=== PATIENT | male | born 1955 | race Caucasian/White ===

== ENCOUNTER 2020-03-28 09:11 | Outpatient (CLI) | payer MEDICAID, SELFPAY ==
--- NOTE | 2020-03-28 09:22 | CT_ITS ---
WS: [id number] CT LUNG CANCER SCREENING DLP: 99.55 mGy.cm DIvol: 2.73 mGy CLINICAL INFORMATION SCREENING VISIT: Baseline COMPARISON: None available. FINDINGS Diagnostic quality: Satisfactory Comments: None. Lung Nodules: 2 mm nodule periphery LEFT upper lobe, image 35 of series 3. Very nonspecific 3 mm nodu le in the LEFT mainstem bronchus. Lungs: Hyperexpansion. Heart: Mild enlargement the heart chambers. Dense calcification along the mitral annular valve plane. Extensive coronary artery calcifications. Other findings: Very mild enlargement of the pulmonary artery measuring 2.9 cm. Mild atherosclerosis aorta. Small mediastinal and hilar lymph nodes. Mild anterior wedging of T11. CT/CT lung screening [id number] IMPRESSION: LUNG-RADS: 2S-Benign Appearance or Behavior with Significant Findings FOLLOW UP: 12 Month: Continue annual screening with LDCT 1. Severe coronary artery calcifications. 2. Mild atherosclerosis aorta.
== END 2020-03-28 09:12 | disposition home or self-care (01) ==
LOC: RAD 09:14
PROVIDERS: PCP Internal Medicine; Visit Provider Internal Medicine
DX: Z12.2 Encounter for screening for malignant neoplasm of respiratory organs (principal); F17.200 Nicotine dependence, unspecified, uncomplicated; I25.10 Atherosclerotic heart disease of native coronary artery without angina pectoris; I70.0 Atherosclerosis of aorta
CPT/HCPCS: G0297

== ENCOUNTER 2020-07-03 11:55 | Emergency (ER) | payer MEDICAID, SELFPAY ==
[2020-07-03 12:01] VITALS: BP 168/103; PULSE 65; RESP 18; TEMP 36.8; O2SAT 99; BMI 25.9
[2020-07-03 12:20] VITALS: BP 168/104; PULSE 66; RESP 17; TEMP 36.7
--- NOTE | 2020-07-03 12:20 | W.ED.DENTAL ---
HPI - Dental/Oral General: Chief complaint: Skin/Abscess/Foreign Body Stated complaint: side of face swollen/tooth Time Seen by Provider: 07/03/20 12:11 History of Present Illness: HPI Narrative: 64-year-old male patient presents to the emergency department with 1 day onset of dental pain. He reports facial tenderness and swelling left upper cheek. Onset at 3 AM this morning. He reports history of poor dentition, difficulty with obtaining dentistry secondary to insurance. He denies difficulty swallowing, drooling or breathing. He is requesting antibiotics. MD Complaint: tooth pain Location: Tooth # Teeth map: 1. Onset (ago): day(s) (1) Duration: constant Severity: moderate Severity scale (1-10): 5 Exacerbating factors: chewing and cold Context: history of dental caries Associated symptoms: Reports no associated symptoms; Denies fever(s) Treatment prior to arrival: none Review of Systems General: Reports: 10 or more systems reviewed and unremarkable except in HPI and below Const: Denies: fever(s), chills or diaphoresis Eyes: Denies: blurry vision or eye redness ENMT: Reports: dental pain; Denies: throat pain, uvular edema, mouth pain, halitosis, disequilibrium, nasal congestion or nasal obstruction Card: Denies: chest pain, palpitations or irregular heart rhythm Resp: Denies: dyspnea, productive cough, non-productive cough or wheezing GI: Denies: abdominal pain, nausea or vomiting : Denies: dysuria Musc: Denies: back pain Skin/Breast: Denies: rash or pruritus Neuro: Denies: headache(s), weakness in extremities or behavioral changes Lc/Lymph: Denies: easy bruising PFSH ED PFSH: Medical History Atrial fibrillation CAD (coronary artery disease) Fatigue EKG from today revealed sinus rhythm with features of LVH. ST-T changes in the high lateral leads. Occasional PVCs. No significant new changes. Hepatitis C HTN (hypertension) Hyperlipidemia IHSS (idiopathic hypertrophic subaortic stenosis) Smoker Surgical History S/P appendectomy S/P coronary artery stent placement Family History Other Hypertension Social History Smoking and tobacco status: current every day smoker Alcohol intake: former Physical Exam Const: COMMON NORMALS: no acute distress, patient oriented x3, healthy appearing and alert GENERAL APPEARANCE: cooperative, comfortable and well hydrated HENMT: COMMON NORMALS: normocephalic, atraumatic, external ears normal, EAC's normal, TM's normal bilaterally, Normal external nose present and moist oral mucous membranes HEAD & SCALP: normocephalic and atraumatic FACE & SINUS: sinus tenderness maxillary (left), edema on the left and Facial tenderness on exam of face and sinuses (left cheek) on the left NOSE: Normal external nose present EXTERNAL EAR: Yes external ears normal EXTERNAL AUDITORY CANAL: EAC's normal TYMPANIC MEMBRANE: TM's normal bilaterally MOUTH: Normal oral and palatal mucosa present, tongue normal and lip abnormal (left upper lip edema present); lip not normal, no drooling, no mouth trauma and no trismus TEETH & GINGIVA: Yes abnormal tooth and associated gingiva, Yes caries and Yes gingiva abnormal TEETH & GINGIVA IMAGES: 1. avulsion with gum edema and erythema/tenderness Negative Elizabeth's angina THROAT: posterior oropharynx normal, tonsils normal and uvula midline; no uvular edema Eye: COMMON NORMALS: Equal, round and reactive pupils present and EOMs intact bilaterally GENERAL EYE: appearance normal, both eyes and all related structures PUPIL: Yes Equal, round and reactive pupils present Neck/C-Spine: COMMON NORMALS: full ROM and no lymphadenopathy GENERAL: Yes normal visual inspection and Yes trachea midline CERVICAL SPINE: Yes cervical ROM normal Lymph: LYMPHATIC: no lymphadenopathy noted Chest: COMMONS NORMALS: normal inspection of the chest Resp: COMMON NORMALS: normal respiratory effort and clear to auscultation bilaterally AUSCULTATION: clear to auscultation bilaterally Cardio: COMMON NORMALS: regular rhythm, S1 normal heart sound present, S2 normal heart sound present and Peripheral pulses 2+ throughout RHYTHM: regular rhythm HEART SOUNDS: S1 normal heart sound present and S2 normal heart sound present PERIPHERAL PULSES: Peripheral pulses 2+ throughout GI: COMMON NORMALS: Soft to palpation and non-tender INSPECTION: Yes normal to inspection PALPATION: Yes Soft to palpation : COMMON NORMALS: Yes no CVA tenderness BLADDER/KIDNEY EXAM: Yes no CVA tenderness Back/Pelvis: COMMON NORMALS: no CVA tenderness and thoracic and lumbar spine normal to inspection Extremity: COMMON NORMALS: normal to inspection and capillary refill normal Neuro: COMMON NORMALS: patient oriented x3 and no focal motor deficits SENSORIUM/ORIENTATION: Yes alert Psych: COMMON NORMALS: mental status grossly normal, Normal thought process present and cooperative ACTIVITY/MOTOR BEHAVIOR: Yes appropriate eye contact THOUGHT PROCESS: Normal thought process present Skin: COMMON NORMALS: no rashes or lesions noted and turgor normal GENERAL SKIN EXAM: no rashes or lesions noted and turgor normal Course ED course: 64-year-old male patient presents to the emergency department with left upper incisor dental abscess. Clindamycin prescribed to the patient. He declined need for oral pain medication. Agrees to follow-up with dentistry but says has been difficult. I advised need to follow-up with dentistry in 10 days. Advised to return to the emergency department if he develops increased facial swelling with tenderness or drooling/difficulty breathing. Verbalized understanding. Advised to take clindamycin until all gone and monitor for diarrhea. Vital Signs: Vital signs: Vital Signs Temperature 97.6 F 07/03/20 12:50 Pulse Rate 63 07/03/20 12:50 Respiratory Rate 18 07/03/20 12:50 Blood Pressure 162/99 07/03/20 12:50 Pulse Oximetry 95 07/03/20 12:50 Discharge Plan Discharge Patient Disposition: Home Clinical Impression: Pain, dental, Abscess, dental Condition: Stable Prescriptions: New clindamycin HCl 300 mg capsule 300 mg PO QID 7 Days Qty: 28 RF: 0 No Action chlorthalidone 25 mg tablet 25 mg PO DAILY 30 Days Qty: 30 RF: 5 potassium chloride 8 mEq capsule, extended release 8 meq PO DAILY 30 Days Qty: 30 RF: 5 Eliquis 5 mg tablet 5 mg PO BID RF: 0 amlodipine 10 mg tablet 10 mg PO DAILY RF: 0 atorvastatin 40 mg tablet 40 mg PO DAILY RF: 0 metoprolol tartrate 50 mg tablet 50 mg PO BID RF: 0 pantoprazole [Protonix] 40 mg tablet,delayed release (DR/EC) 40 mg PO DAILY RF: 0 benazepril 40 mg tablet 40 mg PO DAILY Qty: 30 RF: 11 Discharge Orders: Discharge Order (Routine); Ordered 07/03/20 Ordered By: Maye Ugalde Referrals: Ansley,Ya Mora, MD [Primary Care Provider] - Discharge Diet: GI Soft Discharge Activity: Resume usual activity Patient Instructions: Dental Abscess (ED), Dental Caries (ED), Toothache (ED) Activity Restrictions/Additional Instructions: #1 warm salt water swish and spit several times daily. May alternate with hydrogen peroxide. #2 take antibiotics until all gone #3 make sure to follow up with your dentist within 10 days #4 avoid chewing on the affected side #5 warm compresses to the affected side of the face may help with pain #6 sleeping with the head of the bed elevated may help to decrease facial swelling #7 return to the emergency room immediately if you have any difficulty breathing, swelling of the throat, swelling of the neck or chin, or failure to improve within [] days. #8 avoid hot or cold foods and drinks #9 may use dental wax to wrap around the affected teeth or tooth. This may help with sensitivity. Take Tylenol/ibuprofen to help with pain. Discharge Date/Time: 07/03/20 12:54 Coding Level of Care Code ED Process Lead for Yajaira Fwmegan Exam Comprehensive
[2020-07-03 12:50] VITALS: BP 162/99; PULSE 63; RESP 18; TEMP 36.4; O2SAT 95
== END 2020-07-03 12:54 | disposition home or self-care (01) ==
PROVIDERS: Emergency Provider Nurse Practitioner Family; PCP Internal Medicine
DX: K04.7 Periapical abscess without sinus (principal); Z79.01 Long term (current) use of anticoagulants; I48.91 Unspecified atrial fibrillation; I25.10 Atherosclerotic heart disease of native coronary artery without angina pectoris; Z86.19 Personal history of other infectious and parasitic diseases; I10 Essential (primary) hypertension; E78.5 Hyperlipidemia, unspecified; F17.210 Nicotine dependence, cigarettes, uncomplicated
CPT/HCPCS: 12345; 99283

== ENCOUNTER 2020-08-13 12:18 | Outpatient (CLI) | payer MEDICAID, SELFPAY ==
--- NOTE | 2020-08-13 12:45 | USCV_ITS ---
Pratik Garcia Age: 64 Gender: M : 1955 Exam Date: 08/13/2020 13:02 Ordering Phys: Landy Ivy MD ([email or web address]) Technologist: Maggy Bonilla Exam Location: [facility] – [place] Indication: MURMUR BP: 129 / 72 HR: 61 Rhythm: Sinus Technical Quality: Adequate MEASUREMENTS (Male / Female) Normal Values 2D ECHO LV Diastolic Diameter PLAX 3.3 cm 4.2 - 5.9 / 3.9 - 5.3 cm LV Systolic Diameter PLAX 2.6 cm LV Chamber Size 4.0 cm IVS Diastolic Thickness 1.8 cm 0.6 - 1.0 / 0.6 - 0.9 cm IVS Systolic Thickness 1.7 cm LVPW Diastolic Thickness 1.5 cm 0.6 - 1.0 / 0.6 - 0.9 cm LVPW Systolic Thickness 2.0 cm RV Chamber Size 3.0 cm LVOT Diameter 2.1 cm LV Ejection Fraction 2D Teich 43.1 % LV Ejection Fraction MOD 2C 39.1 % LV Ejection Fraction 2C AL 39.0 % LA Diameter 3.7 cm LA Width 3.0 cm LA Height 4.4 cm RA Width 2.4 cm RA Height 3.6 cm M-MODE LV Diastolic Diameter MM 5.1 cm 4.2 - 5.9 / 3.9 - 5.3 cm LV Systolic Diameter MM 2.2 cm LV Ejection Fraction MM Teich 87.6 % IVS Diastolic Thickness MM 1.0 cm 0.6 - 1.0 / 0.6 - 0.9 cm IVS Systolic Thickness MM 1.7 cm LVPW Diastolic Thickness MM 1.5 cm 0.6 - 1.0 / 0.6 - 0.9 cm LVPW Systolic Thickness MM 1.7 cm Aortic Annulus Diameter 3.0 cm LA Ao Ratio MM 1.4 MV E Point Septal Separation 0.3 cm DOPPLER AV Peak Velocity 229.0 cm/s LVOT Peak Velocity 157.0 cm/s AV Area Cont Eq vti 2.2 cm squared AV Area Cont Eq pk 2.4 cm squared MV Area PHT 3.1 cm squared Mitral E to A Ratio 0.8 MV E' Velocity 45.0 cm/s Mitral E to MV E' Ratio 15.3 Mitral E to LV E' Lateral Ratio 14.5 Mitral E to LV E' Septal Ratio 16.2 TR Peak Velocity 234.8 cm/s TR Peak Gradient 22.0 mmHg TV Peak E Velocity 61.0 cm/s Right Atrial Pressure 3.0 mmHg Pulmonary Artery Systolic Pressu 25.0 mmHg PV Peak Velocity 103.0 cm/s RV Acceleration Time 0.1 s RV Ejection Time 0.3 s RV AcT/ET 0.3 FINDINGS Left Ventricle Severe concentric left renal hypertrophy with an ejection fraction of 88%. There appears to be flow turbulence tubers the LV outflow tract. Outflow gradient was not obtained properly.Grade I/IV diastolic dysfunction (abnormal relaxation filling pattern), normal to mildly elevated filling pressures. Right Ventricle Normal right ventricular size and systolic function. Right Atrium Normal right atrial size. Left Atrium Appears to be mildly dilated. Mitral Valve Heavy posterior mitral annular calcification. Mild to moderate mitral regurgitation. Aortic Valve Some thickening of the aortic valve. Tricuspid Valve No gross abnormalities noted.trace tricuspid valve regurgitation. Pulmonic Valve Pulmonic valve not well visualized. Pericardium No pericardial effusion. Aorta Normal aortic annulus size. CONCLUSIONS 1. Severe concentric left renal hypertrophy with a supranormal ejection fraction of 88%. He has features of hypertrophic obstructive cardiomyopathy. However the gradient across the outflow tract was not obtained properly. The Doppler study of the outflow tract need to be repeated. 2.Type I diastolic dysfunction. 3. Mild left atrial enlargement. 4. Heavy posterior mitral annular calcification. 5. Mild to moderate mitral regurgitation 6. Trace of tricuspid regurgitation 7. Possibly normal pulmonary artery pressure. Because of the poor Doppler signals, PA pressure estimation could be misleading 8. No intracardiac masses or pericardial effusion. Need to repeat the Doppler examination of the LV outflow tract Dr Landy Ivy MD [facility] (Electronically Signed) Final Date: 17 August 2020 19:03 S
== END 2020-08-13 12:19 | disposition home or self-care (01) ==
LOC: US 12:21
PROVIDERS: PCP Internal Medicine; Visit Provider Internal Medicine Cardiovascular Disease
DX: R01.1 Cardiac murmur, unspecified (principal); I08.1 Rheumatic disorders of both mitral and tricuspid valves
CPT/HCPCS: 93306

== ENCOUNTER → 2020-09-24 11:23 | Outpatient (BNVA) | payer MEDICAID, SELFPAY | PROVIDERS: PCP Internal Medicine; Visit Provider Internal Medicine Cardiovascular Disease | DX: R07.9 Chest pain, unspecified (principal); R53.82 Chronic fatigue, unspecified; R07.89 Other chest pain; I42.1 Obstructive hypertrophic cardiomyopathy; I10 Essential (primary) hypertension; R06.02 Shortness of breath; I48.0 Paroxysmal atrial fibrillation; I25.10 Atherosclerotic heart disease of native coronary artery without angina pectoris; F17.200 Nicotine dependence, unspecified, uncomplicated; E78.2 Mixed hyperlipidemia | CPT/HCPCS: 80048 ==

== ENCOUNTER → 2020-10-05 10:49 | Outpatient (BNVA) | payer MEDICAID, SELFPAY | PROVIDERS: PCP Internal Medicine; Visit Provider Emergency Medicine | DX: Z11.59 Encounter for screening for other viral diseases (principal) | CPT/HCPCS: 87635 ==

== ENCOUNTER 2020-10-09 08:58 | Outpatient (CLI) | payer MEDICAID, SELFPAY ==
--- NOTE | 2020-10-09 09:21 | PFTS_ITS ---
Date of Study:10/09/20 Date of Dictation: 10/17/2020 MECHANICS: Forced vital capacity (FVC) is normal. Forced expiratory volume in one second (FEV1) is reduced. 57% FEV1/FVC is reduced. There is significant response to bronchodilators. FLOW VOLUME LOOP: scooping of expiratory limb suggesting airway obstruction. . LUNG VOLUMES: Not measured. DIFFUSING CAPACITY FOR CARBON MONOXIDE: not measured. . INTERPRETATION: The spirometry suggestive of moderate obstructive ventilatory defect. There is significant response to bronchodilators. Please correlate clinically. MTDD
== END 2020-10-09 08:59 | disposition home or self-care (01) ==
LOC: RT 09:03
PROVIDERS: PCP Internal Medicine; Visit Provider Internal Medicine
DX: Z11.59 Encounter for screening for other viral diseases (principal)
CPT/HCPCS: 94060; J7611

== ENCOUNTER 2021-02-11 09:06 | Outpatient (CLI) | payer MEDICAID, SELFPAY ==
--- NOTE | 2021-02-11 09:14 | USCV_ITS ---
Pratik Garcia Age: 65 Gender: M : 1955 Exam Date: 02/11/2021 09:35 Ordering Phys: Ya Panchal MD Technologist: Exam Location: [facility] [place] Indication: PRANAV SUP AO STEN BP: 120 / 80 HR: 61 Rhythm: Sinus Technical Quality: Fair MEASUREMENTS (Male / Female) Normal Values 2D ECHO LV Diastolic Diameter PLAX 3.7 cm 4.2 - 5.9 / 3.9 - 5.3 cm LV Systolic Diameter PLAX 1.6 cm IVS Diastolic Thickness 2.5 cm 0.6 - 1.0 / 0.6 - 0.9 cm IVS Systolic Thickness 2.7 cm LVPW Diastolic Thickness 1.5 cm 0.6 - 1.0 / 0.6 - 0.9 cm LVPW Systolic Thickness 2.0 cm LVOT Diameter 2.0 cm LV Ejection Fraction 2D Teich 86.9 % LA Diameter 4.2 cm LA Width 4.4 cm LA Height 5.4 cm RA Width 3.5 cm RA Height 4.8 cm Aorta at Sinotubular Diameter 2.7 cm DOPPLER LVOT Peak Velocity 684.0 cm/s MV Area PHT 5.0 cm squared Mitral E to A Ratio 0.6 MV E' Velocity 74.0 cm/s Mitral E to LV E' Septal Ratio 14.9 TR Peak Velocity 220.0 cm/s TR Peak Gradient 19.4 mmHg TV Peak E Velocity 111.0 cm/s Right Atrial Pressure 3.0 mmHg Pulmonary Artery Systolic Pressu 22.4 mmHg PV Peak Velocity 76.0 cm/s FINDINGS Left Ventricle Smal left ventricular cavity and hyperdynamic left ventricular systolic function. Severe asymmetric left ventricular hypertrophy ( LVISd=2.2 cm, LVPWd=1.3). Increased turbulence in left ventricular outflow tract. Peak left ventricular outflow tract velocity of 5.7 m/s, peak gradient with valsalva of 130 mm Hg. Left ventricular ejection fraction is estimated at 80 %. No regional wall motion abnormalities. Grade 1 diastolic dysfunction. Right Ventricle Normal right ventricular size and systolic function. Right ventricular systolic pressure 22.4 mmHg. Right Atrium Normal right atrial size. Right atrial pressure estimated at 3 mm Hg. Left Atrium Mildly increased left atrial size. Mitral Valve Severe mitral annular calcification. Thickened mitral valve. Systolic anterior motion of anterior mitral valve leaflet. No mitral valve stenosis. Mild posteriorly directed mitral valve regurgitation. Aortic Valve Thickened trileaflet aortic valve. No aortic valve stenosis. No aortic valve regurgitation. Tricuspid Valve Structurally normal tricuspid valve. No tricuspid valve stenosis. Mild tricuspid valve regurgitation. Pulmonic Valve Structurally normal pulmonic valve. No pulmonary valve stenosis. Trace pulmonary valve regurgitation. Pericardium No pericardial effusion. Aorta Normal size aortic root. Normal sized inferior cass cava with normal respiratory variation. CONCLUSIONS 1. Severe asymmetric left ventricular hypertrophy ( LVISd=2.2 cm, LVPWd=1.3). Peak left ventricular outflow tract velocity of 5.7 m/s, peak gradient with valsalva of 130 mm Hg. Left ventricular ejection fraction is estimated at 80 %. No regional wall motion abnormalities. Grade 1 diastolic dysfunction. 2. Normal right ventricular size and systolic function. 3. Systolic anterior motion of anterior mitral valve leaflet. Mild posteriorly directed mitral valve regurgitation. 4. Mild tricuspid valve regurgitation. 5. These findings suggest hypertrophic obstructive cardiomyopathy with LVOT gradient of 130 mm Hg. Nahomy Barnard MD (Electronically Signed) Final Date: 17 Feb 2021 14:03 S
== END 2021-02-11 09:07 | disposition home or self-care (01) ==
LOC: RAD 09:08
PROVIDERS: PCP Internal Medicine; Visit Provider Internal Medicine
DX: I42.2 Other hypertrophic cardiomyopathy (principal); I08.1 Rheumatic disorders of both mitral and tricuspid valves
CPT/HCPCS: 93306

== ENCOUNTER → 2021-11-26 11:54 | Outpatient (BNVA) | payer MEDICAID, SELFPAY | PROVIDERS: PCP Internal Medicine; Visit Provider Internal Medicine Cardiovascular Disease | DX: I25.10 Atherosclerotic heart disease of native coronary artery without angina pectoris (principal); E78.2 Mixed hyperlipidemia; I48.0 Paroxysmal atrial fibrillation; I42.1 Obstructive hypertrophic cardiomyopathy; I10 Essential (primary) hypertension; F17.200 Nicotine dependence, unspecified, uncomplicated | CPT/HCPCS: 99214 ==

== ENCOUNTER 2022-02-25 13:37 | Outpatient (CLI) | payer MEDICAID, SELFPAY ==
--- NOTE | 2022-02-25 13:53 | CT_ITS ---
WS: [id number] LDCT LUNG CANCER SCREENING HISTORY: NICOTINE Dependence, cigarettes TECHNIQUE: Axial imaging performed from the apices to 1 cm below the costophrenic angles. Coronal and sagittal reformats are submitted with axial MIP series. All CT scans at [facility] use at least one of these dose optimization techniques: automated exposure control; mA and/or kV adjustment per patient size (includes targeted exams where dose is matched to clinical indication); or iterativ e reconstruction. DLP: 81.51 mGy.cm DIvol: Mean CTDIvol: 1.60 (mGy) COMPARISON: 03/28/2020 Diagnostic quality: Satisfactory Lung Nodules: No pulmonary nodules are identified. No mass. Hyperexpansion. There is a very small end obronchial lesion in the proximal RIGHT upper lobe bronchus which in retrospect was probably also pre sent on the prior study therefore likely benign with no change. Heart: Normal size heart. Calcification along the mitral annular valve plane. Other findings: Moderate atherosclerosis in the [place] coronary arteries similar to the prior study. Pulmonary arteries are equal to the aorta. No adenopathy identified. CT/CT lung screening [id number] IMPRESSION: LUNG-RADS: 1-Negative FOLLOW UP: 12 Month: Continue annual screening with LDCT OTHER FINDINGS (S MODIFIER): None.
== END 2022-02-25 13:38 | disposition home or self-care (01) ==
LOC: RAD 13:41
PROVIDERS: PCP Internal Medicine; Visit Provider Internal Medicine
DX: Z12.2 Encounter for screening for malignant neoplasm of respiratory organs (principal); F17.210 Nicotine dependence, cigarettes, uncomplicated
CPT/HCPCS: 71271

== ENCOUNTER 2022-05-08 11:36 | Emergency (ER) | payer MEDICAID, SELFPAY ==
[2022-05-08 11:51] VITALS: BP 132/69; PULSE 67; RESP 18; TEMP 36.6; O2SAT 95; BMI 26.1
[2022-05-08] MEDS: sodium chloride 0.9% 1,000 ML 999 ML IV (12:26)
[2022-05-08 12:39] VITALS: BP 114/71; PULSE 70; RESP 16; O2SAT 94
--- NOTE | 2022-05-08 12:40 | W.ED.ALCOHOL ---
Documented by User: FAINA Boo 05/08/22 17:57 HPI - Alcohol General: Chief Complaint: Alcohol Stated Complaint: drug detox Time Seen by Provider: 05/08/22 12:10 History of Present Illness: Patient is a 66-year-old male comes to the ED wanting detox from drug and alcohol. Patient says he is a daily alcohol drinker and also uses IV meth as well. His last meth use was approximately 8 weeks ago. Patient states he drinks approximately half a pint of liquor daily. Denies any SI. Patient would like to be treated for alcohol and drug detox. Associated symptoms: Deny abdominal pain, nausea, suicidal ideation or vomiting Review of Systems Const: Denies: fever(s), chills or fatigue Eyes: Denies: change in vision or eye discomfort ENMT: Denies: throat pain, odynophagia, nasal discharge or nasal congestion Card: Denies: chest pain, palpitations, edema, swelling of feet/ankles, dyspnea on exertion or orthopnea Resp: Denies: dyspnea, productive cough or non-productive cough GI: Denies: abdominal pain, nausea, vomiting, diarrhea, constipation or hematochezia : Denies: flank pain, difficulty urinating, dysuria or hematuria Musc: Denies: neck pain, back pain or extremity swelling Skin/Breast: Denies: rash or new lesions Neuro: Denies: headache(s), numbness in extremities or weakness in extremities Psych: Denies: suicidal ideation PFSH ED PFSH: Medical History Atherosclerotic heart disease of [place] coronary artery without angina pectoris Atrial fibrillation CAD (coronary artery disease) Fatigue EKG from today revealed sinus rhythm with features of LVH. ST-T changes in the high lateral leads. Occasional PVCs. No significant new changes. Hepatitis C HTN (hypertension) Hyperlipidemia IHSS (idiopathic hypertrophic subaortic stenosis) Smoker Surgical History S/P appendectomy S/P coronary artery stent placement Family History Mother CAD (coronary artery disease) Diabetes Sister Cancer Father Lung disease Other Hypertension Denies family history of Clotting disorder Dementia Chronic kidney disease (CKD) Suicide Anesthesia complication Bleeding disorder Stroke Social History Smoking and tobacco status: current every day smoker Alcohol intake: former Physical Exam Const: COMMON NORMALS: no acute distress, patient oriented x3, healthy appearing and alert GENERAL APPEARANCE: cooperative and comfortable HENMT: COMMON NORMALS: normocephalic HEAD & SCALP: normocephalic MOUTH: Normal oral and palatal mucosa present THROAT: posterior oropharynx normal and uvula midline Neck/C-Spine: COMMON NORMALS: supple GENERAL: Yes normal visual inspection Resp: COMMON NORMALS: normal respiratory effort, No retractions, No use of accessory muscles and clear to auscultation bilaterally AUSCULTATION: clear to auscultation bilaterally Cardio: COMMON NORMALS: regular rate, regular rhythm, S1 normal heart sound present, S2 normal heart sound present, No gallops present (Cardio), No clicks present (Cardio), No murmurs present (Cardio) and Peripheral pulses 2+ throughout RATE: regular rate RHYTHM: regular rhythm HEART SOUNDS: S1 normal heart sound present and S2 normal heart sound present PERIPHERAL PULSES: Peripheral pulses 2+ throughout GI: COMMON NORMALS: Normal to inspection, nondistended, normoactive bowel sounds present, Soft to palpation, non-tender and no masses PALPATION: Yes Soft to palpation : COMMON NORMALS: Yes no CVA tenderness BLADDER/KIDNEY EXAM: Yes no CVA tenderness Back/Pelvis: COMMON NORMALS: no CVA tenderness Extremity: COMMON NORMALS: normal to inspection Neuro: COMMON NORMALS: patient oriented x3 SENSORIUM/ORIENTATION: Yes alert GAIT: Yes Normal gait present Skin: GENERAL SKIN EXAM: dry skin Course Vital Signs: Vital signs: Vital Signs Temperature 97.9 F 05/08/22 11:51 Pulse Rate 70 05/08/22 12:39 Respiratory Rate 16 05/08/22 12:39 Blood Pressure 114/71 05/08/22 12:39 Pulse Oximetry 94 05/08/22 12:39 Oxygen Delivery Me thod 05/08/22 12:39 MDM - Alcohol Medical Decision Making Patient 66-year-old male comes to the ED wanting alcohol and drug detox. Denies any SI. Vitals are stable and patient appears nontoxic in no acute distress or pain. Exam of patient is benign. I talked with Dr. Kennedy about patient case and he agreed to have patient discharged home and he can contact some addiction treatment facilities. I sent him home with some papers on a couple facilities he can contact to help with his alcohol and drug addiction. Patient understood and agreed with plan. Discharge Plan Discharge Patient Disposition: Home Clinical Impression: Desire for detoxification Condition: Stable Prescriptions: No Action amlodipine 10 mg tablet 10 mg PO DAILY atorvastatin 40 mg tablet 40 mg PO DAILY benazepril 40 mg tablet See Rx Instructions .ROUTE .COMPLEX Qty: 90 3RF Dose Instruction: TAKE 1 TABLET BY MOUTH EVERY DAY Rx Instructions: TAKE 1 TABLET BY MOUTH EVERY DAY metoprolol tartrate 50 mg tablet See Rx Instructions .ROUTE .COMPLEX Qty: 180 3RF Dose Instruction: TAKE 1 TABLET BY MOUTH TWO TIMES DAILY Rx Instructions: TAKE 1 TABLET BY MOUTH TWO TIMES DAILY Discharge Orders: Discharge ED (Routine); Ordered 05/08/22 Ordered By: Will Can Referrals: Ya Panchal MD [Primary Care Provider] - Discharge Diet: Regular Discharge Activity: Increase activity as tolerated Patient Instructions: Abuse of Alcohol (ED) Activity Restrictions/Additional Instructions: Follow-up with medical provider as directed in the next 5 to 7 days reevaluation. Contact drug and alcohol addiction center to get help. Return to the ER or your medical provider if condition worsens. Please read and understand discharge instructions. Thank you for choosing [facility] for your healthcare needs today. Please realize this is an emergency room and that we are providing you with a medical screening exam and this may not be complete and all inclusive of all the testing and or work up that you may need to determine your ailment or severity of your illness. It is very important that you follow up as instructed or that you return to the Emergency Department should you have concerns or if your condition changes or worsens in any way. Coding Level of Care Code ED Extension Work Instructor for Chg Fwd Exam Comprehensive Documented by User: Paul Kennedy DO 05/09/22 10:46 HPI - Alcohol General: Chief Complaint: Alcohol Stated Complaint: drug detox Time Seen by Provider: 05/08/22 12:10 PFSH ED PFSH: Medical History Atherosclerotic heart disease of [place] coronary artery without angina pectoris Atrial fibrillation CAD (coronary artery disease) Fatigue EKG from today revealed sinus rhythm with features of LVH. ST-T changes in the high lateral leads. Occasional PVCs. No significant new changes. Hepatitis C HTN (hypertension) Hyperlipidemia IHSS (idiopathic hypertrophic subaortic stenosis) Smoker Surgical History S/P appendectomy S/P coronary artery stent placement Family History Mother CAD (coronary artery disease) Diabetes Sister Cancer Father Lung disease Other Hypertension Denies family history of Clotting disorder Dementia Chronic kidney disease (CKD) Suicide Anesthesia complication Bleeding disorder Stroke Social History Smoking and tobacco status: current every day smoker Alcohol intake: former Course Vital Signs: Vital signs: Vital Signs Temperature 97.9 F 05/08/22 11:51 Pulse Rate 70 05/08/22 12:39 Respiratory Rate 16 05/08/22 12:39 Blood Pressure 114/71 05/08/22 12:39 Pulse Oximetry 94 05/08/22 12:39 Oxygen Delivery Me thod 05/08/22 12:39 MDM - Alcohol Medical Decision Making Patient 66-year-old male comes to the ED wanting alcohol and drug detox. Denies any SI. Vitals are stable and patient appears nontoxic in no acute distress or pain. Exam of patient is benign. I talked with Dr. Kennedy about patient case and he agreed to have patient discharged home and he can contact some addiction treatment facilities. I sent him home with some papers on a couple facilities he can contact to help with his alcohol and drug addiction. Patient understood and agreed with plan. Chart reviewed and patient discussed with midlevel. Agree with assessment and plan. Discharge Plan Discharge Patient Disposition: Home Clinical Impression: Desire for detoxification Condition: Stable Prescriptions: No Action amlodipine 10 mg tablet 10 mg PO DAILY atorvastatin 40 mg tablet 40 mg PO DAILY benazepril 40 mg tablet See Rx Instructions .ROUTE .COMPLEX Qty: 90 3RF Dose Instruction: TAKE 1 TABLET BY MOUTH EVERY DAY Rx Instructions: TAKE 1 TABLET BY MOUTH EVERY DAY metoprolol tartrate 50 mg tablet See Rx Instructions .ROUTE .COMPLEX Qty: 180 3RF Dose Instruction: TAKE 1 TABLET BY MOUTH TWO TIMES DAILY Rx Instructions: TAKE 1 TABLET BY MOUTH TWO TIMES DAILY Discharge Orders: Discharge ED (Routine); Ordered 05/08/22 Ordered By: Will Can Referrals: Ya Panchal MD [Primary Care Provider] - Discharge Diet: Regular Discharge Activity: Increase activity as tolerated Patient Instructions: Abuse of Alcohol (ED) Activity Restrictions/Additional Instructions: Follow-up with medical provider as directed in the next 5 to 7 days reevaluation. Contact drug and alcohol addiction center to get help. Return to the ER or your medical provider if condition worsens. Please read and understand discharge instructions. Thank you for choosing [facility] for your healthcare needs today. Please realize this is an emergency room and that we are providing you with a medical screening exam and this may not be complete and all inclusive of all the testing and or work up that you may need to determine your ailment or severity of your illness. It is very important that you follow up as instructed or that you return to the Emergency Department should you have concerns or if your condition changes or worsens in any way. Coding Level of Care Code ED Extension Work Instructor for Chg Fwd Exam Comprehensive
== END 2022-05-08 12:50 | disposition home or self-care (01) ==
PROVIDERS: Emergency Provider Physician Assistant; PCP Internal Medicine
DX: F10.20 Alcohol dependence, uncomplicated (principal); I25.10 Atherosclerotic heart disease of native coronary artery without angina pectoris; Z86.19 Personal history of other infectious and parasitic diseases; I10 Essential (primary) hypertension; E78.5 Hyperlipidemia, unspecified; F17.210 Nicotine dependence, cigarettes, uncomplicated
CPT/HCPCS: 96361; 96374; 99284; J3411; J7030

== ENCOUNTER → 2022-07-01 11:47 | Outpatient (BNVA) | payer MEDICAID, SELFPAY | PROVIDERS: PCP Internal Medicine; Visit Provider Internal Medicine Cardiovascular Disease | DX: I25.10 Atherosclerotic heart disease of native coronary artery without angina pectoris (principal); F17.200 Nicotine dependence, unspecified, uncomplicated; E78.2 Mixed hyperlipidemia; I48.0 Paroxysmal atrial fibrillation; Z79.01 Long term (current) use of anticoagulants; I10 Essential (primary) hypertension; I42.1 Obstructive hypertrophic cardiomyopathy | CPT/HCPCS: 99214 ==

== ENCOUNTER 2022-07-23 17:17 | Emergency (ER) | payer MEDICAID, SELFPAY ==
[2022-07-23] VITALS (7 sets, daily range): BP systolic 135–160; BP diastolic 71–100; PULSE 66–83; RESP 16–18; TEMP 36.8; O2SAT 93–95; BMI 26.6
--- NOTE | 2022-07-23 17:45 | W.ED.URI ---
HPI - URI/Sore Throat General: Chief Complaint: Upper Respiratory Infection Stated Complaint: SOB Time Seen by Provider: 07/23/22 17:45 History of Present Illness: Patient comes in today for complaints of respiratory illness for about 10 days. Patient appears nontoxic. Patient reports persistent cough and mild shortness of breath. Patient does have a history of a stent placement, coronary artery disease, smoker, hyperlipidemia, atrial fibrillation, and hypertension. Associated symptoms: Deny chest pain, fever(s), nausea or vomiting Review of Systems Const: Denies: fever(s) Card: Denies: chest pain Resp: Reports: non-productive cough GI: Denies: nausea or vomiting Musc: Denies: neck pain Skin/Breast: Denies: rash PFSH ED PFSH: Medical History Atherosclerotic heart disease of [place] coronary artery without angina pectoris Atrial fibrillation CAD (coronary artery disease) Fatigue EKG from today revealed sinus rhythm with features of LVH. ST-T changes in the high lateral leads. Occasional PVCs. No significant new changes. Hepatitis C HTN (hypertension) Hyperlipidemia IHSS (idiopathic hypertrophic subaortic stenosis) Smoker Surgical History S/P appendectomy S/P coronary artery stent placement Family History Mother CAD (coronary artery disease) Diabetes Sister Cancer Father Lung disease Other Hypertension Denies family history of Clotting disorder Dementia Chronic kidney disease (CKD) Suicide Anesthesia complication Bleeding disorder Stroke Social History Smoking and tobacco status: current every day smoker Alcohol intake: current Physical Exam Const: COMMON NORMALS: alert HENMT: COMMON NORMALS: normocephalic HEAD & SCALP: normocephalic THROAT: postnasal drainage Neck/C-Spine: COMMON NORMALS: no lymphadenopathy and no meningeal signs Resp: COMMON NORMALS: normal respiratory effort AUSCULTATION: diminished lung sounds bilateral in the lower lung plasencia GI: COMMON NORMALS: non-tender Back/Pelvis: COMMON NORMALS: thoracic and lumbar spine normal to inspection Extremity: COMMON NORMALS: no pedal edema Neuro: SENSORIUM/ORIENTATION: Yes alert MENINGEAL SIGNS: Yes no meningeal signs Skin: COMMON NORMALS: turgor normal GENERAL SKIN EXAM: turgor normal Course Vital Signs: Vital signs: Vital Signs Temperature 98.2 F 07/23/22 17:27 Pulse Rate 69 07/23/22 19:08 Respiratory Rate 18 07/23/22 19:08 Blood Pressure 156/100 07/23/22 19:08 Pulse Oximetry 95 07/23/22 19:08 Oxygen Delivery Me thod 07/23/22 18:44 MDM - URI/Sore Throat Medical Decision Making Patient came in today for complaints of some persistent coughing along with respiratory infection for the last 2 weeks. On exam patient appears nontoxic. Lungs are decreased in the bases. No adventitious sounds were noted. Vital signs are normal except for some elevation in blood pressure at 158 systolic. Patient sats 95% on room air. Differential diagnosis includes pneumonia, exacerbation of COPD, CHF. Patient seems to have a exacerbation of chronic bronchitis. We will treat with steroids and antibiotic and encourage him to use his albuterol inhaler as needed for cough or congestion. Patient reported understanding of care plan and need for follow-up or return to ER for worsening symptoms. Patient's BNP was slightly elevated at 1500. I did not have a baseline BNP for comparison. Patient was given 40 mg of furosemide and continued on 20 mg for 3 days. Patient was also given some potassium for secondary coverage. Discussed with the patient who agreed to plan. I still believe patient probably has COPD with exacerbation due to his symptoms and the history of illness. Patient stated understanding and agreed to plan. Lab Data : 07/23/22 18:12 07/23/22 18:12 Laboratory Results WBC 7.7 10^3/uL (4.0-10.0) 07/23/22 18:12 RBC 5.04 10^6/uL (4.1-5.3) 07/23/22 18:12 Hgb 14.6 g/dL (11.7-16.6) 07/23/22 18:12 Hct 45.6 % (42.0-52.0) 07/23/22 18:12 MCV 90.5 fl (80-94) 07/23/22 18:12 MCH 29.0 pg (28.0-34.0) 07/23/22 18:12 MCHC 32.0 g/dL (30.0-36.0) 07/23/22 18:12 RDW 12.6 % (12.1-15.1) 07/23/22 18:12 Plt Count 249 10^3/cmm (130-400) 07/23/22 18:12 MPV 9.8 fL (7.4-10.4) 07/23/22 18:12 Neut % (Auto) 57.9 % 07/23/22 18:12 Lymph % (Auto) 28.0 % 07/23/22 18:12 [place] % (Auto) 10.2 % 07/23/22 18:12 Eos % (Auto) 2.5 % 07/23/22 18:12 Baso % (Auto) 1.0 % 07/23/22 18:12 Neut # (Auto) 4.46 10^3/uL (1.8-7.7) 07/23/22 18:12 Lymph # (Auto) 2.2 10^3/uL (0.8-4.8) 07/23/22 18:12 [place] # (Auto) 0.8 10^3/uL (0.2-0.9) 07/23/22 18:12 Eos # (Auto) 0.2 10^3/uL (0.0-0.8) 07/23/22 18:12 Baso # (Auto) 0.1 10^3/uL (0.0-0.1) 07/23/22 18:12 Nucleated RBC % (auto) 0 % 07/23/22 18:12 Nucleated RBCs # 0.0 /100WBC 07/23/22 18:12 Sodium 140 mmol/L (136-145) 07/23/22 18:12 Potassium 4.7 mmol/L (3.5-5.1) 07/23/22 18:12 Chloride 103 mmol/L (98-107) 07/23/22 18:12 Carbon Dioxide 27 mmol/L (22-29) 07/23/22 18:12 Anion Gap 14.7 (5-19) 07/23/22 18:12 BUN 17 mg/dL (8-23) 07/23/22 18:12 Creatinine 1.0 mg/dL (0.7-1.2) 07/23/22 18:12 GFR Calculation 75.2 mL/min (90-130) L 07/23/22 18:12 Glucose 105 mg/dL (65-115) 07/23/22 18:12 Calculated Osmolality 292 mOsm/kg (285-295) 07/23/22 18:12 Calcium 9.4 mg/dL (8.5-10.5) 07/23/22 18:12 Total Bilirubin 0.4 mg/dL (0.15-1.2) 07/23/22 18:12 AST 20 U/L (0-40) 07/23/22 18:12 ALT 19 U/L (0-41) 07/23/22 18:12 Alkaline Phosphatase 102 U/L (40-130) 07/23/22 18:12 NT-Pro-B Natriuret Pep 1536 pg/mL (0-125) H 07/23/22 18:12 Total Protein 7.6 g/dL (6.6-8.7) 07/23/22 18:12 Albumin 4.4 g/dL (3.5-5.2) 07/23/22 18:12 Globulin 3.2 g/dL (1.3-4.6) 07/23/22 18:12 Discharge Plan Discharge Patient Disposition: Home Clinical Impression: COPD exacerbation Condition: Stable Prescriptions: New azithromycin 250 mg tablet 250 mg PO DAILY 4 Days Qty: 4 0RF furosemide 20 mg tablet 20 mg PO DAILY Qty: 3 0RF potassium chloride 10 mEq capsule, extended release 10 meq PO DAILY Qty: 3 0RF prednisone 20 mg tablet 20 mg PO BID 3 Days Qty: 6 0RF No Action amlodipine 10 mg tablet 10 mg PO DAILY atorvastatin 40 mg tablet 40 mg PO DAILY ProAir HFA 90 mcg/actuation HFA aerosol inhaler 2 puff INHALATION Q6H PRN (Reason: Shortness Of Breath Or Wheezing) metoprolol tartrate 50 mg tablet 50 mg PO BID benazepril 40 mg tablet 40 mg PO DAILY Discharge Orders: Discharge ED (Routine); Ordered 07/23/22 Ordered By: Angel Roque Referrals: Ya Panchal MD [Primary Care Provider] - Discharge Diet: Usual diet Discharge Activity: Increase activity as tolerated Patient Instructions: COPD (Chronic Obstructive Pulmonary Disease) (ED) Activity Restrictions/Additional Instructions: Home and rest. Use albuterol inhaler 2 puffs every 4-6 hours as needed for persistent coughing or shortness of breath. Take medications as directed. Follow-up with primary care in 1 week for recheck. Return to ED for new concerns or worsening symptoms. Coding Level of Care Code ED Hourly Sign Language Interpreter for Yajaira Cooper Exam Comprehensive
--- NOTE | 2022-07-23 17:53 | XRR_ITS ---
PROCEDURE INFORMATION: Exam: XR Chest Exam date and time: 07/23/2022 5:59 PM Age: 66 years old Clinical indication: Cough and shortness of breath; Prior surgery; Surgery type: Cardiac stents; Patient HX: SOB; Additional info: Cough, congestion TECHNIQUE: Imaging protocol: Radiologic exam of the chest. Views: 1 view. COMPARISON: CR XR chest 2V* [id number] 03/24/2018 5:11 PM FINDINGS: Lungs: The lungs are somewhat hyperinflated with increased interstitial markings, likely representing COPD. No evidence of focal consolidation to suggest pneumonia. Pleural spaces: Unremarkable. No pleural effusion. No pneumothorax. Heart/Mediastinum: Stable cardiomediastinal silhouette. Bones/joints: Unremarkable. XR/XR chest 1V portable [id number] IMPRESSION: No evidence of focal consolidation. COPD changes.
[2022-07-23 18:19] LABS: Basophils # 0.1 10^3/uL (0.0-0.1); Eosinophils # 0.2 10^3/uL (0.0-0.8); Eosinophils % 2.5 %; Hematocrit 45.6 % (42.0-52.0); Hemoglobin 14.6 g/dL (11.7-16.6); Lymphocytes # 2.2 10^3/uL (0.8-4.8); Mean Corpuscular Volume 90.5 fl (80-94); Mean Platelet Volume 9.8 fL (7.4-10.4); Monocytes # 0.8 10^3/uL (0.2-0.9); Monocytes % 10.2 %; Neutrophils # 4.46 10^3/uL (1.8-7.7); Neutrophils % 57.9 %; Nucleated Red Blood Cells % 0 %; Platelet Count 249 10^3/cmm (130-400); Red Blood Count 5.04 10^6/uL (4.1-5.3); Red Cell Distribution Width 12.6 % (12.1-15.1); White Blood Count 7.7 10^3/uL (4.0-10.0)
[2022-07-23] MEDS: azithromycin 250 mg Tablet 500 MG PO (18:38)
[2022-07-23] MEDS: dexamethasone 4 mg Tablet 10 MG PO (18:39)
[2022-07-23] MEDS: ipratropium-albuterol 3 mL Neb INHALATION (18:44)
[2022-07-23 18:51] LABS: Alanine Aminotransferase 19 U/L (0-41); Albumin Level 4.4 g/dL (3.5-5.2); Alkaline Phosphatase 102 U/L (40-130); Anion Gap 14.7 (5-19); Aspartate Amino Transferase 20 U/L (0-40); Blood Urea Nitrogen 17 mg/dL (8-23); Calcium 9.4 mg/dL (8.5-10.5); Carbon Dioxide 27 mmol/L (22-29); Chloride 103 mmol/L (98-107); Globulin 3.2 g/dL (1.3-4.6); Glomerular Filtration Rate 75.2 mL/min (90-130); Glucose 105 mg/dL (65-115); NT Pro B Type Natriuretic Pept 1536 pg/mL (0-125); Osmolality Calculated 292 mOsm/kg (285-295); Potassium 4.7 mmol/L (3.5-5.1); Sodium 140 mmol/L (136-145); Total Bilirubin 0.4 mg/dL (0.15-1.2); Total Protein 7.6 g/dL (6.6-8.7)
[2022-07-23] MEDS: FUROsemide 40 mg Tablet PO (19:07)
== END 2022-07-23 19:10 | disposition home or self-care (01) ==
PROVIDERS: Emergency Provider Nurse Practitioner Family; PCP Internal Medicine
DX: J44.1 Chronic obstructive pulmonary disease with (acute) exacerbation (principal); F17.210 Nicotine dependence, cigarettes, uncomplicated; I25.10 Atherosclerotic heart disease of native coronary artery without angina pectoris; Z86.19 Personal history of other infectious and parasitic diseases; I10 Essential (primary) hypertension; E78.5 Hyperlipidemia, unspecified
CPT/HCPCS: 71045; 80053; 83880; 85025; 94640; 99285; J8540; Q0144

== ENCOUNTER 2022-08-13 06:29 | Inpatient (IN) | payer MEDICAID, SELFPAY ==
[2022-08-13] VITALS (39 sets, daily range): BP systolic 103–161; BP diastolic 66–105; PULSE 70–104; RESP 13–32; TEMP 36.1–36.8; O2SAT 87–97; BMI 25.9
--- NOTE | 2022-08-13 06:33 | ECG_ITS ---
[facility] Test Date: 2022-08-13 Pat Name: Pratik Garcia Department: Room: Gender: Male Car Icer: : 1955 Requested By: Paul Clemente Order Number: [id number] Cole MD: Landy Ivy M.D. Measurements Intervals [place] Rate: 104 P: 0 MN: 0 QRS: 35 QRSD: 109 T: 99 QT: 362 QTc: 477 Interpretive Statements Multifocal atrial tachycardia WITH ABERRANT CONDUCTION OR VENTRICULAR PREMATURE COMPLEXES MODERATE VOLTAGE CRITERIA FOR LVH, CONSIDER NORMAL VARIANT [MEETS CRITERIA IN ONE OF: R(aVL), S(V1), R(V5), R(V5/V6)+S(V1)] ST DEVIATION AND MODERATE T-WAVE ABNORMALITY, CONSIDER LATERAL ISCHEMIA [-0.1+ mV T-WAVE IN I/aVL/V5/V6] Compared to ECG 02/15/2015 21:09:29 Ventricular premature complex(es) now present Aberrant conduction of supraventricular beat(s) now present T-wave abnormality now present Possible ischemia now present Sinus rhythm no longer present ST (T wave) deviation no longer present Electronically Signed On 08-14-2022 12:31:50 REELING AND TUBING MACHINE OPERATOR by Landy Ivy M.D. [email or web address]
--- NOTE | 2022-08-13 06:33 | XRR_ITS ---
PROCEDURE INFORMATION: Exam: XR Chest Exam date and time: 08/13/2022 7:40 AM Age: 66 years old Clinical indication: Injury or trauma; Fall; Blunt trauma (contusions or hematomas); Additional info: Dyspnea/cough TECHNIQUE: Imaging protocol: Radiologic exam of the chest. Views: 1 view. COMPARISON: CR XR chest 1V portable [id number] 07/23/2022 5:59 PM FINDINGS: Lungs: The lung parenchyma is clear. Pleural spaces: No pneumothorax. No pleural effusion. Heart/Mediastinum: The cardiomediastinal silhouette is within normal limits. Bones/joints: Unremarkable. XR/XR chest 1V portable [id number] IMPRESSION: No acute cardiopulmonary abnormality.
--- NOTE | 2022-08-13 06:38 | XRR_ITS ---
PROCEDURE INFORMATION: Exam: XR Cervical Spine Exam date and time: 08/13/2022 7:44 AM Age: 66 years old Clinical indication: Injury or trauma; Fall; Blunt trauma TECHNIQUE: Imaging protocol: Radiologic exam of the cervical spine. Views: 2 or 3 views. COMPARISON: CT cervical spin wo con* [id number] 07/06/2018 8:08 PM FINDINGS: Bones/joints: The cervical spine maintains a normal lordotic curvature. No spondylolisthesis identified. C1 and C2 maintain normal alignment. The base of the odontoid is unremarkable. The vertebral bodies maintain normal height. Multilevel loss of intervertebral disc height throughout the cervical spine with prominent endplate degenerative changes. Multilevel facet arthropathy. Soft tissues: No significant prevertebral soft tissue swelling. XR/XR cervical spine 3V* [id number] IMPRESSION: 1. No vertebral body height loss or traumatic malalignment identified. 2. Significant multilevel degenerative changes identified, similar to prior exam.
--- NOTE | 2022-08-13 06:38 | CT_ITS ---
WS: [id number] CT HEAD NONCONTRAST HISTORY: trauma TECHNIQUE: Contiguous axial imaging performed through the brain in 2.5 mm imaging. Bone and soft tiss ue windows. Sagittal and coronal reformats reviewed. All CT scans at [facility] use at least one of these dose optimization techniques: automated exposure control; mA and/or kV adjustment per pa tient size (includes targeted exams where dose is matched to clinical indication); or iterative recon struction. DLP: 1167.52 mGy.cm COMPARISON: 07/06/2018 No acute intracranial hemorrhage, midline shift or mass effect. Very minimal atrophy and small vessel ischemic disease. Similar to the prior exam. No infarct. Ventricles: Normal size with no hydrocephalus. No inferior displacement of cerebellar tonsils. Paranasal sinuses: As visualized are clear. Mastoid air cells: Well pneumatized. Calvarium and scalp: Skull is intact with no soft tissue edema or swelling. CT/CT head wo con* [id number] IMPRESSION: 1. No acute intracranial hemorrhage or edema. 2. Mild atrophy and small vessel ischemic disease. No progression since 2018.
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
--- NOTE | 2022-08-13 06:44 | XRR_ITS ---
PROCEDURE INFORMATION: Exam: XR Right Shoulder Exam date and time: 08/13/2022 7:51 AM Age: 66 years old Clinical indication: Injury or trauma; Fall; Blunt trauma (contusions or hematomas); Shoulder; Right; Additional info: Pain TECHNIQUE: Imaging protocol: Radiologic exam of the Right shoulder. Views: 2 or more views. COMPARISON: CR (NECK, ) 08/13/2022 7:44 AM FINDINGS: Bones/joints: The glenohumeral and acromioclavicular joints are normally aligned. No acute fracture is seen. Lungs: Visualized portions of the chest are normal. Soft tissues: Unremarkable. Minimal calcifications adjacent to the greater tuberosity may be mild calcific tendinitis. XR/XR shoulder RT min 2V* [id number] IMPRESSION: 1. No evidence of acute fracture or dislocation. 2. Minimal calcifications adjacent to the greater tuberosity may be mild calcific tendinitis.
[2022-08-13] MEDS: sodium chloride 0.9% 1,000 ML 999 ML IV ×2 (06:45→09:05)
[2022-08-13 06:47] LABS: Basophils % 0.3 %; Hematocrit 45.1 % (42.0-52.0); Hemoglobin 14.8 g/dL (11.7-16.6); Lymphocytes % 7.8 %; Mean Corpuscular HGB Conc 32.8 g/dL (30.0-36.0); Mean Corpuscular Hemoglobin 29.5 pg (28.0-34.0); Mean Corpuscular Volume 89.8 fl (80-94); Mean Platelet Volume 9.3 fL (7.4-10.4); Monocytes # 0.9 10^3/uL (0.2-0.9); Monocytes % 6.9 %; Neutrophils # 11.04 10^3/uL (1.8-7.7); Neutrophils % 84.5 %; Nucleated Red Blood Cells % 0 %; Platelet Count 213 10^3/cmm (130-400); Red Blood Count 5.02 10^6/uL (4.1-5.3); Red Cell Distribution Width 13.1 % (12.1-15.1); White Blood Count 13.1 10^3/uL (4.0-10.0)
[2022-08-13 07:03] LABS: INR 1.08 (0.8-1.2); Partial Thromboplastin Time 27.7 SECONDS (23.9-36.7)
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
[2022-08-13 07:10] LABS: Alanine Aminotransferase 36 U/L (0-41); Albumin Level 4.8 g/dL (3.5-5.2); Alcohol Level 33 mg/dL (0-10); Alkaline Phosphatase 93 U/L (40-130); Anion Gap 23.5 (5-19); Aspartate Amino Transferase 38 U/L (0-40); Blood Urea Nitrogen 24 mg/dL (8-23); Calcium 9.6 mg/dL (8.5-10.5); Carbon Dioxide 24 mmol/L (22-29); Chloride 95 mmol/L (98-107); Glomerular Filtration Rate 43.7 mL/min (90-130); Glucose 115 mg/dL (65-115); Osmolality Calculated 291 mOsm/kg (285-295); Potassium 4.5 mmol/L (3.5-5.1); Sodium 138 mmol/L (136-145); Total Bilirubin 0.9 mg/dL (0.15-1.2); Total Protein 7.8 g/dL (6.6-8.7)
[2022-08-13 07:14] LABS: Creatine Phosphokinase 572 U/L (39-308)
[2022-08-13] MEDS: morphine 4 mg/mL SDV 1 mL 2 MG IVP (07:21)
[2022-08-13 09:23] LABS: Add Urine Microscopic? NO; Charge for UA Resulting for Rev
[2022-08-13] MEDS: ipratropium-albuterol 3 mL Neb INHALATION ×3 (09:28→23:50)
[2022-08-13 09:32] LABS: Bilirubin Urine Neg (Negative); Blood Urine Neg (Negative); Glucose Urine UA Norm (Normal); Ketones Urine 1+ (Negative); Leukocyte Esterase Urine Negative (Negative); Nitrate Urine Negative (Negative); Protein Urine Neg (Negative); Urine Appearance Clear (CLEAR); Urine Color Yellow (Yellow); Urobilinogen Urine Norm (Negative); pH Urine 5 (5-7)
[2022-08-13 09:43] LABS: ABG PCO2 51.5 mmHg (35-45); ABG PH Result 7.27 (7.35-7.45); Alveolar-Arterial Oxygen Gradi 4.3 mmHg (5-10); Arterial Blood Gas Hematocrit 43.1 % (42-52); Base Excess ABG -3.7 mmol/L (-2.0-2.0); Blood Gas Allen Test Pos; Blood Gas Operator Identificat CAK; Blood Gas Sample Site Radial, left; Blood Gas Sample Type Arterial; Carboxyhemoglobin 1.9 %THgb (0.4-20.1); HCO3 ABG 23.8 mmol/L (22-26); HGB O2 Sat 83.7 % (95-100); Ionized Calcium Level - ABG 1.1 mmol/L (1.1-1.4); Oxygen Device ROOM AIR; Oxygen Saturation ABG 86.2; PO2 ABG 54.9 mmHg (80.0-100.0); Potassium Level - ABG 4.4 mmol/L (3.5-5.0)
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
--- NOTE | 2022-08-13 11:12 | PC.NURSE ---
pt back in bed and on BiPAP. call light within reach
[2022-08-13] MEDS: metoprolol tartrate 25 mg Tablet PO (12:22)
--- NOTE | 2022-08-13 13:55 | PC.NURSE ---
Report called to Rina on Med Surg
[2022-08-13] MEDS: enoxaparin 40 mg/0.4 mL Syringe SUBCUT (16:53)
[2022-08-13] MEDS: sodium chloride 0.9% 1,000 ML 100 ML IV (16:59)
[2022-08-13] MEDS: metoprolol tartrate 50 mg Tablet PO (19:21)
[2022-08-13] MEDS: atorvastatin 40 mg Tablet PO (19:21)
[2022-08-13] MEDS: doxycycline 100 mg Tablet PO (19:22)
[2022-08-13] MEDS: budesonide 0.5 mg/2 mL Neb INHALATION (19:42)
--- NOTE | 2022-08-13 20:42 | PC.NURSE ---
REPORT TAKEN FROM TIFFANIE VILCHIS. PATIENT A&OX4, VSS. PATIENT SITTING ON SIDE OF BED, LEANED ON BEDSIDE TABLE, COMPLAINING OF PAIN IN RIBS WHEN COUGHING. BED LOCKED IN LOWEST POSITION, CALL LIGHT WITHIN REACH. PATIENT STATED NO FURTHER NEEDS AT THIS TIME.
[2022-08-14] VITALS (15 sets, daily range): BP systolic 116–171; BP diastolic 72–89; PULSE 70–103; RESP 14–24; TEMP 36.5–36.8; O2SAT 87–99
[2022-08-14] MEDS: oxyCODONE 5 mg IR Tab/Cap PO ×3 (00:02→19:38)
[2022-08-14] MEDS: sodium chloride 0.9% 1,000 ML 100 ML IV ×3 (02:38→22:02)
[2022-08-14] MEDS: ipratropium-albuterol 3 mL Neb INHALATION ×3 (03:26→20:38)
[2022-08-14 05:46] LABS: Basophils % 0.1 %; Hematocrit 41.3 % (42.0-52.0); Hemoglobin 13.1 g/dL (11.7-16.6); Lymphocytes # 0.6 10^3/uL (0.8-4.8); Lymphocytes % 5.7 %; Mean Corpuscular HGB Conc 31.7 g/dL (30.0-36.0); Mean Corpuscular Hemoglobin 28.9 pg (28.0-34.0); Mean Corpuscular Volume 91.2 fl (80-94); Mean Platelet Volume 10.1 fL (7.4-10.4); Monocytes # 0.5 10^3/uL (0.2-0.9); Monocytes % 4.8 %; Neutrophils # 9.24 10^3/uL (1.8-7.7); Neutrophils % 88.7 %; Nucleated Red Blood Cells % 0 %; Platelet Count 163 10^3/cmm (130-400); Red Blood Count 4.53 10^6/uL (4.1-5.3); Red Cell Distribution Width 13.2 % (12.1-15.1); White Blood Count 10.4 10^3/uL (4.0-10.0)
[2022-08-14 06:10] LABS: Alanine Aminotransferase 29 U/L (0-41); Albumin Level 3.9 g/dL (3.5-5.2); Alkaline Phosphatase 74 U/L (40-130); Anion Gap 12.2 (5-19); Aspartate Amino Transferase 36 U/L (0-40); Blood Urea Nitrogen 23 mg/dL (8-23); Calcium 8.7 mg/dL (8.5-10.5); Carbon Dioxide 27 mmol/L (22-29); Chloride 102 mmol/L (98-107); Globulin 2.7 g/dL (1.3-4.6); Glomerular Filtration Rate 97.3 mL/min (90-130); Glucose 161 mg/dL (65-115); Magnesium 2.1 mg/dL (1.7-2.3); Osmolality Calculated 291 mOsm/kg (285-295); Potassium 4.2 mmol/L (3.5-5.1); Sodium 137 mmol/L (136-145); Total Protein 6.6 g/dL (6.6-8.7)
[2022-08-14 06:16] LABS: Creatine Phosphokinase 1031 U/L (39-308)
--- NOTE | 2022-08-14 06:17 | PC.NURSE ---
CRITICAL CK LEVEL REPORTED TO DR MCWILLIAMS VIA SECURE MESSAGING.
[2022-08-14] MEDS: lisinopril 20 mg Tablet 40 MG PO (08:04)
[2022-08-14] MEDS: doxycycline 100 mg Tablet PO ×2 (08:04→18:35)
[2022-08-14] MEDS: multivitamin therapeutic Tablet 1 TAB PO (08:04)
[2022-08-14] MEDS: folic acid 1 mg Tablet PO (08:05)
[2022-08-14] MEDS: amlodipine 10 mg Tablet PO (08:05)
[2022-08-14] MEDS: aspirin 81 mg EC Tablet PO (08:05)
[2022-08-14] MEDS: metoprolol tartrate 50 mg Tablet PO ×2 (08:06→18:35)
[2022-08-14] MEDS: thiamine 100 mg Tablet PO (08:07)
[2022-08-14] MEDS: benzonatate 100 mg Capsule 200 MG PO ×2 (12:25→19:57)
--- NOTE | 2022-08-14 14:10 | P.PN_ITS ---
Subjective Subjective: States he still coughing quite a bit, mostly hacking cough, unable to bring up phlegm. With cough. Pain in right side rib cage. Vitals/I&O/Wt Last Vital Signs Temp 97.7 F 08/14/22 11:30 Pulse 70 08/14/22 11:30 Resp 16 08/14/22 12:25 BP 140/87 08/14/22 11:30 Pulse Ox 95 08/14/22 12:25 O2 Del Method 08/14/22 11:30 O2 Flow Rate 4 08/14/22 11:30 FiO2 30 08/13/22 11:35 08/13/22 08/14/22 08/14/22 22:59 06:59 14:59 Intake Total 240 / 2240 965 / 3205 1600 / 1600 Output Total 250 / 250 300 / 550 360 / 360 Balance -1989 665 / 2655 1240 / 1240 Weight last 48 hrs Weight 73.028 kg Physical Exam Const: COMMON NORMALS: patient oriented x3 and alert GENERAL APPEARANCE: cooperative ORIENTATION/CONSCIOUSNESS: Yes awake HENMT: COMMON NORMALS: oropharynx normal Neck/C-Spine: COMMON NORMALS: no JVD Chest: OTHER: Tender right anterolateral lower chest. Resp: COMMON NORMALS: normal respiratory effort AUSCULTATION: diminished lung sounds Cardio: COMMON NORMALS: no JVD, regular rhythm, S1 normal heart sound present, S2 normal heart sound present and No murmurs present (Cardio) RHYTHM: regular rhythm HEART SOUNDS: S1 normal heart sound present and S2 normal heart sound present GI: COMMON NORMALS: Normal to inspection, nondistended, normoactive bowel sounds present, Soft to palpation and non-tender PALPATION: Yes Soft to palpation Extremity: COMMON NORMALS: no joint enlargement and no pedal edema Neuro: COMMON NORMALS: patient oriented x3 and moves all extremities SENSORIUM/ORIENTATION: Yes alert Skin: COMMON NORMALS: no rashes or lesions noted GENERAL SKIN EXAM: no rashes or lesions noted Data 08/14/22 04:59 08/14/22 04:59 A&P Assessment and plan (1) COPD exacerbation: Diminished air entry, otherwise no wheeze. Continues to have bothersome cough. Pain in rib cage. Add flutter valve, Mucinex. Lidocaine patch. Continue I-S. Continue Nebs every 4 hours, budesonide twice daily Solu-Medrol decreased to 40 mg IV every 12 hours Doxycycline 100 mg twice daily to cover for acute bronchitis Continue oxygen supplementation, wean down as tolerating. Not normally on suppl emental oxygen. Unknown baseline situation. May also be related to chest contusion. Follow-up chest x-ray. (2) Fall: Status post fall. Sustained contusion to right chest. No fracture seen on chest x-ray, but could still be present. Pain control (3) Right-sided chest pain: Antitussives. Lidocaine patch to tender area of rib cage. Incentive spi rometer. (4) Alcohol abuse: Thiamine, folate Monitor for withdrawal CIWA protocol (5) Atrial fibrillation: Patient with history of atrial fibrillation, hypertrophic cardiomyopathy Continue home medicines including metoprolol Not a good candidate for systemic anticoagulation as an outpatient. Qualifiers: Atrial fibrillation type: paroxysmal Qualified Code(s): I48.0 - Paroxysmal atrial fibrillation (6) IHSS (idiopathic hypertrophic subaortic stenosis): Continue beta-morgan. Monitor blood pressure. Continue long-term optimization, cardiology follow-up. (7) CAD (coronary artery disease): Continue statin, aspirin, beta-morgan Qualifiers: Coronary Disease-Associated Artery/Lesion type: [place] artery [place] vs. transplanted heart: [place] heart Associated angina: without angina Qualified Code(s): I25.10 - Atherosclerotic heart disease of [place] coronary artery without angina pectoris (8) Rhabdomyolysis: Mild increase in CK, follow-up level. Hold statin. Antitussives. Plan Multiple other medical problems as outlined in past medical history Full code Lovenox for DVT prophylaxis Attestations Medical Necessity Statement*: Continue admission for management of hypoxic respiratory failure, COPD exacerbation, possible lung contusion after a fall. Coding Level of Care Code Acute Immigration Law Specialist for [facility] Fw Diagnoses COPD exacerbation J44.1 Fall W19.XXXA Right-sided chest pain R07.9 Alcohol abuse F10.10 Atrial fibrillation I48.0 Atrial fibrillation type: paroxysmal IHSS (idiopathic hypertrophic subaortic stenosis) I42.1 CAD (coronary artery disease) I25.10 Coronary Disease-Associated Artery/Lesion type: [place] artery [place] vs. transplanted heart: [place] heart Associated angina: without angina Rhabdomyolysis M62.82
[2022-08-14] MEDS: enoxaparin 40 mg/0.4 mL Syringe SUBCUT (16:05)
[2022-08-14] MEDS: guaiFENesin 600 mg Tablet PO (18:35)
[2022-08-14] MEDS: budesonide 0.5 mg/2 mL Neb INHALATION (20:38)
--- NOTE | 2022-08-14 22:06 | PC.NURSE ---
LIDOCAINE PATCH SUPPOSED TO BE REMOVED IN PM. WHEN NURSE INSPECTED PATIENT FOR PATCH, PATCH NOT FOUND. PATIENT REPORTS THAT PREVIOUS SHIFT WAS SUPPOSED TO APPLY PATCH BUT NEVER DID. PATIENT RESTING ON SIDE OF BED AND WATCHING TV AT THIS TIME. BED LOCKED IN LOWEST POSITION WITH SIDE RAILS UP, CALL LIGHT WITHIN REACH. PATIENT EDUCATED TO PRESS CALL LIGHT IF HE NEEDS ANYTHING AND STATED NO FURTHER NEEDS AT THIS TIME.
--- NOTE | 2022-08-14 22:27 | PC.NURSE ---
PATIENT'S IV IN LEFT AC REMOVED UPON PATIENT MOVING. 20 GAUGE IV STARTED IN RIGHT FOREARM. FLUIDS RUNNING AGAIN.
[2022-08-15] VITALS (20 sets, daily range): BP systolic 98–160; BP diastolic 56–105; PULSE 73–158; RESP 16–28; TEMP 36.4–36.9; O2SAT 90–96
[2022-08-15] MEDS: ipratropium-albuterol 3 mL Neb INHALATION ×4 (02:14→11:05)
[2022-08-15] MEDS: oxyCODONE 5 mg IR Tab/Cap PO ×3 (02:30→15:40)
[2022-08-15] MEDS: benzonatate 100 mg Capsule 200 MG PO ×4 (02:30→23:54)
--- NOTE | 2022-08-15 02:33 | PC.NURSE ---
PATIENT HAD COUGHING FIT AND RESPIRATORY THERAPY ADMINISTERED BREATHING TREATMENT. PATIENT CONTINUED HAVING COUGHING FIT AND STATED IF I HAD TO GO ON LIKE THIS FOR THE REST OF MY LIFE, I WOULD DECIDE TO BE GONE. PATIENT GIVEN OXYCODONE AND TESSALON PEARLS FOR PAIN AND COUGH. PATIENT RESTING ON SIDE OF THE BED, LOCKED AND LOWERED. PATIENT EDUCATED TO USE CALL LIGHT IF HE NEEDED ANYTHING.
--- NOTE | 2022-08-15 02:38 | PC.NURSE ---
PATIENT'S IV IN RIGHT FOREARM PULLED OUT, CATHETER TIP INTACT. NEW IV STARTED BY JOHN VILCHIS IN RIGHT HAND.
[2022-08-15 05:46] LABS: Basophils % 0.1 %; Hematocrit 41.5 % (42.0-52.0); Hemoglobin 13.2 g/dL (11.7-16.6); Lymphocytes # 0.5 10^3/uL (0.8-4.8); Lymphocytes % 3.9 %; Mean Corpuscular HGB Conc 31.8 g/dL (30.0-36.0); Mean Corpuscular Hemoglobin 29.5 pg (28.0-34.0); Mean Corpuscular Volume 92.6 fl (80-94); Mean Platelet Volume 11.3 fL (7.4-10.4); Monocytes # 0.7 10^3/uL (0.2-0.9); Monocytes % 5.3 %; Neutrophils # 11.99 10^3/uL (1.8-7.7); Neutrophils % 89.7 %; Nucleated Red Blood Cells % 0 %; Platelet Count 109 10^3/cmm (130-400); Red Blood Count 4.48 10^6/uL (4.1-5.3); Red Cell Distribution Width 13.6 % (12.1-15.1); White Blood Count 13.4 10^3/uL (4.0-10.0)
--- NOTE | 2022-08-15 06:00 | XRR_ITS ---
PROCEDURE INFORMATION: Exam: XR Chest Exam date and time: 08/15/2022 5:07 AM Age: 66 years old Clinical indication: Shortness of breath; Additional info: Hypoxia TECHNIQUE: Imaging protocol: Radiologic exam of the chest. Views: 1 view. COMPARISON: CR (CHEST, ) 08/13/2022 7:40 AM FINDINGS: Lungs: There is mild prominence and indistinctness of the pulmonary vasculature with increased linear and hazy opacities present in the lower hemithoraces, findings that suggest pulmonary edema. Pleural spaces: Unremarkable. No pleural effusion. No pneumothorax. Heart/Mediastinum: Unremarkable. No cardiomegaly. Bones/joints: Unremarkable. XR/XR chest 1V portable [id number] IMPRESSION: 1. Mild prominence and indistinctness of the pulmonary vasculature and hazy and linear opacities present in the lower hemithoraces could represent pulmonary edema. Superimposed bilateral basilar interstitial pneumonitis and or atelectasis cannot be entirely excluded.
[2022-08-15] MEDS: budesonide 0.5 mg/2 mL Neb INHALATION (08:06)
[2022-08-15 08:19] LABS: Alanine Aminotransferase 29 U/L (0-41); Albumin Level 3.9 g/dL (3.5-5.2); Alkaline Phosphatase 67 U/L (40-130); Anion Gap 12.4 (5-19); Aspartate Amino Transferase 34 U/L (0-40); Blood Urea Nitrogen 19 mg/dL (8-23); Calcium 8.8 mg/dL (8.5-10.5); Carbon Dioxide 28 mmol/L (22-29); Chloride 103 mmol/L (98-107); Globulin 2.6 g/dL (1.3-4.6); Glomerular Filtration Rate 113.5 mL/min (90-130); Glucose 137 mg/dL (65-115); Osmolality Calculated 292 mOsm/kg (285-295); Potassium 4.4 mmol/L (3.5-5.1); Sodium 139 mmol/L (136-145); Total Bilirubin 0.8 mg/dL (0.15-1.2); Total Protein 6.5 g/dL (6.6-8.7)
[2022-08-15 08:36] LABS: Creatine Phosphokinase 795 U/L (39-308)
[2022-08-15] MEDS: doxycycline 100 mg Tablet PO ×2 (08:46→17:43)
[2022-08-15] MEDS: thiamine 100 mg Tablet PO (08:47)
[2022-08-15] MEDS: amlodipine 10 mg Tablet PO (08:47)
[2022-08-15] MEDS: folic acid 1 mg Tablet PO (08:47)
[2022-08-15] MEDS: aspirin 81 mg EC Tablet PO (08:47)
[2022-08-15] MEDS: guaiFENesin 600 mg Tablet PO ×2 (08:47→17:43)
[2022-08-15] MEDS: lisinopril 20 mg Tablet 40 MG PO (08:49)
[2022-08-15] MEDS: metoprolol tartrate 50 mg Tablet PO ×2 (08:50→17:43)
[2022-08-15] MEDS: multivitamin therapeutic Tablet 1 TAB PO (08:50)
[2022-08-15] MEDS: sodium chloride 0.9% 1,000 ML 100 ML IV (08:59)
[2022-08-15] MEDS: FUROsemide 10 mg/mL SDV 2mL 20 MG IVP (11:58)
[2022-08-15] MEDS: lidocaine 5% Patch 1 PATCH TOPICAL (12:13)
[2022-08-15] MEDS: enoxaparin 40 mg/0.4 mL Syringe SUBCUT (15:35)
--- NOTE | 2022-08-15 19:46 | P.PN_ITS ---
Subjective Subjective: He is feeling slightly better, but continues to have cough. Continues to have pain with inspiration right side of his chest. Continues to require 4 L nasal cannula oxygen. Discussed with him results of chest x-ray, pulm edema, Lasix. Discussed with him obtaining additional assessment by CTA with risks of the study. He is agreeable. Vitals/I&O/Wt Last Vital Signs Temp 98.3 F 08/15/22 15:44 Pulse 89 08/15/22 15:44 Resp 19 H 08/15/22 15:44 BP 152/92 08/15/22 15:44 Pulse Ox 92 08/15/22 15:44 O2 Del Method 08/15/22 15:44 O2 Flow Rate 4 08/15/22 15:44 FiO2 30 08/13/22 11:35 08/15/22 08/15/22 08/15/22 06:59 14:59 22:59 Intake Total 0 / 2651.667 3200 / 3200 240 / 3440 Output Total 975 / 975 Balance 0 / 4840.862 6983 / 2225 240 / 2465 Physical Exam Const: COMMON NORMALS: patient oriented x3 and alert GENERAL APPEARANCE: cooperative ORIENTATION/CONSCIOUSNESS: Yes awake HENMT: COMMON NORMALS: oropharynx normal Neck/C-Spine: COMMON NORMALS: no JVD Chest: OTHER: Tender right anterolateral lower chest. Resp: COMMON NORMALS: normal respiratory effort and clear to auscultation bilaterally AUSCULTATION: clear to auscultation bilaterally Cardio: COMMON NORMALS: no JVD, regular rhythm, S1 normal heart sound present, S2 normal heart sound present and No murmurs present (Cardio) RHYTHM: regular rhythm HEART SOUNDS: S1 normal heart sound present and S2 normal heart sound present GI: COMMON NORMALS: Normal to inspection, nondistended, normoactive bowel sounds present, Soft to palpation and non-tender PALPATION: Yes Soft to palpation Extremity: COMMON NORMALS: no joint enlargement and no pedal edema Neuro: COMMON NORMALS: patient oriented x3 and moves all extremities SENSORIUM/ORIENTATION: Yes alert Skin: COMMON NORMALS: no rashes or lesions noted GENERAL SKIN EXAM: no rashes or lesions noted Data 08/15/22 05:25 08/15/22 07:37 A&P Assessment and plan (1) Respiratory failure with hypoxia: Air entry is improved, however, he is still hypoxic. Today on chest x-ray noted pulm edema. Discontinue IV fluid. Give a dose of Lasix 20 mg IV push x1. Re ports improving symptoms subsequently. History of unexplained persistent cough, right-sided pleuritic chest pain with inspiration and cough. Persistent hypoxia. Chest CTA. TTE. Continue flutter valve, Mucinex. Lidocaine patch. Continue I-S. Continue Nebs every 4 hours, budesonide twice daily Solu-Medrol decreased to 20 mg IV every 12 hours Doxycycline 100 mg twice daily to cover for acute bronchitis Continue oxygen supplementation, wean down as tolerating. Not normally on supplemental oxygen. Unknown baseline saturation. May also be related to chest contusion. (2) COPD exacerbation: As above. (3) Fall: Status post fall. Sustained contusion to right chest. No fracture seen on chest x-ray, but could still be present. Pain control (4) Right-sided chest pain: Antitussives. Lidocaine patch to tender area of rib cage. Incentive spirometer. (5) Alcohol abuse: Thiamine, folate Monitor for withdrawal CIWA protocol (6) Atrial fibrillation: Patient with history of atrial fibrillation, hypertrophic cardiomyopathy Continue home medicines including metoprolol Not a good candidate for systemic anticoagulation as an outpatient. Qualifiers: Atrial fibrillation type: paroxysmal Qualified Code(s): I48.0 - Paroxysmal atrial fibrillation (7) IHSS (idiopathic hypertrophic subaortic stenosis): Continue beta-morgan. Monitor blood pressure. Continue long-term optimization, cardiology follow-up. (8) CAD (coronary artery disease): Continue statin, aspirin, beta-morgan Qualifiers: Coronary Disease-Associated Artery/Lesion type: [place] artery [place] vs. transplanted heart: [place] heart Associated angina: without angina Qualified Code(s): I25.10 - Atherosclerotic heart disease of [place] coronary artery without angina pectoris (9) Rhabdomyolysis: Improving. DC IVF. Hold statin. Antitussives. Plan Multiple other medical problems as outlined in past medical history Full code Lovenox for DVT prophylaxis Attestations Medical Necessity Statement*: Continue admission for assessment and management of hypoxic respiratory failure. Coding Level of Care Code Acute Fur Finisher for [facility] Kenneth Diagnoses Respiratory failure with hypoxia J96.91 COPD exacerbation J44.1 Fall W19.XXXA Right-sided chest pain R07.9 Alcohol abuse F10.10 Atrial fibrillation I48.0 Atrial fibrillation type: paroxysmal IHSS (idiopathic hypertrophic subaortic stenosis) I42.1 CAD (coronary artery disease) I25.10 Coronary Disease-Associated Artery/Lesion type: [place] artery [place] vs. transplanted heart: [place] heart Associated angina: without angina Rhabdomyolysis M62.82
--- NOTE | 2022-08-15 20:16 | ECG_ITS ---
[facility] Test Date: 2022-08-15 Pat Name: Pratik Garcia Department: Room: 257 Gender: Male Telecom Sales Consultant: : [id number] Requested By: Ralph Ribeiro Order Number: [id number] Cole MD: Tab Sinclair M.D. Measurements Intervals [place] Rate: 143 P: 0 MS: 0 QRS: 6 QRSD: 96 T: 140 QT: 271 QTc: 419 Interpretive Statements ATRIAL FIBRILLATION WITH RAPID VENTRICULAR RESPONSE ST DEVIATION AND MODERATE T-WAVE ABNORMALITY, CONSIDER LATERAL ISCHEMIA [-0.1+ mV T-WAVE IN I/aVL/V5/V6] Compared to ECG 08/13/2022 06:44:03 Ectopic atrial tachycardia, multifocal no longer present Aberrant conduction of supraventricular beat(s) no longer present T-wave abnormality still present Possible ischemia still present Electronically Signed On 08-16-2022 11:05:26 CIRCULATION LIBRARIAN by Tab Sinclair M.D. [id number]
--- NOTE | 2022-08-15 20:37 | PC.NURSE ---
UPON SHIFT CHANGE, PATIENT'S HR SPIKED TO 140-150s. DAY SHIFT REPORTED THAT PATIENT'S HR WOULD ONLY COME UP TO 140-150s DURING COUGHING FITS OR MOVING AROUND. PATIENT, AT TIME OF SHIFT CHANGE, REMAINED SITTING ON SIDE OF BED AND NOT IN COUGHING FIT. DR HUA WAS NOTIFIED OF HR VIA SECURE MESSAGING, AND THIS NURSE WAS TOLD TO WAIT 5-10 MINUTES IF HR DOES NOT COME DOWN. HR DID NOT COME DOWN, AND DR HUA CONTACTED VIA TELEPHONE. DR HUA TOLD THIS NURSE TO PUT IN EKG AND SERIAL TROPONINS, AND TO CALL BACK WITH EKG RESULT. RESPIRATORY PERFORMED EKG AND RESULT SHOWED AFIB W/RVR, DR HUA WAS NOTIFIED. THIS NURSE WAS GIVEN ORDERS FOR IVP METOPROLOL TO BRING HR DOWN, AND IF HR DID NOT COME DOWN AFTER 2 IVP METOPROLOL DOSES, DR HUA WAS TO BE NOTIFIED. PATIENT CURRENTLY SITTING ON SIDE OF BED WITH BOTH RAILS UP, BED LOCKED AND LOW AND CALL LIGHT WITHIN REACH.
[2022-08-15] MEDS: metoprolol tartrate 1 mg/1 mL SDV 5 mL 5 MG IVP ×2 (20:46→21:13)
--- NOTE | 2022-08-15 20:54 | PC.NURSE ---
IVP METOPROLOL ADMINISTERED PER DR HUA'S ORDERS FOR AFIB W/RVR
--- NOTE | 2022-08-15 21:09 | PC.NURSE ---
PATIENT'S HR STILL RUNNING ANYWHERE BETWEEN 114-150, DR HUA NOTIFIED VIA SECURE MESSAGING AND THIS NURSE INSTRUCTED TO GIVE METOPROLOL IVP FOR SECOND TIME.
--- NOTE | 2022-08-15 21:47 | PC.NURSE ---
AFTER SECOND METOPROLOL IVP, HR CONTINUED TO STAY IN 120-150S. DR HUA PLACED ORDER TO TRANSFER PATIENT TO CSU FOR CARDIZEM DRIP.
--- NOTE | 2022-08-15 21:51 | PC.NURSE ---
NURSE EXPLAINED TRANSFER TO CSU TO PATIENT DUE TO AFIB W/RVR, PATIENT UNDERSTOOD AND THANKED NURSE.
--- NOTE | 2022-08-15 22:06 | PC.NURSE ---
REPORT CALLED TO CASH VILCHIS IN CSU.
--- NOTE | 2022-08-15 22:06 | PC.NURSE ---
PATIENT STATED FRUSTRATION ABOUT LAB DRAWING BLOOD AND STATED THAT THIS IS THE LAST DAMN TIME I'M GOING TO LET YOU GUYS STICK ME. IT'S GOING TO BE 4AM BEFORE ANYONE TELLS ME A DAMN THING AND YOU ARE ALL GOING TO LET ME CROAK. PATIENT EDUCATED THAT NURSING STAFF ARE FOLLOWING DR ORDERS TO DRAW LABS AND THAT LABS ARE NECESSARY TO MONITOR PATIENT STATUS. PATIENT ALSO EDUCATED THAT HE HAS A RIGHT TO REFUSE LABS, BUT THAT THEY ARE HIGHLY ENCOURAGED. PATIENT REMAINED RESTING IN CHAIR WITH CALL LIGHT IN REACH.
[2022-08-15 22:34] LABS: Troponin(5th) Baseline 33 ng/L (0-15)
--- NOTE | 2022-08-15 22:35 | PC.NURSE ---
REPORT CALLED TO CASH RN IN CSU. PATIENT TRANSFERRED TO CSU TO ROOM 105 VIA WHEELCHAIR WITH PATIENT BELONGING'S IN BAG ON PATIENT'S LAP. PAPER WORK HANDED TO CASH AT DESK. PATIENT TAKEN TO ROOM AND GOT SETTLED. THIS NURSE INSTRUCTED NURSES IN CSU TO CALL IF THEY HAD ANY QUESTIONS.
[2022-08-15] MEDS: morphine 4 mg/mL SDV 1 mL 2 MG IVP (22:59)
[2022-08-15] MEDS: LORazepam 2 mg Tablet PO (23:00)
[2022-08-15] MEDS: acetaminophen 325 mg Tablet 650 MG PO (23:54)
[2022-08-16] VITALS (90 sets, daily range): BP systolic 78–146; BP diastolic 51–100; PULSE 66–162; RESP 13–24; TEMP 36.4–37.2; O2SAT 90–100
[2022-08-16] MEDS: LORazepam 2 mg/mL INJ 1 mL IVP ×2 (00:03→08:57)
[2022-08-16 00:27] LABS: Troponin 5 2HR 35.33 ng/L (0-15)
[2022-08-16 00:39] LABS: Troponin 5 2HR Delta 2.33 ABS# (0-10)
--- NOTE | 2022-08-16 00:54 | PC.NURSE ---
Spoke with regarding patient becoming very restless, aggitated, very SOB and unable to get a good SAT due to patient restlessness. The patient had a chest xray which had show pulmonary edema today and had a one time dose of lasix today but the patient has audible wheezing and is becoming more and more restless. ordered a one time dose of 60mg lasix, martin insertion, ABGs now and to put the patient on BIPAP.
[2022-08-16] MEDS: FUROsemide 10 mg/mL SDV 10mL 60 MG IVP (01:07)
[2022-08-16] MEDS: digoxin 250 mcg/ml INJ 2 mL IVP (01:22)
[2022-08-16 01:44] LABS: Basophils % 0.1 %; Hematocrit 40.6 % (42.0-52.0); Hemoglobin 12.9 g/dL (11.7-16.6); Lymphocytes # 0.8 10^3/uL (0.8-4.8); Lymphocytes % 5.2 %; Mean Corpuscular HGB Conc 31.8 g/dL (30.0-36.0); Mean Corpuscular Hemoglobin 29.5 pg (28.0-34.0); Mean Corpuscular Volume 92.7 fl (80-94); Mean Platelet Volume 10.5 fL (7.4-10.4); Monocytes # 0.8 10^3/uL (0.2-0.9); Monocytes % 5.3 %; Neutrophils # 13.88 10^3/uL (1.8-7.7); Neutrophils % 87.9 %; Nucleated Red Blood Cells % 0 %; Platelet Count 200 10^3/cmm (130-400); Red Blood Count 4.38 10^6/uL (4.1-5.3); Red Cell Distribution Width 13.5 % (12.1-15.1); White Blood Count 15.8 10^3/uL (4.0-10.0)
--- NOTE | 2022-08-16 01:45 | XRR_ITS ---
PROCEDURE INFORMATION: Exam: XR Chest Exam date and time: 08/16/2022 2:47 AM Age: 66 years old Clinical indication: Shortness of breath; Additional info: Dhob TECHNIQUE: Imaging protocol: Radiologic exam of the chest. Views: 1 view. COMPARISON: CR (CHEST, ) 08/15/2022 5:07 AM FINDINGS: Lungs: No definite CHF/pulmonary edema. Very mild right lower lung opacities, improved in the short interval. This likely represents atelectasis, pneumonitis not excluded. Please correlate clinically. Visible lungs otherwise appear essentially clear. Pleural spaces: No visible pneumothorax. No definite pleural fluid. Heart/Mediastinum: Heart size appears upper range of normal. Bones/joints: No significant acute finding. XR/XR chest 1V portable [id number] IMPRESSION: 1. Very mild right lower lung opacities, improved in the short interval. See above discussion. 2. No definite CHF/pulmonary edema. 3. Other findings discussed above.
[2022-08-16 02:15] LABS: Alanine Aminotransferase 33 U/L (0-41); Alkaline Phosphatase 69 U/L (40-130); Anion Gap 10.9 (5-19); Aspartate Amino Transferase 32 U/L (0-40); Blood Urea Nitrogen 30 mg/dL (8-23); Calcium 9.1 mg/dL (8.5-10.5); Carbon Dioxide 29 mmol/L (22-29); Chloride 95 mmol/L (98-107); Globulin 2.9 g/dL (1.3-4.6); Glucose 152 mg/dL (65-115); Magnesium 2.1 mg/dL (1.7-2.3); NT Pro B Type Natriuretic Pept 12278 pg/mL (0-125); Osmolality Calculated 279 mOsm/kg (285-295); Phosphorus 4.4 mg/dL (2.5-4.5); Potassium 4.9 mmol/L (3.5-5.1); Sodium 130 mmol/L (136-145); Total Protein 6.9 g/dL (6.6-8.7)
--- NOTE | 2022-08-16 02:30 | PC.NURSE ---
rounded on patient due to patients heart rate uncontrolled, increased agitation and not tolerating bipap. Voiced concerns over patients possible respiratory failure may require intubation. Decision to transfer patient to ICU for intubation. Report was called and patient was transferred to room 4.
[2022-08-16] MEDS: propofol 1,000 MG/100 ML INJ 4.38 MG IV (02:50)
--- NOTE | 2022-08-16 02:50 | W.ED.FALL ---
HPI - Fall General: Chief Complaint: Fall Stated Complaint: rib pain Time Seen by Provider: 08/13/22 06:33 Source: patient Mode of arrival: EMS History of Present Illness: . Place fall occurred: street Context: alcohol use [facility] ED PFSH: Medical History Atherosclerotic heart disease of [place] coronary artery without angina pectoris Atrial fibrillation CAD (coronary artery disease) Fatigue EKG from today revealed sinus rhythm with features of LVH. ST-T changes in the high lateral leads. Occasional PVCs. No significant new changes. Hepatitis C HTN (hypertension) Hyperlipidemia IHSS (idiopathic hypertrophic subaortic stenosis) Smoker Surgical History S/P appendectomy S/P coronary artery stent placement Family History Mother CAD (coronary artery disease) Diabetes Sister Cancer Father Lung disease Other Hypertension Denies family history of Clotting disorder Dementia Chronic kidney disease (CKD) Suicide Anesthesia complication Bleeding disorder Stroke Social History Smoking and tobacco status: current every day smoker Alcohol intake: current Substance/Drug Use: former Procedures Intubation Time out performed: Yes sedative: other (propofol) Mg Given: 100 paralytic: Succinylcholine Mg Given: 100 Laryngoscope: Jane ET Tube Size: 8 ET Tube Uncuffed: Yes Tube Secured Depth (cm): 25 Tube Secured Location: teeth Tube Placement Confirmation: visualized tube passing through cords, equal breath sounds bilaterally, no breath sounds over epigastrium and confirmation by capnometry Patient Tolerated Procedure: well Course Vital Signs: Vital signs: Vital Signs Temperature 98.0 F 08/16/22 00:00 Pulse Rate 152 H 08/16/22 01:25 Respiratory Rate 20 H 08/16/22 00:00 Blood Pressure 129/100 08/16/22 00:00 Pulse Oximetry 93 08/16/22 00:55 Oxygen Delivery Me thod 08/16/22 00:00 Oxygen Flow Rate 4 08/16/22 00:00 Fraction of Inspir ed Oxygen 30 08/16/22 00:55 MDM - Fall Medical Decision Making I was called to ICU to intubate patient for worsening delirium and abated patient without any complications. Lab Data 08/16/22 01:36 08/16/22 01:36 Radiology Impressions Cervical Spine X-Ray 08/13/22 06:38 IMPRESSION: 1. No vertebral body height loss or traumatic malalignment identified. 2. Significant multilevel degenerative changes identified, similar to prior exam. Head CT 08/13/22 06:38 IMPRESSION: 1. No acute intracranial hemorrhage or edema. 2. Mild atrophy and small vessel ischemic disease. No progression since 2018. Shoulder X-Ray 08/13/22 06:44 IMPRESSION: 1. No evidence of acute fracture or dislocation. 2. Minimal calcifications adjacent to the greater tuberosity may be mild calcific tendinitis. Laboratory Results WBC 13.1 10^3/uL (4.0-10.0) H 08/13/22 06:41 RBC 5.02 10^6/uL (4.1-5.3) 08/13/22 06:41 Hgb 14.8 g/dL (11.7-16.6) 08/13/22 06:41 Hct 45.1 % (42.0-52.0) 08/13/22 06:41 MCV 89.8 fl (80-94) 08/13/22 06:41 MCH 29.5 pg (28.0-34.0) 08/13/22 06:41 MCHC 32.8 g/dL (30.0-36.0) 08/13/22 06:41 RDW 13.1 % (12.1-15.1) 08/13/22 06:41 Plt Count 213 10^3/cmm (130-400) 08/13/22 06:41 MPV 9.3 fL (7.4-10.4) 08/13/22 06:41 Neut % (Auto) 84.5 % 08/13/22 06:41 Lymph % (Auto) 7.8 % 08/13/22 06:41 Victoria % (Auto) 6.9 % 08/13/22 06:41 Eos % (Auto) 0.0 % 08/13/22 06:41 Baso % (Auto) 0.3 % 08/13/22 06:41 Neut # (Auto) 11.04 10^3/uL (1.8-7.7) H 08/13/22 06:41 Lymph # (Auto) 1.0 10^3/uL (0.8-4.8) 11/23/22 06:41 Victoria # (Auto) 0.9 10^3/uL (0.2-0.9) 08/13/22 06:41 Eos # (Auto) 0.0 10^3/uL (0.0-0.8) 08/13/22 06:41 Baso # (Auto) 0.0 10^3/uL (0.0-0.1) 08/13/22 06:41 Nucleated RBC % (auto) 0 % 08/13/22 06:41 Nucleated RBCs # 0.0 /100WBC 08/13/22 06:41 PT 14.30 SECONDS (12.1-14.9) 08/13/22 06:41 INR 1.08 (0.8-1.2) 08/13/22 06:41 APTT 27.7 SECONDS (23.9-36.7) 08/13/22 06:41 Specimen Type Arterial 08/13/22 09:32 Sample Site Radial, left 08/13/22 09:32 ABG pH 7.27 (7.35-7.45) L 08/13/22 09:32 ABG pCO2 51.5 mmHg (35-45) H 08/13/22 09:32 ABG pO2 54.9 mmHg (80.0-100.0) L 08/13/22 09:32 ABG HCO3 23.8 mmol/L (22-26) 08/13/22 09:32 ABG O2 Saturation 86.2 08/13/22 09:32 ABG Base Excess -3.7 mmol/L (-2.0-2.0) L 08/13/22 09:32 Addy Test Pos 08/13/22 09:32 A-a O2 Gradient 4.3 mmHg (5-10) L 08/13/22 09:32 Hematocrit 43.1 % (42-52) 08/13/22 09:32 Hgb O2 Saturation 83.7 % (95-100) L 08/13/22 09:32 Carboxyhemoglobin 1.9 %THgb (0.4-20.1) 08/13/22 09:32 Methemoglobin 1.0 % (0.4-1.5) 08/13/22 09:32 Total Hemoglobin 14.0 g/dL (14-18) 08/13/22 09:32 Sodium 137.0 mmol/L (131-143) 08/13/22 09:32 Potassium 4.4 mmol/L (3.5-5.0) 08/13/22 09:32 Glucose 106.0 mg/dL (70-115) 08/13/22 09:32 Ionized Calcium 1.1 mmol/L (1.1-1.4) 08/13/22 09:32 O2 Delivery Device Room air 08/13/22 09:32 Geotechnical Engineering Technician ID Cak 08/13/22 09:32 Sodium 138 mmol/L (136-145) 08/13/22 06:41 Potassium 4.5 mmol/L (3.5-5.1) 08/13/22 06:41 Chloride 95 mmol/L (98-107) L 08/13/22 06:41 Carbon Dioxide 24 mmol/L (22-29) 08/13/22 06:41 Anion Gap 23.5 (5-19) H 08/13/22 06:41 BUN 24 mg/dL (8-23) H 08/13/22 06:41 Creatinine 1.6 mg/dL (0.7-1.2) H 08/13/22 06:41 GFR Calculation 43.7 mL/min (90-130) L 08/13/22 06:41 Glucose 115 mg/dL (65-115) 08/13/22 06:41 Calculated Osmolality 291 mOsm/kg (285-295) 08/13/22 06:41 Calcium 9.6 mg/dL (8.5-10.5) 08/13/22 06:41 Total Bilirubin 0.9 mg/dL (0.15-1.2) 08/13/22 06:41 AST 38 U/L (0-40) 08/13/22 06:41 ALT 36 U/L (0-41) 08/13/22 06:41 Alkaline Phosphatase 93 U/L (40-130) 08/13/22 06:41 Creatine Kinase 572 U/L (39-308) H* 08/13/22 06:41 Total Protein 7.8 g/dL (6.6-8.7) 08/13/22 06:41 Albumin 4.8 g/dL (3.5-5.2) 08/13/22 06:41 Globulin 3.0 g/dL (1.3-4.6) 08/13/22 06:41 Urine Color Yellow (Yellow) 08/13/22 08:58 Urine Appearance Clear (CLEAR) 08/13/22 08:58 Urine pH 5 (5-7) 08/13/22 08:58 Ur Specific [place] 1.030 (1.005-1.030) 08/13/22 08:58 Urine Protein Neg (Negative) 08/13/22 08:58 Urine Glucose (UA) Norm (Normal) 08/13/22 08:58 Urine Ketones 1+ (Negative) H 08/13/22 08:58 Urine Blood Neg (Negative) 08/13/22 08:58 Urine Nitrate Negative (Negative) 08/13/22 08:58 Urine Bilirubin Neg (Negative) 08/13/22 08:58 Urine Urobilinogen Norm mg/dL (Negative) 08/13/22 08:58 Ur Leukocyte Esterase Negative (Negative) 08/13/22 08:58 Ethyl Alcohol 33 mg/dL (0-10) H 08/13/22 06:41 Discharge Plan Discharge Patient Disposition: Admitted As Inpatient Admit Provider: Krunal Wiggins Clinical Impression: COPD exacerbation, Fall, Alcohol abuse, Hypercapnic respiratory failure Condition: Stable Discharge Diet: Usual diet Discharge Activity: Resume usual activity Coding Level of Care Code ED Reheater for Yajaira Cooper
--- NOTE | 2022-08-16 02:52 | XRR_ITS ---
PROCEDURE INFORMATION: Exam: XR Chest Exam date and time: 08/16/2022 3:55 AM Age: 66 years old Clinical indication: Device placement; Ett placement (vent status); Patient HX: Et tube and ng tube placement; Additional info: Intubation TECHNIQUE: Imaging protocol: Radiologic exam of the chest. Views: 1 view. COMPARISON: CR (CHEST, ) 08/16/2022 2:47 AM FINDINGS: Tubes, catheters and devices: ET tube now present, tip 3.3 cm above the rosa. Apparent NG tube present, passing beneath the diaphragm. The tip is likely in the fundus of the stomach. Lungs: No definite CHF/pulmonary edema. Very mild right lower lung opacities, unchanged. Pleural spaces: No visible pneumothorax. No definite pleural fluid. Heart/Mediastinum: Heart size is within normal limits. Bones/joints: No significant acute finding. XR/XR chest 1V portable [id number] IMPRESSION: 1. ET and NG tube placement as discussed above. 2. Other details discussed above.
[2022-08-16] MEDS: sodium chloride 0.9% 250 ML 999 ML IV (03:00)
[2022-08-16] MEDS: ipratropium-albuterol 3 mL Neb INHALATION ×6 (03:11→23:31)
[2022-08-16] MEDS: succinylcholine 20 mg/mL SDV 10mL 100 MG IVP (03:32)
[2022-08-16] MEDS: propofol 10 mg/mL SDV 20 mL 100 MG IVP (03:32)
--- NOTE | 2022-08-16 04:00 | PC.NURSE ---
Physician Communication Patient arrived to unit at 0224 for intubation, HR in the 140-160s, in respiratory distress with an alterred mental status attempting to pull at lines and bipap. Verbal orders received from Dr. Mauro for 100 mg propofol, verbal order from Dr. Rush for 100 mg succinylcholine. Patient intubated at 0243, see other nurses note. Dr. Mauro at bedside, blood pressure decreasing, order received for one 250 ml NS bolus now in addition to fentanyl and propofol for sedation. HR still maintaining 140-160s, verbal order received to d/c cardizem drip and initiate amiodarone drip following an amiodarone bolus both per protocol. See MAR for administration details.
--- NOTE | 2022-08-16 04:01 | PC.NURSE ---
0224- pt arrives from c[facility] via bed, on bipap, confused, sob, hr 160s 0240- 100 propofol 100 succ ivp for intubation 0243- intubated 8.0 ett 24 @lip
--- NOTE | 2022-08-16 04:25 | P.PNCC_ITS ---
Critical Care Event Note I was called by RN around 1:45 PM to come and evaluate patient at bedside as he is not tolerating BiPAP and in respiratory distress. Patient continuously trying to get out of bed, confused, attempting to pull off the BiPAP and pulling at lines. He is alert but not oriented and delirious. Heart rate 140s to 150s. Patient currently maxed out on Cardizem 15/h. Earlier ABG was done which showed 7.22/70?1 BiPAP was placed. Patient barely kept it on for 10 minutes. He was given ativan 2 mg x3 but started to have respiratory compromise. Patient's blood pressure 116/82. Bilaterally rhonchi present throughout lung plasencia and crackles at bases. Chest x-ray showed pulmonary vascular congestion with possible infiltrate at bases. Suspicion of aspiration. Baseline troponin at 10 PM 33, 2 hours 35.33. 6-hour pending. BNP 12,000. Around 8 PM patient was given Lasix 60 IV x1. He has had 200 urine output since then. Decision made to intubate patient at this time. Patient transferred to ICU and intubated by ER physician. 100 propofol, 100 succinylcholine used. Subsequently 250 cc normal saline bolus given. Blood pressure 70s over 50s. Cardizem drip stopped. Amio bolus ordered and subsequently started amiodarone drip. MAP consistently below 65. Levophed added. Sputum culture ordered, blood cultures ordered, start IV Unasyn for suspected aspiration. Recheck echo. Echo ordered. NG tube placed. X-ray confirmed placement. Repeat ABG ordered. There was a CT we wanted earlier this afternoon which was completed but there was no report. After investigating it was reported that CT was never done since patient was not cooperating. We will reorder CTA chest to rule out pulmonary embolism once patient hemodynamically stable. For now we will cover with full dose Lovenox. Continue patient on propofol and fentanyl at this time along with levophed. Will order lasix 40 IV daily. There is history of HOCM on previous echo. Will diurese carefully. Awaiting 6 hour troponin The high probability of a clinically significant, sudden or life threatening deterioration of the patient's [respiratory, neurological, cardiovascular] system(s) required my full and direct attention, intervention and personal management. The critical care time is as shown. This time is in addition to time spent performing any reported procedures but includes the following: [x] Data and vital sign review and interpretation [x] Patient assessment, examination and intervention [x] Documentation [x] Medication orders and management Critical Care Time Code activated: No Critical Care Time (min): 70 Coding Level of Care Code Acute Compression Molding Machine Setter for Yajaira Cooper
[2022-08-16] MEDS: FUROsemide 10 mg/mL SDV 4mL 40 MG IVP ×2 (04:57→17:05)
[2022-08-16 04:58] LABS: ABG PH Result 7.23 (7.35-7.45)
[2022-08-16 04:59] LABS: ABG PCO2 73.6 mmHg (35-45); Base Excess ABG 0.7 mmol/L (-2.0-2.0); Blood Gas Operator Identificat BISJE; HCO3 ABG 30.4 mmol/L (22-26); Oxygen Saturation ABG 97.5
[2022-08-16 05:00] LABS: BIPAP 16/10; Oxygen Device BIPAP
[2022-08-16 05:01] LABS: Arterial Blood Gas Hematocrit 41.2 % (42-52); Blood Gas Sample Site RIGHT BRACHIAL; Blood Gas Sample Type ARTERIAL; Blood Gas Vent Mode BISJE
[2022-08-16 05:02] LABS: Alveolar-Arterial Oxygen Gradi 232.5 mmHg (5-10); Carboxyhemoglobin 0.8 %THgb (0.4-20.1); HGB O2 Sat 96.1 % (95-100); Ionized Calcium Level - ABG 1.3 mmol/L (1.1-1.4); Methemoglobin 0.6 % (0.4-1.5); Total Hemoglobin 13.4 g/dL (14-18)
[2022-08-16 05:19] LABS: Basophils % 0.1 %; Hematocrit 35.4 % (42.0-52.0); Hemoglobin 10.9 g/dL (11.7-16.6); Lymphocytes # 0.3 10^3/uL (0.8-4.8); Lymphocytes % 2.8 %; Mean Corpuscular HGB Conc 30.8 g/dL (30.0-36.0); Mean Corpuscular Hemoglobin 29.4 pg (28.0-34.0); Mean Corpuscular Volume 95.4 fl (80-94); Mean Platelet Volume 11.1 fL (7.4-10.4); Monocytes # 0.9 10^3/uL (0.2-0.9); Monocytes % 8.1 %; Neutrophils # 9.38 10^3/uL (1.8-7.7); Nucleated Red Blood Cells % 0 %; Platelet Count 158 10^3/cmm (130-400); Red Blood Count 3.71 10^6/uL (4.1-5.3); Red Cell Distribution Width 13.7 % (12.1-15.1); White Blood Count 10.7 10^3/uL (4.0-10.0)
[2022-08-16 05:27] LABS: ABG PH Result 7.28 (7.35-7.45); Arterial Blood Gas Hematocrit 36.4 % (42-52); Base Excess ABG 2.2 mmol/L (-2.0-2.0); Blood Gas Allen Test Pos; Blood Gas Operator Identificat JB; Blood Gas Sample Site Brachial, right; Blood Gas Sample Type Arterial; HCO3 ABG 30.3 mmol/L (22-26); Oxygen Device VENT; PO2 ABG 79.6 mmHg (80.0-100.0)
[2022-08-16 05:29] LABS: ABG PCO2 64.1 mmHg (35-45)
[2022-08-16 05:44] LABS: Troponin 5 6HR 40.89 ng/L (0-15)
[2022-08-16 05:46] LABS: Troponin 5 6HR Delta 7.89 ng/L (0-12)
[2022-08-16 05:48] LABS: Procalcitonin 0.08 ng/mL (0-0.5)
[2022-08-16 05:59] LABS: Alanine Aminotransferase 26 U/L (0-41); Albumin Level 3.3 g/dL (3.5-5.2); Alkaline Phosphatase 53 U/L (40-130); Anion Gap 11.9 (5-19); Aspartate Amino Transferase 26 U/L (0-40); Blood Urea Nitrogen 31 mg/dL (8-23); Calcium 8.3 mg/dL (8.5-10.5); Carbon Dioxide 28 mmol/L (22-29); Chloride 100 mmol/L (98-107); Globulin 2.2 g/dL (1.3-4.6); Glomerular Filtration Rate 75.2 mL/min (90-130); Glucose 275 mg/dL (65-115); Osmolality Calculated 296 mOsm/kg (285-295); Potassium 4.9 mmol/L (3.5-5.1); Sodium 135 mmol/L (136-145); Total Bilirubin 0.8 mg/dL (0.15-1.2); Total Protein 5.5 g/dL (6.6-8.7)
[2022-08-16 06:00] LABS: D Dimer 0.69 ug/mIFEU (0-0.59)
--- NOTE | 2022-08-16 06:00 | USCV_ITS ---
Pratik Garcia Age: 66 Gender: M : 1955 Exam Date: 08/16/2022 09:31 Ordering Phys: Blayne Ewing MD Technologist: Zach Blanca Exam Location: [facility] [place] Indication: pulm edema. hf? BP: 83 / 56 HR: 78 Rhythm: Sinus Technical Quality: Adequate MEASUREMENTS (Male / Female) Normal Values 2D ECHO LV Diastolic Diameter PLAX 1.6 cm 4.2 - 5.9 / 3.9 - 5.3 cm LV Systolic Diameter PLAX 0.8 cm IVS Diastolic Thickness 1.8 cm 0.6 - 1.0 / 0.6 - 0.9 cm IVS Systolic Thickness 2.2 cm LVPW Diastolic Thickness 1.8 cm 0.6 - 1.0 / 0.6 - 0.9 cm LVPW Systolic Thickness 2.2 cm LVOT Diameter 2.0 cm LV Ejection Fraction 2D Teich 84.5 % LV Ejection Fraction MOD 2C 84.1 % LV Ejection Fraction 2C AL 87.0 % LA Diameter 4.8 cm LA Width 4.6 cm LA Height 5.1 cm RA Width 3.4 cm RA Height 4.5 cm Aorta at Sinotubular Diameter 2.4 cm IVC Diameter 2.1 cm M-MODE Aortic Annulus Diameter 2.7 cm LA Ao Ratio MM 1.9 MV E Point Septal Separation 0.0 cm DOPPLER AV Peak Velocity 283.7 cm/s LVOT Peak Velocity 458.0 cm/s AV Area Cont Eq vti 6.4 cm squared AV Area Cont Eq pk 5.1 cm squared MV Peak Velocity 165.0 cm/s MV Area PHT 4.3 cm squared Mitral E to A Ratio 1.0 MV E' Velocity 62.0 cm/s Mitral E to MV E' Ratio 17.7 Mitral E to LV E' Lateral Ratio 16.7 Mitral E to LV E' Septal Ratio 18.9 TR Peak Velocity 303.7 cm/s TR Peak Gradient 36.9 mmHg TR Mean Velocity 246.2 cm/s TR Mean Gradient 24.8 mmHg TR Velocity Time Integral 70.8 cm Right Atrial Pressure 8.0 mmHg Pulmonary Artery Systolic Pressu 44.9 mmHg PV Peak Velocity 110.7 cm/s RV Acceleration Time 0.1 s RV Ejection Time 0.2 s RV AcT/ET 0.5 FINDINGS Left Ventricle Normal left ventricular size and systolic function, EF 83 %. Moderate left ventricular hypertrophy. No regional wall motion abnormalities. Grade III/IV diastolic dysfunction (restrictive filling pattern), severely elevated filling pressures. Right Ventricle The right ventricle is normal in size and function. Right Atrium The right atrium is normal in size. Left Atrium Mildly increased left atrial size. Mitral Valve Thickened mitral valve. Moderate mitral annular calcification. Aortic Valve Thickened aortic valve. The peak velocity of the LV outflow tract was 6.25 m/s. Peak velocity of the aortic valve is 2. 69 m/s. The peak gradient across the LV outflow tract was 156 mmHg with a mean gradient of 105 mmHg Tricuspid Valve Mild to moderate tricuspid valve regurgitation. Pulmonic Valve Pulmonic valve not well visualized. Pericardium No pericardial effusion. Aorta Normal aortic annulus size. IVC The inferior vena cava appears normal. CONCLUSIONS Normal left ventricular size and systolic function, EF 83 %. Moderate left ventricular hypertrophy. No regional wall motion abnormalities. Grade III/IV diastolic dysfunction (restrictive filling pattern), severely elevated filling pressures. Mildly increased left atrial size. Features of hypertrophic obstructive cardiomyopathy with an LV outflow tract gradient of 156 mmHg Thickened mitral valve. Moderate mitral annular calcification. Pulmonic valve not well visualized. There is no pericardial effusion. There are no intracardiac masses. Comparison with the previous study from 02/11/2021 is difficult because of the difference in technical quality. However the resting gradient at the LV outflow tract appears to have increased Revised report of the study from 08/16/2022 Dr Landy Ivy MD [facility] (Electronically Signed) Final Date: 16 August 2022 14:56 Amended: 16 August 2022 20:39 C
--- NOTE | 2022-08-16 06:17 | ECG_ITS ---
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 Measurements Intervals Paul Rate: 67 P: 47 AR: 155 QRS: 42 QRSD: 114 T: 146 QT: 393 QTc: 415 Interpretive Statements SINUS RHYTHM WITH FREQUENT SUPRAVENTRICULAR PREMATURE COMPLEXES LEFT VENTRICULAR HYPERTROPHY AND ST-T CHANGE [VOLTAGE CRITERIA PLUS ST/T ABNORMALITY] Compared to ECG 08/15/2022 20:21:06 Left ventricular hypertrophy now present ST (T wave) deviation now present Atrial fibrillation no longer present T-wave abnormality no longer present Possible ischemia no longer present Electronically Signed On 08-16-2022 11:03:34 WET WASH ASSEMBLER by Tab Sinclair M.D. [id number]
[2022-08-16] MEDS: ampicillin-sulbactam 3 GM in sodium chloride 0.9% (plus) 50 ML IV (06:24)
[2022-08-16 07:38] LABS: Adenovirus Not Detected (NOT DETECT); Chlamydia Pneumoniae Not Detected (NOT DETECT); Coronavirus 229E,HKU1,NL63,OC4 Not Detected (NOT DETECT); Human Metapneumovirus Not Detected (NOT DETECT); Human Rhinovirus/Enterovirus Not Detected (NOT DETECT); Influenza A Not Detected (NOT DETECT); Influenza A H1 Not Detected (NOT DETECT); Influenza A H1-2009 Not Detected (NOT DETECT); Influenza A H3 Not Detected (NOT DETECT); Influenza B Not Detected (NOT DETECT); Mycoplasma Pneumoniae Not Detected (NOT DETECT); Parainfluenza Virus Type 1 Not Detected (NOT DETECT); Parainfluenza Virus Type 2 Not Detected (NOT DETECT); Parainfluenza Virus Type 3 Not Detected (NOT DETECT); Parainfluenza Virus Type 4 Not Detected (NOT DETECT); Respiratory Syncytial Virus A Not Detected (NOT DETECT); Respiratory Syncytial Virus B Not Detected (NOT DETECT); SARS-COV-2 Not Detected (NOT DETECT)
[2022-08-16] MEDS: budesonide 0.5 mg/2 mL Neb INHALATION ×2 (08:16→19:27)
[2022-08-16] MEDS: propofol 1,000 MG/100 ML INJ 17.53 MG IV ×2 (08:23→14:21)
[2022-08-16] MEDS: FUROsemide 10 mg/mL SDV 2mL 20 MG IVP (08:26)
[2022-08-16] MEDS: thiamine 100 mg Tablet PO (08:32)
[2022-08-16] MEDS: doxycycline 100 mg Tablet PO (08:32)
[2022-08-16] MEDS: aspirin 81 mg EC Tablet PO (08:32)
[2022-08-16] MEDS: folic acid 1 mg Tablet PO (08:33)
[2022-08-16] MEDS: guaiFENesin 600 mg Tablet PO ×2 (08:33→17:10)
[2022-08-16] MEDS: multivitamin therapeutic Tablet 1 TAB PO (08:33)
[2022-08-16] MEDS: lidocaine 5% Patch 1 PATCH TOPICAL (08:46)
[2022-08-16 09:00] LABS: ABG PCO2 58.4 mmHg (35-45); ABG PH Result 7.36 (7.35-7.45); Alveolar-Arterial Oxygen Gradi 27.4 mmHg (5-10); Base Excess ABG 6.2 mmol/L (-2.0-2.0); Blood Gas Operator Identificat GD; Blood Gas Sample Site Brachial, left; Blood Gas Sample Type Arterial; Carboxyhemoglobin 0.9 %THgb (0.4-20.1); HCO3 ABG 33.2 mmol/L (22-26); HGB O2 Sat 93.9 % (95-100); Ionized Calcium Level - ABG 1.2 mmol/L (1.1-1.4); Methemoglobin 0.9 % (0.4-1.5); Oxygen Device VENT; Oxygen Saturation ABG 95.7; PO2 ABG 75.4 mmHg (80.0-100.0); Potassium Level - ABG 3.9 mmol/L (3.5-5.0); Total Hemoglobin 12.1 g/dL (14-18)
--- NOTE | 2022-08-16 09:03 | PC.NURSE ---
pt somewhat diaphoretic and restless noted ativan given for withdrawl
[2022-08-16] MEDS: iohexol 350 mg/mL 500 mL Btl (per mL) IV (10:43)
--- NOTE | 2022-08-16 10:58 | ECG_ITS ---
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 Measurements Intervals Byron Rate: 101 P: 62 CO: 155 QRS: 54 QRSD: 109 T: 132 QT: 343 QTc: 446 Interpretive Statements SINUS TACHYCARDIA POSSIBLE LEFT ATRIAL ENLARGEMENT [-0.1mV P-WAVE IN V1/V2] LEFT VENTRICULAR HYPERTROPHY AND ST-T CHANGE [VOLTAGE CRITERIA PLUS ST/T ABNORMALITY] Compared to ECG 08/16/2022 06:17:57 Sinus rhythm no longer present ST (T wave) deviation still present Electronically Signed On 08-16-2022 11:02:47 DIRECTOR WORK by Tab Sinclair M.D. [id number]
[2022-08-16] MEDS: vancomycin 1,000 MG in sodium chloride 0.9% 250 ML 250 MG IV ×2 (11:15→22:40)
[2022-08-16] MEDS: piperacillin-tazobactam 3.375 GM in sodium chloride 0.9% (plus) 50 ML IV ×2 (12:19→19:08)
--- NOTE | 2022-08-16 13:03 | CTR_ITS ---
PROCEDURE INFORMATION: Exam: CTA Chest With Contrast Exam date and time: 08/16/2022 10:29 AM Age: 66 years old Clinical indication: Shortness of breath; Additional info: Hypoxia, pain on inspiration R chest TECHNIQUE: Imaging protocol: Computed tomographic angiography of the chest with contrast. 3D rendering (Not supervised by radiologist): MIP and/or 3D reconstructed images were created by the technologist. Radiation optimization: All CT scans at this facility use at least one of these dose optimization techniques: automated exposure control; mA and/or kV adjustment per patient size (includes targeted exams where dose is matched to clinical indication); or iterative reconstruction. Contrast material: OMNI 350; Contrast volume: 68 ml; Contrast route: INTRAVENOUS (IV); COMPARISON: CR (CHEST, ) 08/16/2022 3:55 AM RADIATION DOSE METRICS: Total DLP (mGy-cm): 391.43 FINDINGS: Limitations: The study is technically limited by breathing motion artifact. Tubes, catheters and devices: There is an endotracheal tube present with the tip between the clavicles and the rosa. An enteric tube extends down into the stomach. Pulmonary arteries: No sign of acute pulmonary embolism. Aorta: The thoracic aorta is atherosclerotic. No thoracic aortic aneurysm or displaced intimal calcifications. Lungs: Bilateral dependent airspace disease, more so on the right. Nonspecific ground-glass opacities in the left upper lobe. Mild bilateral centrilobular emphysema. Fluid in subsegmental bronchi in both lower lobes. Pleural spaces: Small right pleural effusion. No pneumothorax. Heart: The heart is not enlarged. No pericardial effusion. There is mitral annular calcification. Calcified coronary artery atherosclerotic plaque visualized. Lymph nodes: No enlarged lymph nodes. Bones/joints: There are lateral right 3rd through 9th rib fractures, as well as the 10th rib, with the 8th and 10th rib fractures being displaced a rib width. The other rib fractures have a lesser degree of displacement. No right 9th rib fracture is appreciated. Nondisplaced fracture of the T11 spinous process (7:475). Mild loss of height of the T11 vertebral body though this does not appear acute. Soft tissues: No acute soft tissue abnormality. CT/CT angio chest PE protcl [id number] IMPRESSION: 1. No sign of acute pulmonary embolism. 2. Multiple right rib fractures. No pneumothorax. 3. T11 spinous process fracture.
[2022-08-16] MEDS: enoxaparin 40 mg/0.4 mL Syringe SUBCUT (14:10)
[2022-08-16 15:42] LABS: Troponin T (5th) Once 36 ng/L (0-15)
[2022-08-16 15:44] LABS: Anion Gap 12.2 (5-19); Blood Urea Nitrogen 28 mg/dL (8-23); Calcium 8.6 mg/dL (8.5-10.5); Carbon Dioxide 32 mmol/L (22-29); Chloride 100 mmol/L (98-107); Glucose 162 mg/dL (65-115); Osmolality Calculated 299 mOsm/kg (285-295); Potassium 4.2 mmol/L (3.5-5.1); Sodium 140 mmol/L (136-145)
--- NOTE | 2022-08-16 17:23 | PC.NURSE ---
Pt restless and attempting to sit up in bed, fighting restraints. Propofol increased from 40 to 50mcg/kg/min
--- NOTE | 2022-08-16 17:28 | PM.PN ---
Subjective Subjective: He is feeling slightly better, but continues to have cough. Continues to have pain with inspiration right side of his chest. Continues to require 4 L nasal cannula oxygen. Discussed with him results of chest x-ray, pulm edema, Lasix. Discussed with him obtaining additional assessment by CTA with risks of the study. He is agreeable. Vitals/I&O/Wt Last Vital Signs Temp 99 F 08/16/22 16:00 Pulse 83 08/16/22 16:00 Resp 16 08/16/22 16:00 BP 100/58 08/16/22 16:00 Pulse Ox 97 08/16/22 16:00 O2 Del Method 08/16/22 16:00 O2 Flow Rate 4 08/16/22 00:00 FiO2 50 08/16/22 15:19 08/16/22 08/16/22 08/16/22 06:59 14:59 22:59 Intake Total 82.726 / 3522.726 843.573 / 843.573 152.882 / 996.455 Output Total 200 / 1175 2125 / 2125 350 / 2475 Balance -117.274 / 2347.726 -1281.427 / -1281.427 -197.118 / -1478.545 Physical Exam Narrative: General exam: Intubated, sedated on mechanical vent HEENT atraumatic and normocephalic. Oropharynx clear. Neck is supple no lymphadenopathy thyromegaly Cardiovascular regular rate and rhythm without murmur Lungs bilateral expiratory wheezes Abdomen is soft nontender positive bowel sounds. No obvious organomegaly Extremities no cyanosis clubbing or edema, cap refill brisk Skin no rash Neuro no focal deficits. Urinary Catheter Management: Garcia: Cath Placed During This Visit: yes Reason for Continuing Indwelling Catheter: Accurate Measurement of Urinary Output in Critically Ill Patients Urinary Catheter Date of Insertion: 08/16/22 Urinary Catheter Time of Insertion: 00:45 Data 08/16/22 03:50 08/16/22 15:10 Micro: Microbiology 08/16/22 04:40 MRSA Culture - Final Nose 08/16/22 05:41 Bacterial Antigens - Final Urine Kidney 08/16/22 05:41 Legionella Urinary Antigen - Final Urine Catheterized 08/16/22 05:35 Blood Culture - Preliminary Blood SPECIMEN COLLECTED 08/16/22 05:31 Blood Culture - Preliminary Blood SPECIMEN COLLECTED A&P Assessment and plan (1) Shock: Most likely a combination of septic and cardiogenic. Wean off Levophed keeping mean arterial pressure over 65. Hold off any further antihypertensives. Follow-up blood cultures. Strict input output charting. (2) Respiratory failure with hypoxia and hypercapnia: Likely secondary to a combination of COPD exacerbation, congestive heart failure in setting of IHSS, multiple rib fracture post fall. Cannot rule out underlying pneumonia. Check MRSA swab, sputum culture. Switch to vancomycin and Zosyn for now. Continue with DuoNebs every 6 hour, budesonide twice daily. CTA to rule out pulmonary embolism. Continue with Solu-Medrol 20 mg every 12 hourly. Strict input output charting, daily weights. Continue with IV Lasix 40 mg twice daily for now. Patient overall 6 L positive since admission. Continue with IV diuresis while monitoring vitals. Continue with propofol and fentanyl for now. We will try to wean off to Precedex drip along with fentanyl patch (3) COPD exacerbation: As above. (4) Atrial fibrillation: Patient with history of atrial fibrillation, hypertrophic cardiomyopathy Currently rate controlled. Holding off on metoprolol given cardiogenic shock. Continue with amiodarone drip. Will transition to oral over the next 24 hours. Qualifiers: Atrial fibrillation type: paroxysmal Qualified Code(s): I48.0 - Paroxysmal atrial fibrillation (5) IHSS (idiopathic hypertrophic subaortic stenosis): Echocardiogram results appreciated. Hold off on any further diuresis, antihypertensives for now. (6) Rhabdomyolysis: Improving. DC IVF. Hold statin. Antitussives. (7) Ribs, multiple fractures: (8) CAD (coronary artery disease): Continue statin, aspirin, beta-morgan Qualifiers: Coronary Disease-Associated Artery/Lesion type: [place] artery Andre[place] vs. transplanted heart: [place] heart Associated angina: without angina Qualified Code(s): I25.10 - Atherosclerotic heart disease of [place] coronary artery without angina pectoris (9) Alcohol abuse: Thiamine, folate Monitor for withdrawal CIWA protocol (10) Fall: Status post fall. Sustained contusion to right chest. No fracture seen on chest x-ray, but could still be present. Pain control Plan Analgesia: Currently sedated with propofol and fentanyl. Glycemic control: Not needed. Check A1c Nutrition: NPO. We will plan for tube feeds in the next 24 hours continues to remain intubated CODE STATUS: Full code PUD prophylaxis: Protonix DVT prophylaxis: Lovenox Discharge planning: Pending. Continue with care at ICU level. This documentation was created by [employer] staffing manager software. Every effort was made to ensure accuracy of staffing manager. Any obvious errors or omissions should be clarified with the author of the document. Attestations Medical Necessity Statement*: Requires further hospitalization for management of acute hypoxic and hypercapnic respiratory failure in setting of shock patient with history of alcohol abuse, rib fracture post fall Critical Care Time: The high probability of a clinically significant, sudden or life threatening deterioration of the patient's [cardiac, respiratory, renal] system(s) required my full and direct attention, intervention and personal management. The critical care time is as shown. This time is in addition to time spent performing any reported procedures but includes the following: [x] Data and vital sign review and interpretation [x] Patient assessment, examination and intervention [x] Documentation [x] Medication orders and management Critical Care Time (min): 60 Coding Level of Care Code Acute Professor Of Mathematics for Chg Fwd Diagnoses Shock R57.9 Respiratory failure with hypoxia and hypercapnia J96.91; J96.92 COPD exacerbation J44.1 Atrial fibrillation I48.0 Atrial fibrillation type: paroxysmal IHSS (idiopathic hypertrophic subaortic stenosis) I42.1 Rhabdomyolysis M62.82 Ribs, multiple fractures S22.49XA CAD (coronary artery disease) I25.10 Coronary Disease-Associated Artery/Lesion type: [place] artery Andre[place] vs. transplanted heart: [place] heart Associated angina: without angina Alcohol abuse F10.10 Fall W19.XXXA
[2022-08-16 18:30] LABS: Iron 80 ug/dL (59-158); Percent Saturation 30.1 % (20-50); Total Iron Binding Capacity 265 mcg/dl; Unsaturated Iron Binding 185 ug/dL (112-347)
[2022-08-16 18:33] LABS: Folate Level 9.7 ng/mL (4.5-32.2)
[2022-08-16 18:47] LABS: Vitamin B12 272 pg/mL (232-1245)
[2022-08-16] MEDS: propofol 1,000 MG/100 ML INJ 21.91 MG IV (19:47)
[2022-08-16] MEDS: sodium chloride 0.9% 250 ML IV (22:40)
[2022-08-16] MEDS: propofol 1,000 MG/100 ML INJ 24.1 MG IV (23:28)
[2022-08-17] VITALS (100 sets, daily range): BP systolic 86–153; BP diastolic 60–91; PULSE 70–159; RESP 16–22; TEMP 36.4–37.7; O2SAT 91–99
[2022-08-17] MEDS: chlorhexidine gluconate 4% Btl 118 mL 1 APPLIC TOPICAL (00:10)
[2022-08-17] MEDS: piperacillin-tazobactam 3.375 GM in sodium chloride 0.9% (plus) 50 ML IV ×4 (03:04→23:41)
[2022-08-17] MEDS: ipratropium-albuterol 3 mL Neb INHALATION ×5 (03:09→23:06)
[2022-08-17 03:35] LABS: ABG PCO2 59.4 mmHg (35-45); ABG PH Result 7.39 (7.35-7.45); Arterial Blood Gas Hematocrit 37.6 % (42-52); Base Excess ABG 8.9 mmol/L (-2.0-2.0); Blood Gas Allen Test Pos; Blood Gas Sample Site Radial, right; Blood Gas Sample Type Arterial; HCO3 ABG 35.8 mmol/L (22-26); Oxygen Device VENT; PO2 ABG 92.7 mmHg (80.0-100.0)
[2022-08-17] MEDS: propofol 1,000 MG/100 ML INJ 24.1 MG IV ×2 (03:50→07:47)
[2022-08-17 05:47] LABS: Basophils % 0.1 %; Hematocrit 39.6 % (42.0-52.0); Hemoglobin 12.3 g/dL (11.7-16.6); Lymphocytes # 0.6 10^3/uL (0.8-4.8); Lymphocytes % 7.1 %; Mean Corpuscular HGB Conc 31.1 g/dL (30.0-36.0); Mean Corpuscular Hemoglobin 28.6 pg (28.0-34.0); Mean Corpuscular Volume 92.1 fl (80-94); Mean Platelet Volume 10.7 fL (7.4-10.4); Monocytes # 0.7 10^3/uL (0.2-0.9); Monocytes % 7.5 %; Neutrophils # 7.43 10^3/uL (1.8-7.7); Neutrophils % 84.8 %; Nucleated Red Blood Cells % 0 %; Platelet Count 198 10^3/cmm (130-400); Red Cell Distribution Width 13.7 % (12.1-15.1); White Blood Count 8.8 10^3/uL (4.0-10.0)
[2022-08-17 06:08] LABS: Alanine Aminotransferase 19 U/L (0-41); Albumin Level 3.1 g/dL (3.5-5.2); Alkaline Phosphatase 53 U/L (40-130); Anion Gap 9.4 (5-19); Aspartate Amino Transferase 12 U/L (0-40); Blood Urea Nitrogen 23 mg/dL (8-23); Calcium 8.4 mg/dL (8.5-10.5); Carbon Dioxide 33 mmol/L (22-29); Chloride 94 mmol/L (98-107); Chol HDL Ratio 2.86 mg/dL (1.0-5.00); Cholesterol 143 mg/dL (0-200); Globulin 2.3 g/dL (1.3-4.6); Glucose 148 mg/dL (65-115); HDL Cholesterol 50 mg/dL (60-100); LDL Cholesterol Calculated 62 mg/dL (50-129); Osmolality Calculated 282 mOsm/kg (285-295); Potassium 3.4 mmol/L (3.5-5.1); Sodium 133 mmol/L (136-145); Total Bilirubin 0.5 mg/dL (0.15-1.2); Total Protein 5.4 g/dL (6.6-8.7); Triglycerides 155 mg/dL (0-150); VLDL Cholestrol Calculation 31 mg/dL (0-30)
[2022-08-17 06:25] LABS: Estmated Average Glucose 114; Hemoglobin A1C 5.6 % (4.0-6.0)
[2022-08-17] MEDS: budesonide 0.5 mg/2 mL Neb INHALATION ×2 (08:01→19:34)
[2022-08-17] MEDS: guaiFENesin 600 mg Tablet PO ×2 (09:08→17:34)
[2022-08-17] MEDS: thiamine 100 mg Tablet PO (09:08)
[2022-08-17] MEDS: aspirin 81 mg EC Tablet PO (09:08)
[2022-08-17] MEDS: folic acid 1 mg Tablet PO (09:08)
[2022-08-17] MEDS: multivitamin therapeutic Tablet 1 TAB PO (09:08)
--- NOTE | 2022-08-17 09:28 | XRR_ITS ---
PROCEDURE INFORMATION: Exam: XR Chest Exam date and time: 08/17/2022 10:44 AM Age: 66 years old Clinical indication: Device placement; Ett placement (vent status); Additional info: Intubated TECHNIQUE: Imaging protocol: Radiologic exam of the chest. Views: 1 view. COMPARISON: CT scan of the chest dated 07/16/2022. CR (CHEST, ) 08/16/2022 3:55 AM FINDINGS: Tubes, catheters and devices: Tip of the ET tube is positioned 4.2 cm superior to the rosa. The G tube passes below the hemidiaphragms. Lungs: There is mild hazy opacity at the right lung base and mild streaky opacities at the left lung base. Pleural spaces: Blunting of the right costophrenic angle is suggestive of a small pleural effusion. Heart/Mediastinum: Unremarkable. No cardiomegaly. Bones/joints: Rib fractures are more optimally visualized on the prior CT angiogram performed 08/16/2022. Please see report. XR/XR chest 1V portable [id number] IMPRESSION: 1. Tip of the ET tube projects 4.2 cm superior to the rosa. 2. Bibasilar opacities are nonspecific and may represent atelectasis and or pneumonia. 3. Blunting of the right costophrenic angle is suggestive of a small pleural effusion.
[2022-08-17] MEDS: cyanocobalamin 1,000 mcg/mL SDV 1000 MCG IM (09:45)
[2022-08-17] MEDS: potassium chloride ER 20 mEq Tablet 40 MEQ PO (09:46)
[2022-08-17] MEDS: vancomycin 1,000 MG in sodium chloride 0.9% 250 ML 250 MG IV (10:41)
[2022-08-17] MEDS: LORazepam 2 mg/mL INJ 1 mL IVP ×2 (10:42→10:57)
--- NOTE | 2022-08-17 11:00 | PC.NURSE ---
visitors in room to see pt very upset that they had not been notified that he is on life support when talking with them the friend said they live in the same house but only as friends when checked phone number listed she related that is his cell phone that she has but can not hear it ring or see to drive. when question about family she related has sister they will contact. while in room pt became very agitated and distressed kicking in bed shaking head very diaporetic. did answer few question with nod head yes and no related did not want friend to make decisions for him. Aubree did relate later time that they were common law marriage been together for [address] clay aware status and talked with visitor and new orders noted
[2022-08-17] MEDS: dexmedeTOMIDine 0.9 % NaCL 400 MCG/100 ML PREMIX IV (11:37)
[2022-08-17] MEDS: sodium chloride 0.9% 500 ML 999 ML IV (11:50)
[2022-08-17 12:05] LABS: Thyroid Stimulating Hormone 0.07 uIU/mL (0.27-4.20)
--- NOTE | 2022-08-17 13:45 | CTR_ITS ---
PROCEDURE INFORMATION: Exam: CTA Head With Contrast, Arteriography Exam date and time: 08/17/2022 2:59 PM Age: 66 years old Clinical indication: Other: Possible seizures TECHNIQUE: Imaging protocol: Computed tomographic angiography of the head with contrast. Exam focused on the arteries. 3D rendering (Not supervised by radiologist): MIP and/or 3D reconstructed images were created by the technologist. Radiation optimization: All CT scans at this facility use at least one of these dose optimization techniques: automated exposure control; mA and/or kV adjustment per patient size (includes targeted exams where dose is matched to clinical indication); or iterative reconstruction. Contrast material: OMNI 350; Contrast volume: 100 ml; Contrast route: INTRATHECAL (MYELOGRAM); COMPARISON: CT head wo con* [id number] 08/13/2022 7:29 AM RADIATION DOSE METRICS: Total DLP (mGy-cm): 1098.65 FINDINGS: ANTERIOR CIRCULATION: Right internal carotid artery: There is atherosclerotic plaque in the bilateral carotid siphons with luminal irregularity. Intracranial segment is patent with no significant stenosis. No aneurysm. Right middle cerebral artery: No occlusion or significant stenosis. No aneurysm. Right anterior cerebral artery: No occlusion or significant stenosis. No aneurysm. Left internal carotid artery: There is atherosclerotic plaque in the bilateral carotid siphons with luminal irregularity. Intracranial segment is patent with no significant stenosis. No aneurysm. Left middle cerebral artery: No occlusion or significant stenosis. No aneurysm. Left anterior cerebral artery: No occlusion or significant stenosis. No aneurysm. POSTERIOR CIRCULATION: Right vertebral artery: No occlusion or significant stenosis. No aneurysm. Left vertebral artery: No occlusion or significant stenosis. No aneurysm. Basilar artery: No occlusion or significant stenosis. No aneurysm. Right posterior cerebral artery: No occlusion or significant stenosis. No aneurysm. Left posterior cerebral artery: No occlusion or significant stenosis. No aneurysm. Brain: No definite mass, mass effect, or midline shift. Cerebral ventricles: No ventriculomegaly. Bones/joints: Unremarkable. No acute fracture. Soft tissues: Unremarkable. PROCEDURE INFORMATION: Exam: CTA Neck With Contrast Exam date and time: 08/17/2022 2:59 PM Age: 66 years old Clinical indication: Other: Possible seizures TECHNIQUE: Imaging protocol: Computed tomographic angiography of the neck with contrast. 3D rendering (Not supervised by radiologist): MIP and/or 3D reconstructed images were created by the technologist. Radiation optimization: All CT scans at this facility use at least one of these dose optimization techniques: automated exposure control; mA and/or kV adjustment per patient size (includes targeted exams where dose is matched to clinical indication); or iterative reconstruction. Contrast material: OMNI 350; Contrast volume: 100 ml; Contrast route: INTRATHECAL (MYELOGRAM); COMPARISON: CT angio chest PE protcl [id number] 08/16/2022 10:29 AM RADIATION DOSE METRICS: Total DLP (mGy-cm): 1098.65 FINDINGS: Right common carotid artery: Mild atherosclerotic plaque. No stenosis. No dissection or occlusion. Right internal carotid artery: Atherosclerotic plaque at the proximal aspect of the right internal carotid artery results in mild narrowing. No dissection or occlusion. Right external carotid artery: There is atherosclerotic plaque at the proximal aspect of the right external carotid artery with mild narrowing. Left common carotid artery: Mild atherosclerotic plaque. No stenosis. No dissection or occlusion. Left internal carotid artery: There is atherosclerotic plaque in the proximal left internal carotid artery with mild narrowing. Left external carotid artery: No occlusion or stenosis of the origin. Left external carotid artery: No occlusion or stenosis of the origin. Right vertebral artery: No stenosis. No dissection or occlusion. Left vertebral artery: No stenosis. No dissection or occlusion. Soft tissues: Normal. No significant soft tissue swelling. Bones/joints: No acute fracture. Lungs: There are emphysematous changes at the lung apices. Atelectatic changes are present at the posterior aspects of the lung apices. Distal aspect of the ET tube terminates superior to the rosa. Partially visualized G-tube. CT/CT angio headneck* [id number] IMPRESSION: No large vessel stenosis or occlusion. IMPRESSION: 1. There is atherosclerotic plaque at the proximal aspects of the bilateral internal carotid arteries with mild narrowing. 2. Emphysematous changes are present at the lung apices. REFERENCES: NASCET CRITERIA. The degree of stenosis in the cervical segment of the internal carotid artery is based on NASCET criteria. Normal is no stenosis. Mild is less than 50% stenosis. Moderate is 50-69% stenosis. Severe is 70% to 99% stenosis. Total occlusion is no detectable patent lumen.
[2022-08-17] MEDS: enoxaparin 40 mg/0.4 mL Syringe SUBCUT (14:12)
[2022-08-17] MEDS: PHENobarbital 130 mg/mL SDV 1 mL IV ×2 (14:12→21:30)
[2022-08-17 14:30] LABS: Creatine Phosphokinase 81 U/L (39-308)
[2022-08-17 14:38] LABS: Free T4 Free Thyroxine 1.02 ng/dL (0.82-1.77); T3 Free 1.8 PG/ML (2.0-4.4)
[2022-08-17] MEDS: iohexol 350 mg/mL 500 mL Btl (per mL) IV (15:17)
[2022-08-17 16:08] LABS: Ammonia 52 umol/L (16-60)
--- NOTE | 2022-08-17 17:42 | P.PN_ITS ---
Subjective Subjective: Seen multiple times during the day today. Patient remains on Levophed for, fentanyl of 125, propofol of 50. Patient continues to have occasional episode of tachycardia associated with fluttering of eyelids and profuse sweating. During the day he was switched over from propofol to Versed and was started on phenobarbital after which his episodes reduced and he has been sedated with heart rate running mostly in 70s to remain in atrial fibrillation. Ventilator settings have remained stable at 40% FiO2, tidal volume of 40 with PEEP of 6. Vitals/I&O/Wt Last Vital Signs Temp 97.6 F 08/17/22 03:11 Pulse 77 08/17/22 16:15 Resp 16 08/17/22 17:24 BP 115/75 08/17/22 16:15 Pulse Ox 96 08/17/22 17:24 O2 Del Method 08/17/22 15:05 O2 Flow Rate 4 08/16/22 00:00 FiO2 40 08/17/22 17:24 08/17/22 08/17/22 08/17/22 06:59 14:59 22:59 Intake Total 959.068 / 2513.031 1371.785 / 1371.785 25.146 / 1396.931 Output Total 200 / 3425 Balance 759.068 / -088.081 7176.785 / 1371.785 25.146 / 1396.931 Physical Exam Narrative: General exam: Intubated, sedated on mechanical vent HEENT atraumatic and normocephalic. Oropharynx clear. Neck is supple no lymphadenopathy thyromegaly Cardiovascular regular rate and rhythm without murmur Lungs bilateral expiratory wheezes Abdomen is soft nontender positive bowel sounds. No obvious organomegaly Extremities no cyanosis clubbing or edema, cap refill brisk Skin no rash Neuro no focal deficits. Urinary Catheter Management: Garcia: Cath Placed During This Visit: yes Reason for Continuing Indwelling Catheter: Accurate Measurement of Urinary Output in Critically Ill Patients Urinary Catheter Date of Insertion: 08/16/22 Urinary Catheter Time of Insertion: 00:45 Data 08/17/22 04:39 08/17/22 04:39 Micro: Microbiology 08/16/22 03:15 Gram Stain - Final Sputum - Endotracheal Tube Aspirate Sputum Culture - Preliminary 08/16/22 05:35 Blood Culture - Preliminary Blood NEGATIVE TO DATE 08/16/22 05:31 Blood Culture - Preliminary Blood NEGATIVE TO DATE A&P Assessment and plan (1) Shock: Most likely a combination of septic and cardiogenic. Wean off Levophed keeping mean arterial pressure over 65. Hold off any further antihypertensives. Follow-up blood cultures. Strict input output charting. (2) Respiratory failure with hypoxia and hypercapnia: Likely secondary to a combination of COPD exacerbation, congestive heart failure in setting of IHSS, multiple rib fracture post fall. Cannot rule out underlying pneumonia. MRSA negative, sputum culture still pending. Stop vancomycin. Continue with Zosyn. Continue with DuoNebs every 6 hour, budesonide twice daily. CTA to rule out pulmonary embolism. Continue with Solu-Medrol 20 mg every 12 hourly. Strict input output charting, daily weights. Hold off on any further Lasix. (3) Delirium tremens: Switch from propofol to Versed. Can add Precedex. Add phenobarbital after loading. We will continue with current dosing for 48 hours and then plan to decrease by 50%. Check ammonia levels, prolactin, CTA head and neck. (4) COPD exacerbation: As above. (5) Atrial fibrillation: Patient with history of atrial fibrillation, hypertrophic cardiomyopathy Currently rate controlled. Holding off on metoprolol given cardiogenic shock. Continue with amiodarone drip. Will transition to oral over the next 24 hours. Qualifiers: Atrial fibrillation type: paroxysmal Qualified Code(s): I48.0 - Paroxysmal atrial fibrillation (6) IHSS (idiopathic hypertrophic subaortic stenosis): Echocardiogram results appreciated. Hold off on any further diuresis, antihypertensives for now. (7) Rhabdomyolysis: Resolved. (8) Ribs, multiple fractures: (9) CAD (coronary artery disease): Continue statin, aspirin, beta-morgan Qualifiers: Associated angina: without angina Coronary Disease-Associated Art morgan/Lesion type: [place] artery [place] vs. transplanted heart: [place] heart Qualified Code(s): I25.10 - Atherosclerotic heart disease of [place] coronary artery without angina pectoris (10) Alcohol abuse: IV thiamine, oral folate Monitor for withdrawal CIWA protocol (11) Fall: Status post fall. Sustained contusion to right chest. No fracture seen on chest x-ray, but could still be present. Pain control Plan Analgesia: Currently sedated with propofol and fentanyl. Glycemic control: Not needed. Check A1c Nutrition: Start on tube feeds, 10 cc/h, increase 10 cc every 4 hours with goal of 45 with 100 cc free water flush every 6 hour CODE STATUS: Full code PUD prophylaxis: Protonix DVT prophylaxis: Lovenox Discharge planning: Pending. Continue with care at ICU level. Goals of care discussion: Today patient seen with friend at bedside. Friend is also mentioned in person to notify. As per friend she has been living with the patient for last 20 odd years. They have been struggling with patient's alcoholism and patient is being looked at for turning leaf while awaiting bed. We discussed unfortunately as patient is not legally related to the caregiver we cannot go for medical decisions with her. As per the friend she has a number f or patient's sister named Sameera who lives in [facility]. She will try to arrange for the number. This documentation was created by [employer] instructional media services technician software. Every effort was made to ensure accuracy of instructional media services technician. Any obvious errors or omissions should be clarified with the author of the document. Attestations Medical Necessity Statement*: Requires further hospitalization for management of hypoxic respiratory failure leading to intubation, delirium tremens Critical Care Time: The high probability of a clinically significant, sudden or life threatening deterioration of the patient's [cardiology, renal, pulmonary, neurological] system(s) required my full and direct attention, intervention and personal management. The critical care time is as shown. This time is in addition to time spent performing any reported procedures but includes the following: [x] Data and vital sign review and interpretation [x] Patient assessment, examination and intervention [x] Documentation [x] Medication orders and management 60 Coding Level of Care Code Acute Clerk Telegraph Service for Chg Fwd Diagnoses Shock R57.9 Respiratory failure with hypoxia and hypercapnia J96.91; J96.92 Delirium tremens F10.931 COPD exacerbation J44.1 Atrial fibrillation I48.0 Atrial fibrillation type: paroxysmal IHSS (idiopathic hypertrophic subaortic stenosis) I42.1 Rhabdomyolysis M62.82 Ribs, multiple fractures S22.49XA CAD (coronary artery disease) I25.10 Associated angina: without angina Coronary Disease-Associated Artery/Lesion type: [place] artery [place] vs. transplanted heart: [place] heart Alcohol abuse F10.10 Fall W19.XXXA
[2022-08-17] MEDS: morphine 4 mg/mL SDV 1 mL 2 MG IVP (21:38)
[2022-08-17 22:59] LABS: Glucose Point of Care 136 mg/dL (70-110)
[2022-08-18] VITALS (60 sets, daily range): BP systolic 117–179; BP diastolic 67–124; PULSE 75–105; RESP 16–25; TEMP 36.8–38.2; O2SAT 90–98
[2022-08-18] MEDS: morphine 4 mg/mL SDV 1 mL 2 MG IVP ×2 (01:11→23:03)
[2022-08-18] MEDS: chlorhexidine gluconate 4% Btl 118 mL 1 APPLIC TOPICAL (01:47)
[2022-08-18] MEDS: midazolam 1 mg/mL INJ 2 mL 2 MG IVP (02:34)
[2022-08-18] MEDS: ipratropium-albuterol 3 mL Neb INHALATION ×6 (03:16→23:34)
[2022-08-18 03:28] LABS: ABG PH Result 7.37 (7.35-7.45); Arterial Blood Gas Hematocrit 38.6 % (42-52); Base Excess ABG 8.1 mmol/L (-2.0-2.0); Blood Gas Allen Test Pos; Blood Gas Sample Site Radial, right; Blood Gas Sample Type Arterial; HCO3 ABG 35.5 mmol/L (22-26); Oxygen Device VENT; PO2 ABG 76.5 mmHg (80.0-100.0)
[2022-08-18 03:31] LABS: ABG PCO2 61.9 mmHg (35-45)
[2022-08-18 03:55] LABS: Basophils % 0.2 %; Hematocrit 38.1 % (42.0-52.0); Lymphocytes # 0.4 10^3/uL (0.8-4.8); Lymphocytes % 6.7 %; Mean Corpuscular HGB Conc 31.5 g/dL (30.0-36.0); Mean Corpuscular Hemoglobin 29.3 pg (28.0-34.0); Mean Corpuscular Volume 93.2 fl (80-94); Mean Platelet Volume 10.9 fL (7.4-10.4); Monocytes # 0.5 10^3/uL (0.2-0.9); Monocytes % 8.5 %; Neutrophils # 5.12 10^3/uL (1.8-7.7); Neutrophils % 84.1 %; Nucleated Red Blood Cells % 0 %; Platelet Count 211 10^3/cmm (130-400); Red Blood Count 4.09 10^6/uL (4.1-5.3); Red Cell Distribution Width 13.4 % (12.1-15.1); White Blood Count 6.1 10^3/uL (4.0-10.0)
[2022-08-18 04:21] LABS: Alanine Aminotransferase 15 U/L (0-41); Albumin Level 2.8 g/dL (3.5-5.2); Alkaline Phosphatase 46 U/L (40-130); Aspartate Amino Transferase 10 U/L (0-40); Blood Urea Nitrogen 26 mg/dL (8-23); Calcium 8.4 mg/dL (8.5-10.5); Carbon Dioxide 34 mmol/L (22-29); Chloride 99 mmol/L (98-107); Globulin 2.4 g/dL (1.3-4.6); Glucose 252 mg/dL (65-115); Osmolality Calculated 299 mOsm/kg (285-295); Sodium 138 mmol/L (136-145); Total Bilirubin 0.6 mg/dL (0.15-1.2); Total Protein 5.2 g/dL (6.6-8.7)
--- NOTE | 2022-08-18 06:00 | XRR_ITS ---
PROCEDURE INFORMATION: Exam: XR Chest Exam date and time: 08/18/2022 5:04 AM Age: 66 years old Clinical indication: Other: Daily intubated cxr TECHNIQUE: Imaging protocol: Radiologic exam of the chest. Views: 1 view. COMPARISON: CR (CHEST, ) 08/17/2022 10:44 AM FINDINGS: Tubes, catheters and devices: An endotracheal tube is placed with its tip 3 cm from the rosa. A nasogastric tube is present with its tip at least in the proximal stomach. EKG leads overlie the chest. Lungs: There are hazy opacities again seen in the lung bases bilaterally similar to those present on yesterday's examination. Pleural spaces: Unremarkable. No pleural effusion. No pneumothorax. Heart/Mediastinum: Unremarkable. No cardiomegaly. Bones/joints: Unremarkable. XR/XR chest 1V portable [id number] IMPRESSION: 1. Endotracheal tube tip 3 cm from the rosa. 2. Nasogastric tube tip at least in proximal stomach 3. Hazy opacities are again seen in the lower hemithoraces bilaterally likely representing atelectasis. However, bilateral basilar interstitial pneumonia cannot be entirely excluded.
[2022-08-18] MEDS: piperacillin-tazobactam 3.375 GM in sodium chloride 0.9% (plus) 50 ML IV ×3 (06:06→21:02)
[2022-08-18] MEDS: budesonide 0.5 mg/2 mL Neb INHALATION ×2 (08:28→20:14)
--- NOTE | 2022-08-18 08:56 | PC.NUTR ---
TF consult received. Currently Jevity 1.2 running @ 40 mls/hr with flushes 100 mls Q6H. Recommend consideration of slightly higher goal rate: Jevity 1.2 @ 50 mls/hr with flushes 100 mls Q6H as ordered. Details in RD assessment.
[2022-08-18] MEDS: guaiFENesin 600 mg Tablet PO ×2 (09:46→17:36)
[2022-08-18] MEDS: folic acid 1 mg Tablet PO (09:46)
[2022-08-18] MEDS: aspirin 81 mg EC Tablet PO (09:46)
[2022-08-18] MEDS: multivitamin therapeutic Tablet 1 TAB PO (09:46)
[2022-08-18] MEDS: PHENobarbital 130 mg/mL SDV 1 mL IV ×2 (09:46→21:02)
[2022-08-18] MEDS: amiodarone 200 mg Tablet PO ×2 (09:49→17:36)
--- NOTE | 2022-08-18 10:01 | PC.CHAP ---
Pastoral Care Encounter/Spiritual Assessment Type of Contact [] Declined e commerce merchant visit [] Patient/Family/Request visit [] Outpatient visit [] Follow-up visit [] Physician referral [] Code/Alert [x] Routine visit [] Staff referral [] Actively dying [] Patient sleeping [] Family support [] [] Out of room [] Palliative care [] x Receiving care in room [] Pre-surgical visit [] Trauma [] Long length of stay [x] ICU visit [x] Other: vent Relational/Emotional Strength [] Patient feels connected with others/family/visitors/staff [] Distress [] Loneliness/isolation [] Abandonment Spirituality of Patient [] Person of Awilda [] Attends Amish of their Awilda [] Believes in Prayer [] Reads Bible or Evangelical materials [] There are Spiritual issues to be addressed College Associate Interventions [x] Prayer [] Active listening [] Non-anxious presence [] Spiritual/emotional support [] Crisis/trauma care [] Spiritual counseling [] Bereavement support [] Provided bereavement packet [] Provided Bible/devotional materials [] Provided toy/stuffed animal, coloring book to patient or family member [] Provided Communion [] Anointing/[place] [] Salvation [x] Completed spiritual assessment [] Other: Impact on Illness or Injury [] Angry [] Fearful [] Anxious [] Often cries [] Exhaustion [] Unable to work [] Unable to attend shinto [] Unable to walk/stand [] Unable to read [] Unable to drive [] Unable to eat/drink [] Unable to sleep [] Unable to be with family [] Patient intubated [] Other: Summary Time spent with patient
[2022-08-18] MEDS: dexmedeTOMIDine 0.9 % NaCL 400 MCG/100 ML PREMIX IV ×2 (12:11→18:37)
[2022-08-18] MEDS: enoxaparin 40 mg/0.4 mL Syringe SUBCUT (16:08)
--- NOTE | 2022-08-18 16:42 | P.PN_ITS ---
Subjective Subjective: Again seen multiple times of the day today. Patient seems more sedated and calm today. Heart rates remained in 70 bpm. Overnight somehow patient's fentanyl has been increased and currently is on 200 of fentanyl, 6 of Versed, 0.5 of Precedex, 0.5 of amiodarone. Levophed has been stopped. Ventilator setting off 40% FiO2, 40 tidal volume with PEEP of 6. ABG appreciated. Vitals/I&O/Wt Last Vital Signs Temp 99.0 F 08/18/22 07:46 Pulse 80 08/18/22 16:00 Resp 18 08/18/22 16:00 BP 141/91 08/18/22 12:00 Pulse Ox 97 08/18/22 16:00 O2 Del Method 08/18/22 15:34 O2 Flow Rate 4 08/16/22 00:00 FiO2 40 08/18/22 16:00 08/18/22 08/18/22 08/18/22 06:59 14:59 22:59 Intake Total 599.471 / 2096.946 786.536 / 786.536 Output Total 250 / 1300 Balance 349.471 / 796.946 786.536 / 786.536 Physical Exam Narrative: General exam: Intubated, sedated on mechanical vent HEENT atraumatic and normocephalic. Oropharynx clear. Neck is supple no lymphadenopathy thyromegaly Cardiovascular regular rate and rhythm without murmur Lungs bilateral expiratory wheezes Abdomen is soft nontender positive bowel sounds. No obvious organomegaly Extremities no cyanosis clubbing or edema, cap refill brisk Skin no rash Neuro no focal deficits. Urinary Catheter Management: Garcia: Cath Placed During This Visit: yes Reason for Continuing Indwelling Catheter: Accurate Measurement of Urinary Output in Critically Ill Patients Urinary Catheter Date of Insertion: 08/16/22 Urinary Catheter Time of Insertion: 00:45 Data 08/18/22 02:46 08/18/22 02:46 Micro: Microbiology 08/16/22 03:15 Gram Stain - Final Sputum - Endotracheal Tube Aspirate Sputum Culture - Final Haemophilus Influenzae A&P Assessment and plan (1) Shock: Most likely a combination of septic and cardiogenic. Levophed weaned. Keep mean arterial pressure over 65. Hold off any further antihypertensives. Follow-up blood cultures. Strict input output charting. (2) Respiratory failure with hypoxia and hypercapnia: Likely secondary to a combination of COPD exacerbation, congestive heart failure in setting of IHSS, multiple rib fracture post fall. Cannot rule out underlying pneumonia. MRSA negative, sputum culture consistent with haemophilus influenza. Continue with Zosyn Continue with DuoNebs every 6 hour, budesonide twice daily. PE ruled out. Wean down Solu-Medrol to 20 mg IV daily. Strict input output charting, daily weights. Hold off on any further Lasix. (3) Delirium tremens: Continue with Versed. We will try to wean down fentanyl to acceptable level and then try to wean off Versed beyond that. Continue Precedex for now. Continue with phenobarbital at 130 mg IV twice daily. We will switch to 65 mg IV twice daily from tomorrow. Will come down on phenobarbital at around 10 to 15% total dose each day subsequently after being on 65 mg twice daily dose for 2 days. (4) COPD exacerbation: As above. (5) Atrial fibrillation: Patient with history of atrial fibrillation, hypertrophic cardiomyopathy Currently rate controlled. Switch to amiodarone 200 mg twice daily. Qualifiers: Atrial fibrillation type: paroxysmal Qualified Code(s): I48.0 - Paroxysmal atrial fibrillation (6) IHSS (idiopathic hypertrophic subaortic stenosis): Echocardiogram results appreciated. Hold off on any further diuresis, antihypertensives for now. (7) Rhabdomyolysis: Resolved. (8) Ribs, multiple fractures: (9) CAD (coronary artery disease): Continue statin, aspirin, beta-morgan Qualifiers: Coronary Disease-Associated Artery/Lesion type: [place] artery [place] vs. transplanted heart: [place] heart Associated angina: without angina Qualified Code(s): I25.10 - Atherosclerotic heart disease of [place] coronary artery without angina pectoris (10) Alcohol abuse: IV thiamine, oral folate Monitor for withdrawal CIWA protocol (11) Fall: Status post fall. Sustained contusion to right chest. No fracture seen on chest x-ray, but could still be present. Pain control Plan Analgesia: Currently sedated with propofol and fentanyl. Glycemic control: Not needed. Nutrition: Continue with current tube feeds and free water flushes. CODE STATUS: Full code PUD prophylaxis: Protonix DVT prophylaxis: Lovenox Discharge planning: Pending. Continue with care at ICU level. Goals of care discussion: Today patient seen with friend at bedside. Friend is also mentioned in person to notify. As per friend she has been living with the patient for last 20 odd years. They have been struggling with patient's alcoholism and patient is being looked at for turning leaf while awaiting bed. We discussed unfortunately as patient is not legally related to the caregiver we cannot go for medical decisions with her. As per the friend she has a number for patient's sister named Sameera who lives in [facility]. She will try to arrange for the number. This documentation was created by [employer] woodworking machinist software. Every effort was made to ensure accuracy of woodworking machinist. Any obvious errors or omissions should be clarified with the author of the document. Attestations Medical Necessity Statement*: Requires further hospitalization for management of respiratory failure, delirium tremens Critical Care Time: The high probability of a clinically significant, sudden or life threatening deterioration of the patient's [cardiac, pulmonary, neurological] system(s) required my full and direct attention, intervention and personal management. The critical care time is as shown. This time is in addition to time spent performing any reported procedures but includes the following: [x] Data and vital sign review and interpretation [x] Patient assessment, examination and intervention [x] Documentation [x] Medication orders and management Critical Care Time (min): 60 Coding Level of Care Code Acute Vacuum Tester Cans for [facility] Fwd Diagnoses Shock R57.9 Respiratory failure with hypoxia and hypercapnia J96.91; J96.92 Delirium tremens F10.931 COPD exacerbation J44.1 Atrial fibrillation I48.0 Atrial fibrillation type: paroxysmal IHSS (idiopathic hypertrophic subaortic stenosis) I42.1 Rhabdomyolysis M62.82 Ribs, multiple fractures S22.49XA CAD (coronary artery disease) I25.10 Coronary Disease-Associated Artery/Lesion type: [place] artery [place] vs. transplanted heart: [place] heart Associated angina: without angina Alcohol abuse F10.10 Fall W19.XXXA
[2022-08-18 17:39] LABS: ABG PCO2 58.1 mmHg (35-45); ABG PH Result 7.41 (7.35-7.45); Alveolar-Arterial Oxygen Gradi 19.4 mmHg (5-10); Arterial Blood Gas Hematocrit 39.7 % (42-52); Base Excess ABG 10.1 mmol/L (-2.0-2.0); Blood Gas Allen Test Pos; Blood Gas Operator Identificat CAK; Blood Gas Sample Site Radial, left; Blood Gas Sample Type Arterial; Blood Gas Tidal Volume 0.42; HCO3 ABG 36.9 mmol/L (22-26); HGB O2 Sat 90.8 % (95-100); Ionized Calcium Level - ABG 1.2 mmol/L (1.1-1.4); Oxygen Device VENT; Oxygen Saturation ABG 92.6; PO2 ABG 64.6 mmHg (80.0-100.0); Potassium Level - ABG 4.2 mmol/L (3.5-5.0)
[2022-08-18] MEDS: acetaminophen 325 mg Tablet 650 MG PO (23:32)
--- NOTE | 2022-08-18 23:33 | PC.NURSE ---
2300 pt appeared agitated. PRN morphine given. 2330 pt began kicking legs out of bed, pulling at blankets and lines. sedation increased
[2022-08-19] VITALS (49 sets, daily range): BP systolic 114–183; BP diastolic 78–121; PULSE 73–93; RESP 18–22; TEMP 36.4–37.1; O2SAT 90–98
[2022-08-19] MEDS: dexmedeTOMIDine 0.9 % NaCL 400 MCG/100 ML PREMIX 12.78 MCG IV ×4 (02:40→22:08)
[2022-08-19 03:20] LABS: Basophils % 0.1 %; Eosinophils # 0.1 10^3/uL (0.0-0.8); Eosinophils % 1.3 %; Hematocrit 42.1 % (42.0-52.0); Hemoglobin 13.2 g/dL (11.7-16.6); Lymphocytes # 1.8 10^3/uL (0.8-4.8); Lymphocytes % 19.4 %; Mean Corpuscular HGB Conc 31.4 g/dL (30.0-36.0); Mean Corpuscular Hemoglobin 29.1 pg (28.0-34.0); Mean Corpuscular Volume 92.9 fl (80-94); Mean Platelet Volume 10.5 fL (7.4-10.4); Monocytes # 1.2 10^3/uL (0.2-0.9); Monocytes % 13.2 %; Neutrophils # 6.01 10^3/uL (1.8-7.7); Neutrophils % 65.5 %; Nucleated Red Blood Cells % 0 %; Platelet Count 251 10^3/cmm (130-400); Red Blood Count 4.53 10^6/uL (4.1-5.3); Red Cell Distribution Width 13.2 % (12.1-15.1); White Blood Count 9.2 10^3/uL (4.0-10.0)
[2022-08-19] MEDS: ipratropium-albuterol 3 mL Neb INHALATION ×6 (03:26→23:38)
[2022-08-19 03:43] LABS: Alanine Aminotransferase 16 U/L (0-41); Albumin Level 2.9 g/dL (3.5-5.2); Alkaline Phosphatase 50 U/L (40-130); Anion Gap 9.9 (5-19); Aspartate Amino Transferase 14 U/L (0-40); Blood Urea Nitrogen 30 mg/dL (8-23); Calcium 8.5 mg/dL (8.5-10.5); Carbon Dioxide 35 mmol/L (22-29); Chloride 102 mmol/L (98-107); Globulin 2.4 g/dL (1.3-4.6); Glomerular Filtration Rate 113.5 mL/min (90-130); Glucose 112 mg/dL (65-115); Osmolality Calculated 303 mOsm/kg (285-295); Potassium 3.9 mmol/L (3.5-5.1); Sodium 143 mmol/L (136-145); Total Bilirubin 0.5 mg/dL (0.15-1.2); Total Protein 5.3 g/dL (6.6-8.7)
[2022-08-19] MEDS: piperacillin-tazobactam 3.375 GM in sodium chloride 0.9% (plus) 50 ML IV ×3 (05:40→21:40)
--- NOTE | 2022-08-19 06:00 | XRR_ITS ---
PROCEDURE INFORMATION: Exam: XR Chest Exam date and time: 08/19/2022 3:57 AM Age: 66 years old Clinical indication: Condition or disease; Lung condition and disease; Respiratory failure; Status not specified; Patient HX: Resp failure. Intubated. TECHNIQUE: Imaging protocol: Radiologic exam of the chest. Views: 1 view. Total images: 1 COMPARISON: CR (CHEST, ) 08/18/2022 5:04 AM FINDINGS: Tubes, catheters and devices: Tubes and catheters are unchanged from the prior exam. Lungs: Stable bilateral pleuroparenchymal disease. Pleural spaces: No pneumothorax. Heart/Mediastinum: Heart size is stable when compared to the prior exam. Bones/joints: Right rib fractures again noted. Osseous structures are unchanged from the prior exam. XR/XR chest 1V portable [id number] IMPRESSION: 1. Tubes and catheters are unchanged from the prior exam. 2. Stable bilateral pleuroparenchymal disease.
[2022-08-19] MEDS: morphine 4 mg/mL SDV 1 mL 2 MG IVP (07:36)
[2022-08-19] MEDS: budesonide 0.5 mg/2 mL Neb INHALATION ×2 (08:29→19:50)
[2022-08-19] MEDS: guaiFENesin 600 mg Tablet PO ×2 (08:50→17:22)
[2022-08-19] MEDS: multivitamin therapeutic Tablet 1 TAB PO (08:50)
[2022-08-19] MEDS: amiodarone 200 mg Tablet PO ×2 (08:50→17:22)
[2022-08-19] MEDS: lisinopril 20 mg Tablet 40 MG PO (08:51)
[2022-08-19] MEDS: folic acid 1 mg Tablet PO (08:51)
[2022-08-19] MEDS: aspirin 81 mg EC Tablet PO (08:51)
[2022-08-19] MEDS: PHENobarbital 130 mg/mL SDV 1 mL 65 MG IV ×2 (08:51→20:46)
[2022-08-19] MEDS: cloNIDine 0.1 mg/24 hr Patch 1 PATCH TRANSDERMA (09:30)
--- NOTE | 2022-08-19 09:39 | ECG_ITS ---
[facility] Test Date: 2022-08-19 Pat Name: Pratik Garcia Department: Room: [facility] Gender: Male Extension Worker: : 1955 Requested By: Gabriel Song Order Number: [id number] Reading MD: Nahomy Barnard M.D. Measurements Intervals [place] Rate: 93 P: 42 [place]: 157 QRS: 26 QRSD: 108 T: 112 QT: 361 QTc: 449 Interpretive Statements SINUS RHYTHM POSSIBLE LEFT ATRIAL ENLARGEMENT [-0.1mV P-WAVE IN V1/V2] POSSIBLE INFERIOR MYOCARDIAL INFARCTION , PROBABLY OLD [30 ms Q WAVE IN II/aVF] MODERATE T-WAVE ABNORMALITY, CONSIDER LATERAL ISCHEMIA Compared to ECG 08/16/2022 10:58:50 Myocardial infarct finding now present T-wave abnormality now present Possible ischemia now present Sinus tachycardia no longer present Left ventricular hypertrophy no longer present ST (T wave) deviation no longer present Electronically Signed On 08-19-2022 18:11:11 INSOLE RASPER by Nahomy Barnard M.D. [email or web address]
[2022-08-19] MEDS: OLANZapine 5 mg ODT PO ×2 (10:30→17:21)
--- NOTE | 2022-08-19 12:10 | PC.CHAP ---
Pastoral Care Encounter/Spiritual Assessment Type of Contact [] Declined electrician office visit [] Patient/Family/Request visit [] Outpatient visit [] Follow-up visit [] Physician referral [] Code/Alert [x] Routine visit [] Staff referral [] Actively dying [x] Patient sleeping [] Family support [] [] Out of room [] Palliative care [] [] Receiving care in room [] Pre-surgical visit [] Trauma [] Long length of stay [x] ICU visit [x] Other: vent Relational/Emotional Strength [] Patient feels connected with others/family/visitors/staff [] Distress [] Loneliness/isolation [] Abandonment Spirituality of Patient [] Person of Awilda [] Attends Holiness of their Awilda [] Believes in Prayer [] Reads Bible or Church materials [] There are Spiritual issues to be addressed Chef Kitchen Manager Interventions [x] Prayer [] Active listening [] Non-anxious presence [] Spiritual/emotional support [] Crisis/trauma care [] Spiritual counseling [] Bereavement support [] Provided bereavement packet [] Provided Bible/devotional materials [] Provided toy/stuffed animal, coloring book to patient or family member [] Provided Communion [] Anointing/[place] [] Salvation [x] Completed spiritual assessment [] Other: Impact on Illness or Injury [] Angry [] Fearful [] Anxious [] Often cries [] Exhaustion [] Unable to work [] Unable to attend congregation [] Unable to walk/stand [] Unable to read [] Unable to drive [] Unable to eat/drink [] Unable to sleep [] Unable to be with family [] Patient intubated [] Other: Summary Time spent with patient
[2022-08-19] MEDS: enoxaparin 40 mg/0.4 mL Syringe SUBCUT (14:17)
--- NOTE | 2022-08-19 15:44 | PM.PN ---
Subjective Subjective: No acute events overnight. Today morning on examination patient is on fentanyl of 100, Versed of 5, Precedex 0.7. Levophed has remained off. Continues to remain on same ventilator settings of FiO2 40%, PEEP 6, tidal volume of 420. Saturating well. Blood pressures have been running high. Robust urine output since last night. Has remained afebrile otherwise. Tube feeds held last night because of high residuals. No bowel movement reported. Vitals/I&O/Wt Last Vital Signs Temp 98.7 F 08/19/22 12:00 Pulse 89 08/19/22 15:14 Resp 18 08/19/22 15:14 BP 179/112 08/19/22 12:00 Pulse Ox 97 08/19/22 15:14 O2 Del Method 08/19/22 15:14 O2 Flow Rate 4 08/16/22 00:00 FiO2 40 08/19/22 15:14 08/19/22 08/19/22 08/19/22 06:59 14:59 22:59 Intake Total 221.018 / 2782.785 137.543 / 137.543 Output Total 925 / 1650 Balance -703.982 / 1132.785 137.543 / 137.543 Physical Exam Narrative: General exam: Intubated, sedated on mechanical vent, today morning waking up calmly to verbal stimulus HEENT atraumatic and normocephalic. Oropharynx clear. Neck is supple no lymphadenopathy thyromegaly Cardiovascular regular rate and rhythm without murmur Lungs bilateral expiratory wheezes Abdomen is soft nontender positive bowel sounds. No obvious organomegaly Extremities no cyanosis clubbing or edema, cap refill brisk Skin no rash Neuro no focal deficits. Urinary Catheter Management: Garcia: Cath Placed During This Visit: yes Reason for Continuing Indwelling Catheter: Accurate Measurement of Urinary Output in Critically Ill Patients Urinary Catheter Date of Insertion: 08/16/22 Urinary Catheter Time of Insertion: 00:45 Data 08/19/22 02:54 08/19/22 02:54 Micro: Microbiology 08/16/22 03:15 Gram Stain - Final Sputum - Endotracheal Tube Aspirate Sputum Culture - Final Haemophilus Influenzae A&P Assessment and plan (1) Shock: Most likely a combination of septic and cardiogenic. Levophed weaned. Keep mean arterial pressure over 65. Hold off any further antihypertensives. Follow-up blood cultures. Strict input output charting. (2) Respiratory failure with hypoxia and hypercapnia: Likely secondary to a combination of COPD exacerbation, congestive heart failure in setting of IHSS, multiple rib fracture post fall. Cannot rule out underlying pneumonia. MRSA negative, sputum culture consistent with haemophilus influenza. Continue with Zosyn Continue with DuoNebs every 6 hour, budesonide twice daily. PE ruled out. Wean down Solu-Medrol to 20 mg IV daily. Strict input output charting, daily weights. Hold off on any further Lasix. (3) Delirium tremens: Continue with Versed. We will try to wean down fentanyl to acceptable level and then try to wean off Versed beyond that. Continue Precedex for now. Continue with phenobarbital at 130 mg IV twice daily. We will switch to 65 mg IV twice daily from tomorrow. Will come down on phenobarbital at around 10 to 15% total dose each day subsequently after being on 65 mg twice daily dose for 2 days. (4) COPD exacerbation: As above. (5) Atrial fibrillation: Patient with history of atrial fibrillation, hypertrophic cardiomyopathy Currently rate controlled. Switch to amiodarone 200 mg twice daily. Qualifiers: Atrial fibrillation type: paroxysmal Qualified Code(s): I48.0 - Paroxysmal atrial fibrillation (6) IHSS (idiopathic hypertrophic subaortic stenosis): Echocardiogram results appreciated. Hold off on any further diuresis, antihypertensives for now. (7) Rhabdomyolysis: Resolved. (8) Ribs, multiple fractures: (9) CAD (coronary artery disease): Continue statin, aspirin, beta-morgan Qualifiers: Coronary Disease-Associated Artery/Lesion type: [place] artery [place] vs. transplanted heart: [place] heart Associated angina: without angina Qualified Code(s): I25.10 - Atherosclerotic heart disease of [place] coronary artery without angina pectoris (10) Alcohol abuse: IV thiamine, oral folate Monitor for withdrawal CIWA protocol (11) Fall: Status post fall. Sustained contusion to right chest. No fracture seen on chest x-ray, but could still be present. Pain control Plan Analgesia: Currently sedated with propofol and fentanyl. Glycemic control: Not needed. Nutrition: Continue with current tube feeds and free water flushes. CODE STATUS: Full code PUD prophylaxis: Protonix DVT prophylaxis: Lovenox Discharge planning: Pending. Continue with care at ICU level. Goals of care discussion: Today patient seen with friend at bedside. Friend is also mentioned in person to notify. As per friend she has been living with the patient for last 20 odd years. They have been struggling with patient's alcoholism and patient is being looked at for [facility] while awaiting bed. We discussed unfortunately as patient is not legally related to the caregiver we cannot go for medical decisions with her. As per the friend she has a number for patient's sister named Sameera who lives in [facility]. She will try to arrange for the number. Plan for the day: Continue to wean down on sedation with trying to come down on Versed first and then on fentanyl in hopes of extubation within next 48 hours. Continue phenobarb at 65 mg twice daily for now. Care discussed in detail with Dr. Hay. Start on Zyprexa Zydis 5 mg twice daily. Goal blood pressure less than 140/90 mmHg. Restart home dose of lisinopril 40 milligrams oral daily, add clonidine 0.1 mg patch. Hydralazine 10 mg IV every 4 hours as needed for systolic blood pressure of more than 160 mmHg. Strict input output charting. Continue to hold off on tube feeds. Milk of magnesia 1 time. This documentation was created by [employer] private branch exchange service adviser software. Every effort was made to ensure accuracy of private branch exchange service adviser. Any obvious errors or omissions should be clarified with the author of the document. Attestations Medical Necessity Statement*: Requires further hospitalization for management of respiratory failure leading to mechanical ventilation, haemophilus pneumonia, alcohol withdrawal leading to delirium tremens Critical Care Time: The high probability of a clinically significant, sudden or life threatening deterioration of the patient's [cardiac, pulmonary, renal, neurological] system(s) required my full and direct attention, intervention and personal management. The critical care time is as shown. This time is in addition to time spent performing any reported procedures but includes the following: [x] Data and vital sign review and interpretation [x] Patient assessment, examination and intervention [x] Documentation [x] Medication orders and management Critical Care Time (min): 60 Coding Level of Care Code Acute Extension Course Coordinator for Thangg Fwd Diagnoses Shock R57.9 Respiratory failure with hypoxia and hypercapnia J96.91; J96.92 Delirium tremens F10.931 COPD exacerbation J44.1 Atrial fibrillation I48.0 Atrial fibrillation type: paroxysmal IHSS (idiopathic hypertrophic subaortic stenosis) I42.1 Rhabdomyolysis M62.82 Ribs, multiple fractures S22.49XA CAD (coronary artery disease) I25.10 Coronary Disease-Associated Artery/Lesion type: [place] artery [place] vs. transplanted heart: [place] heart Associated angina: without angina Alcohol abuse F10.10 Fall W19.XXXA
[2022-08-19] MEDS: magnesium hydroxide 30 mL UDC PO (17:35)
--- NOTE | 2022-08-19 18:46 | PC.NURSE ---
Shift summary Pt did well throughout the shift. Still showing some signs of DT with profuse sweating. Vented, sedation Fent at 75 and versed at 3. Output is at 1200. Pt is arousable and able to follow hand squeeze commands. Plan to extubate tomorrow.
[2022-08-19] MEDS: hyDRALAzine 20 mg/mL INJ 1 mL 10 MG IVP (21:39)
[2022-08-20] VITALS (34 sets, daily range): BP systolic 114–186; BP diastolic 75–115; PULSE 77–103; RESP 15–23; TEMP 36.5–37.7; O2SAT 88–96
[2022-08-20] MEDS: chlorhexidine gluconate 4% Btl 118 mL 1 APPLIC TOPICAL (02:38)
[2022-08-20 02:52] LABS: Basophils % 0.1 %; Eosinophils # 0.1 10^3/uL (0.0-0.8); Eosinophils % 1.5 %; Hematocrit 42.4 % (42.0-52.0); Hemoglobin 13.5 g/dL (11.7-16.6); Lymphocytes # 1.4 10^3/uL (0.8-4.8); Mean Corpuscular HGB Conc 31.8 g/dL (30.0-36.0); Mean Corpuscular Hemoglobin 28.8 pg (28.0-34.0); Mean Corpuscular Volume 90.6 fl (80-94); Mean Platelet Volume 10.4 fL (7.4-10.4); Monocytes # 1.1 10^3/uL (0.2-0.9); Monocytes % 15.1 %; Neutrophils # 4.83 10^3/uL (1.8-7.7); Neutrophils % 63.8 %; Nucleated Red Blood Cells % 0 %; Platelet Count 264 10^3/cmm (130-400); Red Blood Count 4.68 10^6/uL (4.1-5.3); Red Cell Distribution Width 13.1 % (12.1-15.1); White Blood Count 7.6 10^3/uL (4.0-10.0)
[2022-08-20] MEDS: ipratropium-albuterol 3 mL Neb INHALATION ×6 (03:04→23:52)
[2022-08-20 03:17] LABS: Alanine Aminotransferase 15 U/L (0-41); Albumin Level 2.7 g/dL (3.5-5.2); Alkaline Phosphatase 50 U/L (40-130); Anion Gap 11.5 (5-19); Aspartate Amino Transferase 11 U/L (0-40); Blood Urea Nitrogen 26 mg/dL (8-23); Calcium 8.6 mg/dL (8.5-10.5); Carbon Dioxide 32 mmol/L (22-29); Chloride 100 mmol/L (98-107); Globulin 2.5 g/dL (1.3-4.6); Glomerular Filtration Rate 113.5 mL/min (90-130); Glucose 100 mg/dL (65-115); Osmolality Calculated 293 mOsm/kg (285-295); Potassium 4.5 mmol/L (3.5-5.1); Sodium 139 mmol/L (136-145); Total Bilirubin 0.6 mg/dL (0.15-1.2); Total Protein 5.2 g/dL (6.6-8.7)
[2022-08-20] MEDS: dexmedeTOMIDine 0.9 % NaCL 400 MCG/100 ML PREMIX 12.78 MCG IV ×3 (04:52→16:47)
[2022-08-20] MEDS: piperacillin-tazobactam 3.375 GM in sodium chloride 0.9% (plus) 50 ML IV ×3 (05:39→21:33)
--- NOTE | 2022-08-20 06:00 | XRR_ITS ---
PROCEDURE INFORMATION: Exam: XR Chest Exam date and time: 08/20/2022 5:23 AM Age: 66 years old Clinical indication: Condition or disease; Lung condition and disease; Respiratory failure; Status not specified; Patient HX: Continued resp failure. Intubated. TECHNIQUE: Imaging protocol: Radiologic exam of the chest. Views: 1 view. Total images: 599 COMPARISON: CR XR chest 1V portable [id number] 08/19/2022 3:57 AM FINDINGS: Tubes, catheters and devices: Tubes and catheters are unchanged from the prior exam. Lungs: Interval worsening of bibasilar pleuroparenchymal disease. Pleural spaces: No pneumothorax. Heart/Mediastinum: Heart size is stable when compared to the prior exam. Bones/joints: Right rib fractures again noted. Osseous structures are unchanged from the prior exam. XR/XR chest 1V portable [id number] IMPRESSION: 1. Tubes and catheters are unchanged from the prior exam. 2. Interval worsening of bibasilar pleuroparenchymal disease.
[2022-08-20] MEDS: budesonide 0.5 mg/2 mL Neb INHALATION ×2 (08:33→19:48)
[2022-08-20] MEDS: amiodarone 200 mg Tablet PO (08:59)
[2022-08-20] MEDS: aspirin 81 mg EC Tablet PO (08:59)
[2022-08-20] MEDS: multivitamin therapeutic Tablet 1 TAB PO (08:59)
[2022-08-20] MEDS: guaiFENesin 600 mg Tablet PO (08:59)
[2022-08-20] MEDS: OLANZapine 5 mg ODT PO (08:59)
[2022-08-20] MEDS: folic acid 1 mg Tablet PO (08:59)
[2022-08-20] MEDS: PHENobarbital 130 mg/mL SDV 1 mL 65 MG IV ×2 (09:00→20:54)
[2022-08-20] MEDS: lisinopril 20 mg Tablet 40 MG PO (09:00)
[2022-08-20] MEDS: sodium chloride 0.9% 1,000 ML 50 ML IV (11:02)
--- NOTE | 2022-08-20 11:33 | PC.CHAP ---
Pastoral Care Encounter/Spiritual Assessment Type of Contact [] Declined case specialist visit [] Patient/Family/Request visit [] Outpatient visit [] Follow-up visit [] Physician referral [] Code/Alert [x] Routine visit [] Staff referral [] Actively dying [x] Patient sleeping [] Family support [] [] Out of room [] Palliative care [] [] Receiving care in room [] Pre-surgical visit [] Trauma [] Long length of stay [x] ICU visit [x] Other: vent possibly being removed today Relational/Emotional Strength [] Patient feels connected with others/family/visitors/staff [] Distress [] Loneliness/isolation [] Abandonment Spirituality of Patient [] Person of Awilda [] Attends Scientology of their Awilda [] Believes in Prayer [] Reads Bible or Latter Day materials [] There are Spiritual issues to be addressed 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 Cutter Apprentice Interventions [x] Prayer [] Active listening [] Non-anxious presence [] Spiritual/emotional support [] Crisis/trauma care [] Spiritual counseling [] Bereavement support [] Provided bereavement packet [] Provided Bible/devotional materials [] Provided toy/stuffed animal, coloring book to patient or family member [] Provided Communion [] Anointing/[place] [] Salvation [x] Completed spiritual assessment [] Other: Impact on Illness or Injury [] Angry [] Fearful [] Anxious [] Often cries [] Exhaustion [] Unable to work [] Unable to attend nondenominational [] Unable to walk/stand [] Unable to read [] Unable to drive [] Unable to eat/drink [] Unable to sleep [] Unable to be with family [] Patient intubated [] Other: Summary Time spent with patient
--- NOTE | 2022-08-20 12:50 | PC.NURSE ---
Pt extubated THis nurse was alerted at approx 1250 that pt self exutbated. This nurse with the help of other ICU staff and RT placed pt on nonrebreather at 15L. Pt removed from soft wrist restraints. Sedation stopped. Physician notified.
[2022-08-20] MEDS: enoxaparin 40 mg/0.4 mL Syringe SUBCUT (15:20)
--- NOTE | 2022-08-20 16:07 | P.PN_ITS ---
Subjective Subjective: No acute events overnight. Seen multiple times in the day. When seen early in the morning patient was sedated but waking up to verbal stimulus. He was on 75 of fentanyl and 3 of Versed along with 0.7 of Precedex. Has remained hemodynamically stable and afebrile. Reports urine output in last 24 hours. During the day while sedation was being weaned off patient self extubated. Post extubation patient is altered, having hallucinations. In between calling himself David. Thinks he is at [facility]. He is extubated to 6 L nasal cannula. Vitals/I&O/Wt Last Vital Signs Temp 99.9 F H 08/20/22 07:58 Pulse 87 08/20/22 15:09 Resp 20 H 08/20/22 15:09 BP 129/90 08/20/22 12:00 Pulse Ox 93 08/20/22 15:09 O2 Del Method 08/20/22 15:09 O2 Flow Rate 6 08/20/22 15:09 FiO2 30 08/20/22 14:00 08/20/22 08/20/22 08/20/22 06:59 14:59 22:59 Intake Total 159.552 / 877.269 570.023 / 570.023 Output Total 550 / 2350 2350 / 2350 Balance -390.448 / -1472.731 -1779.977 / -1779.977 Weight last 48 hrs Weight 95.5 kg Physical Exam Narrative: General exam: Intubated, sedated on mechanical vent, today morning waking up calmly to verbal stimulus HEENT atraumatic and normocephalic. Oropharynx clear. Neck is supple no lymphadenopathy thyromegaly Cardiovascular regular rate and rhythm without murmur Lungs bilateral expiratory wheezes Abdomen is soft nontender positive bowel sounds. No obvious organomegaly Extremities no cyanosis clubbing or edema, cap refill brisk Skin no rash Neuro no focal deficits. Urinary Catheter Management: Garcia: Cath Placed During This Visit: yes Reason for Continuing Indwelling Catheter: Accurate Measurement of Urinary Output in Critically Ill Patients Urinary Catheter Date of Insertion: 08/16/22 Urinary Catheter Time of Insertion: 00:45 Data 08/20/22 02:08 08/20/22 02:08 A&P Assessment and plan (1) Self extubation: On sedation for DTs now. Maintaining airway so far. On 6 L. Hopefully patient will not need to be reintubated. We will continue to monitor keeping saturation over 88%. Oral care. Aggressive pulmonary toilet. PT/OT/speech evaluation. (2) Respiratory failure with hypoxia and hypercapnia: Likely secondary to a combination of COPD exacerbation, congestive heart failure in setting of IHSS, multiple rib fracture post fall. Cannot rule out underlying pneumonia. MRSA negative, sputum culture consistent with haemophilus influenza. Continue with Zosyn Continue with DuoNebs every 6 hour, budesonide twice daily. PE ruled out. Stop Solu-Medrol today. Strict input output charting, daily weights. Hold off on any further Lasix. (3) Delirium tremens: Continue with Precedex. Continue with lower dose of phenobarbital with total of 65 mg IV twice daily. Continue with Zyprexa Zydis 5 mg oral twice daily. Will come down on phenobarbital at around 10 to 15% total dose each day subsequently after being on 65 mg twice daily dose for 2 days. (4) COPD exacerbation: As above. (5) Atrial fibrillation: Patient with history of atrial fibrillation, hypertrophic cardiomyopathy Currently rate controlled. Switch to amiodarone 200 mg twice daily. Qualifiers: Atrial fibrillation type: paroxysmal Qualified Code(s): I48.0 - Paroxysmal atrial fibrillation (6) IHSS (idiopathic hypertrophic subaortic stenosis): Echocardiogram results appreciated. Hold off on any further diuresis, antihypertensives for now. (7) Alcohol abuse: IV thiamine, oral folate Monitor for withdrawal CIWA protocol (8) Fall: Status post fall. Sustained contusion to right chest. No fracture seen on chest x-ray, but could still be present. Pain control (9) Shock: Resolved. Most likely a combination of septic and cardiogenic. Levophed weaned. Keep mean arterial pressure over 65. Hold off any further antihypertensives. Follow-up blood cultures. Strict input output charting. (10) CAD (coronary artery disease): Continue statin, aspirin, beta-morgan Qualifiers: Associated angina: without angina Coronary Disease-Associated Artery/Lesion type: [place] artery [place] vs. transplanted heart: [place] heart Qualified Code(s): I25.10 - Atherosclerotic heart disease of [place] coronary artery without angina pectoris (11) Rhabdomyolysis: Resolved. (12) Ribs, multiple fractures: Plan Analgesia: Currently sedated with propofol and fentanyl. Glycemic control: Not needed. Nutrition: Continue with current tube feeds and free water flushes. CODE STATUS: Full code PUD prophylaxis: Protonix DVT prophylaxis: Lovenox Discharge planning: Pending. Continue with care at ICU level. Goals of care discussion: Today patient seen with friend at bedside. Friend is also mentioned in person to notify. As per friend she has been living with the patient for last 20 odd years. They have been struggling with patient's alcoholism and patient is being looked at for [facility] while awaiting bed. We discussed unfortunately as patient is not legally related to the caregiver we cannot go for medical decisions with her. As per the friend she has a number for patient's sister named Sameera who lives in [facility]. She will try to arrange for the number. This documentation was created by [employer] snuff container inspector software. Every effort was made to ensure accuracy of snuff container inspector. Any obvious errors or omissions should be clarified with the author of the document. Attestations Medical Necessity Statement*: Requires further hospitalization for management delirium tremens in setting of alcohol abuse, acute hypoxic respiratory failure secondary to above self extubation while patient is further monitored in ICU. Critical Care Time: The high probability of a clinically significant, sudden or life threatening deterioration of the patient's [cardiac, neurological, renal] system(s) required my full and direct attention, intervention and personal management. The critical care time is as shown. This time is in addition to time spent performing any reported procedures but includes the following: [x] Data and vital sign review and interpretation [x] Patient assessment, examination and intervention [x] Documentation [x] Medication orders and management Critical Care Time (min): 90 Coding Level of Care Code Acute Personal Shopper for Chg Fwd Diagnoses Self extubation Z91.199 Respiratory failure with hypoxia and hypercapnia J96.91; J96.92 Delirium tremens F10.931 COPD exacerbation J44.1 Atrial fibrillation I48.0 Atrial fibrillation type: paroxysmal IHSS (idiopathic hypertrophic subaortic stenosis) I42.1 Alcohol abuse F10.10 Fall W19.XXXA Shock R57.9 CAD (coronary artery disease) I25.10 Associated angina: without angina Coronary Disease-Associated Artery/Lesion type: [place] artery [place] vs. transplanted heart: [place] heart Rhabdomyolysis M62.82 Ribs, multiple fractures S22.49XA
--- NOTE | 2022-08-20 19:15 | PC.NURSE ---
Bedside report completed with MAME Grady
[2022-08-20] MEDS: dexmedeTOMIDine 0.9 % NaCL 400 MCG/100 ML PREMIX 21.91 MCG IV ×2 (20:09→23:58)
[2022-08-20] MEDS: hyDRALAzine 20 mg/mL INJ 1 mL 10 MG IVP (23:57)
[2022-08-21] VITALS (31 sets, daily range): BP systolic 90–179; BP diastolic 57–97; PULSE 67–93; RESP 13–27; TEMP 36.7–37.6; O2SAT 70–97
[2022-08-21] MEDS: chlorhexidine gluconate 4% Btl 118 mL 1 APPLIC TOPICAL (00:59)
[2022-08-21] MEDS: PHENobarbital 130 mg/mL SDV 1 mL 120 MG IV (01:31)
[2022-08-21] MEDS: ipratropium-albuterol 3 mL Neb INHALATION ×6 (03:06→23:13)
[2022-08-21] MEDS: dexmedeTOMIDine 0.9 % NaCL 400 MCG/100 ML PREMIX 21.91 MCG IV ×2 (03:54→09:49)
[2022-08-21] MEDS: piperacillin-tazobactam 3.375 GM in sodium chloride 0.9% (plus) 50 ML IV ×3 (06:01→21:30)
[2022-08-21] MEDS: sodium chloride 0.9% 1,000 ML 50 ML IV (06:01)
[2022-08-21] MEDS: budesonide 0.5 mg/2 mL Neb INHALATION ×2 (09:11→19:34)
[2022-08-21 09:17] LABS: Basophils % 0.2 %; Eosinophils # 0.2 10^3/uL (0.0-0.8); Eosinophils % 3.8 %; Hematocrit 48.4 % (42.0-52.0); Hemoglobin 15.5 g/dL (11.7-16.6); Lymphocytes # 1.1 10^3/uL (0.8-4.8); Lymphocytes % 19.4 %; Mean Corpuscular Hemoglobin 28.9 pg (28.0-34.0); Mean Corpuscular Volume 90.1 fl (80-94); Mean Platelet Volume 10.6 fL (7.4-10.4); Monocytes # 0.8 10^3/uL (0.2-0.9); Monocytes % 13.2 %; Neutrophils # 3.68 10^3/uL (1.8-7.7); Neutrophils % 63.1 %; Nucleated Red Blood Cells % 0 %; Platelet Count 178 10^3/cmm (130-400); Red Blood Count 5.37 10^6/uL (4.1-5.3); Red Cell Distribution Width 13.4 % (12.1-15.1); White Blood Count 5.8 10^3/uL (4.0-10.0)
[2022-08-21 09:34] LABS: Alkaline Phosphatase 56 U/L (40-130); Carbon Dioxide 24 mmol/L (22-29); Chloride 101 mmol/L (98-107); Globulin 2.3 g/dL (1.3-4.6); Glucose 89 mg/dL (65-115); Sodium 137 mmol/L (136-145); Total Protein 5.3 g/dL (6.6-8.7)
[2022-08-21] MEDS: nystatin 100,000 unit/mL UDC 5 mL 200000 UNIT PO ×4 (09:44→21:26)
[2022-08-21] MEDS: magnesium hydroxide 30 mL UDC PO (09:44)
[2022-08-21] MEDS: PHENobarbital 130 mg/mL SDV 1 mL 65 MG IV ×2 (09:44→21:26)
[2022-08-21] MEDS: OLANZapine 5 mg ODT PO ×2 (09:45→17:32)
[2022-08-21] MEDS: amiodarone 200 mg Tablet PO ×2 (09:45→17:32)
[2022-08-21] MEDS: folic acid 1 mg Tablet PO (09:45)
[2022-08-21] MEDS: multivitamin therapeutic Tablet 1 TAB PO (09:45)
[2022-08-21] MEDS: guaiFENesin 600 mg Tablet PO (09:46)
[2022-08-21] MEDS: acetaminophen 325 mg Tablet 650 MG PO (09:46)
[2022-08-21] MEDS: aspirin 81 mg EC Tablet PO (09:46)
[2022-08-21] MEDS: sennosides-docusate Tablet 1 TAB PO ×2 (09:46→17:32)
[2022-08-21] MEDS: dextrose 5%-sod chloride 0.9% 1,000 ML 75 ML IV ×2 (09:47→22:51)
[2022-08-21] MEDS: lisinopril 20 mg Tablet 40 MG PO (10:06)
[2022-08-21 10:23] LABS: Blood Urea Nitrogen 25 mg/dL (8-23); Calcium 8.7 mg/dL (8.5-10.5); Glomerular Filtration Rate 113.5 mL/min (90-130); Osmolality Calculated 290 mOsm/kg (285-295); Total Bilirubin 0.7 mg/dL (0.15-1.2)
[2022-08-21 10:29] LABS: Alanine Aminotransferase 24 U/L (0-41); Anion Gap 18.9 (5-19); Aspartate Amino Transferase 31 U/L (0-40); Potassium 4.9 mmol/L (3.5-5.1)
--- NOTE | 2022-08-21 12:38 | PC.CHAP ---
Pastoral Care Encounter/Spiritual Assessment Type of Contact [] Declined licensing engineer visit [] Patient/Family/Request visit [] Outpatient visit [] Follow-up visit [] Physician referral [] Code/Alert [x] Routine visit [] Staff referral [] Actively dying [] Patient sleeping [] Family support [] [] Out of room [] Palliative care [] [x] Receiving care in room [] Pre-surgical visit [] Trauma [] Long length of stay [x] ICU visit [x] Other: off vent.. setter.. Relational/Emotional Strength [] Patient feels connected with others/family/visitors/staff [] Distress [] Loneliness/isolation [] Abandonment Spirituality of Patient [] Person of Awilda [] Attends Denominational of their Awilda [] Believes in Prayer [] Reads Bible or Church materials [] There are Spiritual issues to be addressed Fish Roe Processor Interventions [x] Prayer [] Active listening [] Non-anxious presence [] Spiritual/emotional support [] Crisis/trauma care [] Spiritual counseling [] Bereavement support [] Provided bereavement packet [] Provided Bible/devotional materials [] Provided toy/stuffed animal, coloring book to patient or family member [] Provided Communion [] Anointing/[place] [] Salvation [x] Completed spiritual assessment [] Other: Impact on Illness or Injury [] Angry [] Fearful [] Anxious [] Often cries [] Exhaustion [] Unable to work [] Unable to attend oriental orthodox [] Unable to walk/stand [] Unable to read [] Unable to drive [] Unable to eat/drink [] Unable to sleep [] Unable to be with family [] Patient intubated [] Other: Summary Time spent with patient
[2022-08-21] MEDS: dexmedeTOMIDine 0.9 % NaCL 400 MCG/100 ML PREMIX 10.95 MCG IV (13:43)
--- NOTE | 2022-08-21 14:25 | P.PN_ITS ---
Subjective Subjective: Patient extubated himself yesterday. Currently on Precedex of 0.7, IV fluids running at 50 cc/h on 5 to 6 L saturating more than 95%. Patient is awake and alert to self, being in the hospital. He is having visual hallucinations. He states whenever he is sleeping he starts having nightmares. As per the sitter at bedside whenever he was asleep he will wake up crying. Patient otherwise has remained hemodynamically stable and afebrile. Documented urine output of around 4.3 L in last 24 hours Vitals/I&O/Wt Last Vital Signs Temp 98.2 F 08/21/22 10:00 Pulse 72 08/21/22 14:00 Resp 13 08/21/22 14:00 BP 101/57 08/21/22 14:00 Pulse Ox 95 08/21/22 14:00 O2 Del Method 08/21/22 14:00 O2 Flow Rate 6 08/21/22 11:35 FiO2 30 08/20/22 18:00 08/20/22 08/21/22 08/21/22 22:59 06:59 14:59 Intake Total 189.887 / 624.909 9993.969 / 1928.879 710.289 / 710.289 Output Total 600 / 2950 1400 / 4350 Balance -410.113 / -2190.090 -231.031 / -2421.121 710.289 / 710.289 Weight last 48 hrs Weight 71.4 kg Weight 95.5 kg Physical Exam Narrative: General exam: In no acute distress, awake, alert to self and being in the hospital, patient states he has been having visual hallucinations and nightmares, patient tearful and sad, HEENT atraumatic and normocephalic. Oropharynx having patchy discoloration. Neck is supple no lymphadenopathy thyromegaly Cardiovascular regular rate and rhythm without murmur Lungs bilateral expiratory wheezes Abdomen is soft nontender positive bowel sounds. No obvious organomegaly Extremities no cyanosis clubbing or edema, cap refill brisk Skin no rash Neuro no focal deficits. Urinary Catheter Management: Garcia: Cath Placed During This Visit: yes Reason for Continuing Indwelling Catheter: Accurate Measurement of Urinary Output in Critically Ill Patients Urinary Catheter Date of Insertion: 08/16/22 Urinary Catheter Time of Insertion: 00:45 Data 08/21/22 08:57 08/21/22 08:57 Micro: Microbiology 08/16/22 05:35 Blood Culture - Final Blood NO GROWTH AFTER 5 DAYS 08/16/22 05:31 Blood Culture - Final Blood NO GROWTH AFTER 5 DAYS A&P Assessment and plan (1) Self extubation: On sedation for DTs now. Maintaining airway so far. Wean down oxygen supplementation keeping saturation over 88%. Oral care. Start on nystatin swish and swallow Aggressive pulmonary toilet. PT/OT/speech evaluation. Advance diet accordingly. (2) Respiratory failure with hypoxia and hypercapnia: Likely secondary to a combination of COPD exacerbation, congestive heart failure in setting of IHSS, multiple rib fracture post fall. Cannot rule out underlying pneumonia. MRSA negative, sputum culture consistent with haemophilus influenza. Continue with Zosyn to finish a 7 to 10-day course. Continue with DuoNebs every 6 hour, budesonide twice daily. PE ruled out. Strict input output charting, daily weights. Hold off on any further Lasix. (3) Delirium tremens: Continue with Precedex. Wean down accordingly. Continue with phenobarbital 65 mg twice daily. Check phenobarb level. Continue Zyprexa Zydis 5 mg oral twice daily. If needed can go higher on Zyprexa dose. Sitter at bedside. (4) COPD exacerbation: As above. (5) Atrial fibrillation: Patient with history of atrial fibrillation, hypertrophic cardiomyopathy Currently rate controlled. Switch to amiodarone 200 mg twice daily. Qualifiers: Atrial fibrillation type: paroxysmal Qualified Code(s): I48.0 - Paroxysmal atrial fibrillation (6) IHSS (idiopathic hypertrophic subaortic stenosis): Echocardiogram results appreciated. Monitor blood pressures and heart rate. Continue with home dose of lisinopril. If needed can add low-dose beta-morgan. Hold off on clonidine patch now. (7) Alcohol abuse: IV thiamine, oral folate As above. (8) Fall: Status post fall. Sustained contusion to right chest. No fracture seen on chest x-ray, but could still be present. Pain control (9) Shock: Resolved. Most likely a combination of septic and cardiogenic. Levophed weaned. Keep mean arterial pressure over 65. Hold off any further antihypertensives. Follow-up blood cultures. Strict input output charting. (10) CAD (coronary artery disease): Continue statin, aspirin, beta-morgan Qualifiers: Coronary Disease-Associated Artery/Lesion type: [place] artery [place] vs. transplanted heart: [place] heart Associated angina: without angina Qualified Code(s): I25.10 - Atherosclerotic heart disease of [place] coronary artery without angina pectoris (11) Rhabdomyolysis: Resolved. (12) Ribs, multiple fractures: Plan Analgesia: Currently sedated with propofol and fentanyl. Glycemic control: Not needed. Nutrition: Advance diet as per swallow evaluation. CODE STATUS: Full code PUD prophylaxis: Protonix DVT prophylaxis: Lovenox Discharge planning: Pending. Continue with care at ICU level. Goals of care discussion: Today patient seen with friend at bedside. Friend is also mentioned in person to notify. As per friend she has been living with the patient for last 20 odd years. They have been struggling with patient's alcoholism and patient is being looked at for turning leaf while awaiting bed. We discussed unfortunately as patient is not legally related to the caregiver we cannot go for medical decisions with her. As per the friend she has a number for patient's sister named Sameera who lives in [facility]. She will try to arrange for the number. This documentation was created by [employer] culinary internship software. Every effort was made to ensure accuracy of culinary internship. Any obvious errors or omissions should be clarified with the author of the document. Attestations Medical Necessity Statement*: Requires further hospitalization for management of delirium tremens in setting of alcohol withdrawal, recovering respiratory failure, IHSS Critical Care Time: The high probability of a clinically significant, sudden or life threatening deterioration of the patient's [cardiac, renal, neurological] system(s) required my full and direct attention, intervention and personal management. The critical care time is as shown. This time is in addition to time spent performing any reported procedures but includes the following: [x] Data and vital sign review and interpretation [x] Patient assessment, examination and intervention [x] Documentation [x] Medication orders and management Critical Care Time (min): 70 Coding Level of Care Code Acute Vegetable Loader Machine Operator for Chg Fwd Diagnoses Self extubation Z91.199 Respiratory failure with hypoxia and hypercapnia J96.91; J96.92 Delirium tremens F10.931 COPD exacerbation J44.1 Atrial fibrillation I48.0 Atrial fibrillation type: paroxysmal IHSS (idiopathic hypertrophic subaortic stenosis) I42.1 Alcohol abuse F10.10 Fall W19.XXXA Shock R57.9 CAD (coronary artery disease) I25.10 Coronary Disease-Associated Artery/Lesion type: [place] artery [place] vs. transplanted heart: [place] heart Associated angina: without angina Rhabdomyolysis M62.82 Ribs, multiple fractures S22.49XA
[2022-08-21 16:48] LABS: Anion Gap 11.9 (5-19); Blood Urea Nitrogen 25 mg/dL (8-23); Calcium 8.9 mg/dL (8.5-10.5); Carbon Dioxide 30 mmol/L (22-29); Chloride 102 mmol/L (98-107); Glomerular Filtration Rate 97.3 mL/min (90-130); Glucose 113 mg/dL (65-115); Osmolality Calculated 295 mOsm/kg (285-295); Potassium 3.9 mmol/L (3.5-5.1); Sodium 140 mmol/L (136-145)
[2022-08-21] MEDS: enoxaparin 40 mg/0.4 mL Syringe SUBCUT (17:33)
[2022-08-21] MEDS: dexmedeTOMIDine 0.9 % NaCL 400 MCG/100 ML PREMIX 9.13 MCG IV (22:51)
[2022-08-22] VITALS (30 sets, daily range): BP systolic 115–167; BP diastolic 54–110; PULSE 76–115; RESP 14–28; TEMP 36.6–38.2; O2SAT 78–97
[2022-08-22] MEDS: ipratropium-albuterol 3 mL Neb INHALATION ×5 (03:53→20:07)
[2022-08-22] MEDS: acetaminophen 325 mg Tablet 650 MG PO (04:15)
[2022-08-22 05:16] LABS: Basophils % 0.1 %; Eosinophils # 0.3 10^3/uL (0.0-0.8); Hematocrit 38.8 % (42.0-52.0); Hemoglobin 12.4 g/dL (11.7-16.6); Lymphocytes # 1.4 10^3/uL (0.8-4.8); Mean Corpuscular Hemoglobin 29.4 pg (28.0-34.0); Mean Corpuscular Volume 91.9 fl (80-94); Mean Platelet Volume 10.5 fL (7.4-10.4); Monocytes % 12.9 %; Neutrophils # 4.82 10^3/uL (1.8-7.7); Neutrophils % 63.6 %; Nucleated Red Blood Cells % 0 %; Platelet Count 266 10^3/cmm (130-400); Red Blood Count 4.22 10^6/uL (4.1-5.3); Red Cell Distribution Width 13.5 % (12.1-15.1); White Blood Count 7.6 10^3/uL (4.0-10.0)
[2022-08-22 05:42] LABS: Alanine Aminotransferase 25 U/L (0-41); Albumin Level 2.6 g/dL (3.5-5.2); Alkaline Phosphatase 55 U/L (40-130); Anion Gap 11.9 (5-19); Aspartate Amino Transferase 21 U/L (0-40); Blood Urea Nitrogen 20 mg/dL (8-23); Calcium 8.3 mg/dL (8.5-10.5); Carbon Dioxide 28 mmol/L (22-29); Chloride 105 mmol/L (98-107); Creatinine Clr Calc Pharmacy 80.0078; Globulin 2.5 g/dL (1.3-4.6); Glucose 105 mg/dL (65-115); Osmolality Calculated 295 mOsm/kg (285-295); Potassium 3.9 mmol/L (3.5-5.1); Sodium 141 mmol/L (136-145); Total Bilirubin 0.5 mg/dL (0.15-1.2); Total Protein 5.1 g/dL (6.6-8.7)
[2022-08-22] MEDS: piperacillin-tazobactam 3.375 GM in sodium chloride 0.9% (plus) 50 ML IV ×3 (05:44→21:05)
--- NOTE | 2022-08-22 07:00 | PC.NURSE ---
Bedside report completed with MAME Hart.
[2022-08-22] MEDS: budesonide 0.5 mg/2 mL Neb INHALATION ×2 (07:59→20:07)
[2022-08-22] MEDS: nystatin 100,000 unit/mL UDC 5 mL 200000 UNIT PO ×4 (08:13→20:48)
[2022-08-22] MEDS: aspirin 81 mg EC Tablet PO (08:14)
[2022-08-22] MEDS: folic acid 1 mg Tablet PO (08:14)
[2022-08-22] MEDS: amiodarone 200 mg Tablet PO ×2 (08:14→17:57)
[2022-08-22] MEDS: OLANZapine 5 mg ODT PO ×2 (08:14→17:57)
[2022-08-22] MEDS: sennosides-docusate Tablet 1 TAB PO (08:14)
[2022-08-22] MEDS: multivitamin therapeutic Tablet 1 TAB PO (08:14)
[2022-08-22] MEDS: lisinopril 20 mg Tablet 40 MG PO (08:14)
[2022-08-22] MEDS: PHENobarbital 130 mg/mL SDV 1 mL 65 MG IV (08:15)
[2022-08-22] MEDS: dexmedeTOMIDine 0.9 % NaCL 400 MCG/100 ML PREMIX 5.48 MCG IV (09:50)
--- NOTE | 2022-08-22 10:02 | USCV_ITS ---
Pratik Garcia Age: 66 Gender: M : 1955 Exam Date: 08/22/2022 11:48 Ordering Phys: Gabriel Song MD Technologist: CT Exam Location: [facility] Indication: swelling PROCEDURES: Venous duplex imaging was performed in bilateral lower extremities. Bilaterally, the common femoral, superficial femoral, profunda femoral, popliteal, posterior tibial, greater saphenous veins, and the peroneal trunk were identified and interrogated in the standard fashion. These veins were found to be easily compressible with spontaneous blood flow. No evidence of insufficiency or thrombus noted. In addition, the posterior tibial and peroneal trunk were evaluated. FINDINGS: no dvt CONCLUSIONS No evidence of right lower extremity DVT. No evidence of left lower extremity DVT. Eddie Schilling MD (Electronically Signed) Final Date: 22 August 2022 13:53 S
[2022-08-22 10:57] LABS: Procalcitonin 0.11 ng/mL (0-0.5)
[2022-08-22] MEDS: benzonatate 100 mg Capsule 200 MG PO ×3 (11:28→20:48)
[2022-08-22] MEDS: fentaNYL 25 mcg Patch 1 PATCH TRANSDERMA (11:28)
[2022-08-22] MEDS: dextrose 5%-sod chloride 0.9% 1,000 ML 75 ML IV (12:38)
--- NOTE | 2022-08-22 13:30 | PM.PN ---
Subjective Subjective: No acute events overnight. Patient has remained hemodynamically stable and afebrile. Currently on 2 L saturating 91%. Patient's mentation more improved today. Clear urine for persist. He is awake and alert, following commands. Able to complete conversation. Is awake and alert to self, place. Still having episodes of confusion. Continued on Precedex at 0.3 on examination. Vitals/I&O/Wt Last Vital Signs Temp 98.2 F 08/22/22 08:00 Pulse 85 08/22/22 12:00 Resp 22 H 08/22/22 12:00 BP 156/91 08/22/22 12:00 Pulse Ox 91 08/22/22 12:00 O2 Del Method 08/22/22 12:00 O2 Flow Rate 2 08/22/22 12:00 FiO2 30 08/20/22 18:00 08/21/22 08/22/22 08/22/22 22:59 06:59 14:59 Intake Total 2477.543 / 3187.832 410 / 3597.832 1258.677 / 1258.677 Output Total 800 / 800 950 / 1750 650 / 650 Balance 1677.543 / 2387.832 -540 / 1847.832 608.677 / 608.677 Weight last 48 hrs Weight 74.843 kg Weight 71.4 kg Physical Exam Narrative: General exam: In no acute distress, awake, alert to self and being in the hospital, occasional episodes of confusion HEENT atraumatic and normocephalic. Oropharynx having patchy discoloration. Neck is supple no lymphadenopathy thyromegaly Cardiovascular regular rate and rhythm without murmur Lungs bilateral expiratory wheezes Abdomen is soft nontender positive bowel sounds. No obvious organomegaly Extremities no cyanosis clubbing or edema, cap refill brisk Skin no rash Neuro no focal deficits. Urinary Catheter Management: Garcia: Cath Placed During This Visit: yes Reason for Continuing Indwelling Catheter: Accurate Measurement of Urinary Output in Critically Ill Patients Urinary Catheter Date of Insertion: 08/16/22 Urinary Catheter Time of Insertion: 00:45 Data 08/22/22 04:36 08/22/22 04:36 A&P Assessment and plan (1) Self extubation: On sedation for DTs now. Maintaining airway so far. Wean down oxygen supplementation keeping saturation over 88%. Oral care. Start on nystatin swish and swallow Aggressive pulmonary toilet. PT/OT/speech evaluation. Advance diet accordingly. (2) Respiratory failure with hypoxia and hypercapnia: Likely secondary to a combination of COPD exacerbation, congestive heart failure in setting of IHSS, multiple rib fracture post fall. Cannot rule out underlying pneumonia. MRSA negative, sputum culture consistent with haemophilus influenza. Continue with Zosyn to finish a 7 to 10-day course. Continue with DuoNebs every 6 hour, budesonide twice daily. PE ruled out. Strict input output charting, daily weights. Hold off on any further Lasix. (3) Delirium tremens: Continue with Precedex. Wean down accordingly. Continue with phenobarbital 65 mg twice daily. Check phenobarb level. Continue Zyprexa Zydis 5 mg oral twice daily. If needed can go higher on Zyprexa dose. Sitter at bedside. (4) COPD exacerbation: As above. (5) Atrial fibrillation: Patient with history of atrial fibrillation, hypertrophic cardiomyopathy Currently rate controlled. Switch to amiodarone 200 mg twice daily. Qualifiers: Atrial fibrillation type: paroxysmal Qualified Code(s): I48.0 - Paroxysmal atrial fibrillation (6) IHSS (idiopathic hypertrophic subaortic stenosis): Echocardiogram results appreciated. Monitor blood pressures and heart rate. Continue with home dose of lisinopril. If needed can add low-dose beta-morgan. Hold off on clonidine patch now. (7) Alcohol abuse: IV thiamine, oral folate As above. (8) Fall: Status post fall. Sustained contusion to right chest. No fracture seen on chest x-ray, but could still be present. Pain control (9) Shock: Resolved. Most likely a combination of septic and cardiogenic. Levophed weaned. Keep mean arterial pressure over 65. Hold off any further antihypertensives. Follow-up blood cultures. Strict input output charting. (10) CAD (coronary artery disease): Continue statin, aspirin, beta-morgan Qualifiers: Coronary Disease-Associated Artery/Lesion type: [place] artery [place] vs. transplanted heart: [place] heart Associated angina: without angina Qualified Code(s): I25.10 - Atherosclerotic heart disease of [place] coronary artery without angina pectoris (11) Rhabdomyolysis: Resolved. (12) Ribs, multiple fractures: Plan Analgesia: Currently sedated with propofol and fentanyl. Glycemic control: Not needed. Nutrition: Advance diet as per swallow evaluation. CODE STATUS: Full code PUD prophylaxis: Protonix DVT prophylaxis: Lovenox Discharge planning: Pending. Continue with care at ICU level. Plan for the day: Physical therapy evaluation. Advance diet as per speech evaluation. Convert IV to oral medications. Convert to oral thiamine. Continue with phenobarb at IV but decrease dose to 45 mg twice daily which is 25% or less of dose yesterday. We will continue to wean off slowly. Continue with Zyprexa 5 mg twice daily for now. Plan to wean off more to 2.5 twice daily tomorrow if patient's mentation continues to remain stable. Start on fentanyl patch for pain. Tramadol 50 mg every 6 hourly as needed. Continue with IV fluids. Add amlodipine 5 mg oral daily for blood pressures. Continue with lisinopril 40 mg oral daily. Out of bed to chair. Frequent orientation. Goals of care discussion: Today patient seen with friend at bedside. Friend is also mentioned in person to notify. As per friend she has been living with the patient for last 20 odd years. They have been struggling with patient's alcoholism and patient is being looked at for turning leaf while awaiting bed. We discussed unfortunately as patient is not legally related to the caregiver we cannot go for medical decisions with her. As per the friend she has a number for patient's sister named Sameera who lives in [facility]. She will try to arrange for the number. This documentation was created by [employer] social insurance administrator software. Every effort was made to ensure accuracy of social insurance administrator. Any obvious errors or omissions should be clarified with the author of the document. Attestations Medical Necessity Statement*: Requires further hospitalization for management of delirium tremens, alcohol withdrawal, resolving confusion, respiratory failure Time Spent in Patient Care: Greater than 35 minutes Coding Level of Care Code Acute Agricultural Real Estate Agent for Chg Fwd Diagnoses Self extubation Z91.199 Respiratory failure with hypoxia and hypercapnia J96.91; J96.92 Delirium tremens F10.931 COPD exacerbation J44.1 Atrial fibrillation I48.0 Atrial fibrillation type: paroxysmal IHSS (idiopathic hypertrophic subaortic stenosis) I42.1 Alcohol abuse F10.10 Fall W19.XXXA Shock R57.9 CAD (coronary artery disease) I25.10 Coronary Disease-Associated Artery/Lesion type: [place] artery [place] vs. transplanted heart: [place] heart Associated angina: without angina Rhabdomyolysis M62.82 Ribs, multiple fractures S22.49XA
[2022-08-22 13:54] LABS: Add Urine Microscopic? YES; Bilirubin Urine Neg (Negative); Blood Urine 2+ (Negative); Glucose Urine UA Norm (Normal); Ketones Urine Negative (Negative); Leukocyte Esterase Urine Negative (Negative); Nitrate Urine Negative (Negative); Protein Urine Neg (Negative); Specific Gravity, Urine 1.015 (1.005-1.030); Squamous Epithelial Cell Urine 0-4 /hpf (0-5); Urine Appearance Clear (CLEAR); Urine Color Yellow (Yellow); Urobilinogen Urine Norm (Negative); WBC Urine 0-4 /hpf (0-5); pH Urine 6 (5-7)
[2022-08-22 13:55] LABS: Add Urine Culture? No
[2022-08-22] MEDS: enoxaparin 40 mg/0.4 mL Syringe SUBCUT (14:46)
[2022-08-22] MEDS: amlodipine 5 mg Tablet PO (14:47)
[2022-08-22] MEDS: PHENobarbital 130 mg/mL SDV 1 mL 45 MG IV (17:58)
--- NOTE | 2022-08-22 18:53 | PC.NURSE ---
Bedside report completed with with MAME Crook
--- NOTE | 2022-08-22 18:54 | PC.NURSE ---
Shift Note: Pt has had an uneventful day. IV fluids still infusing. Precedex weaned off, pt more lucid after Precedex. He has had low CIWA scores, no interventions done, Mostly confusion with dates and bright lights, hallucinating that he is seeing/hearing his significant other. Pt has been irritable at times but easily redirectable. He does use call light on occasion. Garcia removed this am. No difficulties urinating. Loose Bm noted 3 times, Senna PO held this evening. Pt has ambulated with PT. He has ambulated to bathroom with walker and assit, he is still unsteady and needs assistance. Frequent safety and comfort rounds continue. Orders and/or nursing care completed as indicated. Patient monitored for response to intervention and treatment(s). Education provided includes Phenobarbital, zyprexa, thiamine, folic acid, progress and plan of care. Patient verbalized and need reenforcement of topics discussed.. Will continue to monitor.
[2022-08-22] MEDS: HYDROcodone-acetaminophen 5-325 mg Tablet 1 TAB PO (19:20)
[2022-08-22] MEDS: dexmedeTOMIDine 0.9 % NaCL 400 MCG/100 ML PREMIX IV (20:29)
[2022-08-22] MEDS: TRAMadol 50 mg Tablet PO (20:48)
[2022-08-23] VITALS (28 sets, daily range): BP systolic 90–162; BP diastolic 57–107; PULSE 77–160; RESP 15–29; TEMP 36.4–37.4; O2SAT 86–98
[2022-08-23] MEDS: ipratropium-albuterol 3 mL Neb INHALATION ×4 (00:18→11:43)
--- NOTE | 2022-08-23 02:27 | PC.NURSE ---
Addendum entered by Rosalie Cooley RN 08/23/22 02:38: Witnessed waste fentanyl patch with MAME Crook Original Note: Pt removed cardiac leads as well as fentanyl patch. Lead stickers and transdermal patch were found by this nurse on bedside table. Dr. Tripathi notified. New order received to place a new patch. Wasted used patch with Anita Cooley RN
[2022-08-23] MEDS: fentaNYL 25 mcg Patch 1 PATCH TRANSDERMA (02:40)
[2022-08-23 04:15] LABS: Basophils % 0.1 %; Eosinophils # 0.2 10^3/uL (0.0-0.8); Eosinophils % 1.6 %; Hematocrit 40.5 % (42.0-52.0); Hemoglobin 12.6 g/dL (11.7-16.6); Lymphocytes # 1.8 10^3/uL (0.8-4.8); Lymphocytes % 17.5 %; Mean Corpuscular HGB Conc 31.1 g/dL (30.0-36.0); Mean Corpuscular Volume 93.3 fl (80-94); Mean Platelet Volume 10.1 fL (7.4-10.4); Monocytes # 1.1 10^3/uL (0.2-0.9); Monocytes % 10.8 %; Neutrophils % 69.6 %; Nucleated Red Blood Cells % 0 %; Platelet Count 283 10^3/cmm (130-400); Red Blood Count 4.34 10^6/uL (4.1-5.3); Red Cell Distribution Width 13.6 % (12.1-15.1); White Blood Count 10.2 10^3/uL (4.0-10.0)
[2022-08-23 04:38] LABS: Alanine Aminotransferase 29 U/L (0-41); Albumin Level 3.1 g/dL (3.5-5.2); Alkaline Phosphatase 72 U/L (40-130); Anion Gap 11.5 (5-19); Aspartate Amino Transferase 26 U/L (0-40); Blood Urea Nitrogen 15 mg/dL (8-23); Calcium 8.6 mg/dL (8.5-10.5); Carbon Dioxide 27 mmol/L (22-29); Chloride 102 mmol/L (98-107); Globulin 2.7 g/dL (1.3-4.6); Glomerular Filtration Rate 97.3 mL/min (90-130); Glucose 110 mg/dL (65-115); Osmolality Calculated 285 mOsm/kg (285-295); Potassium 3.5 mmol/L (3.5-5.1); Sodium 137 mmol/L (136-145); Total Bilirubin 0.5 mg/dL (0.15-1.2); Total Protein 5.8 g/dL (6.6-8.7)
[2022-08-23] MEDS: HYDROcodone-acetaminophen 5-325 mg Tablet 1 TAB PO (04:39)
[2022-08-23] MEDS: piperacillin-tazobactam 3.375 GM in sodium chloride 0.9% (plus) 50 ML IV ×3 (05:04→21:14)
--- NOTE | 2022-08-23 06:55 | PC.NURSE ---
Bedside report completed with MAME Crook
[2022-08-23] MEDS: budesonide 0.5 mg/2 mL Neb INHALATION (09:02)
[2022-08-23] MEDS: PHENobarbital 130 mg/mL SDV 1 mL 45 MG IV (09:12)
[2022-08-23] MEDS: sennosides-docusate Tablet 1 TAB PO ×2 (09:12→17:04)
[2022-08-23] MEDS: amlodipine 5 mg Tablet PO (09:13)
[2022-08-23] MEDS: benzonatate 100 mg Capsule 200 MG PO ×3 (09:13→20:59)
[2022-08-23] MEDS: aspirin 81 mg EC Tablet PO (09:13)
[2022-08-23] MEDS: multivitamin therapeutic Tablet 1 TAB PO (09:13)
[2022-08-23] MEDS: nystatin 100,000 unit/mL UDC 5 mL 200000 UNIT PO ×4 (09:13→20:59)
[2022-08-23] MEDS: amiodarone 200 mg Tablet PO ×2 (09:13→17:04)
[2022-08-23] MEDS: thiamine 100 mg Tablet PO (09:13)
[2022-08-23] MEDS: OLANZapine 5 mg ODT PO ×2 (09:13→17:04)
[2022-08-23] MEDS: folic acid 1 mg Tablet PO (09:13)
[2022-08-23] MEDS: lisinopril 20 mg Tablet 40 MG PO (09:13)
--- NOTE | 2022-08-23 09:37 | P.PN_ITS ---
Subjective Subjective: He overall feels little bit better. Breathing is improving. He is bringing up phlegm with using flutter valve. States he is using I-S as well. Overall feels he is gradually getting better. Per discussion with his RN last night CIWA score up to 20, he became restless, productive tissue removed his leads, fentanyl patch, considered leaving AMA. Vitals/I&O/Wt Last Vital Signs Temp 98 F 08/22/22 14:00 Pulse 96 08/23/22 09:04 Resp 16 08/23/22 09:04 BP 126/78 08/23/22 04:00 Pulse Ox 96 08/23/22 09:04 O2 Del Method 08/23/22 09:04 O2 Flow Rate 3 08/23/22 09:04 FiO2 30 08/20/22 18:00 08/22/22 08/23/22 08/23/22 22:59 06:59 14:59 Intake Total 200 / 3211.287 0572 / 2908.677 50 / 50 Output Total 150 / 800 Balance 200 / 1208.677 900 / 2108.677 50 / 50 Weight last 48 hrs Weight 74.843 kg Physical Exam 2 Narrative: Sitting up in chair. Const: COMMON NORMALS: patient oriented x3 and alert GENERAL APPEARANCE: cooperative ORIENTATION/CONSCIOUSNESS: Yes awake HENMT: COMMON NORMALS: oropharynx normal Neck/C-Spine: COMMON NORMALS: no JVD Chest: OTHER: Bruising right lower chest/right upper flank. Resp: AUSCULTATION: rhonchi (Few lower) Cardio: COMMON NORMALS: no JVD, regular rhythm, S1 normal heart sound present, S2 normal heart sound present and No murmurs present (Cardio) RHYTHM: regular rhythm HEART SOUNDS: S1 normal heart sound present and S2 normal heart sound present GI: COMMON NORMALS: Normal to inspection, nondistended, normoactive bowel sounds present, Soft to palpation and non-tender PALPATION: Yes Soft to palpation Extremity: COMMON NORMALS: no joint enlargement and no pedal edema Neuro: COMMON NORMALS: patient oriented x3 and moves all extremities SENSORIUM/ORIENTATION: Yes alert Skin: COMMON NORMALS: no rashes or lesions noted GENERAL SKIN EXAM: no rashes or lesions noted Urinary Catheter Management: Garcia: Cath Placed During This Visit: yes, but has since been removed by the nurse Reason for Continuing Indwelling Catheter: Accurate Measurement of Urinary Output in Critically Ill Patients Urinary Catheter Date of Insertion: 08/16/22 Urinary Catheter Time of Insertion: 00:45 Date Urinary Catheter Removed: 08/22/22 Time Urinary Catheter Discontinued: 10:45 Data 08/23/22 03:48 08/23/22 03:48 A&P Assessment and plan (1) Delirium tremens: Nighttime worsen delirium, CIWA score up to 20, restless, pulled off his patch, monitor leads. We will keep phenobarbital at night for now and 65 mg. So far weaned off Precedex. Wean down accordingly. Continue Zyprexa Zydis 5 mg oral twice daily. (2) Respiratory failure with hypoxia and hypercapnia: Gradually improving. Saturation low 90s currently oxygen requirement appears to be decreasing. Down to 3 L nasal cannula. DC IVF Likely secondary to a combination of COPD exacerbation, congestive heart failure in setting of IHSS, multiple rib fracture post fall. Cannot rule out underlying pneumonia. MRSA negative, sputum culture consistent with haemophilus influenza. Continue with Zosyn to finish a 7 to 10-day course. Continue with DuoNebs every 6 hour, budesonide twice daily. PE ruled out. Strict input output charting, daily weights. Hold off on any further Lasix. PT, OT (3) COPD exacerbation: As above. (4) Self extubation: (5) Atrial fibrillation: Patient with history of atrial fibrillation, hypertrophic cardiomyopathy Currently rate controlled. Amiodarone 200 mg twice daily. Qualifiers: Atrial fibrillation type: paroxysmal Qualified Code(s): I48.0 - Paroxysmal atrial fibrillation (6) IHSS (idiopathic hypertrophic subaortic stenosis): Echocardiogram results appreciated. Monitor blood pressures and heart rate. Continue with home dose of lisinopril. If needed can add low-dose beta-morgan. Hold off on clonidine patch now. (7) Alcohol abuse: IV thiamine, oral folate As above. He states would prefer to go for physical rehabilitation, feels he does not need EtOH rehabilitation. (8) Fall: Status post fall. Sustained contusion to right chest. Rib fractures on CT. continue pain control, including fentanyl patch. I-S. (9) Shock: Resolved. Most likely a combination of septic and cardiogenic. Levophed weaned. Keep mean arterial pressure over 65. Hold off any further antihypertensives. Follow-up blood cultures. Strict input output charting. (10) CAD (coronary artery disease): Continue statin, aspirin, beta-morgan Qualifiers: Coronary Disease-Associated Artery/Lesion type: [place] artery [place] vs. transplanted heart: [place] heart Associated angina: without angina Qualified Code(s): I25.10 - Atherosclerotic heart disease of [place] coronary artery without angina pectoris (11) Rhabdomyolysis: Resolved. (12) Ribs, multiple fractures: Plan CODE STATUS: Full code PUD prophylaxis: Protonix DVT prophylaxis: Lovenox Goals of care: Friend is also mentioned in person to notify. As per friend she has been living with the patient for last 20 odd years. They have been struggling with patient's alcoholism and patient is being looked at for turning leaf while awaiting bed. This documentation was created by [employer] neck band operator software. Every effort was made to ensure accuracy of neck band operator. Any obvious errors or omissions should be clarified with the author of the document. Attestations Medical Necessity Statement*: Continue admission for assessment management of severe alcohol withdrawal, respiratory failure. Coding Level of Care Code Acute Expansion Envelope Maker Hand for [facility] Fwd Diagnoses Delirium tremens F10.931 Respiratory failure with hypoxia and hypercapnia J96.91; J96.92 COPD exacerbation J44.1 Self extubation Z91.199 Atrial fibrillation I48.0 Atrial fibrillation type: paroxysmal IHSS (idiopathic hypertrophic subaortic stenosis) I42.1 Alcohol abuse F10.10 Fall W19.XXXA Shock R57.9 CAD (coronary artery disease) I25.10 Coronary Disease-Associated Artery/Lesion type: [place] artery [place] vs. transplanted heart: [place] heart Associated angina: without angina Rhabdomyolysis M62.82 Ribs, multiple fractures S22.49XA
--- NOTE | 2022-08-23 10:30 | PC.NURSE ---
Monitoring offat this time. Pt set up for bathing/grooming near sink in room.
[2022-08-23] MEDS: enoxaparin 40 mg/0.4 mL Syringe SUBCUT (16:20)
[2022-08-23] MEDS: metoprolol tartrate 1 mg/1 mL SDV 5 mL 5 MG IVP ×3 (16:28→19:17)
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
[2022-08-23] MEDS: potassium chloride ER 20 mEq Tablet PO (19:17)
[2022-08-23 19:53] LABS: Magnesium 1.9 mg/dL (1.7-2.3)
--- NOTE | 2022-08-23 20:36 | PC.NURSE ---
Shift Note: Pt has had a great day up until 1700, when he woke up from a night mare per pt. He has bathed/groomed himself at the sinkin his room Been sitting up in a chair. Ambulated much farther today with better balance. He has been pleasant and charming. CIWA scores less than 10, no hallucinations or irritable outbursts. Urine is rn radiology in color. Around 1600, he had been resting with his eyes closed in bed, woke up from a nightmare per him he was slightly short of breath with a heart rate in 160's. Several different vagal maneuvers attempted and were unsuccessful. Dr Ewing notified of regular elevated heart rate, then Afib. It was as high as 180's at one point. Metoprolol 5mg ordered and admin. Pt instructed to stay resting in bed. Heart rate did decrease to 126, pt decided to sit on side of bed, heart rate back uo to 150. Dr Ewing notified again of heat rate, a second does of Metoprolol 5mg ordered and administered. His heart rate did not improve much, pt got up to [facility] for BM, so A third dose of Metoprolol 5mg ordered and admin, per Dr Herzog. Per Dr Ewing notified night Hospitalist if rate does not improve, Cardizem may need to be started. Bedside report then completed with MAME Riley. Osvaldo Alfaro was notified of last communication with Dr Ewing Frequent safety and comfort rounds continue. Orders and/or nursing care completed as indicated. Patient monitored for response to intervention and treatment(s). Education provided includes metoprolol, zyprexa, quitting smoking, abstaining from alcohol and plan of care. Patient and/or self pay representative verbalized understanding and agreement of plan of care and education discussed. Will continue to monitor.
[2022-08-23] MEDS: PHENobarbital 130 mg/mL SDV 1 mL 60 MG IV (20:59)
--- NOTE | 2022-08-23 21:38 | ECG_ITS ---
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 Measurements Intervals [place] Rate: 144 P: 0 OR: 0 QRS: -8 QRSD: 105 T: 97 QT: 271 QTc: 420 Interpretive Statements ATRIAL FIBRILLATION WITH RAPID VENTRICULAR RESPONSE WITH ABERRANT CONDUCTION OR VENTRICULAR PREMATURE COMPLEXES MODERATE VOLTAGE CRITERIA FOR LVH, CONSIDER NORMAL VARIANT [MEETS CRITERIA IN ONE OF: R(aVL), S(V1), R(V5), R(V5/V6)+S(V1)] NONSPECIFIC ST & T-WAVE ABNORMALITY Compared to ECG 08/19/2022 10:23:00 Aberrant conduction of supraventricular beat(s) now present Ventricular premature complex(es) now present Sinus rhythm no longer present Myocardial infarct finding no longer present Possible ischemia no longer present T-wave abnormality still present Electronically Signed On 08-24-2022 19:45:35 LOSS PREVENTION SUPERVISOR by Tab Sinclair M.D. [id number]
[2022-08-23] MEDS: amiodarone 50 mg/mL SDV 3 mL 150 MG IVP (22:39)
[2022-08-23] MEDS: digoxin 250 mcg/ml INJ 2 mL 500 MCG IVP (22:42)
[2022-08-24] VITALS (30 sets, daily range): BP systolic 104–193; BP diastolic 54–107; PULSE 79–101; RESP 14–28; TEMP 36.6–37; O2SAT 87–98
[2022-08-24] MEDS: ipratropium-albuterol 3 mL Neb INHALATION ×4 (03:13→23:45)
[2022-08-24 04:55] LABS: Basophils # 0.1 10^3/uL (0.0-0.1); Basophils % 0.4 %; Eosinophils # 0.2 10^3/uL (0.0-0.8); Eosinophils % 1.2 %; Hematocrit 41.1 % (42.0-52.0); Hemoglobin 12.6 g/dL (11.7-16.6); Lymphocytes # 1.9 10^3/uL (0.8-4.8); Lymphocytes % 12.3 %; Mean Corpuscular HGB Conc 30.7 g/dL (30.0-36.0); Mean Corpuscular Hemoglobin 28.8 pg (28.0-34.0); Mean Corpuscular Volume 93.8 fl (80-94); Mean Platelet Volume 10.7 fL (7.4-10.4); Monocytes # 1.4 10^3/uL (0.2-0.9); Monocytes % 9.3 %; Neutrophils # 11.54 10^3/uL (1.8-7.7); Neutrophils % 76.1 %; Nucleated Red Blood Cells % 0 %; Platelet Count 280 10^3/cmm (130-400); Red Blood Count 4.38 10^6/uL (4.1-5.3); Red Cell Distribution Width 13.5 % (12.1-15.1); White Blood Count 15.2 10^3/uL (4.0-10.0)
[2022-08-24] MEDS: digoxin 250 mcg/ml INJ 2 mL IVP (04:59)
[2022-08-24] MEDS: piperacillin-tazobactam 3.375 GM in sodium chloride 0.9% (plus) 50 ML IV ×3 (05:02→22:06)
[2022-08-24 05:18] LABS: Magnesium 1.8 mg/dL (1.7-2.3)
[2022-08-24 05:20] LABS: Blood Urea Nitrogen 16 mg/dL (8-23); Calcium 8.9 mg/dL (8.5-10.5); Carbon Dioxide 25 mmol/L (22-29); Chloride 98 mmol/L (98-107); Creatinine Clr Calc Pharmacy 80.0078; Glucose 91 mg/dL (65-115); Osmolality Calculated 273 mOsm/kg (285-295); Sodium 131 mmol/L (136-145)
--- NOTE | 2022-08-24 06:55 | PC.NURSE ---
Bedside report completed with MAME Riley
--- NOTE | 2022-08-24 08:00 | PC.NURSE ---
Pt up in chair, by the sink, again today, bathing/grooming.
[2022-08-24] MEDS: digoxin 125 mcg Tablet PO (09:02)
[2022-08-24] MEDS: amiodarone 200 mg Tablet PO ×2 (09:02→17:12)
[2022-08-24] MEDS: thiamine 100 mg Tablet PO (09:02)
[2022-08-24] MEDS: OLANZapine 5 mg ODT PO ×2 (09:02→17:12)
[2022-08-24] MEDS: multivitamin therapeutic Tablet 1 TAB PO (09:02)
[2022-08-24] MEDS: benzonatate 100 mg Capsule 200 MG PO ×3 (09:02→20:45)
[2022-08-24] MEDS: sennosides-docusate Tablet 1 TAB PO ×2 (09:02→17:12)
[2022-08-24] MEDS: amlodipine 5 mg Tablet PO (09:02)
[2022-08-24] MEDS: aspirin 81 mg EC Tablet PO (09:02)
[2022-08-24] MEDS: lisinopril 20 mg Tablet 40 MG PO (09:02)
[2022-08-24] MEDS: folic acid 1 mg Tablet PO (09:02)
[2022-08-24] MEDS: nystatin 100,000 unit/mL UDC 5 mL 200000 UNIT PO ×4 (09:03→20:45)
[2022-08-24] MEDS: PHENobarbital 130 mg/mL SDV 1 mL 45 MG IV (09:03)
[2022-08-24] MEDS: enoxaparin 40 mg/0.4 mL Syringe SUBCUT (15:27)
--- NOTE | 2022-08-24 18:45 | PC.NURSE ---
Report called to CSU and given to MAME Cano.
--- NOTE | 2022-08-24 19:13 | PM.PN ---
Subjective Subjective: This morning he feels better. Overnight difficulties with A. fib with RVR. Received amiodarone, digoxin. Continues on digoxin. Denies chest pain or pressure. Breathing continues to improve. Producing less phlegm. Vitals/I&O/Wt Last Vital Signs Temp 98.5 F 08/24/22 08:00 Pulse 86 08/24/22 15:55 Resp 18 08/24/22 15:55 BP 157/87 08/24/22 15:00 Pulse Ox 96 08/24/22 15:55 O2 Del Method 08/24/22 15:55 O2 Flow Rate 2 08/24/22 15:55 FiO2 30 08/20/22 18:00 08/24/22 08/24/22 08/24/22 06:59 14:59 22:59 Intake Total 50 / 1582.083 550 / 550 Output Total 700 / 1100 750 / 750 Balance -650 / 482.083 -200 / -200 Weight last 48 hrs Weight 74.843 kg Physical Exam Narrative: Sitting up in chair. Const: COMMON NORMALS: patient oriented x3 and alert GENERAL APPEARANCE: cooperative ORIENTATION/CONSCIOUSNESS: Yes awake HENMT: COMMON NORMALS: oropharynx normal Neck/C-Spine: COMMON NORMALS: no JVD Chest: OTHER: Bruising right lower chest/right upper flank. Resp: COMMON NORMALS: normal respiratory effort and clear to auscultation bilaterally AUSCULTATION: clear to auscultation bilaterally, rhonchi (Few lower) and diminished lung sounds Cardio: COMMON NORMALS: no JVD, regular rhythm, S1 normal heart sound present, S2 normal heart sound present and No murmurs present (Cardio) RHYTHM: regular rhythm HEART SOUNDS: S1 normal heart sound present and S2 normal heart sound present GI: COMMON NORMALS: Normal to inspection, nondistended, normoactive bowel sounds present, Soft to palpation and non-tender PALPATION: Yes Soft to palpation Extremity: COMMON NORMALS: no joint enlargement and no pedal edema Neuro: COMMON NORMALS: patient oriented x3 and moves all extremities SENSORIUM/ORIENTATION: Yes alert Skin: COMMON NORMALS: no rashes or lesions noted GENERAL SKIN EXAM: no rashes or lesions noted Urinary Catheter Management: Garcia: Cath Placed During This Visit: yes, but has since been removed by the nurse Reason for Continuing Indwelling Catheter: Accurate Measurement of Urinary Output in Critically Ill Patients Urinary Catheter Date of Insertion: 08/16/22 Urinary Catheter Time of Insertion: 00:45 Date Urinary Catheter Removed: 08/22/22 Time Urinary Catheter Discontinued: 10:45 Data 08/24/22 04:03 08/24/22 04:03 A&P Assessment and plan (1) Atrial fibrillation: Last night A. fib with RVR heart rate persistently 140s despite 3 doses of 5 mg IV metoprolol. Additionally received 150 mg IV push amiodarone and loaded with digoxin. Continue amiodarone p.o. Continues on digoxin currently. Check lead level. Patient with history of atrial fibrillation, hypertrophic cardiomyopathy Currently rate controlled. Amiodarone 200 mg twice daily. Qualifiers: Atrial fibrillation type: paroxysmal Qualified Code(s): I48.0 - Paroxysmal atrial fibrillation (2) Delirium tremens: Delirium so far appears to be improving/resolving. We will cut down phenobarbital dose to 30 mg at night, 30 mg in the morning. Continue care on medical floor. He appears to be doing well with PT. Continue Zyprexa Zydis 5 mg oral twice daily. (3) Respiratory failure with hypoxia and hypercapnia: Oxygen requirement decreasing, currently down to 2 L nasal cannula. Likely secondary to a combination of COPD exacerbation, congestive heart failure in setting of IHSS, multiple rib fracture post fall. Cannot rule out underlying pneumonia. MRSA negative, sputum culture consistent with haemophilus influenza. Continue with Zosyn to finish a 7 to 10-day course. Continue with DuoNebs every 6 hour, budesonide twice daily. PE ruled out. Strict input output charting, daily weights. Hold off on any further Lasix. PT, OT (4) COPD exacerbation: As above. (5) Self extubation: (6) IHSS (idiopathic hypertrophic subaortic stenosis): Echocardiogram results appreciated. Monitor blood pressures and heart rate. Continue with home dose of lisinopril. If needed can add low-dose beta-morgan. Hold off on clonidine patch now. (7) Alcohol abuse: IV thiamine, oral folate As above. He states would prefer to go for physical rehabilitation, feels he does not need EtOH rehabilitation. (8) Fall: Status post fall. Sustained contusion to right chest. Rib fractures on CT. continue pain control, including fentanyl patch. I-S. (9) Shock: Resolved. Most likely a combination of septic and cardiogenic. Levophed weaned. Keep mean arterial pressure over 65. Hold off any further antihypertensives. Follow-up blood cultures. Strict input output charting. (10) CAD (coronary artery disease): Continue statin, aspirin, beta-morgan Qualifiers: Coronary Disease-Associated Artery/Lesion type: [place] artery [place] vs. transplanted heart: [place] heart Associated angina: without angina Qualified Code(s): I25.10 - Atherosclerotic heart disease of [place] coronary artery without angina pectoris (11) Rhabdomyolysis: Resolved. (12) Ribs, multiple fractures: Plan CODE STATUS: Full code PUD prophylaxis: Protonix DVT prophylaxis: Lovenox Goals of care: Friend is also mentioned in person to notify. As per friend she has been living with the patient for last 20 odd years. They have been struggling with patient's alcoholism and patient is being looked at for turning leaf while awaiting bed. This documentation was created by [employer] forest practices field coordinator software. Every effort was made to ensure accuracy of forest practices field coordinator. Any obvious errors or omissions should be clarified with the author of the document. Attestations Medical Necessity Statement*: Continue admission for optimization of control of A. fib with RVR, tapering off medications after severe alcohol withdrawal. Disposition planning. Coding Level of Care Code Acute Card Setter for g Fwd Diagnoses Atrial fibrillation I48.0 Atrial fibrillation type: paroxysmal Delirium tremens F10.931 Respiratory failure with hypoxia and hypercapnia J96.91; J96.92 COPD exacerbation J44.1 Self extubation Z91.199 IHSS (idiopathic hypertrophic subaortic stenosis) I42.1 Alcohol abuse F10.10 Fall W19.XXXA Shock R57.9 CAD (coronary artery disease) I25.10 Coronary Disease-Associated Artery/Lesion type: [place] artery [place] vs. transplanted heart: [place] heart Associated angina: without angina Rhabdomyolysis M62.82 Ribs, multiple fractures S22.49XA
--- NOTE | 2022-08-24 19:48 | PC.NURSE ---
Shift Note: Pt states he feels much better. His eyes are clear, Pleasant demeanor, and conversation clear and concise. His O2 sats still drop to 88%, so he wears O2 at 2lpm/NC occasionally throughout the day, mostly while resting in bed. He started his day off again, at the sink grooming. his CIWA scores have been minimal to nonexistent, it is usually the date (day) , he gets the month and year., he stated he usually doesn't pay any attention to that. His urine is clear yellow. His significant other Aubree did visit today. Pt spoke with his ANA, Eh, on phone today. Frequent safety and comfort rounds continue. Orders and/or nursing care completed as indicated. Patient monitored for response to intervention and treatment(s). Education provided includes antibiotics, digoxin and plan of care. Patient and/or insurance sales representative verbalized understanding of plan of care and current medications.. Will continue to monitor.
[2022-08-24] MEDS: PHENobarbital 130 mg/mL SDV 1 mL 30 MG IV (20:46)
[2022-08-24] MEDS: budesonide 0.5 mg/2 mL Neb INHALATION (23:47)
[2022-08-25] VITALS (12 sets, daily range): BP systolic 114–169; BP diastolic 62–89; PULSE 80–98; RESP 14–20; TEMP 36.6–37.4; O2SAT 87–98
[2022-08-25] MEDS: HYDROcodone-acetaminophen 5-325 mg Tablet 1 TAB PO (00:06)
[2022-08-25] MEDS: ipratropium-albuterol 3 mL Neb INHALATION ×4 (01:52→11:57)
[2022-08-25 04:03] LABS: Basophils # 0.1 10^3/uL (0.0-0.1); Basophils % 0.5 %; Eosinophils # 0.2 10^3/uL (0.0-0.8); Eosinophils % 1.6 %; Hematocrit 36.2 % (42.0-52.0); Hemoglobin 11.3 g/dL (11.7-16.6); Lymphocytes # 1.5 10^3/uL (0.8-4.8); Lymphocytes % 11.3 %; Mean Corpuscular HGB Conc 31.2 g/dL (30.0-36.0); Mean Corpuscular Hemoglobin 29.2 pg (28.0-34.0); Mean Corpuscular Volume 93.5 fl (80-94); Mean Platelet Volume 10.4 fL (7.4-10.4); Monocytes # 1.1 10^3/uL (0.2-0.9); Monocytes % 8.6 %; Neutrophils # 9.99 10^3/uL (1.8-7.7); Neutrophils % 77.5 %; Nucleated Red Blood Cells % 0 %; Platelet Count 261 10^3/cmm (130-400); Red Blood Count 3.87 10^6/uL (4.1-5.3); Red Cell Distribution Width 13.5 % (12.1-15.1); White Blood Count 12.9 10^3/uL (4.0-10.0)
[2022-08-25 04:21] LABS: Digoxin 0.9 ng/mL (0.6-1.2)
[2022-08-25 04:24] LABS: Anion Gap 8.4 (5-19); Blood Urea Nitrogen 10 mg/dL (8-23); Calcium 8.3 mg/dL (8.5-10.5); Carbon Dioxide 29 mmol/L (22-29); Chloride 99 mmol/L (98-107); Creatinine Clr Calc Pharmacy 80.0078; Glucose 109 mg/dL (65-115); Osmolality Calculated 276 mOsm/kg (285-295); Potassium 3.4 mmol/L (3.5-5.1); Sodium 133 mmol/L (136-145)
[2022-08-25] MEDS: piperacillin-tazobactam 3.375 GM in sodium chloride 0.9% (plus) 50 ML IV (05:41)
[2022-08-25] MEDS: budesonide 0.5 mg/2 mL Neb INHALATION (08:20)
[2022-08-25] MEDS: multivitamin therapeutic Tablet 1 TAB PO (09:04)
[2022-08-25] MEDS: thiamine 100 mg Tablet PO (09:04)
[2022-08-25] MEDS: aspirin 81 mg EC Tablet PO (09:05)
[2022-08-25] MEDS: benzonatate 100 mg Capsule 200 MG PO (09:05)
[2022-08-25] MEDS: sennosides-docusate Tablet 1 TAB PO (09:06)
[2022-08-25] MEDS: folic acid 1 mg Tablet PO (09:06)
[2022-08-25] MEDS: digoxin 125 mcg Tablet PO (09:06)
[2022-08-25] MEDS: amlodipine 5 mg Tablet PO (09:07)
[2022-08-25] MEDS: lisinopril 20 mg Tablet 40 MG PO (09:07)
[2022-08-25] MEDS: amiodarone 200 mg Tablet PO (09:07)
[2022-08-25] MEDS: nystatin 100,000 unit/mL UDC 5 mL 200000 UNIT PO (09:08)
[2022-08-25] MEDS: PHENobarbital 130 mg/mL SDV 1 mL 15 MG IV (10:12)
[2022-08-25] MEDS: OLANZapine 5 mg ODT PO (11:32)
--- NOTE | 2022-08-25 13:34 | PC.NURSE ---
Patient discharged with full instructions and education. RX sent to pharmacy. Patient was wheeled to surgical services entrance with nurse. Wade patel called for patient.
--- NOTE | 2022-08-25 13:59 | PC.NURSE ---
Patient discharged at 1350 via personal walker to the main entrance. He was given discharge instructions and education and verbalized understanding. IV removed and intact. Pt tolerated well.
--- NOTE | 2022-08-25 19:17 | PC.NURSE ---
Patient was discharged before loan underwriter could have a chance to document witnesses waste on [facility]. Digital Performance Analyst disposed of phenobarbital in the patient's room sharps container. Digital Performance Analyst will attempt to go into [facility] and find patient via facility search.
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
== END 2022-08-25 13:34 | disposition home or self-care (01) | DRG 207 ==
LOC: ER 13:49 → MEDSURG 14:22 → CSU 08-15 23:00 → ICU 08-16 02:29 → CSU 08-24 19:54
PROVIDERS: Family Medicine; Internal Medicine; Student in an Organized Health Care Education/Training Program; Admitting Provider Internal Medicine; Emergency Provider Family Medicine; PCP Internal Medicine; Visit Provider Internal Medicine
DX: J44.1 Chronic obstructive pulmonary disease with (acute) exacerbation (principal); A41.9 Sepsis, unspecified organism; J69.0 Pneumonitis due to inhalation of food and vomit; R57.0 Cardiogenic shock; I50.31 Acute diastolic (congestive) heart failure; J96.92 Respiratory failure, unspecified with hypercapnia; J96.91 Respiratory failure, unspecified with hypoxia; R65.21 Severe sepsis with septic shock; S22.41XA Multiple fractures of ribs, right side, initial encounter for closed fracture; M62.82 Rhabdomyolysis; F10.131 Alcohol abuse with withdrawal delirium; I42.1 Obstructive hypertrophic cardiomyopathy; W17.89XA Other fall from one level to another, initial encounter; F17.200 Nicotine dependence, unspecified, uncomplicated; I25.10 Atherosclerotic heart disease of native coronary artery without angina pectoris; Z95.5 Presence of coronary angioplasty implant and graft; I48.0 Paroxysmal atrial fibrillation; B19.20 Unspecified viral hepatitis C without hepatic coma; I11.0 Hypertensive heart disease with heart failure; E78.5 Hyperlipidemia, unspecified; S20.211A Contusion of right front wall of thorax, initial encounter; Z79.51 Long term (current) use of inhaled steroids; I95.9 Hypotension, unspecified
CPT/HCPCS: 36415; 36416; 36600; 51702; 70450; 70496; 70498; 71045; 71275; 72040; 73030; 80048; 80051; 80053; 80061; 80162; 80184; 80307; 81001; 81003; 82140; 82330; 82550; 82607; 82746; 82803; 82805; 82962; 83036; 83540; 83550; 83735; 83880; 84100; 84145; 84146; 84439; 84443; 84481; 84484; 85025; 85378; 85610; 85730; 86403; 87040; 87070; 87077; 87205; 87449; 87486; 87581; 87633; 87641; 92507; 92523; 92526; 92610; 93005; 93306; 93970; 94002; 94003; 94640; 94660; 94760; 94799; 96361; 96372; 96374; 96375; 97110; 97116; 97161; 97530; 99291; A4570; J0282; J0295; J0330; J0360; J1160; J1650; J1940; J2060; J2250; J2270; J2543; J2560; J2704; J2920; J2930; J3010; J3370; J3411; J3420; J3490; J7030; J7040; J7042; J7050; J7060; J7626; Q9967

== ENCOUNTER → 2022-12-25 10:24 | Outpatient (BNVA) | payer MEDICARE, MEDICAID, SELFPAY | PROVIDERS: PCP Internal Medicine; Visit Provider Internal Medicine Cardiovascular Disease | DX: I25.10 Atherosclerotic heart disease of native coronary artery without angina pectoris (principal); I48.0 Paroxysmal atrial fibrillation; E78.5 Hyperlipidemia, unspecified; E78.2 Mixed hyperlipidemia; I42.1 Obstructive hypertrophic cardiomyopathy; I10 Essential (primary) hypertension; F17.210 Nicotine dependence, cigarettes, uncomplicated | CPT/HCPCS: 36415; 80048; 80076; 80162; 84443; 99214 ==

== ENCOUNTER 2023-09-13 06:14 | Inpatient (IN) | payer MEDICARE, MEDICAID, SELFPAY ==
[2023-09-13] VITALS (13 sets, daily range): BP systolic 134–157; BP diastolic 81–105; PULSE 54–74; RESP 14–27; TEMP 36.8–37.1; O2SAT 93–97; BMI 25.2; BMI 23.9
--- NOTE | 2023-09-13 06:20 | ECG_ITS ---
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 Measurements Intervals [place] Rate: 56 P: 53 [place]: 193 QRS: 37 QRSD: 112 T: 129 QT: 442 QTc: 429 Interpretive Statements SINUS BRADYCARDIA LEFT VENTRICULAR HYPERTROPHY AND ST-T CHANGE [VOLTAGE CRITERIA PLUS ST/T ABNORMALITY] Compared to ECG 08/23/2022 21:38:02 ST (T wave) deviation now present Atrial fibrillation no longer present Aberrant conduction of supraventricular beat(s) no longer present Ventricular premature complex(es) no longer present T-wave abnormality no longer present Electronically Signed On 09-13-2023 9:58:15 REELING MACHINE OPERATOR by Tab Sinclair M.D. [id number]
--- NOTE | 2023-09-13 06:20 | XRR_ITS ---
PROCEDURE INFORMATION: Exam: XR Chest Exam date and time: 09/13/2023 6:51 AM Age: 67 years old Clinical indication: Pain; Chest pressure; Prior surgery; Surgery date: 6+ months; Surgery type: Stents; Additional info: Chest pain TECHNIQUE: Imaging protocol: Radiologic exam of the chest. Views: 1 view. COMPARISON: CR XR chest 1V portable [id number] 08/20/2022 5:23 AM FINDINGS: Lungs: Unremarkable. No consolidation. Pleural spaces: Unremarkable. No pleural effusion. No pneumothorax. Heart/Mediastinum: Borderline cardiomegaly accentuated by the AP positioning. Bones/joints: Unremarkable. XR/XR chest 1V portable [id number] IMPRESSION: No acute cardiopulmonary disease.
--- NOTE | 2023-09-13 06:24 | ED_ITS ---
HPI - Chest Pain 2 General: Chief Complaint: Chest Pain Stated Complaint: CP Time Seen by Provider: 09/13/23 06:15 History of Present Illness: Patient presents to the ER by EMS with complaints of chest pain for about a week. Patient has had increased shortness of breath when laying down. He was recently sick with a bad cold and describes his pain as pressure and increases when he coughs but not with deep inspiration. Patient does state his right- sided. He has a history of stent about 10 years ago and was told he needed a bypass at that time. He has been more or less pain-free up until this episode. EMS did give patient 324 mg aspirin nitro x 1 with relief of the pain. Patient is currently pain-free. Review of Systems 2 General: Reports: 10 or more systems reviewed and unremarkable except in HPI and below PFSH ED 2 PFSH: Medical History Self extubation Atherosclerotic heart disease of [place] coronary artery without angina pectoris Fatigue EKG from today revealed sinus rhythm with features of LVH. ST-T changes in the high lateral leads. Occasional PVCs. No significant new changes. Smoker Hyperlipidemia Atrial fibrillation HTN (hypertension) IHSS (idiopathic hypertrophic subaortic stenosis) CAD (coronary artery disease) Hepatitis C Surgical History S/P coronary artery stent placement S/P appendectomy Family History Mother CAD (coronary artery disease) Diabetes Sister Cancer Father Lung disease Other Hypertension Denies family history of Clotting disorder Dementia Chronic kidney disease (CKD) Suicide Anesthesia complication Bleeding disorder Stroke Social History Smoking and tobacco/nicotine status: current every day tobacco/nicotine user Alcohol intake: current Substance/Drug Use: former Physical Exam 2 Const: COMMON NORMALS: no acute distress, average body habitus, patient oriented x3, no limitations, healthy appearing, alert and well nourished HENMT: COMMON NORMALS: normocephalic, atraumatic, hearing grossly normal bilaterally, external ears normal, Normal external nose present, moist oral mucous membranes and oropharynx normal HEAD & SCALP: normocephalic and atraumatic NOSE: Normal external nose present EXTERNAL EAR: Yes external ears normal Eye: COMMON NORMALS: Equal, round and reactive pupils present, EOMs intact bilaterally, conjunctivae normal and no scleral icterus CONJUNCTIVA: Yes conjunctivae normal PUPIL: Yes Equal, round and reactive pupils present Neck/C-Spine: COMMON NORMALS: full ROM, no lymphadenopathy, supple, no meningeal signs, no JVD and Thyroid normal THYROID: Thyroid normal Chest: COMMONS NORMALS: normal inspection of the chest; negative for normal palpation of entire chest wall (Tender to palpate right side of chest) Resp: COMMON NORMALS: normal respiratory effort, No retractions, No use of accessory muscles and clear to auscultation bilaterally AUSCULTATION: clear to auscultation bilaterally Cardio: COMMON NORMALS: no JVD, regular rate, regular rhythm, S1 normal heart sound present, S2 normal heart sound present, No gallops present (Cardio), No clicks present (Cardio), No murmurs present (Cardio) and No rub (Cardio) R ATE: regular rate RHYTHM: regular rhythm HEART SOUNDS: S1 normal heart sound present and S2 normal heart sound present GI: COMMON NORMALS: Normal to inspection, nondistended, normoactive bowel sounds present, Soft to palpation, non-tender, No hepatosplenomegaly present and no masses PALPATION: Yes Soft to palpation and Yes No hepatosplenomegaly present Neuro: COMMON NORMALS: patient oriented x3 SENSORIUM/ORIENTATION: Yes alert MENINGEAL SIGNS: Yes no meningeal signs Course 2 Vital Signs: Vital signs: Vital Signs Temperature 98.2 F 09/13/23 06:16 Pulse Rate 54 L 09/13/23 06:28 Respiratory Rate 14 09/13/23 06:28 Blood Pressure 137/88 09/13/23 06:16 Pulse Oximetry 96 09/13/23 06:28 Oxygen Delivery Me thod Nasal Cannula 09/13/23 06:16 Oxygen Flow Rate 4 09/13/23 06:16 MDM - Chest Pain Medical Decision Making Patient presents with chest pain EKG showed ST depression in leads 4 5 and 6. EKG was faxed directly to Dr. Sinclair who said he does not meet STEMI criteria but due to his risk factors he will perform an angiogram on him this morning. We will keep him n.p.o. Dr. Sinclair will come see him in the ER. Patient be admitted to the hospitalist for NSTEMI Differential Diagnosis Unlikely acute massive pulmonary embolism, acute respiratory failure, acute myocardial infarction, cardiac arrest or sudden cardiac Medical Records I reviewed the patient's medical records. Lab Data I reviewed the patient's lab results. 09/13/23 06:00 09/13/23 06:00 Laboratory Results WBC 10.23 10^3/uL (3.29-11.43) 09/13/23 06:00 RBC 4.61 10^6/uL (3.85-5.65) 09/13/23 06:00 Hgb 13.20 g/dL (11.27-16.99) 09/13/23 06:00 Hct 40.8 % (37-53) 09/13/23 06:00 MCV 88.5 fl (82-101) 09/13/23 06:00 MCH 28.6 pg (27-33) 09/13/23 06:00 MCHC 32.4 g/dL (30-55) 09/13/23 06:00 RDW 13.5 % (12.1-15.1) 09/13/23 06:00 Plt Count 492 10^3/cmm (157-399) H 09/13/23 06:00 MPV 9.6 fL (7.4-10.4) 09/13/23 06:00 Neut % (Auto) 62.3 % 09/13/23 06:00 Lymph % (Auto) 23.1 % 09/13/23 06:00 Bibb % (Auto) 9.8 % 09/13/23 06:00 Eos % (Auto) 2.8 % 09/13/23 06:00 Baso % (Auto) 1.3 % 09/13/23 06:00 Neut # (Auto) 6.38 10^3/uL (1.8-7.7) 09/13/23 06:00 Lymph # (Auto) 2.4 10^3/uL (0.8-4.8) 09/13/23 06:00 Bibb # (Auto) 1.0 10^3/uL (0.2-0.9) H 09/13/23 06:00 Eos # (Auto) 0.3 10^3/uL (0.0-0.8) 09/13/23 06:00 Baso # (Auto) 0.1 10^3/uL (0.0-0.1) 09/13/23 06:00 Nucleated RBC % (auto) 0 % 09/13/23 06:00 Nucleated RBCs # 0.0 /100WBC 09/13/23 06:00 PT 13.50 SECONDS (12.1-14.9) 09/13/23 06:00 INR 1.00 (0.8-1.2) 09/13/23 06:00 Sodium 140 mmol/L (136-145) 09/13/23 06:00 Potassium 4.7 mmol/L (3.5-5.1) 09/13/23 06:00 Chloride 99 mmol/L (98-107) 09/13/23 06:00 Carbon Dioxide 32 mmol/L (22-29) H 09/13/23 06:00 Anion Gap 13.7 (5-19) 09/13/23 06:00 BUN 12 mg/dL (8-23) 09/13/23 06:00 Creatinine 0.9 mg/dL (0.7-1.2) 09/13/23 06:00 GFR Calculation 84.7 mL/min (90-130) L 09/13/23 06:00 Glucose 136 mg/dL (65-115) H 09/13/23 06:00 Calculated Osmolality 292 mOsm/kg (285-295) 09/13/23 06:00 Calcium 9.2 mg/dL (8.5-10.5) 09/13/23 06:00 Total Bilirubin 0.2 mg/dL (0.15-1.2) 09/13/23 06:00 AST 16 U/L (0-40) 09/13/23 06:00 ALT 15 U/L (0-41) 09/13/23 06:00 Alkaline Phosphatase 141 U/L (40-130) H 09/13/23 06:00 Troponin T Baseline 73 ng/L (0-15) H 09/13/23 06:00 Total Protein 6.5 g/dL (6.6-8.7) L 09/13/23 06:00 Albumin 3.9 g/dL (3.5-5.2) 09/13/23 06:00 Globulin 2.6 g/dL (1.3-4.6) 09/13/23 06:00 Digoxin 1.2 ng/mL (0.6-1.2) 09/13/23 06:00 All radiology interpretation(s) finalized by discharge EKG Data EKG 1: I personally reviewed and interpreted this EKG as follows: EKG interpretation date: 09/13/23 EKG interpretation time: 06:22 Prior EKG tracings: available for review Interpretation: EKG showed ventricular rate 56 bpm, MN interval 193, QRS duration 112, QTc of 434, sinus bradycardia, left ventricular pressure and ST T wave changes Discharge Plan Discharge Patient Disposition: Admitted As Inpatient Clinical Impression: Acute non-ST elevation myocardial infarction (NSTEMI), Coronary artery disease Condition: Stable Prescriptions: No Action atorvastatin 40 mg tablet 40 mg PO QPM amiodarone 100 mg tablet 100 mg PO DAILY Qty: 90 3RF aspirin 325 mg tablet 325 mg PO DAILY Qty: 90 0RF amlodipine 5 mg tablet 5 mg PO DAILY metoprolol tartrate 50 mg tablet 50 mg PO BID folic acid 1 mg tablet 1 mg PO DAILY digoxin 125 mcg (0.125 mg) tablet 125 mcg PO DAILY benazepril 40 mg tablet 40 mg PO DAILY albuterol sulfate [ProAir HFA] 90 mcg/actuation HFA aerosol inhaler 2 puff INHALATION Q6H PRN (Reason: Shortness Of Breath Or Wheezing) Referrals: Ya Panchal MD [Primary Care Provider] - Coding Level of Care Code ED Human Service Specialist for Chg Kenneth
[2023-09-13 06:35] LABS: Basophils # 0.1 10^3/uL (0.0-0.1); Basophils % 1.3 %; Eosinophils # 0.3 10^3/uL (0.0-0.8); Eosinophils % 2.8 %; Hematocrit 40.8 % (37-53); Lymphocytes # 2.4 10^3/uL (0.8-4.8); Lymphocytes % 23.1 %; Mean Corpuscular HGB Conc 32.4 g/dL (30-55); Mean Corpuscular Hemoglobin 28.6 pg (27-33); Mean Corpuscular Volume 88.5 fl (82-101); Mean Platelet Volume 9.6 fL (7.4-10.4); Monocytes % 9.8 %; Neutrophils # 6.38 10^3/uL (1.8-7.7); Neutrophils % 62.3 %; Nucleated Red Blood Cells % 0 %; Platelet Count 492 10^3/cmm (157-399); Red Blood Count 4.61 10^6/uL (3.85-5.65); Red Cell Distribution Width 13.5 % (12.1-15.1); White Blood Count 10.23 10^3/uL (3.29-11.43)
--- NOTE | 2023-09-13 06:40 | ECG_ITS ---
[facility] Test Date: 2023-09-13 Pat Name: Pratik Garcia Department: Room: Gender: Male Regional Clinical Director: : 1955 Requested By: Eric Walsh Order Number: [id number] Cole MD: Tab Sinclair M.D. Measurements Intervals [place] Rate: 54 P: 59 MS: 205 QRS: 37 QRSD: 112 T: 138 QT: 433 QTc: 414 Interpretive Statements SINUS BRADYCARDIA LEFT VENTRICULAR HYPERTROPHY AND ST-T CHANGE [VOLTAGE CRITERIA PLUS ST/T ABNORMALITY] Compared to ECG 09/13/2023 06:22:06 No significant changes Electronically Signed On 09-13-2023 9:58:12 WHEEL LOADER OPERATOR by Tab Sinclair M.D. [email or web address] hospitalQ[facility]ket[email or web address].[email or web address]/store/[id number]
--- NOTE | 2023-09-13 06:55 | ECG_ITS ---
[facility] Test Date: 2023-09-13 Pat Name: Pratik Garcia Department: Room: Gender: Male Cardiac Exercise Specialist: : 1955 Requested By: Eric Walsh Order Number: [id number] Cole MD: Tab Sinclair M.D. Measurements Intervals [place] Rate: 56 P: 56 MA: 197 QRS: 38 QRSD: 117 T: 175 QT: 435 QTc: 423 Interpretive Statements SINUS BRADYCARDIA LEFT VENTRICULAR HYPERTROPHY AND ST-T CHANGE [VOLTAGE CRITERIA PLUS ST/T ABNORMALITY] Compared to ECG 09/13/2023 06:45:40 No significant changes Electronically Signed On 09-13-2023 9:58:08 DUST COLLECTOR ATTENDANT by Tab Sinclair M.D. [email or web address]/[id number]
[2023-09-13 06:58] LABS: Digoxin 1.2 ng/mL (0.6-1.2)
[2023-09-13 06:59] LABS: Alanine Aminotransferase 15 U/L (0-41); Albumin Level 3.9 g/dL (3.5-5.2); Alkaline Phosphatase 141 U/L (40-130); Anion Gap 13.7 (5-19); Aspartate Amino Transferase 16 U/L (0-40); Blood Urea Nitrogen 12 mg/dL (8-23); Calcium 9.2 mg/dL (8.5-10.5); Carbon Dioxide 32 mmol/L (22-29); Chloride 99 mmol/L (98-107); Globulin 2.6 g/dL (1.3-4.6); Glomerular Filtration Rate 84.7 mL/min (90-130); Glucose 136 mg/dL (65-115); Osmolality Calculated 292 mOsm/kg (285-295); Potassium 4.7 mmol/L (3.5-5.1); Sodium 140 mmol/L (136-145); Total Bilirubin 0.2 mg/dL (0.15-1.2); Total Protein 6.5 g/dL (6.6-8.7)
[2023-09-13 07:00] LABS: Troponin(5th) Baseline 73 ng/L (0-15)
--- NOTE | 2023-09-13 07:27 | P.CONIM_ITS ---
Providers/Reason For Consult 2 Consulting Physician/Specialty*: Tab Sinclair MD/ Cardiology Reason for Consult*: Chest pain/ troponin elevation Requesting Physician: Dr Walsh Attending Physician: Dr Ewing Primary Care Provider: Ya Panchal MD History of Present Illness History of Present Illness Pratik Garcia is a 67 year old male with PMH of CAD with prior RCA stent and hypertrophic cardiomyopathy has presented to hospital with 1 weak of chest pain and shortness of breath. According to patient he has been having cough, for a week. He started substernal pressure around the same time. Improved with nitro today. Initial troponin is 73. EKG shows LVH changes. Review of Systems 2 Const: Denies: fever(s), chills, body aches or malaise ENMT: Denies: throat pain Card: Reports: chest pain; Denies: edema, pre-syncope or dyspnea on exertion Resp: Reports: dyspnea; Denies: productive cough, change in phlegm color or hemoptysis GI: Denies: abdominal pain, nausea, vomiting, diarrhea, constipation, hematochezia or melena : Denies: flank pain, difficulty urinating, urinary frequency or hematuria Musc: Denies: back pain, joint swelling or joint redness Skin/Breast: Denies: rash or new lesions Neuro: Denies: headache(s) Medications/Allergies Home Medications Medication Instructions Recorded Confirmed Last Taken Type atorvastatin 40 mg tablet 40 mg PO QPM 12/19/19 09/13/23 09/12/23 History albuterol sulfate 90 mcg/actuation 2 puff inhalation Q6H PRN 07/23/22 09/13/23 07/23/22 History aerosol inhaler (ProAir HFA) Shortness Of Breath Or Wheezing aspirin 325 mg tablet 325 mg PO DAILY #90 tabs 08/25/22 09/13/23 09/13/23 Rx amiodarone 100 mg tablet 100 mg PO DAILY #90 tabs 12/25/22 09/13/23 09/13/23 Rx amlodipine 5 mg tablet 5 mg PO DAILY 09/13/23 09/13/23 09/13/23 History benazepril 40 mg tablet 40 mg PO DAILY 09/13/23 09/13/23 09/13/23 History digoxin 125 mcg (0.125 mg) tablet 125 mcg PO DAILY 09/13/23 09/13/23 09/13/23 History folic acid 1 mg tablet 1 mg PO DAILY 09/13/23 09/13/23 09/13/23 History metoprolol tartrate 50 mg tablet 50 mg PO BID 09/13/23 09/13/23 09/13/23 History Allergies Allergy/AdvReac Type Severity Reaction Status Date / Time No Known Allergies Allergy Verified 09/13/23 07:45 PFSH Acute 2 PFSH: Medical History Self extubation Atherosclerotic heart disease of [place] coronary artery without angina pectoris Fatigue EKG from today revealed sinus rhythm with features of LVH. ST-T changes in the high lateral leads. Occasional PVCs. No significant new changes. Smoker Hyperlipidemia Atrial fibrillation HTN (hypertension) IHSS (idiopathic hypertrophic subaortic stenosis) CAD (coronary artery disease) Hepatitis C Surgical History S/P coronary artery stent placement S/P appendectomy Family History Mother CAD (coronary artery disease) Diabetes Sister Cancer Father Lung disease Other Hypertension Denies family history of Clotting disorder Dementia Chronic kidney disease (CKD) Suicide Anesthesia complication Bleeding disorder Stroke Social History Smoking and tobacco/nicotine status: current every day tobacco/nicotine user Alcohol intake: current Substance/Drug Use: former Vitals/I&O/Wt Last Vital Signs Temp 98.2 F 09/13/23 06:16 Pulse 54 L 09/13/23 06:28 Resp 14 09/13/23 06:28 BP 137/88 09/13/23 06:16 Pulse Ox 96 09/13/23 06:28 O2 Del Method Nasal Cannula 09/13/23 06:16 O2 Flow Rate 4 09/13/23 06:16 Weight last 48 hrs Weight 156 lb Physical Exam 2 Const: COMMON NORMALS: patient oriented x3 Resp: OTHER: Has minimal crackles bilaterally Cardio: OTHER: Regular rate and rhythm. Has grade 3/6 systolic murmur Extremity: NARRATIVE EXTREMITY EXAM: No significant edema Neuro: COMMON NORMALS: patient oriented x3 OTHER: No focal abnormalities Data 09/14/23 01:52 09/14/23 01:52 A&P Assessment and plan (1) NSTEMI (non-ST elevated myocardial infarction): (2) CAD (coronary artery disease): Qualifiers: Coronary Disease-Associated Artery/Lesion type: [place] artery [place] vs. transplanted heart: [place] heart Associated angina: without angina Qualified Code(s): I25.10 - Atherosclerotic heart disease of [place] coronary artery without angina pectoris (3) IHSS (idiopathic hypertrophic subaortic stenosis): (4) HTN (hypertension): Qualifiers: Hypertension type: essential hypertension Qualified Code(s): I10 - Essential (primary) hypertension (5) Atrial fibrillation: Qualifiers: Atrial fibrillation type: paroxysmal Qualified Code(s): I48.0 - Paroxysmal atrial fibrillation (6) Hyperlipidemia: Qualifiers: Hyperlipidemia type: mixed hyperlipidemia Qualified Code(s): E78.2 - Mixed hyperlipidemia Plan Patient has presented with chest pain, troponin elevation and heart failure symptoms. We will proceed with coronary angigoram with possible PCI. Risks and benefits of the procedure discussed Continue aspirin. We will start plavix ECHO ordered Thank you for involving us with care of this patient. We will continue to follow. Please call with questions Consult Attestations 2 Medical Necessity Statement: Care expected to cross 2 midnights. Coding Level of Care Code Acute Code for [facility] Diagnoses NSTEMI (non-ST elevated myocardial infarction) I21.4 Coronary artery disease involving [place] coronary artery of [place] heart without angina pectoris I25.10 Coronary Disease-Associated Artery/Lesion type: [place] artery [place] vs. transplanted heart: [place] heart Associated angina: without angina IHSS (idiopathic hypertrophic subaortic stenosis) I42.1 Essential hypertension I10 Hypertension type: essential hypertension Paroxysmal atrial fibrillation I48.0 Atrial fibrillation type: paroxysmal Mixed hyperlipidemia E78.2 Hyperlipidemia type: mixed hyperlipidemia
--- NOTE | 2023-09-13 08:16 | XACV_ITS ---
Exam Room: [facility] Ht: 168 cm Wt: 71 kg BSA: 1.83 m2 Gender: Male : 1955 Any Known Allergies: No known allergies Exam Priority: Routine Procedure(s): Procedure Description: Diagnostic procedure Procedure Description: PCI procedure Procedure Description: Left Heart Catheterization Procedure Description: Drug Eluting Coronary Stent Procedure Description: PTCA Procedure Description: Miscellaneous Procedure Description: ACT Procedure Description: Coronary Angiography Procedure Description: Pressure Wire Diagnostic Cath Status: Urgent Diagnostic Findings * Left Main has no significant disease. * Circumflex has no significant disease. * Proximal Right Coronary Artery to Mid Right Coronary Artery: chronic total occlusion NIRAV: 0 flow. Right to right collaterals. * Proximal Left Anterior Descending to Mid Left Anterior Descending: obstructive 60% stenosis, NIRAV: 3 flow. * Coronary angiography shows right dominance. PCI Status: Urgent PCI Indication: NSTE - ACS Interventional Findings * Procedure Details: Left main artery was engaged with XB 3.5 guide cath. IV heparin was administered to maintain anticoagulation. iFR wire was advanced into distal LAD after normalization. iFR value of 0.82 was obtained. On pullback a value of 0.84 was obtained and confirmed significant stenosis in proximal to mid LAD. We then proceeded with PCI as iFR values were ischemic. The stenosis was predilated with a 3.5 x 15 mm semicompliant balloon. We then placed a 4.0 x 22 mm stent in proximal to mid vessel. There was residual stenosis proximally. Another 4.0 x 12 mm resolute [place] drug-eluting stent was placed overlapping with the first stent. At this time final angiogram was performed that showed excellent stent expansion, no residual stenosis and NIRAV-3 flow. Guidewire and guide catheter were removed. 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 * Proximal Left Anterior Descending to Mid Left Anterior Descendin% stenosis treated with a MDT NC EUPHORA RX [id number] BALLOON, MDT R MARIA ESTHER 4.0X22 ISSA, and MDT R MARIA ESTHER 4.0X12 ISSA. 0% residual stenosis, NIRAV: 3 flow. Conclusions 1. Severe proximal to mid LAD stenosis confirmed with IFR value of 0.82. Status post successful revascularization with 2 stents. 2. Proximal Left Anterior Descending to Mid Left Anterior Descending was treated with a Balloon, Drug Eluting Stent, and Drug Eluting Stent. Recommendations * Dual antiplatelet therapy with aspirin and plavix for atleast 1 year. * High intensity statin therapy. * Beta blockers. * Outpatient cardiology follow up in 4 weeks. Interventional RX Recommendation: PCI w/o planned CABG Diagnostic RX Recommendation: PCI w/o planned CABG Anticoagulation: Heparin Pressures Phase:Rest AO : 112 / 83 ( 98 ) @ 11:00:00 AM 116 / 82 ( 99 ) @ 11:03:00 AM 124 / 74 ( 90 ) @ 11:05:00 AM 140 / 78 ( 104 ) @ 11:09:00 AM 138 / 77 ( 103 ) @ 11:09:00 AM 129 / 80 ( 102 ) @ 11:12:00 AM 130 / 80 ( 104 ) @ 11:25:00 AM LV : 157 / 5 / 19 @ 11:09:00 AM 157 / 4 / 20 @ 11:09:00 AM Valves Phase:DefaultPhase AV : 17.0 @ 11:42:45 AM AV Mean Gradient: 19.0 @ 11:42:45 AM 19.0 @ 11:42:45 AM Clinical Evaluation EBL: 5mL-10mL Procedural Details Procedure Consent Obtained. Pre-Procedure Time Out. Identified patient by full name and date of as verbalized by the patient/guarantor. Does the consent match the physician's order: Yes. Accurate & Complete Informed Consent: Yes. Inpatient/Outpatient History & Physical on Chart: Yes. If H&P is completed, is and addenduem needed: No. Visualize and Verify Site with Patient/Guarantor: N/A. Relevant Radiology Images available: Yes. The risks, benefits, and alternatives of sedation and/or procedure were discussed by physician. The patient agrees to continue. Procedure started. [facility] Clinical Fraility Score: 4: Vulnerable. 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 Chest Pain Symptom Assessment: Typical Angina Symptoms. Current diagnosis: Unstable angina, CHF. Correct patient, site and procedure confirmed by cath team. PERRLA. Strong, equal hand doctor of veterinary medicine bilaterally. Lungs clear x 5 lobes. IV Site on Arrival: 18 gauge in the right anticubital. IV Site on Arrival: 18 gauge in the left anticubital. IV Fluids: 0.9% NaCl at KVO. 75 mL infused prior to laborer sawmill. Pre Procedural Pulses: bilateral dorsalis pedis was 3+. Pre Procedural Pulses: bilateral posterior tibial was 3+. Pre Procedural Pulses: bilateral radial was 3+. Oxygen started at 4liters/min via nasal canula. right radial was prepped with chloroprep then draped in the usual sterile fashion. right groin was prepped with chloroprep then draped in the usual sterile fashion. Baseline sample Acquired. HR: 0 BPM. Physician notified. Physician arrived. Admit Source: In Patient. Physician scrubbed in. Immediate Pre-Procedure Time Out. Correct Patient: Yes; Correct Procedure: Yes; Correct Site: Yes; Correct Patient Position: Yes; Correct Supplies: Yes; Dried Flammable Prep: Yes; Blood Products Available: No;. Lidocaine 1% infiltrated to the right groin. Arterial access obtained. Lidocaine 1% infiltrated to the right radial. A 5 ugandan TIG catheter in over wire. Multiple views taken of left coronary artery. Catheter removed over the exchange wire. A 5 ugandan JR4 catheter in over wire. Multiple views taken of right coronary artery. EDP Sample taken: LV 157/5,19; HR: 63 BPM; SpO2: 96%. Pullback taken: LV 157/4,20; AO 140/78(104); Mean: 19mmHg, Peak to Peak: 17mmHg, SEP: 16sec/min; HR: 64 BPM; SpO2: 96%. Catheter removed over the exchange wire. 6 ugandan XB 3.5 guide catheter was inserted over the wire. iFR pressure guide wire advanced through guide catheter to lesion in proximal LAD. iFR pressure wire advanced across lesion. iFR measurement taken of proximal LAD, result 0.82 mmHg. Angiography performed. Balloon inserted to lesion in the prox LAD over the iFR wire. Inflation number : 1 A MDT NC EUPHORA RX [id number] BALLOON was prepped and advanced across the Prox LAD , then inflated to 12 JAMIE for 0:15 seconds. Inflation number: 2 The MDT NC EUPHORA RX [id number] BALLOON was reinflated across the Prox LAD, to 12 JAMIE for 0:13 seconds. Balloon out. Stent inserted to lesion in the prox LAD. Inflation Number : 3 A MDT R MARIA ESTHER 4.0X22 ISSA -Lot Number# [id number] EXP 01-27-2024 was prepped and advanced across the Prox LAD. The stent was deployed at 12 JAMIE for 0:20 seconds. Stent balloon out over wire. Results checked. ACT drawn. Results out of range high results. Therapeutic limits - pre-heparin administration 90-150 seconds and monitoring heparin during a vascular procedure >250 seconds. Stent inserted to lesion in the prox LAD. Inflation Number : 4 A MDT R MARIA ESTHER 4.0X12 ISSA -Lot Number# [id number] EXP 10-28-2023 was prepped and advanced across the Prox LAD. The stent was deployed at 12 JAMIE for 0:16 seconds. Stent balloon out over wire. Results checked. Guide catheter out. Post Procedure: Pulses reassessed and unchanged. PERRLA. Strong, equal hand doctor of veterinary medicine bilaterally. No VTE prophylaxis required. Medication's Wasted: Lidocaine 1% = 2 mL. Medication's Wasted: Nitro = 49.8 mg. Medication's Wasted: Heparin = 4000 units. Medication's Wasted: Other = Fentanyl 50 mcg. Total IV fluids: 100 mL. 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 Complications: None. Estimated blood loss: 5mL-10mL. Responsiveness - Normal response to verbal stimuli; alert and oriented, PERRLA. Airway - Unaffected, no intervention required; spontaneous ventilation. Circulation: W/N/L, pulses unchanged. Nausea/Vomiting: No. ACT drawn. Results 298 seconds. Therapeutic limits - pre-heparin administration 90-150 seconds and monitoring heparin during a vascular procedure >250 seconds. A TR Band was successful obtaining hemostatsis at the Right Radial artery insertion site. Procedure completed. Vital chart was stopped. Access Site Site: Right Radial artery Sheath Size: 6 Fr Hemostasis Method: TR Band Hemostasis Success: Successful Procedure Medications Start: 10:51 AM Stop: 10:51 AM Medication: Diphendryamine Amount: 50 mg Route: I.V. Start: 10:51 AM Stop: 10:51 AM Medication: Versed Amount: 1 mg Route: I.V. Start: 10:56 AM Stop: 10:56 AM Medication: Versed Amount: 1 mg Route: I.V. Start: 10:58 AM Stop: 10:58 AM Medication: Nitrogylcerin Amount: 200 mcg Route: I.A. Start: 10:58 AM Stop: 10:58 AM Medication: Fentanyl Amount: 25 mcg Route: I.V. Start: 10:59 AM Stop: 10:59 AM Medication: Heparin Amount: 5000 units Route: I.V. Start: 11:10 AM Stop: 11:10 AM Medication: Heparin Amount: 1000 units Route: I.V. Start: 11:18 AM Stop: 11:18 AM Medication: Heparin Amount: 1000 units Route: I.V. Start: 11:20 AM Stop: 11:20 AM Medication: Versed 1 mg and Fentanyl 25 mcg Start: 11:32 AM Stop: 11:32 AM Medication: Plavix Amount: 600 mg Route: P.O. I, the attending physician, have reviewed and verified all procedure medications. Yes, all medications given per verbal order History/Risk Factors Hypertension: Yes Dyslipidemia: Yes Peripheral Arterial Disease (PAD): No Myocardial Infarction (ND): No Obesity: No Renal Disease: No Tobacco Use: Current/Recent(w/in 1 year) Prior Interventions PCI: Yes CABG: No Valve Surgery: No Report Signatures Finalized by Tab Sinclair MD on 09/20/2023 03:46 PM
[2023-09-13 08:17] LABS: Troponin 5 2HR 74.14 ng/L (0-15); Troponin 5 2HR Delta 1.14 ABS# (0-10)
--- NOTE | 2023-09-13 08:20 | ECG_ITS ---
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 Measurements Intervals Bernie Rate: 54 P: 60 HI: 203 QRS: 33 QRSD: 107 T: 185 QT: 439 QTc: 418 Interpretive Statements SINUS BRADYCARDIA LEFT VENTRICULAR HYPERTROPHY AND ST-T CHANGE [VOLTAGE CRITERIA PLUS ST/T ABNORMALITY] Compared to ECG 09/13/2023 06:55:55 No significant changes Electronically Signed On 09-13-2023 10:00:23 WOODWORKING SHOP LABORER by Tab Sinclair M.D. [email or web address]/[email or web address]/[id number]
[2023-09-13] MEDS: sodium chloride 0.9% 1,000 ML 50 ML IV (08:52)
[2023-09-13] MEDS: aspirin 325 mg Tablet PO (08:52)
[2023-09-13] MEDS: FUROsemide 10 mg/mL SDV 4mL 40 MG IVP (08:52)
[2023-09-13 10:12] LABS: D Dimer 0.44 ug/mLFEU (0-0.59)
--- NOTE | 2023-09-13 10:39 | PC.NURSE ---
Patient arrived to CSU from ER via a bed at 1027. Patient left to hemodialysis lab technician at 1040.
--- NOTE | 2023-09-13 10:41 | USCV_ITS ---
Pratik Garcia Age: 67 Gender: M : 1955 Exam Date: 09/13/2023 16:45 Ordering Phys: Tab Sinclair M.D ([email or web address]) Technologist: Zach Blanca Exam Location: [facility] Indication: chf BP: 138 / 82 HR: 64 Rhythm: Sinus Technical Quality: Adequate MEASUREMENTS (Male / Female) Normal Values 2D ECHO LVOT Diameter 2.1 cm LV Ejection Fraction MOD 2C 63.7 % LV Ejection Fraction 2C AL 64.6 % LA Diameter 5.0 cm LA Width 4.2 cm LA Height 5.1 cm RA Width 3.0 cm RA Height 4.2 cm Aorta at Sinotubular Diameter 2.5 cm IVC Diameter 1.0 cm M-MODE Aortic Annulus Diameter 2.5 cm LA Ao Ratio MM 2.1 MV E Point Septal Separation 0.0 cm DOPPLER AV Peak Velocity 201.0 cm/s LVOT Peak Velocity 284.3 cm/s AV Area Cont Eq vti 4.3 cm squared AV Area Cont Eq pk 4.9 cm squared MV Peak Velocity 160.0 cm/s MV Area PHT 2.7 cm squared Mitral E to A Ratio 0.6 MV E' Velocity 49.0 cm/s Mitral E to MV E' Ratio 16.6 Mitral E to LV E' Lateral Ratio 13.2 Mitral E to LV E' Septal Ratio 22.3 TR Peak Velocity 224.6 cm/s TR Peak Gradient 20.2 mmHg TR Mean Velocity 153.9 cm/s TR Mean Gradient 10.7 mmHg TR Velocity Time Integral 37.6 cm Right Atrial Pressure 3.0 mmHg Pulmonary Artery Systolic Pressu 23.2 mmHg PV Peak Velocity 97.3 cm/s RV Acceleration Time 0.1 s RV Ejection Time 0.3 s RV AcT/ET 0.4 FINDINGS Left Ventricle Left ventricle is normal in size. Severe concentric left ventricular hypertrophy with asymmetric more significant hypertrophy of the septum. Septal thickness is 2.1 cm. Posterior wall thickness is 1.4cm. No systolic anterior motion of the mitral valve noted. LV systolic function is normal with EF of 60-65%. No regional wall motion abnormalities are seen. Grade 1 diastolic dysfunction noted. Right Ventricle Normal in size and function Right Atrium Normal in size Left Atrium Normal in size Mitral Valve Severe mitral annular calcification. Mild mitral regurgitation. Aortic Valve Aortic valve is thickened. LVOT peak gradient is 35mmHg. Findings consistent with hypertrophic obstructive cardiomyopathy Tricuspid Valve Mild tricuspid regurgitation. Pulmonary artery systolic pressure is normal. Pulmonic Valve Mild pulmonic regurgitation. Pericardium Normal Aorta Normal in size IVC Appears to be normal CONCLUSIONS Severe concentric left ventricular hypertrophy with more prominent asymmetric hypertrophy of the septum. LV systolic function is normal with EF of 60 to 65%. Grade 1 diastolic dysfunction. Mild mitral regurgitation Elevated resting LVOT peak gradient of 35 mmHg. Findings consistent with hypertrophic cardiomyopathy. Mild tricuspid regurgitation Mild pulmonic regurgitation Compared to prior echocardiogram from 08/16/2022, gradients across LVOT are not as significant comparison with prior echocardiogram from 08/16/2022 shows gradient on the current study across LVOT and not as significant however likely from inability to capture true gradients on this study. Features are consistent with hypertrophic obstructive cardiomyopathy Tab Sinclair MD (Electronically Signed) Final Date: 14 September 2023 09:47 S
--- NOTE | 2023-09-13 10:42 | W.PM.OPSUD ---
Surgery/Procedure H&P Update DATE OF PROCEDURE: September 13, 2023 DATE H&P PERFORMED: 09/13/23 H&P UPDATE INFORMATION: I have reviewed H&P completed within last 30 days, I have examined patient prior to procedure and No changes to prior documentation PREOP DIAGNOSIS: Worsening angina/ congestive heart failure PRIMARY INDICATION FOR PROCEDURE: Worsening angina/ congestive heart failure PLANNED PROCEDURE: Left heart cath with possible percuteneous coronary intervention PATIENT REASSESSED PRIOR TO SEDATION, WITH NO CHANGE NOTED: Yes PHYSICAL EXAM: alert, oriented x 3 and regular rate & rhythm OTHER PERTINENT EXAM FINDINGS: Has bilateral mild crakcles. AIRWAY EVAL/ANESTHESIA PLAN: normal airway, ASA III, Local Anesthesia, Risks, benefits & alternatives of sedation and/or procedure discussed and Patient agrees to continue as planned ADDITIONAL INFORMATION: Moderate sedation
--- NOTE | 2023-09-13 11:11 | P.HP_ITS ---
Providers/Chief Complaint 2 Admitting Physician: Blayne Ewing Primary Care Provider: Ya Panchal MD Chief Complaint: CP History of Present Illness Pleasant 67-year-old gentleman with history of CAD, prior stenting, current smoker, HTN, HLD, atrial fibrillation, COPD, other comorbidities states has been having a chest cold has been coughing with productive cough, dyspnea, but also reports orthopnea and has been having associated chest pain, sometimes triggered by long bouts of cough. Review of Systems 2 Const: Denies: fever(s), chills, body aches or malaise ENMT: Denies: throat pain Card: Denies: chest pain, edema, pre-syncope or dyspnea on exertion Resp: Denies: dyspnea, productive cough, change in phlegm color or hemoptysis GI: Denies: abdominal pain, nausea, vomiting, diarrhea, constipation, hematochezia or melena : Denies: flank pain, difficulty urinating, urinary frequency or hematuria Musc: Denies: back pain, joint swelling or joint redness Skin/Breast: Denies: rash or new lesions Neuro: Denies: headache(s) Medications/Allergies Home Medications Medication Instructions Recorded Confirmed Last Taken Type atorvastatin 40 mg tablet 40 mg PO QPM 12/19/19 09/13/23 09/12/23 History albuterol sulfate 90 mcg/actuation 2 puff inhalation Q6H PRN 07/23/22 09/13/23 07/23/22 History aerosol inhaler (ProAir HFA) Shortness Of Breath Or Wheezing aspirin 325 mg tablet 325 mg PO DAILY #90 tabs 08/25/22 09/13/23 09/13/23 Rx amiodarone 100 mg tablet 100 mg PO DAILY #90 tabs 12/25/22 09/13/23 09/13/23 Rx amlodipine 5 mg tablet 5 mg PO DAILY 09/13/23 09/13/23 09/13/23 History benazepril 40 mg tablet 40 mg PO DAILY 09/13/23 09/13/23 09/13/23 History digoxin 125 mcg (0.125 mg) tablet 125 mcg PO DAILY 09/13/23 09/13/23 09/13/23 History folic acid 1 mg tablet 1 mg PO DAILY 09/13/23 09/13/23 09/13/23 History metoprolol tartrate 50 mg tablet 50 mg PO BID 09/13/23 09/13/23 09/13/23 History Allergies Allergy/AdvReac Type Severity Reaction Status Date / Time No Known Allergies Allergy Verified 09/13/23 07:45 PFSH Acute 2 PFSH: Medical History Self extubation Atherosclerotic heart disease of [place] coronary artery without angina pectoris Fatigue EKG from today revealed sinus rhythm with features of LVH. ST-T changes in the high lateral leads. Occasional PVCs. No significant new changes. Smoker Hyperlipidemia Atrial fibrillation HTN (hypertension) IHSS (idiopathic hypertrophic subaortic stenosis) CAD (coronary artery disease) Hepatitis C Surgical History S/P coronary artery stent placement S/P appendectomy Family History Mother CAD (coronary artery disease) Diabetes Sister Cancer Father Lung disease Other Hypertension Denies family history of Clotting disorder Dementia Chronic kidney disease (CKD) Suicide Anesthesia complication Bleeding disorder Stroke Social History Smoking and tobacco/nicotine status: current every day tobacco/nicotine user Alcohol intake: current Substance/Drug Use: former Vitals/I&O/Wt Last Vital Signs Temp 98.2 F 09/13/23 06:16 Pulse 59 L 09/13/23 09:54 Resp 18 09/13/23 09:54 BP 137/88 09/13/23 09:54 Pulse Ox 94 09/13/23 09:54 O2 Del Method Room Air 09/13/23 09:54 O2 Flow Rate 2 09/13/23 08:56 Weight last 48 hrs Weight 67.358 kg Weight 70.76 kg Physical Exam 2 Const: COMMON NORMALS: patient oriented x3 and alert GENERAL APPEARANCE: c ooperative ORIENTATION/CONSCIOUSNESS: Yes awake HENMT: COMMON NORMALS: oropharynx normal Neck/C-Spine: COMMON NORMALS: no JVD Resp: COMMON NORMALS: normal respiratory effort AUSCULTATION: rhonchi and diminished lung sounds Cardio: COMMON NORMALS: no JVD, regular rhythm, S1 normal heart sound present, S2 normal heart sound present and No murmurs present (Cardio) RHYTHM: regular rhythm HEART SOUNDS: S1 normal heart sound present and S2 normal heart sound present GI: COMMON NORMALS: Normal to inspection, nondistended, normoactive bowel sounds present, Soft to palpation and non-tender PALPATION: Yes Soft to palpation Extremity: COMMON NORMALS: no joint enlargement and no pedal edema Neuro: COMMON NORMALS: patient oriented x3 and moves all extremities S ENSORIUM/ORIENTATION: Yes alert Skin: COMMON NORMALS: no rashes or lesions noted GENERAL SKIN EXAM: no rashes or lesions noted Data 09/13/23 06:00 09/13/23 06:00 A&P Assessment and plan (1) Bronchitis: States over the last week has been having a chest cold , coughing, productive cough, reports may have COPD, but not formally diagnosed. At least having acute bronchitis, butCurrent smoker, lungs hyperinflated on chest x-ray, do suspect she has COPD with COPD exacerbation. Will benefit down the road from PFT. At this time treat severe COPD exacerbation, in ER he is on 4 L nasal cannula oxygen, not normally on oxygen. Has been having dyspnea, productive cough of purulent sputum. Collect sputum culture. Check respiratory viral panel. Breathing treatments. Expectorant. Oxygen support, wean down as tolerating. Reviewed vitals, CBC, INR, CMP, digoxin level, EKG, chest x-ray. Chest x-ray on my interpretation with hyperinflation, otherwise without signs of pneumonia. Reviewed ER note, discussed with ER physician. (2) Chest pain: Possible NSTEMI with chest pain, troponin moderately elevated to 73. History of CAD, prior stenting. CAD risks with HTN, HLD, current smoking. Cardiology has been consulted and are planning for additional assessment with coronary angiography with him. Continue aspirin, statin, bradycardic, beta morgan held for now. Therapeutic Lovenox, with risk of bleeding. Monitor for symptoms, CBC. Nitroglycerin as needed. Echocardiogram is ordered. Add a D-dimer. Plan Smoking addiction discussed smoking cessation for 5 minutes. He states has been trying to cut down. Has not quit yet entirely. Continue to encourage cessation. Nicotine replacement as needed. Attestations 2 Medical Necessity Statement*: Admission of over 2 midnights anticipated for assessment management of severe exacerbation of COPD, possible NSTEMI. Diagnoses Bronchitis J40 Chest pain R07.9
[2023-09-13] MEDS: predniSONE 20 mg Tablet 40 MG PO (12:30)
[2023-09-13] MEDS: pantoprazole 40 mg SDV IVP (12:30)
[2023-09-13] MEDS: cefTRIAXone 1,000 MG in sodium chloride 0.9% (plus) 50 ML 100 MG IV (12:30)
[2023-09-13 12:41] LABS: Troponin 5 6HR 68.85 ng/L (0-15)
[2023-09-13 12:43] LABS: Troponin 5 6HR Delta -4.15 ng/L (0-12)
--- NOTE | 2023-09-13 13:36 | PC.NURSE ---
Patient hit the nurse call light. Nurse enters the room and patients right radial area is bleeding. He has a TR-band on this wrist but the air is all out. Patient said that it was throbbing so he removed it and then put it back on when it started to bleed. Nurse put 15ml's of air back into the TR-band and instructed patient again that the TR-band needs to stay on and not to use that wrist/hand for the next 24 hours. Patient started understanding.
[2023-09-13] MEDS: ipratropium-albuterol 3 mL Neb INHALATION (13:38)
--- NOTE | 2023-09-13 15:44 | ECG_ITS ---
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 Measurements Intervals [place] Rate: 62 P: 47 OK: 184 QRS: -15 QRSD: 114 T: 113 QT: 460 QTc: 470 Interpretive Statements SINUS RHYTHM WITH FREQUENT VENTRICULAR PREMATURE COMPLEXES LEFT VENTRICULAR HYPERTROPHY AND ST-T CHANGE [VOLTAGE CRITERIA PLUS ST/T ABNORMALITY] Compared to ECG 09/13/2023 08:36:04 Ventricular premature complex(es) now present Sinus bradycardia no longer present ST (T wave) deviation still present Electronically Signed On 09-13-2023 16:06:19 INSPECTOR METAL FABRICATING by Tab Sinclair M.D. [email or web address]/[id number]
[2023-09-13 15:54] LABS: Adenovirus Not Detected (NOT DETECT); Chlamydia Pneumoniae Not Detected (NOT DETECT); Coronavirus 229E,HKU1,NL63,OC4 Not Detected (NOT DETECT); Human Metapneumovirus Not Detected (NOT DETECT); Human Rhinovirus/Enterovirus Not Detected (NOT DETECT); Influenza A Not Detected (NOT DETECT); Influenza A H1 Not Detected (NOT DETECT); Influenza A H1-2009 Not Detected (NOT DETECT); Influenza A H3 Not Detected (NOT DETECT); Influenza B Not Detected (NOT DETECT); Mycoplasma Pneumoniae Not Detected (NOT DETECT); Parainfluenza Virus Type 1 Not Detected (NOT DETECT); Parainfluenza Virus Type 2 Not Detected (NOT DETECT); Parainfluenza Virus Type 3 Not Detected (NOT DETECT); Parainfluenza Virus Type 4 Not Detected (NOT DETECT); Respiratory Syncytial Virus A Not Detected (NOT DETECT); Respiratory Syncytial Virus B Not Detected (NOT DETECT); SARS-COV-2 Not Detected (NOT DETECT)
[2023-09-13] MEDS: guaiFENesin 600 mg Tablet PO (17:56)
[2023-09-13] MEDS: atorvastatin 40 mg Tablet PO (17:56)
--- NOTE | 2023-09-13 18:42 | PC.NURSE ---
Patients had a right radial TR-band. 2ml's of air is removed at 1450. 2ml's of air is removed at 1518. 2ml's of air is removed at 1545. 2ml's of air is removed at 1612. 2ml's of air is removed at 1645. 2 ml's of air is removed at 1725. 2ml's of air is removed at 1800. TR-band is removed at 1830. A 2x2 and tegaderm dressing is applied. Patient tolerated well. Patient is reminded again not to use that wrist/hand for the next 24 hours. Patient states understanding.
[2023-09-13] MEDS: enoxaparin 80 mg/0.8 mL Syringe 70 MG SUBCUT (19:43)
[2023-09-14] VITALS (14 sets, daily range): BP systolic 128–174; BP diastolic 70–97; PULSE 58–88; RESP 16–23; TEMP 36.6; O2SAT 92–98
[2023-09-14 02:46] LABS: Basophils # 0.1 10^3/uL (0.0-0.1); Basophils % 0.8 %; Hematocrit 41.4 % (37-53); Lymphocytes # 0.8 10^3/uL (0.8-4.8); Lymphocytes % 8.4 %; Mean Corpuscular HGB Conc 31.9 g/dL (30-55); Mean Corpuscular Hemoglobin 27.9 pg (27-33); Mean Corpuscular Volume 87.5 fl (82-101); Mean Platelet Volume 9.8 fL (7.4-10.4); Monocytes # 0.5 10^3/uL (0.2-0.9); Monocytes % 4.9 %; Neutrophils # 8.44 10^3/uL (1.8-7.7); Neutrophils % 85.4 %; Nucleated Red Blood Cells % 0 %; Platelet Count 472 10^3/cmm (157-399); Red Blood Count 4.73 10^6/uL (3.85-5.65); Red Cell Distribution Width 13.4 % (12.1-15.1); White Blood Count 9.88 10^3/uL (3.29-11.43)
[2023-09-14 03:08] LABS: Alanine Aminotransferase 12 U/L (0-41); Albumin Level 3.4 g/dL (3.5-5.2); Alkaline Phosphatase 115 U/L (40-130); Anion Gap 10.1 (5-19); Aspartate Amino Transferase 14 U/L (0-40); Blood Urea Nitrogen 15 mg/dL (8-23); Calcium 8.8 mg/dL (8.5-10.5); Carbon Dioxide 32 mmol/L (22-29); Chloride 101 mmol/L (98-107); Globulin 3.2 g/dL (1.3-4.6); Glomerular Filtration Rate 60.8 mL/min (90-130); Glucose 191 mg/dL (65-115); Magnesium 2.2 mg/dL (1.7-2.3); Osmolality Calculated 294 mOsm/kg (285-295); Potassium 4.1 mmol/L (3.5-5.1); Sodium 139 mmol/L (136-145); Total Bilirubin 0.2 mg/dL (0.15-1.2); Total Protein 6.6 g/dL (6.6-8.7)
[2023-09-14] MEDS: amiodarone 200 mg Tablet 100 MG PO (09:05)
[2023-09-14] MEDS: ipratropium-albuterol 3 mL Neb INHALATION ×3 (09:05→19:55)
[2023-09-14] MEDS: aspirin 325 mg Tablet PO (09:05)
[2023-09-14] MEDS: clopidogrel 75 mg Tablet PO (09:06)
[2023-09-14] MEDS: predniSONE 20 mg Tablet 40 MG PO (09:06)
[2023-09-14] MEDS: guaiFENesin 600 mg Tablet PO ×2 (09:06→17:45)
--- NOTE | 2023-09-14 09:48 | P.PN_ITS ---
Subjective 2 Subjective: Patient is doing better. No more chest pain. Had PCI of proximal LAD with 2 stents yesterday Vitals/I&O/Wt Last Vital Signs Temp 97.9 F 09/14/23 09:11 Pulse 69 09/14/23 09:11 Resp 23 H 09/14/23 09:11 BP 129/74 09/14/23 09:11 Pulse Ox 92 09/14/23 09:11 O2 Del Method Nasal Cannula 09/14/23 09:11 O2 Flow Rate 1 09/14/23 02:36 09/13/23 09/14/23 09/14/23 22:59 06:59 14:59 Intake Total 480 / 530 1000 / 1530 360 / 360 Output Total 200 / 700 200 / 200 Balance 480 / 30 800 / 830 160 / 160 Weight last 48 hrs Weight 147 lb Weight 148 lb 8 oz Weight 156 lb Physical Exam 2 Const: COMMON NORMALS: patient oriented x3 Resp: OTHER: Has minimal crackles bilaterally Cardio: OTHER: Regular rate and rhythm. Has grade 3/6 systolic murmur Extremity: NARRATIVE EXTREMITY EXAM: No significant edema Neuro: COMMON NORMALS: patient oriented x3 OTHER: No focal abnormalities Data 09/15/23 04:20 09/15/23 04:20 A&P Assessment and plan (1) NSTEMI (non-ST elevated myocardial infarction): (2) CAD (coronary artery disease): Qualifiers: Coronary Disease-Associated Artery/Lesion type: [place] artery [place] vs. transplanted heart: [place] heart Associated angina: without angina Qualified Code(s): I25.10 - Atherosclerotic heart disease of [place] coronary artery without angina pectoris (3) IHSS (idiopathic hypertrophic subaortic stenosis): (4) HTN (hypertension): Qualifiers: Hypertension type: essential hypertension Qualified Code(s): I10 - Essential (primary) hypertension (5) Atrial fibrillation: Qualifiers: Atrial fibrillation type: paroxysmal Qualified Code(s): I48.0 - Paroxysmal atrial fibrillation (6) Hyperlipidemia: Qualifiers: Hyperlipidemia type: mixed hyperlipidemia Qualified Code(s): E78.2 - Mixed hyperlipidemia Plan Patient had severe proximal LAD stenosis s/p PCI with 2 stents. He is feeling much better now. Continue dual antiplatelet therapy with aspirin and Plavix. Echo shows significant resting gradient across the LVOT. Previous echo had captured higher gradients. As outpatient he will need referral to hypertrophic cardiomyopathy center in [facility]. Discussed with him At this time we will start the metoprolol 25 mg twice daily and uptitrated as needed. Vasodilator medicines will be down titrated or stopped. His blood pressure is controlled. Thank you for involving us with care of this patient. We will continue to follow. Please call with questions Attestations 2 Medical Necessity Statement*: Care expected to cross 2 midnights. Coding Level of Care Code Acute Code for [facility] Diagnoses NSTEMI (non-ST elevated myocardial infarction) I21.4 Coronary artery disease involving [place] coronary artery of [place] heart without angina pectoris I25.10 Coronary Disease-Associated Artery/Lesion type: [place] artery [place] vs. transplanted heart: [place] heart Associated angina: without angina IHSS (idiopathic hypertrophic subaortic stenosis) I42.1 Essential hypertension I10 Hypertension type: essential hypertension Paroxysmal atrial fibrillation I48.0 Atrial fibrillation type: paroxysmal Mixed hyperlipidemia E78.2 Hyperlipidemia type: mixed hyperlipidemia
[2023-09-14] MEDS: cefTRIAXone 1,000 MG in sodium chloride 0.9% (plus) 50 ML 100 MG IV (10:38)
[2023-09-14] MEDS: metoprolol tartrate 50 mg Tablet 25 MG PO ×2 (10:38→20:34)
[2023-09-14] MEDS: pantoprazole 40 mg SDV IVP (10:39)
--- NOTE | 2023-09-14 14:13 | P.PN_ITS ---
Subjective 2 Subjective: Hospital course, labs appreciated. Patient sitting comfortably in bed. Denies any chest pain. States feeling a lot better. Denies any nausea, vomiting, headache. Patient underwent PCI yesterday. Blood work appreciated. Telemetry appreciated. Patient having episodes of bradycardia, in A-fib. Vitals/I&O/Wt Last Vital Signs Temp 97.9 F 09/14/23 09:11 Pulse 58 L 09/14/23 13:55 Resp 17 09/14/23 13:55 BP 128/70 09/14/23 13:55 Pulse Ox 96 09/14/23 13:55 O2 Del Method Nasal Cannula 09/14/23 13:55 O2 Flow Rate 2 09/14/23 09:05 09/13/23 09/14/23 09/14/23 22:59 06:59 14:59 Intake Total 480 / 530 1000 / 1530 840 / 840 Output Total 200 / 700 200 / 200 Balance 480 / 30 800 / 830 640 / 640 Weight last 48 hrs Weight 66.678 kg Weight 67.358 kg Weight 70.76 kg Physical Exam 2 Narrative: General: No acute distress, AO x3 HEENT: PERRLA, pupils bilaterally equal and reactive Chest: Bilateral bronchial breath sounds with occasional rhonchi all over lung plasencia, equal good air entry bilaterally CVS: S1-S2 irregularly irregular, ejection systolic murmur at aortic, no tachycardia, no gallops, no rubs Abdomen: Soft, nontender, no organomegaly, bowel sounds present Neuro: No focal deficits, no facial deformity, AO x3, power 5/5 in all limbs Data 09/14/23 01:52 09/14/23 01:52 Micro: Microbiology 09/13/23 17:15 Gram Stain - Final Sputum - Expectorated Sputum A&P Assessment and plan (1) Acute non-ST elevation myocardial infarction (NSTEMI): Troponin elevated on admission. Post PCI. No active chest pain. Continue with Plavix 75 mg daily, aspirin 81 mg daily, statin. Appreciate A1c, lipid panel. Appreciate echocardiogram. Add metoprolol 25 mg twice daily today. Will uptitrate as for the heart rate. Appreciate cardiology recommendations. (2) Atherosclerotic heart disease of [place] coronary artery without angina pectoris: Qualifiers: [place] vs. transplanted heart: [place] heart Qualified Code(s): I25.10 - Atherosclerotic heart disease of [place] coronary artery without angina pectoris (3) IHSS (idiopathic hypertrophic subaortic stenosis): As seen on echocardiogram. Appreciate gradient across the aortic valve. Will need to uptitrate beta-morgan. Patient did have episode of bradycardia. Continue with metoprolol 25 mg twice daily. Continue telemonitoring. Will plan to increase to 50 mg if possible. Patient will follow-up as an outpatient with cardiology. (4) S/P coronary artery stent placement: (5) Hypoxia: Most likely in setting of COPD and bronchitis from chronic smoking. Continue with DuoNebs every 6 hours. Add Pulmicort. Continue with prednisone 40 mg daily. Oxygen supplementation keeping saturation over 90%. Respiratory viral panel negative, sputum culture pending. (6) Atrial fibrillation: Rate controlled with episodes of bradycardia. Metoprolol as above. Patient takes digoxin at home. Appreciate digoxin levels on admission. Continue home dose of amiodarone. Discussed anticoagulation detail with the patient for stroke prevention. Discussed possibility of NOAC. Patient is agreeable. Will start on Eliquis 5 mg twice daily. Plan to discharge on Plavix and Eliquis. Discussed in detail with the patient regarding need for both antiplatelet and anticoagulation. Patient verbalizes understanding and is agreeable. Qualifiers: Atrial fibrillation type: paroxysmal Qualified Code(s): I48.0 - Paroxysmal atrial fibrillation Plan Smoking addiction discussed smoking cessation for 5 minutes. He states has been trying to cut down. Has not quit yet entirely. Continue to encourage cessation. Nicotine replacement as needed. Full code Cardiac diet Eliquis will suffice for DVT prophylaxis Protonix for PUD prophylaxis. Attestations 2 Medical Necessity Statement*: Requires further hospitalization for management of non-ST elevation [place], post PCI, atrial fibrillation with bradycardia, HOCM while beta-morgan was uptitrated in setting of bradycardia Diagnoses Acute non-ST elevation myocardial infarction (NSTEMI) I21.4 Atherosclerosis of [place] coronary artery of [place] heart without angina pectoris I25.10 [place] vs. transplanted heart: [place] heart IHSS (idiopathic hypertrophic subaortic stenosis) I42.1 S/P coronary artery stent placement Z95.5 Hypoxia R09.02 Paroxysmal atrial fibrillation I48.0 Atrial fibrillation type: paroxysmal
[2023-09-14] MEDS: atorvastatin 40 mg Tablet PO (17:45)
[2023-09-14] MEDS: apixaban 5 mg Tablet PO (20:34)
[2023-09-15] VITALS (11 sets, daily range): BP systolic 129–172; BP diastolic 71–97; PULSE 62–71; RESP 14–23; TEMP 36.6–36.9; O2SAT 89–98; BMI 23.7
[2023-09-15] MEDS: ipratropium-albuterol 3 mL Neb INHALATION ×2 (02:33→08:38)
[2023-09-15 04:34] LABS: Basophils % 0.3 %; Eosinophils % 0.1 %; Hematocrit 39.7 % (37-53); Lymphocytes # 1.6 10^3/uL (0.8-4.8); Lymphocytes % 11.8 %; Mean Corpuscular Hemoglobin 28.3 pg (27-33); Mean Corpuscular Volume 88.4 fl (82-101); Mean Platelet Volume 9.5 fL (7.4-10.4); Monocytes # 0.9 10^3/uL (0.2-0.9); Monocytes % 6.2 %; Neutrophils # 11.16 10^3/uL (1.8-7.7); Neutrophils % 80.9 %; Nucleated Red Blood Cells % 0 %; Platelet Count 487 10^3/cmm (157-399); Red Blood Count 4.49 10^6/uL (3.85-5.65); Red Cell Distribution Width 13.7 % (12.1-15.1); White Blood Count 13.78 10^3/uL (3.29-11.43)
[2023-09-15 05:01] LABS: Alanine Aminotransferase 12 U/L (0-41); Albumin Level 3.4 g/dL (3.5-5.2); Alkaline Phosphatase 98 U/L (40-130); Anion Gap 12.2 (5-19); Aspartate Amino Transferase 12 U/L (0-40); Blood Urea Nitrogen 17 mg/dL (8-23); Calcium 8.8 mg/dL (8.5-10.5); Carbon Dioxide 30 mmol/L (22-29); Chloride 100 mmol/L (98-107); Globulin 2.7 g/dL (1.3-4.6); Glomerular Filtration Rate 84.7 mL/min (90-130); Glucose 119 mg/dL (65-115); Osmolality Calculated 289 mOsm/kg (285-295); Potassium 4.2 mmol/L (3.5-5.1); Sodium 138 mmol/L (136-145); Total Bilirubin 0.2 mg/dL (0.15-1.2); Total Protein 6.1 g/dL (6.6-8.7)
--- NOTE | 2023-09-15 07:55 | PM.PN ---
Subjective Subjective: Patient is feeling better. No chest pain. Blood pressure is elevated. Vitals/I&O/Wt Last Vital Signs Temp 98.4 F 09/15/23 05:00 Pulse 63 09/15/23 05:25 Resp 14 09/15/23 05:23 BP 129/78 09/15/23 05:23 Pulse Ox 89 L 09/15/23 05:23 O2 Del Method Room Air 09/15/23 05:00 O2 Flow Rate 1 09/15/23 02:39 09/14/23 09/15/23 09/15/23 22:59 06:59 14:59 Intake Total 480 / 1320 1920 / 3240 Output Total 580 / 780 Balance 480 / 1120 1340 / 2460 Weight last 48 hrs Weight 147 lb Weight 147 lb Weight 148 lb 8 oz Physical Exam Const: COMMON NORMALS: patient oriented x3 Resp: OTHER: Has minimal crackles bilaterally Cardio: OTHER: Regular rate and rhythm. Has grade 3/6 systolic murmur Extremity: NARRATIVE EXTREMITY EXAM: No significant edema Neuro: COMMON NORMALS: patient oriented x3 OTHER: No focal abnormalities Data 09/15/23 04:20 09/15/23 04:20 Micro: Microbiology 09/13/23 17:15 Gram Stain - Final Sputum - Expectorated Sputum A&P Assessment and plan (1) NSTEMI (non-ST elevated myocardial infarction): (2) CAD (coronary artery disease): Qualifiers: Coronary Disease-Associated Artery/Lesion type: [place] artery [place] vs. transplanted heart: [place] heart Associated angina: without angina Qualified Code(s): I25.10 - Atherosclerotic heart disease of [place] coronary artery without angina pectoris (3) IHSS (idiopathic hypertrophic subaortic stenosis): (4) HTN (hypertension): Qualifiers: Hypertension type: essential hypertension Qualified Code(s): I10 - Essential (primary) hypertension (5) Atrial fibrillation: Qualifiers: Atrial fibrillation type: paroxysmal Qualified Code(s): I48.0 - Paroxysmal atrial fibrillation (6) Hyperlipidemia: Qualifiers: Hyperlipidemia type: mixed hyperlipidemia Qualified Code(s): E78.2 - Mixed hyperlipidemia Plan Patient had PCI of LAD with 2 stents. Continue plavix. If patient is willing to start anticoagulation, start eliquis 5mg BID. If not, then will continue aspirin and plavix Increase metoprolol to 37.5mg bid. Can restart amlodipine 5mg daily. Can stop digoxin Thank you for involving us with care of this patient. Patient is stable to be discharged from cardiology standpoint. Please call with questions Attestations Medical Necessity Statement*: Care expected to cross 2 midnights. Coding Level of Care Code Acute Code for [facility] Diagnoses NSTEMI (non-ST elevated myocardial infarction) I21.4 Coronary artery disease involving [place] coronary artery of [place] heart without angina pectoris I25.10 Coronary Disease-Associated Artery/Lesion type: [place] artery [place] vs. transplanted heart: [place] heart Associated angina: without angina IHSS (idiopathic hypertrophic subaortic stenosis) I42.1 Essential hypertension I10 Hypertension type: essential hypertension Paroxysmal atrial fibrillation I48.0 Atrial fibrillation type: paroxysmal Mixed hyperlipidemia E78.2 Hyperlipidemia type: mixed hyperlipidemia
[2023-09-15] MEDS: clopidogrel 75 mg Tablet PO (08:36)
[2023-09-15] MEDS: aspirin 81 mg EC Tablet PO (08:36)
[2023-09-15] MEDS: predniSONE 20 mg Tablet 40 MG PO (08:36)
[2023-09-15] MEDS: guaiFENesin 600 mg Tablet PO (08:37)
[2023-09-15] MEDS: apixaban 5 mg Tablet PO (08:37)
[2023-09-15] MEDS: amiodarone 200 mg Tablet 100 MG PO (09:17)
[2023-09-15] MEDS: metoprolol tartrate 50 mg Tablet 25 MG PO (09:17)
--- NOTE | 2023-09-15 11:35 | P.DS_ITS ---
Discharge Providers Date of Admission: 09/13/23 08:12 Date of Discharge: September 15, 2023 Attending Provider at Admission: Blayne Ewing Attending Provider at Discharge: Gabriel Song MD Consults: Cardiology: Dr. Sinclair Primary Care Provider: Ya Panchal MD Diagnoses at Discharge Discharge Diagnosis (1) NSTEMI (non-ST elevated myocardial infarction): Status: Acute (2) CAD (coronary artery disease): Status: Acute Qualifiers: Associated angina: without angina Coronary Disease-Associated Artery/Lesion type: [place] artery [place] vs. transplanted heart: [place] heart Qualified Code(s): I25.10 - Atherosclerotic heart disease of [place] coronary artery without angina pectoris (3) IHSS (idiopathic hypertrophic subaortic stenosis): Status: Acute (4) HTN (hypertension): Status: Acute Qualifiers: Hypertension type: essential hypertension Qualified Code(s): I10 - Essential (primary) hypertension (5) Atrial fibrillation: Status: Acute Qualifiers: Atrial fibrillation type: paroxysmal Qualified Code(s): I48.0 - Paroxysmal atrial fibrillation (6) Hyperlipidemia: Status: Acute Qualifiers: Hyperlipidemia type: mixed hyperlipidemia Qualified Code(s): E78.2 - Mixed hyperlipidemia Reason for Visit Reason for Visit: CP Brief History: History as per HPI: Pleasant 67-year-old gentleman with history of CAD, prior stenting, current smoker, HTN, HLD, atrial fibrillation, COPD, IHSS, other comorbidities states has been having a chest cold has been coughing with productive cough, dyspnea, but also reports orthopnea and has been having associated chest pain, sometimes triggered by long bouts of cough. Hospital Course Hospital Course Patient was admitted to the hospital for further evaluation and management of chest pain with concerns for non-ST elevation [place] and bronchitis in setting of COPD exacerbation. Cardiology was consulted. Echocardiogram was done which was consistent with a normal EF, grade 1 diastolic dysfunction, severe concentric LVH with asymmetric most significant hypertrophy of the septum with concerns of gradient across LVOT. Because of ongoing chest pain even when patient was on heparin drip and dual antiplatelet therapy patient underwent cardiac angiogram in which she had PCI to LAD with 2 stents. He was started on anticoagulation with Eliquis. Patient did have episodes of bradycardia and hospitalization for which his antiarrhythmic medications were adjusted. He is not to take digoxin anymore, metoprolol has been changed to 37.5 mg twice daily, amiodarone discontinued 100 mg daily. Patient was counseled in detail to make sure he continues to take a nticoagulation going forward for stroke prevention. He is agreeable to take Eliquis. He is to take Plavix only in setting of recent PCI. He is to follow- up with his primary care provider within next 1 week and with cardiology team within next 3 to 4 days. He is counseled in detail to quit smoking. Physical Exam Narrative: General: No acute distress, AO x3 HEENT: PERRLA, pupils bilaterally equal and reactive Chest: Bilateral bronchial breath sounds with occasional rhonchi all over lung plasencia, equal good air entry bilaterally CVS: S1-S2 irregularly irregular, ejection systolic murmur at aortic, no tachycardia, no gallops, no rubs Abdomen: Soft, nontender, no organomegaly, bowel sounds present Neuro: No focal deficits, no facial deformity, AO x3, power 5/5 in all limbs Discharge Data Studies Completed and Pending Completed Studies During Hospitalization Category Date Time Status XR chest 1V portable [id number] Stat Exams 09/13/23 06:20 Completed CV. echo complete* [id number] Routine Ultrasound 09/13/23 10:41 Completed Pending at discharge Category Date Time Status [employer]MAN request for service Stat Exams 09/13/23 08:16 Taken Complete Blood Count w/Auto AM LABS Lab 09/16/23 04:00 Ordered Comprehensive Metabolic Panel AM LABS Lab 09/16/23 04:00 Ordered Sputum Culture and Gram Stain Routine Lab 09/13/23 17:15 Results Radiology Impressions Chest X-Ray 09/13/23 06:20 IMPRESSION: No acute cardiopulmonary disease. Echocardiogram: CONCLUSIONS Severe concentric left ventricular hypertrophy with more prominent asymmetric hypertrophy of the septum. LV systolic function is normal with EF of 60 to 65%. Grade 1 diastolic dysfunction. Mild mitral regurgitation Elevated resting LVOT peak gradient of 35 mmHg. Findings consistent with hypertrophic cardiomyopathy. Mild tricuspid regurgitation Mild pulmonic regurgitation Compared to prior echocardiogram from 08/16/2022, gradients across LVOT are not as significant comparison with prior echocardiogram from 08/16/2022 shows gradient on the current study across LVOT and not as significant however likely from inability to capture true gradients on this study. Features are consistent with hypertrophic obstructive cardiomyopathy Tab Sinclair MD (Electronically Signed) Final Date: 14 September 2023 Laboratory Results WBC 13.78 10^3/uL (3.29-11.43) H 09/15/23 04:20 RBC 4.49 10^6/uL (3.85-5.65) 09/15/23 04:20 Hgb 12.70 g/dL (11.27-16.99) 09/15/23 04:20 Hct 39.7 % (37-53) 09/15/23 04:20 MCV 88.4 fl (82-101) 09/15/23 04:20 MCH 28.3 pg (27-33) 09/15/23 04:20 MCHC 32.0 g/dL (30-55) 09/15/23 04:20 RDW 13.7 % (12.1-15.1) 09/15/23 04:20 Plt Count 487 10^3/cmm (157-399) H 09/15/23 04:20 MPV 9.5 fL (7.4-10.4) 09/15/23 04:20 Neut % (Auto) 80.9 % 09/15/23 04:20 Lymph % (Auto) 11.8 % 09/15/23 04:20 Nance % (Auto) 6.2 % 09/15/23 04:20 Eos % (Auto) 0.1 % 09/15/23 04:20 Baso % (Auto) 0.3 % 09/15/23 04:20 Neut # (Auto) 11.16 10^3/uL (1.8-7.7) H 09/15/23 04:20 Lymph # (Auto) 1.6 10^3/uL (0.8-4.8) 09/15/23 04:20 Nance # (Auto) 0.9 10^3/uL (0.2-0.9) 09/15/23 04:20 Eos # (Auto) 0.0 10^3/uL (0.0-0.8) 09/15/23 04:20 Baso # (Auto) 0.0 10^3/uL (0.0-0.1) 09/15/23 04:20 Nucleated RBC % (auto) 0 % 09/15/23 04:20 Nucleated RBCs # 0.0 /100WBC 09/15/23 04:20 PT 13.50 SECONDS (12.1-14.9) 09/13/23 06:00 INR 1.00 (0.8-1.2) 09/13/23 06:00 D-Dimer 0.44 ug/mLFEU (0-0.59) 09/13/23 06:00 Sodium 138 mmol/L (136-145) 09/15/23 04:20 Potassium 4.2 mmol/L (3.5-5.1) 09/15/23 04:20 Chloride 100 mmol/L (98-107) 09/15/23 04:20 Carbon Dioxide 30 mmol/L (22-29) H 09/15/23 04:20 Anion Gap 12.2 (5-19) 09/15/23 04:20 BUN 17 mg/dL (8-23) 09/15/23 04:20 Creatinine 0.9 mg/dL (0.7-1.2) 09/15/23 04:20 GFR Calculation 84.7 mL/min (90-130) L 09/15/23 04:20 Glucose 119 mg/dL (65-115) H 09/15/23 04:20 Calculated Osmolality 289 mOsm/kg (285-295) 09/15/23 04:20 Calcium 8.8 mg/dL (8.5-10.5) 09/15/23 04:20 Magnesium 2.2 mg/dL (1.7-2.3) 09/14/23 01:52 Total Bilirubin 0.2 mg/dL (0.15-1.2) 09/15/23 04:20 AST 12 U/L (0-40) 09/15/23 04:20 ALT 12 U/L (0-41) 09/15/23 04:20 Alkaline Phosphatase 98 U/L (40-130) 09/15/23 04:20 Troponin T Baseline 73 ng/L (0-15) H 09/13/23 06:00 Troponin T 120 Minute 74.14 ng/L (0-15) H 09/13/23 07:51 Delta Troponin T 1.14 ABS# (0-10) 09/13/23 07:51 Troponin T Hi Sens 6Hr 68.85 ng/L (0-15) H 09/13/23 12:04 Troponin T Hi Sens 6Hr Delta -4.15 ng/L (0-12) L 12/24/23 12:04 Total Protein 6.1 g/dL (6.6-8.7) L 09/15/23 04:20 Albumin 3.4 g/dL (3.5-5.2) L 09/15/23 04:20 Globulin 2.7 g/dL (1.3-4.6) 09/15/23 04:20 Nasal Influ A H1 2009 PCR Not detected (NOT DETECT) 09/13/23 11:55 Digoxin 1.2 ng/mL (0.6-1.2) 09/13/23 06:00 Adenovirus (PCR) Not detected (NOT DETECT) 09/13/23 11:55 C. pneumoniae DNA (PCR) Not detected (NOT DETECT) 09/13/23 11:55 Coronavirus 229E (PCR) Not detected (NOT DETECT) 09/13/23 11:55 Human Metapneumovir PCR Not detected (NOT DETECT) 09/13/23 11:55 Influenza A (H1) PCR Not detected (NOT DETECT) 09/13/23 11:55 Influenza A (H3) PCR Not detected (NOT DETECT) 09/13/23 11:55 Influenza Type A (PCR) Not detected (NOT DETECT) 09/13/23 11:55 Influenza Type B (PCR) Not detected (NOT DETECT) 09/13/23 11:55 M. pneumoniae (PCR) Not detected (NOT DETECT) 09/13/23 11:55 Parainfluenza 1 (PCR) Not detected (NOT DETECT) 09/13/23 11:55 Parainfluenza 2 (PCR) Not detected (NOT DETECT) 09/13/23 11:55 Parainfluenza 3 (PCR) Not detected (NOT DETECT) 09/13/23 11:55 Parainfluenza 4 (PCR) Not detected (NOT DETECT) 09/13/23 11:55 RSV Type A (PCR) Not detected (NOT DETECT) 09/13/23 11:55 RSV Type B (PCR) Not detected (NOT DETECT) 09/13/23 11:55 Entero/Rhino (PCR) Not detected (NOT DETECT) 09/13/23 11:55 SARS-CoV-2 (PCR) Not detected (NOT DETECT) 09/13/23 11:55 Vitals Last Vital Signs Temp 97.8 F 09/15/23 09:45 Pulse 65 09/15/23 09:45 Resp 23 H 09/15/23 09:45 BP 172/97 09/15/23 09:45 Pulse Ox 94 09/15/23 09:45 O2 Del Method Room Air 09/15/23 09:45 O2 Flow Rate 1 09/15/23 02:39 Discharge Plan Discharge Patient Disposition: Home Condition: Stable Prescriptions: New prednisone 20 mg Tablet 40 mg PO DAILY 5 Days Qty: 10 0RF clopidogrel 75 mg Tablet 75 mg PO DAILY Qty: 30 0RF Eliquis 5 mg Tablet 5 mg PO BID@0900,2100 30 Days Qty: 60 0RF metoprolol tartrate 25 mg tablet 37.5 mg PO DAILY 30 Days Qty: 45 0RF Continued atorvastatin 40 mg tablet 40 mg PO QPM amiodarone 100 mg tablet 100 mg PO DAILY Qty: 90 3RF amlodipine 5 mg tablet 5 mg PO DAILY folic acid 1 mg tablet 1 mg PO DAILY albuterol sulfate [ProAir HFA] 90 mcg/actuation HFA aerosol inhaler 2 puff INHALATION Q6H PRN (Reason: Shortness Of Breath Or Wheezing) Changed benazepril 40 mg tablet 20 mg PO DAILY Qty: 5 0RF Discontinued aspirin 325 mg tablet 325 mg PO DAILY Qty: 90 0RF metoprolol tartrate 50 mg tablet 50 mg PO BID digoxin 125 mcg (0.125 mg) tablet 125 mcg PO DAILY Discharge Orders: Discharge Order (Routine); Ordered 09/15/23 Ordered By: Gabriel Song Referrals: Ya Panchal MD [Primary Care Provider] - 7-10 days (We have notified your physician's clinic of the need for a follow-up appointment to be scheduled. If you have not heard from them within the next 2 business days, please call them directly. ) Tab Sinclair M.D [Physician] - 7-10 days (Your Dr. Sinclair follow up appointment will be scheduled during your Violeta Lewis appointment. Thank you.) Violeta Leiws FNP [Nurse Practitioner] - 09/18/23 10:45 am Discharge Diet: Cardiac Discharge Activity: Resume usual activity and Increase activity as tolerated Patient Instructions: Metoprolol (By mouth) (Lopressor, Toprol XL), Prednisone (By mouth) (predniSONE Intensol, Prednicot, Deltasone, Audie), Clopidogrel (By mouth) (Plavix), Apixaban (By mouth) (Eliquis), Heart Attack (DC), DASH Eating Plan (DC), Opioid Safety, Post Angiogram Home Care Instructions, Post Heart Attack Stoplight Discharge Attestations Time Spent in Discharge Care*: greater than 30 min Specific Discharge Activities: educating patient, educating and/or supporting family/caregiver, discussing with pcp/other providers, discussing with behavioral health case manager/social workers/dc planners, documenting/other paperwork and evaluating patient/reviewing data Quality Metrics Clinical Quality Measures [ Acute Myocardial Infaction { Clinical Trial Participant: No; Contraindication to aspirin: Medical contraindication; Contraindication to statin: None; Statin prescribed; Contraindication to PCI: None; PCI performed; Contraindication to Fibrinolytics: None; fibrinolytics given}] Coding Level of Care Code 78768 Total time (in minutes) for Discharge: 60 Diagnoses NSTEMI (non-ST elevated myocardial infarction) I21.4 Coronary artery disease involving [place] coronary artery of [place] heart without angina pectoris I25.10 Associated angina: without angina Coronary Disease-Associated Artery/Lesion type: [place] artery [place] vs. transplanted heart: [place] heart IHSS (idiopathic hypertrophic subaortic stenosis) I42.1 Essential hypertension I10 Hypertension type: essential hypertension Paroxysmal atrial fibrillation I48.0 Atrial fibrillation type: paroxysmal Mixed hyperlipidemia E78.2 Hyperlipidemia type: mixed hyperlipidemia
[2023-09-15] MEDS: pantoprazole 40 mg SDV IVP (13:26)
[2023-09-15] MEDS: cefTRIAXone 1,000 MG in sodium chloride 0.9% (plus) 50 ML 100 MG IV (13:27)
--- NOTE | 2023-09-15 15:50 | PC.NURSE ---
discharge instructions given and explained.pt verb understanding of instructions.[facility] said it was okay to send pt back to care home (this nurse made visit to care home due to no one answering phone at this establishment).discharged to exit via w/c at this time.ready transport to transport pt.
== END 2023-09-15 15:53 | disposition home or self-care (01) | DRG 322 ==
LOC: ER 08:08 → CSU 09:53
PROVIDERS: Internal Medicine; Admitting Provider Internal Medicine; Emergency Provider Emergency Medicine; PCP Internal Medicine; Visit Provider Student in an Organized Health Care Education/Training Program
PROC: 027035Z Dilation of Coronary Artery, One Artery with Two Drug-eluting Intraluminal Devices, Percutaneous Approach (ICD-10-PCS; principal; 2023-09-13 10:40)
PROC: 027035Z Dilation of Coronary Artery, One Artery with Two Drug-eluting Intraluminal Devices, Percutaneous Approach (ICD-10-PCS; 2023-09-13 10:40)
DX: I21.4 Non-ST elevation (NSTEMI) myocardial infarction (principal); I42.1 Obstructive hypertrophic cardiomyopathy; J44.0 Chronic obstructive pulmonary disease with (acute) lower respiratory infection; J44.1 Chronic obstructive pulmonary disease with (acute) exacerbation; Z59.01 Sheltered homelessness; I25.10 Atherosclerotic heart disease of native coronary artery without angina pectoris; Z95.5 Presence of coronary angioplasty implant and graft; I10 Essential (primary) hypertension; I48.0 Paroxysmal atrial fibrillation; E78.2 Mixed hyperlipidemia; F17.210 Nicotine dependence, cigarettes, uncomplicated; Z11.52 Encounter for screening for COVID-19; Z86.19 Personal history of other infectious and parasitic diseases
CPT/HCPCS: 36415; 71045; 80053; 80162; 83735; 84484; 85025; 85347; 85378; 85610; 87070; 87077; 87205; 87486; 87581; 87633; 93005; 93306; 93458; 93571; 94640; 96360; 96367; 96372; 96376; 99152; 99153; 99285; C1725; C1769; C1874; C1887; C1894; C9113; C9600; J0696; J1200; J1644; J1650; J1940; J2250; J3010; J3490; J7030; J7512; Q9967

== ENCOUNTER 2024-01-24 09:56 | Observation (INO) | payer MEDICARE, MEDICAID, SELFPAY ==
[2024-01-24] VITALS (11 sets, daily range): BP systolic 53–128; BP diastolic 29–81; PULSE 75–116; RESP 17–29; TEMP 36.5; O2SAT 92–97; BMI 22.7
--- NOTE | 2024-01-24 10:08 | ECG_ITS ---
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 Measurements Intervals [place] Rate: 155 P: 0 NE: 0 QRS: 13 QRSD: 111 T: 104 QT: 275 QTc: 442 Interpretive Statements ATRIAL FIBRILLATION WITH RAPID VENTRICULAR RESPONSE MODERATE INTRAVENTRICULAR CONDUCTION DELAY [110+ ms QRS DURATION] Non specific ST T wave changes Compared to ECG 09/13/2023 15:44:02 Intraventricular conduction delay now present Sinus rhythm no longer present Ventricular premature complex(es) no longer present ST (T wave) deviation still present Electronically Signed On 01-24-2024 12:02:11 CDT by Tab Sinclair M.D. [email or web address]
--- NOTE | 2024-01-24 10:15 | XRR_ITS ---
PROCEDURE INFORMATION: Exam: XR Chest Exam date and time: 01/24/2024 10:28 AM Age: 68 years old Clinical indication: Pain; Chest pressure; Additional info: Chest pain TECHNIQUE: Imaging protocol: Radiologic exam of the chest. Views: 1 view. COMPARISON: CR (CHEST, ) 09/13/2023 6:51 AM FINDINGS: Lungs: Unremarkable. No consolidation. Pleural spaces: Unremarkable. No pleural effusion. No pneumothorax. Heart/Mediastinum: Unremarkable. No cardiomegaly. Bones/joints: No suspicious osseous findings Other findings: Right hemidiaphragmatic eventration. XR/XR chest 1V portable [id number] IMPRESSION: No acute findings.
[2024-01-24] MEDS: heparin 5,000 unit/mL INJ 1 mL 4000 UNIT IVP (10:25)
--- NOTE | 2024-01-24 10:26 | ED_ITS ---
HPI - Chest Pain 2 General: Chief Complaint: Shortness of Breath/Dyspnea Stated Complaint: SOB, Cough Time Seen by Provider: 01/24/24 10:15 Source: patient Mode of arrival: ambulatory History of Present Illness: 68-year-old male presents emergency room he is a known history of coronary disease states had a rapid heart rate and chest discomfort. He states has been going on for a week has not been getting better. Patient has a known history of coronary artery disease and atrial fibrillation. He is on amiodarone as well as Eliquis. In August 2024 he had a angiogram with stenting of his proximal LAD and mid LAD. He is still taking clopidogrel. MD complaint: chest discomfort Onset (ago): day(s) Pain location: left chest Relieving factors: nothing Associated symptoms: Reports dyspnea and palpitations; Deny abdominal pain, diaphoresis, fever(s), leg edema, nausea, sense of impending doom, syncope, vomiting or other Treatment prior to arrival: none Review of Systems 2 Const: Denies: fever(s), chills or diaphoresis Card: Reports: palpitations; Denies: chest pain or syncope Resp: Reports: dyspnea GI: Denies: abdominal pain, nausea or vomiting : Denies: dysuria, urinary frequency or urinary urgency Musc: Denies: neck pain or back pain Skin/Breast: Denies: rash PFSH ED 2 PFSH: Medical History Self extubation Atherosclerotic heart disease of [place] coronary artery without angina pectoris Fatigue EKG from today revealed sinus rhythm with features of LVH. ST-T changes in the high lateral leads. Occasional PVCs. No significant new changes. Smoker Hyperlipidemia Atrial fibrillation HTN (hypertension) IHSS (idiopathic hypertrophic subaortic stenosis) CAD (coronary artery disease) Hepatitis C Surgical History S/P coronary artery stent placement S/P appendectomy Family History Mother CAD (coronary artery disease) Diabetes Sister Cancer Father Lung disease Other Hypertension Denies family history of Clotting disorder Dementia Chronic kidney disease (CKD) Suicide Anesthesia complication Bleeding disorder Stroke Social History (Reviewed 01/24/24 @ 10:27 by INDU Lucas Smoking and tobacco/nicotine status: current every day tobacco/nicotine user Alcohol intake: current Substance/Drug Use: former Physical Exam 2 Const: GENERAL APPEARANCE: cooperative and comfortable O RIENTATION/CONSCIOUSNESS: Yes awake, Yes oriented to person, Yes oriented to place and Yes oriented to time HENMT: COMMON NORMALS: normocephalic, atraumatic and hearing grossly normal bilaterally HEAD & SCALP: normocephalic and atraumatic Resp: COMMON NORMALS: normal respiratory effort, No retractions, No use of accessory muscles and clear to auscultation bilaterally AUSCULTATION: clear to auscultation bilaterally Cardio: COMMON NORMALS: No murmurs present (Cardio) RATE: tachycardic R HYTHM: abnormal rhythm irregularly irregular GI: COMMON NORMALS: Soft to palpation and No hepatosplenomegaly present A USCULTATION: Yes normoactive bowel sounds PALPATION: Yes Soft to palpation, No Tenderness to palpation present (GI), No Guarding due to palpation present (GI) and Yes No hepatosplenomegaly present Extremity: COMMON NORMALS: normal to inspection, capillary refill normal, no clubbing, cyanosis or edema, no calf tenderness and no pedal edema Neuro: SENSORIUM/ORIENTATION: Yes oriented to person, Yes oriented to place and Yes oriented to time Skin: COMMON NORMALS: no rashes or lesions noted GENERAL SKIN EXAM: no rashes or lesions noted Course 2 Vital Signs: Vital signs: Vital Signs Temperature 97.7 F 01/24/24 10:19 Pulse Rate 78 01/24/24 10:19 Blood Pressure 53/29 01/24/24 10:19 Pulse Oximetry 97 01/24/24 10:19 Oxygen Delivery Me thod Room Air 01/24/24 10:19 MDM - Chest Pain Medical Decision Making Initially patient presents hypotensive with A-fib with RVR. Started on amiodarone bolus and drip. Initial EKG showed ST elevation was likely rate related patient minimal chest discomfort. We did call a stimulant because of the changes met criteria on the EKG Dr. Smith came and seen the patient in person. He canceled the STEMI alert requested we slowed the rate and repeat. Once we get the amiodarone bolus repeat EKG showed no ST changes patient is feeling much better. Initially blood pressure improved but then he did have some dips. He is found to have mild hyperkalemia hyponatremia acute kidney injury. He was given 2 5 mL boluses of normal saline and continued on the amiodarone will admit orders written Medical Records I reviewed the patient's medical records. Lab Data I reviewed the patient's lab results. 01/24/24 10:23 01/24/24 10:23 Radiology Impressions Chest X-Ray 01/24/24 10:15 IMPRESSION: No acute findings. Laboratory Results WBC 6.63 10^3/uL (3.29-11.43) 01/24/24 10:23 RBC 6.20 10^6/uL (3.85-5.65) H 01/24/24 10:23 Hgb 16.80 g/dL (11.27-16.99) 01/24/24 10:23 Hct 51.0 % (37-53) 01/24/24 10:23 MCV 82.3 fl (82-101) 01/24/24 10:23 MCH 27.1 pg (27-33) 01/24/24 10:23 MCHC 32.9 g/dL (30-55) 01/24/24 10:23 RDW 14.2 % (12.1-15.1) 01/24/24 10:23 Plt Count 106 10^3/cmm (157-399) L 01/24/24 10:23 MPV 11.3 fL (7.4-10.4) H 01/24/24 10:23 Neut % (Auto) 44.3 % 01/24/24 10:23 Lymph % (Auto) 45.7 % 01/24/24 10:23 Green % (Auto) 8.3 % 01/24/24 10:23 Eos % (Auto) 0.0 % 01/24/24 10:23 Baso % (Auto) 1.4 % 01/24/24 10:23 Neut # (Auto) 2.94 10^3/uL (1.8-7.7) 01/24/24 10:23 Lymph # (Auto) 3.0 10^3/uL (0.8-4.8) 01/24/24 10:23 Green # (Auto) 0.6 10^3/uL (0.2-0.9) 01/24/24 10:23 Eos # (Auto) 0.0 10^3/uL (0.0-0.8) 01/24/24 10:23 Baso # (Auto) 0.1 10^3/uL (0.0-0.1) 01/24/24 10:23 Nucleated RBC % (auto) 0 % 01/24/24 10:23 Nucleated RBCs # 0.0 /100WBC 01/24/24 10:23 Sodium 126 mmol/L (136-145) L 01/24/24 10:23 Potassium 5.2 mmol/L (3.5-5.1) H 01/24/24 10:23 Chloride 87 mmol/L (98-107) L 01/24/24 10:23 Carbon Dioxide 25 mmol/L (22-29) 01/24/24 10:23 Anion Gap 19.2 (5-19) H 01/24/24 10:23 BUN 27 mg/dL (8-23) H 01/24/24 10:23 Creatinine 1.6 mg/dL (0.7-1.2) H 01/24/24 10:23 GFR Calculation 43.5 mL/min (90-130) L 01/24/24 10:23 Glucose 134 mg/dL (65-115) H 01/24/24 10:23 Calculated Osmolality 269 mOsm/kg (285-295) L 01/24/24 10:23 Calcium 8.8 mg/dL (8.5-10.5) 01/24/24 10:23 Total Bilirubin 0.5 mg/dL (0.15-1.2) 01/24/24 10:23 AST 72 U/L (0-40) H 01/24/24 10:23 ALT 36 U/L (0-41) 01/24/24 10:23 Alkaline Phosphatase 67 U/L (40-130) 01/24/24 10:23 Troponin T Baseline 97 ng/L (0-15) H 01/24/24 10:23 Total Protein 6.3 g/dL (6.6-8.7) L 01/24/24 10:23 Albumin 3.6 g/dL (3.5-5.2) 01/24/24 10:23 Globulin 2.7 g/dL (1.3-4.6) 01/24/24 10:23 All radiology interpretation(s) finalized by discharge Discharge Plan Discharge Condition: Stable Prescriptions: No Action atorvastatin 40 mg tablet 40 mg PO QPM folic acid 1 mg tablet See Rx Instructions .ROUTE .COMPLEX Qty: 30 3RF Dose Instruction: TAKE 1 TABLET BY MOUTH EVERY DAY Rx Instructions: TAKE 1 TABLET BY MOUTH EVERY DAY amiodarone 100 mg tablet See Rx Instructions .ROUTE .COMPLEX Qty: 90 3RF Dose Instruction: TAKE ONE TABLET BY MOUTH EVERY DAY Rx Instructions: TAKE ONE TABLET BY MOUTH EVERY DAY amlodipine 5 mg tablet See Rx Instructions .ROUTE .COMPLEX Qty: 30 3RF Dose Instruction: TAKE 1 TABLET BY MOUTH EVERY DAY Rx Instructions: TAKE 1 TABLET BY MOUTH EVERY DAY clopidogrel 75 mg Tablet 75 mg PO DAILY Qty: 30 0RF benazepril 40 mg tablet 20 mg PO DAILY Qty: 5 0RF albuterol sulfate [ProAir HFA] 90 mcg/actuation HFA aerosol inhaler 2 puff INHALATION Q6H PRN (Reason: Shortness Of Breath Or Wheezing) Referrals: Ya Panchal MD [Primary Care Provider] - Coding Level of Care Code ED Securities Compliance Examiner for Yajaira Cooper
[2024-01-24] MEDS: sodium chloride 0.9% 500 ML 999 ML IV ×2 (10:29→11:45)
[2024-01-24 10:30] LABS: Basophils # 0.1 10^3/uL (0.0-0.1); Basophils % 1.4 %; Lymphocytes % 45.7 %; Mean Corpuscular HGB Conc 32.9 g/dL (30-55); Mean Corpuscular Hemoglobin 27.1 pg (27-33); Mean Corpuscular Volume 82.3 fl (82-101); Mean Platelet Volume 11.3 fL (7.4-10.4); Monocytes # 0.6 10^3/uL (0.2-0.9); Monocytes % 8.3 %; Neutrophils # 2.94 10^3/uL (1.8-7.7); Neutrophils % 44.3 %; Nucleated Red Blood Cells % 0 %; Platelet Count 106 10^3/cmm (157-399); Red Cell Distribution Width 14.2 % (12.1-15.1); White Blood Count 6.63 10^3/uL (3.29-11.43)
[2024-01-24] MEDS: clopidogrel 300 mg Tablet 600 MG PO (10:36)
[2024-01-24] MEDS: aspirin 325 mg Tablet PO (10:37)
[2024-01-24] MEDS: amiodarone 150 MG/100 ML PREMIX 400 MG IV (10:37)
[2024-01-24 10:49] LABS: Alanine Aminotransferase 36 U/L (0-41); Albumin Level 3.6 g/dL (3.5-5.2); Alkaline Phosphatase 67 U/L (40-130); Anion Gap 19.2 (5-19); Aspartate Amino Transferase 72 U/L (0-40); Blood Urea Nitrogen 27 mg/dL (8-23); Calcium 8.8 mg/dL (8.5-10.5); Carbon Dioxide 25 mmol/L (22-29); Chloride 87 mmol/L (98-107); Globulin 2.7 g/dL (1.3-4.6); Glomerular Filtration Rate 43.5 mL/min (90-130); Glucose 134 mg/dL (65-115); Osmolality Calculated 269 mOsm/kg (285-295); Potassium 5.2 mmol/L (3.5-5.1); Sodium 126 mmol/L (136-145); Total Bilirubin 0.5 mg/dL (0.15-1.2); Total Protein 6.3 g/dL (6.6-8.7)
[2024-01-24 10:50] LABS: Troponin(5th) Baseline 97 ng/L (0-15)
[2024-01-24 10:51] LABS: Creatinine Clr Calc Pharmacy 40.3236
[2024-01-24 11:06] LABS: Slide Review Slide Review Perform
[2024-01-24] MEDS: calcium chloride 10% Syr 10 mL 1 GM IVP (11:39)
--- NOTE | 2024-01-24 11:58 | PC.PHAR ---
pt states he takes care of his own medications-pt brought in medication bottles and states he takes meds just like the bottles says pt states had all am meds today
--- NOTE | 2024-01-24 12:22 | ECG_ITS ---
[facility] Test Date: 2024-01-24 Pat Name: Pratik Garcia Department: Room: Gender: Male Silicator: : 1955 Requested By: Paul Clemente Order Number: [id number] Cole MD: Tab Sinclair M.D. Measurements Intervals [place] Rate: 81 P: 0 MT: 0 QRS: 25 QRSD: 118 T: 121 QT: 381 QTc: 445 Interpretive Statements ATRIAL FIBRILLATION POSSIBLE INFERIOR MYOCARDIAL INFARCTION , PROBABLY OLD [30 ms Q WAVE IN II/aVF] Compared to ECG 01/24/2024 10:08:57 Myocardial infarct finding now present Intraventricular conduction delay no longer present T-wave abnormality no longer present Electronically Signed On 01-24-2024 12:39:30 CDT by Tab Sinclair M.D. [id number]
[2024-01-24 12:49] LABS: Troponin 5 2HR 61.27 ng/L (0-15)
[2024-01-24 13:15] LABS: Troponin 5 2HR Delta -35.73 ABS# (0-10)
--- NOTE | 2024-01-24 13:46 | P.HP_ITS ---
Providers/Chief Complaint 2 Primary Care Provider: Ya Panchal MD Chief Complaint: SOB, Cough History of Present Illness Pratik Garcia is a 68 year old male with past medical history of CAD, post PCI, atrial fibrillation, COPD, hypertension, hyperlipidemia, IHSS, diastolic heart failure, history of COPD, hypercapnic respiratory failure, chronic smoker quit 2 weeks ago presents to the ER because of difficulty in breathing getting exacerbated on exertion, nausea, decreased appetite, cough, chest heaviness along with feel a palpitation over last 2 to 3 weeks. Patient states he usually does not drink too much water and consumes mostly coffee. Has not consumed alcohol in over a year. Denies any runny nose sick contacts. Denies any chest pain. Symptoms associated with palpitations and feeling as if heart rate is running too fast. States has been taking his medications regularly. Review of Systems 2 General: Reports: 10 or more systems reviewed and unremarkable except in HPI and below Const: Denies: fever(s), chills, body aches, change in appetite, change in weight, malaise, night sweats, diaphoresis, change in sleep pattern, daytime sleepiness or snoring Eyes: Denies: change in vision, blurry vision, photophobia, eye discomfort or eye discharge ENMT: Denies: throat pain, enlarged tonsils, hoarseness, mouth pain, oral sores, dry mouth, tinnitus, nasal congestion or post nasal drip Card: Denies: chest pain, palpitations, irregular heart rhythm, edema, swelling of feet/ankles, lightheadedness, syncope, pre-syncope, dyspnea on exertion, orthopnea, leg pain with exertion or acrocyanosis Resp: Denies: dyspnea, productive cough, non-productive cough, wheezing, stridor, pain on inspiration, change in phlegm color, hemoptysis or chest congestion GI: Denies: abdominal pain, nausea, vomiting, hematemesis, coffee ground emesis, dysphagia, heartburn, diarrhea, constipation, bloating, GI cramping, change in bowel habits, pain on defecation, hematochezia or melena : Denies: flank pain, difficulty urinating, dysuria, urinary frequency, urinary urgency, urinary hesitancy, urinary dribbling, difficulty starting urination, change in urine stream, nocturia or hematuria Musc: Denies: neck pain, back pain, extremity pain, joint pain, joint swelling, joint redness, joint stiffness or limited range of motion Neuro: Denies: headache(s), numbness in extremities, weakness in extremities, sensory changes, lack of coordination, difficulty walking, frequent falls, dizziness, vertigo, confusion, Slurred speech present, difficulty communicating thoughts or seizure-like activity Psych: Denies: anxiety, depression, mood swings, panic attacks, hopelessness or irritability Endo: Denies: polyuria, polydipsia, tired all the time, cold intolerance, excessive sweating, flushing or heat intolerance Lc/Lymph: Denies: easy bruising or easy bleeding All/Imm: Denies: tongue swelling, facial swelling or acute wheezing Medications/Allergies Home Medications Medication Instructions Recorded Confirmed Last Taken Type atorvastatin 40 mg tablet 40 mg PO QPM 12/19/19 01/24/24 01/23/24 History albuterol sulfate 90 mcg/actuation 2 puff inhalation Q6H PRN 07/23/22 01/24/24 07/23/22 History aerosol inhaler (ProAir HFA) Shortness Of Breath Or Wheezing amiodarone 100 mg tablet 100 mg PO QAM 01/24/24 01/24/24 01/24/24 History amlodipine 5 mg tablet 5 mg PO QAM 01/24/24 01/24/24 01/24/24 History apixaban 5 mg tablet (Eliquis) 5 mg PO BID 01/24/24 01/24/24 01/24/24 History benazepril 40 mg tablet 40 mg PO QAM 01/24/24 01/24/24 01/24/24 History clopidogrel 75 mg tablet 75 mg PO QAM 01/24/24 01/24/24 01/24/24 History folic acid 1 mg tablet 1 mg PO QAM 01/24/24 01/24/24 01/24/24 History metoprolol tartrate 37.5 mg tablet 37.5 mg PO QAM 01/24/24 01/24/24 01/24/24 History Allergies Allergy/AdvReac Type Severity Reaction Status Date / Time No Known Allergies Allergy Verified 09/13/23 07:45 PFSH Acute 2 PFSH: Medical History (Updated 01/24/24 @ 17:24 by Gabriel Song MD) COPD (chronic obstructive pulmonary disease) Acute non-ST elevation myocardial infarction (NSTEMI) Self extubation Atherosclerotic heart disease of [place] coronary artery without angina pectoris Fatigue EKG from today revealed sinus rhythm with features of LVH. ST-T changes in the high lateral leads. Occasional PVCs. No significant new changes. Smoker Hyperlipidemia Atrial fibrillation HTN (hypertension) IHSS (idiopathic hypertrophic subaortic stenosis) CAD (coronary artery disease) Hepatitis C Surgical History S/P coronary artery stent placement S/P appendectomy Family History Mother CAD (coronary artery disease) Diabetes Sister Cancer Father Lung disease Other Hypertension Denies family history of Clotting disorder Dementia Chronic kidney disease (CKD) Suicide Anesthesia complication Bleeding disorder Stroke Social History Smoking and tobacco/nicotine status: current every day tobacco/nicotine user Alcohol intake: current Substance/Drug Use: former Vitals/I&O/Wt Last Vital Signs Temp 97.7 F 01/24/24 10:19 Pulse 78 01/24/24 13:01 BP 128/78 01/24/24 13:01 Pulse Ox 96 01/24/24 13:01 O2 Del Method Room Air 01/24/24 10:19 01/23/24 01/24/24 01/24/24 22:59 06:59 14:59 Intake Total 600 / 600 Balance 600 / 600 Weight last 48 hrs Weight 61.235 kg Physical Exam 2 Narrative: General: No acute distress, AO x3 HEENT: PERRLA, pupils bilaterally equal and reactive Chest: Bilateral bronchial breath sounds all over lung field occasional rhonchi and coarse crackles CVS: S1-S2 irregularly irregular, ejection systolic murmur in aortic region radiating into pericardium 2/6, no tachycardia, no gallops, no rubs Abdomen: Soft, nontender, no organomegaly, bowel sounds present Neuro: No focal deficits, no facial deformity, AO x3, power 5/5 in all limbs Data 01/24/24 10:23 01/24/24 12:23 A&P Assessment and plan (1) Atrial fibrillation with RVR: Currently rate controlled. Presented with RVR with hypotension. Continue with amiodarone drip. Continue with home dose of metoprolol 37.5 mg twice daily. Continue with Eliquis 5 mg twice daily. Appreciate recent TSH. Check alcohol, urine drug screen. (2) Hypotension: Present on admission. Most likely in setting of dehydration along with RVR. Received multiple boluses of fluid in the ER. Goal blood pressure less than 140/90 mmHg with mean over 65. Hold off on home dose of amlodipine and ARB. Continue with normal saline at 75 cc/h. (3) Acute kidney injury: Medical reconciliation done for nephrotoxic drugs. Hold off on home dose of potassium and ARB. Check urine lites, urine creatinine, urine eosinophils. Monitor BMP in few hours. (4) Hyponatremia: Repeat BMP in few hours. Urine lites as above. Continuous fluids for now as above. Monitor BMP daily otherwise. (5) Hyperkalemia: Received calcium chloride in the ER. Repeating BMP for now. If still elevated will plan for D50 and 10 units of insulin. (6) IHSS (idiopathic hypertrophic subaortic stenosis): Past history. Last echocardiogram from 2022. Will continue to monitor. (7) S/P coronary artery stent placement: Denies any active chest pain. Troponin 97 admission with delta of -35 AM 2 hours. Monitor troponin cycle. Continue with home dose of Plavix, statin. Check A1c, lipid panel. (8) Shortness of breath: Most likely in setting of COPD exacerbation. Check sputum culture, urine Legionella, bacterial antigen. CT chest without contrast. (9) COPD exacerbation: IV Solu-Medrol 125 mg one-time followed by 40 mg every 6 hourly. Will wean gradually. Start on nebulization with ipratropium, Xopenex every 6 hours and Pulmicort twice daily. Oxygen supplementation keeping saturation over 90%. Plan Cardiac diet Protonix OPD prophylaxis Eliquis will be sufficient for DVT prophylaxis. Attestations 2 Medical Necessity Statement*: Admission for more than 2 midnights for management of A-fib with RVR, acute kidney injury, hyponatremia and hyperkalemia, shortness of breath in setting of COPD exacerbation Diagnoses Atrial fibrillation with RVR I48.91 Hypotension I95.9 Acute kidney injury N17.9 Hyponatremia E87.1 Hyperkalemia E87.5 IHSS (idiopathic hypertrophic subaortic stenosis) I42.1 S/P coronary artery stent placement Z95.5 Shortness of breath R06.02 COPD exacerbation J44.1
[2024-01-24 14:12] LABS: Anion Gap 18.5 (5-19); Blood Urea Nitrogen 26 mg/dL (8-23); Calcium 9.1 mg/dL (8.5-10.5); Carbon Dioxide 19 mmol/L (22-29); Chloride 92 mmol/L (98-107); Glomerular Filtration Rate 55.2 mL/min (90-130); Glucose 141 mg/dL (65-115); Osmolality Calculated 267 mOsm/kg (285-295); Potassium 4.5 mmol/L (3.5-5.1); Sodium 125 mmol/L (136-145)
[2024-01-24 14:14] LABS: Alcohol Level < 10 mg/dL (0-10)
[2024-01-24 14:20] LABS: Procalcitonin 0.27 ng/mL (0-0.5)
[2024-01-24] MEDS: sodium chloride 0.9% 1,000 ML 75 ML IV (14:41)
--- NOTE | 2024-01-24 14:47 | PC.NURSE ---
PATIENTS POTASSIUM LEVEL UPON REDRAW WAS 4.5. CALLED DR. CONTRERAS AND HE VERBALLY ORDERED TO NOT GIVE INSULIN AND DEXTROSE.
--- NOTE | 2024-01-24 16:29 | ECG_ITS ---
[facility] Test Date: 2024-01-24 Pat Name: Pratik Garcia Department: Room: 107 Gender: Male Online Advertising Analyst: : 1955 Requested By: Paul Clemente Order Number: [id number] Cole MD: Tab Sinclair M.D. Measurements Intervals [place] Rate: 94 P: 0 AR: 0 QRS: 36 QRSD: 114 T: 124 QT: 380 QTc: 476 Interpretive Statements ATRIAL FIBRILLATION ANTERIOR MYOCARDIAL INFARCTION , AGE INDETERMINATE Compared to ECG 01/24/2024 12:22:34 No significant changes Electronically Signed On 01-25-2024 10:58:51 CDT by Tab Sinclair M.D. [id number]
--- NOTE | 2024-01-24 17:08 | PC.NURSE ---
PER VERBAL ORDERS FROM DR. GARCIA, PT TO BE HELD IN ER UNTIL HE IS ABLE TO SEE PT.
--- NOTE | 2024-01-24 17:15 | CTR_ITS ---
PROCEDURE INFORMATION: Exam: CT Chest Without Contrast; Diagnostic Exam date and time: 01/24/2024 5:52 PM Age: 68 years old Clinical indication: Cough and shortness of breath; Smoker's cough; Prior surgery; Surgery date: 6+ months; Surgery type: Coronary stent, appendectomy; Patient HX: Cad, post pci, atrial fibrillation, copd, hypertension, hyperlipidemia, ihss, diastolic heart failure, history of copd, hypercapnic respiratory failure, chronic smoker quit 2 weeks ago presents to the er because of difficulty in breathing getting exacerbated on exertion, nausea, decreased appetite, cough, chest heaviness along with feel a palpitation over last 2 to 3 weeks. TECHNIQUE: Imaging protocol: Diagnostic computed tomography of the chest without contrast. Radiation optimization: All CT scans at this facility use at least one of these dose optimization techniques: automated exposure control; mA and/or kV adjustment per patient size (includes targeted exams where dose is matched to clinical indication); or iterative reconstruction. COMPARISON: CT angio chest PE protcl [id number] 08/16/2022 10:29 AM RADIATION DOSE METRICS: Total DLP (mGy-cm): 294.32 FINDINGS: Lungs: Unremarkable. No consolidation. No masses. Pleural spaces: Unremarkable. No pneumothorax. No pleural effusion. Heart: Severe mitral annular calcifications. Coronary arteries: Coronary arterial atherosclerotic calcifications are present. Lymph nodes: Unremarkable. No enlarged lymph nodes. Vasculature: Unremarkable. No aortic aneurysm. Bones/joints: Compression fracture of the T3 vertebral body with a proximally 5 mm of vertebral body height loss. Mild anterior wedging of the T11 vertebral body appears chronic in nature. Soft tissues: Unremarkable. CT/CT chest [facility] [id number] IMPRESSION: 1. No focal consolidation, pleural effusion or suspicious pulmonary nodules or masses. 2. Compression fracture of the T3 vertebral body with a proximally 5 mm of vertebral body height loss.
[2024-01-24 17:38] LABS: Potassium, Radom Urine 63 mmol/L; Urine Creatinine 181 mg/dL (39-259)
[2024-01-24] MEDS: methylPREDNISolone sod succ 125 mg/2 mL INJ IVP (17:38)
[2024-01-24 17:44] LABS: Vitamin B12 253 pg/mL (232-1245)
[2024-01-24 17:45] LABS: Urine Random Chloride 11 mmol/L; Urine Random Sodium 15 mmol/L
[2024-01-24 17:46] LABS: Eosinophil Urine No Eosinophils Seen; Urine Eosinophil Count 0 (0-0)
[2024-01-24 17:52] LABS: Amphetamines Screen Urine Negative (Negative); Barbiturates Screen Urine Negative (Negative); Benzodiazepines Screen Urine Negative (Negative); Cocaine Screen Urine Negative (Negative); Opiate Screen Urine Negative (Negative); PCP Screen Urine Negative (Negative); THC Screen Urine Positive (Negative)
[2024-01-24 17:58] LABS: Protein Urine 1+ (Negative); Specific Gravity, Urine 1.025 (1.005-1.030); Urine Appearance Clear (CLEAR); Urine Color Dark Yellow (Yellow); pH Urine 5 (5-7)
[2024-01-24 17:59] LABS: Add Urine Culture? No; Add Urine Microscopic? YES; Bacteria Urine 1+ /hpf; Bilirubin Urine Neg (Negative); Blood Urine Trace (Negative); Glucose Urine UA Norm (Normal); Hyaline Casts Urine 0-4 /lpf; Ketones Urine Negative (Negative); Leukocyte Esterase Urine Negative (Negative); Nitrate Urine Negative (Negative); Urobilinogen Urine Norm (Negative); WBC Urine 0-4 /hpf (0-5)
--- NOTE | 2024-01-24 18:05 | PC.NURSE ---
Patient came to [facility] from ED via a bed at 1805.
[2024-01-24 19:55] LABS: Iron 44 ug/dL (59-158); Percent Saturation 19.1 % (20-50); Total Iron Binding Capacity 230 mcg/dl; Unsaturated Iron Binding 186 ug/dL (112-347)
[2024-01-24] MEDS: apixaban 5 mg Tablet PO (20:25)
[2024-01-24] MEDS: atorvastatin 40 mg Tablet PO (20:25)
[2024-01-24] MEDS: pantoprazole 40 mg SDV IVP (20:26)
[2024-01-24] MEDS: methylPREDNISolone sod succ 40 mg/mL INJ IVP ×2 (20:26→23:47)
[2024-01-24] MEDS: ipratropium 0.5 mg/2.5 mL Neb INHALATION (20:29)
[2024-01-24] MEDS: budesonide 0.5 mg/2 mL Neb INHALATION (20:29)
[2024-01-24] MEDS: levalbuterol 0.63 mg/3 mL Neb 0.630000000000000004 MG INHALATION (20:29)
[2024-01-24 21:34] LABS: Troponin 5 6HR 53.12 ng/L (0-15)
[2024-01-24 21:35] LABS: Troponin 5 6HR Delta -43.88 ng/L (0-12)
[2024-01-24] MEDS: trazodone 100 mg Tablet PO (21:59)
[2024-01-25] VITALS (7 sets, daily range): BP systolic 96–113; BP diastolic 63–87; PULSE 74–107; RESP 14–23; TEMP 36.3–36.9; O2SAT 90–94; BMI 21.9
[2024-01-25] MEDS: sodium chloride 0.9% 1,000 ML 75 ML IV (04:27)
[2024-01-25 05:12] LABS: Basophils % 0.9 %; Hematocrit 46.3 % (37-53); Lymphocytes # 1.9 10^3/uL (0.8-4.8); Lymphocytes % 53.5 %; Mean Corpuscular HGB Conc 32.8 g/dL (30-55); Mean Corpuscular Hemoglobin 26.9 pg (27-33); Mean Corpuscular Volume 81.8 fl (82-101); Mean Platelet Volume 11.2 fL (7.4-10.4); Monocytes # 0.2 10^3/uL (0.2-0.9); Monocytes % 6.4 %; Neutrophils # 1.35 10^3/uL (1.8-7.7); Neutrophils % 38.9 %; Nucleated Red Blood Cells % 0 %; Platelet Count 109 10^3/cmm (157-399); Red Blood Count 5.66 10^6/uL (3.85-5.65); Red Cell Distribution Width 14.2 % (12.1-15.1); White Blood Count 3.46 10^3/uL (3.29-11.43)
[2024-01-25 05:33] LABS: Chol HDL Ratio 6.36 mg/dL (1.0-5.00); Cholesterol 89 mg/dL (0-200); Estmated Average Glucose 137; HDL Cholesterol 14 mg/dL (60-100); Hemoglobin A1C 6.4 % (4.0-6.0); LDL Cholesterol Calculated 27 mg/dL (50-129); LDL HDL Ratio 1.93 RATIO (0.00-3.22); Triglycerides 241 mg/dL (0-150)
[2024-01-25] MEDS: metoprolol tartrate 25 mg Tablet 37.5 MG PO (05:33)
[2024-01-25] MEDS: clopidogrel 75 mg Tablet PO (05:33)
[2024-01-25] MEDS: methylPREDNISolone sod succ 40 mg/mL INJ IVP ×2 (05:35→13:16)
[2024-01-25 05:37] LABS: Alanine Aminotransferase 25 U/L (0-41); Albumin Level 2.9 g/dL (3.5-5.2); Alkaline Phosphatase 61 U/L (40-130); Anion Gap 14.1 (5-19); Aspartate Amino Transferase 43 U/L (0-40); Blood Urea Nitrogen 27 mg/dL (8-23); Calcium 8.2 mg/dL (8.5-10.5); Carbon Dioxide 26 mmol/L (22-29); Chloride 97 mmol/L (98-107); Creatinine Clr Calc Pharmacy 59.6698; Globulin 2.8 g/dL (1.3-4.6); Glucose 186 mg/dL (65-115); Osmolality Calculated 284 mOsm/kg (285-295); Phosphorus 4.5 mg/dL (2.5-4.5); Potassium 5.1 mmol/L (3.5-5.1); Sodium 132 mmol/L (136-145); Total Bilirubin 0.4 mg/dL (0.15-1.2); Total Protein 5.7 g/dL (6.6-8.7)
[2024-01-25 05:56] LABS: Folate Level > 20.0 ng/mL (4.5-32.2)
[2024-01-25] MEDS: budesonide 0.5 mg/2 mL Neb INHALATION (07:50)
[2024-01-25] MEDS: ipratropium 0.5 mg/2.5 mL Neb INHALATION (07:50)
[2024-01-25] MEDS: levalbuterol 0.63 mg/3 mL Neb 0.630000000000000004 MG INHALATION (07:50)
[2024-01-25] MEDS: amiodarone 200 mg Tablet PO (09:41)
[2024-01-25] MEDS: apixaban 5 mg Tablet PO (09:41)
--- NOTE | 2024-01-25 10:07 | P.DS_ITS ---
Discharge Providers Date of Admission: 01/24/24 18:04 Date of Discharge: January 25, 2024 Attending Provider at Admission: Gabriel Song MD Attending Provider at Discharge: Blayne Ewing Primary Care Provider: Ya Panchal MD Diagnoses at Discharge Discharge Diagnosis (1) Atrial fibrillation with RVR: Status: Acute (2) Hypotension: Status: Acute (3) Acute kidney injury: Status: Acute (4) Hyponatremia: Status: Acute (5) Hyperkalemia: Status: Acute (6) IHSS (idiopathic hypertrophic subaortic stenosis): Status: Acute (7) S/P coronary artery stent placement: Status: Acute (8) Shortness of breath: Status: Acute (9) COPD exacerbation: Status: Acute Reason for Visit Reason for Visit: SOB, Cough Brief History: Pratik Garcia is a 68 year old male with past medical history of CAD, post PCI, atrial fibrillation, COPD, hypertension, hyperlipidemia, IHSS, diastolic heart failure, history of COPD, hypercapnic respiratory failure, chronic smoker quit 2 weeks ago presents to the ER because of difficulty in breathing getting exacerbated on exertion, nausea, decreased appetite, cough, chest heaviness fly g with feel a palpitation over last 2 to 3 weeks. Patient states he usually does not drink too much water and consumes mostly coffee. Has not consumed alcohol in over a year. Denies any runny nose sick contacts. Denies any chest pain. Symptoms associated with palpitations and feeling as if heart rate is running too fast. States has been taking his medications regularly. Hospital Course Hospital Course On presentation with finding of atrial fibrillation with RVR, hypotension with cardiogenic shock, systolic blood pressure 50 management today, component of hypovolemic shock with dehydration as well, received fluid resuscitation, started on amiodarone drip, Once blood pressure is improved resumed on home dose metoprolol. Hypovolemic hyponatremia on presentation improved. Hyperkalemia on presentation has resolved. Does have history of coronary disease status post stent placement. Has remained free of chest pain. Troponin with moderate elevation without rise to seen prior acute ischemia, and has remained asymptomatic. On presentation with COPD exacerbation, treated with IV steroids, breathing treatments while in the hospital. Breathing is improved, weaned off oxygen support and is on room air. He had more rapid improvement than anticipated and is overall feeling much better. Discussed with him, he tells me his amiodarone was decreased recently as low as 50 mg/day. Discussed for now we will continue to 9 mg Giurgius today and he is to decrease it after 1 week to 200 mg daily. Follow-up with cardiology for reassessment and consideration of continued weaning and/or change to an alternative agent due to risk with amiodarone, please follow-up for possible toxicities including to eyes, his thyroid, lungs, liver. Additionally discussed with him prediabetes, A1c 6.4. Discussed consistent carbohydrate diet, including moderate exercise. Please follow-up and reassess for improvement and/or progression to diabetes. Amlodipine and benazepril are discontinued at discharge for now given hypotension on presentation, and has not been hypertensive subsequently, blood pressure 100/63. Please reassess, consider if at any point these need to be reintroduced in case blood pressures are becoming hypertensive. Physical Exam Const: COMMON NORMALS: patient oriented x3 and alert GENERAL APPEARANCE: cooperative ORIENTATION/CONSCIOUSNESS: Yes awake HENMT: COMMON NORMALS: oropharynx normal Neck/C-Spine: COMMON NORMALS: no JVD Resp: COMMON NORMALS: normal respiratory effort and clear to auscultation bilaterally AUSCULTATION: clear to auscultation bilaterally Cardio: COMMON NORMALS: no JVD, regular rhythm, S1 normal heart sound present, S2 normal heart sound present and No murmurs present (Cardio) RHYTHM: regular rhythm HEART SOUNDS: S1 normal heart sound present and S2 normal heart sound present GI: COMMON NORMALS: Normal to inspection, nondistended, normoactive bowel sounds present, Soft to palpation and non-tender PALPATION: Yes Soft to palpation Extremity: COMMON NORMALS: no joint enlargement and no pedal edema Neuro: COMMON NORMALS: patient oriented x3 and moves all extremities SENSORIUM/ORIENTATION: Yes alert Skin: COMMON NORMALS: no rashes or lesions noted GENERAL SKIN EXAM: no rashes or lesions noted Discharge Data Studies Completed and Pending Completed Studies During Hospitalization Category Date Time Status CT chest wo con [id number] Stat Cat Scan 01/24/24 17:15 Completed XR chest 1V portable [id number] Stat Exams 01/24/24 10:15 Completed Pending at discharge Category Date Time Status Complete Blood Count w/Auto AM LABS Lab 01/26/24 04:00 Ordered Complete Blood Count w/Auto AM LABS Lab 01/27/24 04:00 Ordered Complete Blood Count w/Auto AM LABS Lab 01/28/24 04:00 Ordered Comprehensive Metabolic Panel AM LABS Lab 01/26/24 04:00 Ordered Comprehensive Metabolic Panel AM LABS Lab 01/27/24 04:00 Ordered Comprehensive Metabolic Panel AM LABS Lab 01/28/24 04:00 Ordered Radiology Impressions Chest X-Ray 01/24/24 10:15 IMPRESSION: No acute findings. Chest CT 01/24/24 17:15 IMPRESSION: 1. No focal consolidation, pleural effusion or suspicious pulmonary nodules or masses. 2. Compression fracture of the T3 vertebral body with a proximally 5 mm of vertebral body height loss. Laboratory Results WBC 3.46 10^3/uL (3.29-11.43) 01/25/24 04:52 RBC 5.66 10^6/uL (3.85-5.65) H 01/25/24 04:52 Hgb 15.20 g/dL (11.27-16.99) 01/25/24 04:52 Hct 46.3 % (37-53) 01/25/24 04:52 MCV 81.8 fl (82-101) L 01/25/24 04:52 MCH 26.9 pg (27-33) L 01/25/24 04:52 MCHC 32.8 g/dL (30-55) 01/25/24 04:52 RDW 14.2 % (12.1-15.1) 01/25/24 04:52 Plt Count 109 10^3/cmm (157-399) L 01/25/24 04:52 MPV 11.2 fL (7.4-10.4) H 01/25/24 04:52 Neut % (Auto) 38.9 % 01/25/24 04:52 Lymph % (Auto) 53.5 % 01/25/24 04:52 [place] % (Auto) 6.4 % 01/25/24 04:52 Eos % (Auto) 0.0 % 01/25/24 04:52 Baso % (Auto) 0.9 % 01/25/24 04:52 Neut # (Auto) 1.35 10^3/uL (1.8-7.7) L 01/25/24 04:52 Lymph # (Auto) 1.9 10^3/uL (0.8-4.8) 01/25/24 04:52 [place] # (Auto) 0.2 10^3/uL (0.2-0.9) 01/25/24 04:52 Eos # (Auto) 0.0 10^3/uL (0.0-0.8) 01/25/24 04:52 Baso # (Auto) 0.0 10^3/uL (0.0-0.1) 01/25/24 04:52 Nucleated RBC % (auto) 0 % 01/25/24 04:52 Nucleated RBCs # 0.0 /100WBC 01/25/24 04:52 Sodium 132 mmol/L (136-145) L 01/25/24 04:52 Potassium 5.1 mmol/L (3.5-5.1) 01/25/24 04:52 Chloride 97 mmol/L (98-107) L 01/25/24 04:52 Carbon Dioxide 26 mmol/L (22-29) 01/25/24 04:52 Anion Gap 14.1 (5-19) 01/25/24 04:52 BUN 27 mg/dL (8-23) H 01/25/24 04:52 Creatinine 1.1 mg/dL (0.7-1.2) 01/25/24 04:52 GFR Calculation 67.0 mL/min (90-130) L 01/25/24 04:52 Glucose 186 mg/dL (65-115) H 01/25/24 04:52 Estimat Average Glucose 137 01/25/24 04:52 Hemoglobin A1c 6.4 % (4.0-6.0) H 01/25/24 04:52 Calculated Osmolality 284 mOsm/kg (285-295) L 01/25/24 04:52 Calcium 8.2 mg/dL (8.5-10.5) L 01/25/24 04:52 Phosphorus 4.5 mg/dL (2.5-4.5) 01/25/24 04:52 Magnesium 2.0 mg/dL (1.7-2.3) 01/25/24 04:52 Iron 44 ug/dL (59-158) L 01/24/24 10:23 TIBC 230 mcg/dl 01/24/24 10:23 % Saturation 19.1 % (20-50) L 01/24/24 10:23 Unsat Iron Binding 186 ug/dL (112-347) 01/24/24 10:23 Total Bilirubin 0.4 mg/dL (0.15-1.2) 01/25/24 04:52 AST 43 U/L (0-40) H 01/25/24 04:52 ALT 25 U/L (0-41) 01/25/24 04:52 Alkaline Phosphatase 61 U/L (40-130) 01/25/24 04:52 Troponin T Baseline 97 ng/L (0-15) H 01/24/24 10:23 Troponin T 120 Minute 61.27 ng/L (0-15) H 01/24/24 12:18 Delta Troponin T -35.73 ABS# (0-10) L 01/24/24 12:18 Troponin T Hi Sens 6Hr 53.12 ng/L (0-15) H 01/24/24 21:01 Troponin T Hi Sens 6Hr Delta -43.88 ng/L (0-12) L 01/24/24 21:01 Total Protein 5.7 g/dL (6.6-8.7) L 01/25/24 04:52 Albumin 2.9 g/dL (3.5-5.2) L 01/25/24 04:52 Globulin 2.8 g/dL (1.3-4.6) 01/25/24 04:52 Triglycerides 241 mg/dL (0-150) H 01/25/24 04:52 Cholesterol 89 mg/dL (0-200) 01/25/24 04:52 LDL Cholesterol, Calc 27 mg/dL (50-129) L 01/25/24 04:52 HDL Cholesterol 14 mg/dL (60-100) L 01/25/24 04:52 LDL/HDL Ratio 1.93 RATIO (0.00-3.22) 01/25/24 04:52 Cholesterol/HDL Ratio 6.36 mg/dL (1.0-5.00) H 01/25/24 04:52 Vitamin B12 253 pg/mL (232-1245) 01/24/24 12:23 Folate > 20.0 ng/mL (4.5-32.2) 01/25/24 04:52 Procalcitonin 0.27 ng/mL (0-0.5) 01/24/24 12:23 Urine Color Dark yellow (Yellow) 01/24/24 17:16 Urine Appearance Clear (CLEAR) 01/24/24 17:16 Urine pH 5 (5-7) 01/24/24 17:16 Ur Specific [place] 1.025 (1.005-1.030) 01/24/24 17:16 Urine Protein 1+ (Negative) H 01/24/24 17:16 Urine Glucose (UA) Norm (Normal) 01/24/24 17:16 Urine Ketones Negative (Negative) 01/24/24 17:16 Urine Blood Trace (Negative) H 01/24/24 17:16 Urine Nitrate Negative (Negative) 01/24/24 17:16 Urine Bilirubin Neg (Negative) 01/24/24 17:16 Urine Urobilinogen Norm mg/dL (Negative) 01/24/24 17:16 Ur Leukocyte Esterase Negative (Negative) 01/24/24 17:16 Urine RBC None /hpf (0-2) 01/24/24 17:16 Urine WBC 0-4 /hpf (0-5) H 01/24/24 17:16 Ur Eosinophil Smear 0 (0-0) 01/24/24 17:16 Ur Squamous Epith Cells None /hpf (0-5) 01/24/24 17:16 Amorphous Sediment Not Reportable 01/24/24 17:16 Urine Bacteria 1+ /hpf (NONE) H 01/24/24 17:16 Hyaline Casts 0-4 /lpf H 01/24/24 17:16 Urine Eosinophils No eosinophils seen 01/24/24 17:16 Ur Random Sodium 15 mmol/L 01/24/24 17:16 Ur Random Potassium 63 mmol/L 01/24/24 17:16 Ur Random Chloride 11 mmol/L 01/24/24 17:16 Urine Creatinine 181 mg/dL (39-259) 01/24/24 17:16 Urine Opiates Screen Negative ng/mL (Negative) 01/24/24 17:16 Ur Barbiturates Screen Negative ng/mL (Negative) 01/24/24 17:16 Ur Phencyclidine Scrn Negative ng/mL (Negative) 01/24/24 17:16 Ur Amphetamines Screen Negative ng/mL (Negative) 01/24/24 17:16 U Benzodiazepines Scrn Negative ng/mL (Negative) 01/24/24 17:16 Urine Cocaine Screen Negative ng/mL (Negative) 01/24/24 17:16 U Marijuana (THC) Screen Positive ng/mL (Negative) H 01/24/24 17:16 Ethyl Alcohol < 10 mg/dL (0-10) 01/24/24 12:23 Vitals Last Vital Signs Temp 98.4 F 01/25/24 08:00 Pulse 94 01/25/24 08:00 Resp 22 H 01/25/24 08:00 BP 113/83 01/25/24 08:00 Pulse Ox 94 01/25/24 08:00 O2 Del Method Room Air 01/25/24 08:00 Discharge Plan Discharge Patient Disposition: Home Condition: Stable Prescriptions: New prednisone 20 mg tablet 20 mg PO DAILY 4 Days Qty: 4 0RF Continued atorvastatin 40 mg tablet 40 mg PO QPM albuterol sulfate [ProAir HFA] 90 mcg/actuation HFA aerosol inhaler 2 puff INHALATION Q6H PRN (Reason: Shortness Of Breath Or Wheezing) Eliquis 5 mg tablet 5 mg PO BID metoprolol tartrate 37.5 mg tablet 37.5 mg PO QAM folic acid 1 mg tablet 1 mg PO QAM clopidogrel 75 mg tablet 75 mg PO QAM Changed amiodarone 100 mg tablet See Rx Instructions .ROUTE .COMPLEX Qty: 90 0RF Rx Instructions: 200mg BID for 1 week, then 200mg daily. Discontinued amlodipine 5 mg tablet 5 mg PO QAM benazepril 40 mg tablet 40 mg PO QAM Discharge Orders: Discharge Order (Routine); Ordered 01/25/24 Ordered By: Blayne Ewing Referrals: Ya Panchal MD [Primary Care Provider] - 01/28/24 10:00 am (Please keep your appointment as scheduled. January 27 @ 10;00a.m. Thank you! ) Violeta Lewis FNP [Nurse Practitioner] - 02/04/24 2:30 pm (AFib RVR, Amio dosing) Discharge Diet: Diabetic Discharge Activity: Increase activity as tolerated Patient Instructions: Diabetes and Diet, Prednisone (By mouth), Amiodarone (By mouth), COPD (Chronic Obstructive Pulmonary Disease) (GEN), Prediabetes (GEN) Activity Restrictions/Additional Instructions: Follow-up with your primary doctor for reassessment of atrial fibrillation control. Continue amiodarone dose 200 mg twice daily for 1 week then decrease down to 200 mg daily. Have your primary doctor follow-up regarding amiodarone and any potential adverse effects including possibility of toxicity to thyroid, lungs, liver, etc. Follow-up with cardiology for consideration of alternative agent. Discussed with cardiology at next appointment regarding atrial fibrillation with rapid ventricular response during admission and need for amiodarone infusion. Follow up with cardiology and your primary doctor regardingheart enlargement and outflow obstruction. Avoid dehydration. Continue metoprolol. Monitor your blood pressures at home 3 times daily, write down values, continue blood pressure medications, target blood pressure 120/80. Follow-up with your primary doctor also to reassess kidney function after kidney injury. Avoid any NSAIDs like ibuprofen, Aleve, etc. Follow-up with your primary doctor for reassessment of prediabetes, your A1c is 6.4. Please maintain consistent carbohydrate/diabetic diet as discussed, including avoiding sugary snacks, soda, sweet tea, opt for unsweetened or diet alternatives were possible. Substitute whole-wheat carbohydrates if having bread, pasta, etc., limit overall. Include lots of veggies some fruit. Follow-up with your primary doctor for reassessment of sodium and potassium at next visit. Follow-up with your primary doctor for reassessment of COPD after exacerbation. Compression fracture of the third thoracic vertebra was incidentally seen on CT scan on presentation. Please follow-up with your primary provider. Discharge Attestations Time Spent in Discharge Care*: greater than 30 min Quality Metrics Clinical Quality Measures [ No reported AMI, CVA or VTE this stay] Coding Level of Care Code 19730 Total time (in minutes) for Discharge: 40 Diagnoses Atrial fibrillation with RVR I48.91 Hypotension I95.9 Acute kidney injury N17.9 Hyponatremia E87.1 Hyperkalemia E87.5 IHSS (idiopathic hypertrophic subaortic stenosis) I42.1 S/P coronary artery stent placement Z95.5 Shortness of breath R06.02 COPD exacerbation J44.1
--- NOTE | 2024-01-25 11:07 | PC.NURSE ---
pt belongings removed from pyxis. dgtr handed pt his wallet with 91$ in it and his home med bottles prior to dc.
--- NOTE | 2024-01-25 14:50 | PC.NURSE ---
Discharge Note Patient discharged to [home] via [w/c to POV] accompanied by [family]. 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 Mobile pharmacy medications and/or prescriptions provided. Belongings/home medications returned and given to stepdaughter earlier this shift by Axel Rodriguez RN
== END 2024-01-25 14:50 | disposition home or self-care (01) ==
LOC: ER 10:33 → CSU 01-25 08:51
PROVIDERS: Admitting Provider Student in an Organized Health Care Education/Training Program; Emergency Provider Family Medicine; PCP Internal Medicine; Visit Provider Internal Medicine
DX: I48.91 Unspecified atrial fibrillation (principal); I95.9 Hypotension, unspecified; N17.9 Acute kidney failure, unspecified; E87.1 Hypo-osmolality and hyponatremia; E87.5 Hyperkalemia; I42.1 Obstructive hypertrophic cardiomyopathy; Z95.5 Presence of coronary angioplasty implant and graft; R06.02 Shortness of breath; J44.1 Chronic obstructive pulmonary disease with (acute) exacerbation; I25.10 Atherosclerotic heart disease of native coronary artery without angina pectoris; E78.5 Hyperlipidemia, unspecified; I11.0 Hypertensive heart disease with heart failure; I50.30 Unspecified diastolic (congestive) heart failure; Z87.891 Personal history of nicotine dependence; Z86.19 Personal history of other infectious and parasitic diseases
CPT/HCPCS: 36415; 71045; 71250; 80048; 80053; 80061; 80306; 80307; 81001; 82436; 82570; 82607; 82746; 83036; 83540; 83550; 83735; 84100; 84133; 84145; 84300; 84484; 85025; 85999; 93005; 94640; 96365; 96366; 96375; 96376; 99285; C9113; G0378; J0283; J1644; J2919; J3490; J7030; J7040; J7614; J7626; J7644

== ENCOUNTER 2024-06-24 12:10 | Inpatient (IN) | payer MEDICARE, MEDICAID, SELFPAY ==
[2024-06-24] VITALS (12 sets, daily range): BP systolic 136–168; BP diastolic 84–109; PULSE 58–68; RESP 16–23; TEMP 36.4; O2SAT 90–94; BMI 24.5; BMI 26.0
--- NOTE | 2024-06-24 12:11 | ECG_ITS ---
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 Measurements Intervals [place] Rate: 63 P: 64 AL: 194 QRS: 29 QRSD: 118 T: 119 QT: 466 QTc: 480 Interpretive Statements SINUS RHYTHM WITH OCCASIONAL VENTRICULAR PREMATURE COMPLEXES LEFT VENTRICULAR HYPERTROPHY AND ST-T CHANGE [VOLTAGE CRITERIA PLUS ST/T ABNORMALITY] Compared to ECG 01/24/2024 16:29:56 Ventricular premature complex(es) now present Left ventricular hypertrophy now present ST (T wave) deviation now present Atrial fibrillation no longer present Myocardial infarct finding no longer present Electronically Signed On 06-25-2024 20:55:05 CDT by Landy Ivy M.D. [email or web address]/store/NU/[id number]
--- NOTE | 2024-06-24 12:14 | XR_ITS ---
WS: [id number] Exam: XR chest 1V portable [id number] Date/Time of Exam: 06/24/2024 12:26 PM Reason For Exam: chest pain Comparison 01/24/2024. Lungs are hyperinflated and clear. Heart size top limits normal. The mediastinum is unremarkable for technique. No pleural effusions. Bony structures are intact. XR/XR chest 1V portable [id number] IMPRESSION: 1. Pulmonary hyperinflation which may indicate obstructive lung disease. No acu te finding.
[2024-06-24 12:23] LABS: Basophils # 0.1 10^3/uL (0.0-0.1); Basophils % 1.4 %; Eosinophils # 0.1 10^3/uL (0.0-0.8); Hematocrit 51.4 % (37-53); Lymphocytes # 2.6 10^3/uL (0.8-4.8); Lymphocytes % 37.3 %; Mean Corpuscular HGB Conc 32.1 g/dL (30-55); Mean Corpuscular Hemoglobin 26.7 pg (27-33); Mean Corpuscular Volume 83.2 fl (82-101); Mean Platelet Volume 8.8 fL (7.4-10.4); Monocytes # 0.7 10^3/uL (0.2-0.9); Monocytes % 10.5 %; Neutrophils # 3.44 10^3/uL (1.8-7.7); Neutrophils % 48.5 %; Nucleated Red Blood Cells % 0 %; Platelet Count 287 10^3/cmm (157-399); Red Blood Count 6.18 10^6/uL (3.85-5.65); White Blood Count 7.08 10^3/uL (3.29-11.43)
--- NOTE | 2024-06-24 12:31 | ED_ITS ---
HPI - Chest Pain 2 General: Chief Complaint: Chest Pain Stated Complaint: CHEST PAIN Time Seen by Provider: 06/24/24 12:13 History of Present Illness: 68-year-old male presents to the emergen cy room with complaints of chest pain. He reports he has been having chest discomfort and increasing shortness of breath with activity over the last couple of weeks been increasing in intensity and frequency. He has a known history of heart disease and has a previous stent. The episode last night occurred after he had been arguing with his girlfriend. He did take a nitro and is pain-free now. Associated symptoms: Reports dyspnea; Deny abdominal pain or fever(s) Related Data Home Medications Medication Instructions Recorded Confirmed atorvastatin 40 mg tablet 40 mg PO QPM 12/19/19 06/24/24 apixaban 5 mg tablet (Eliquis) 5 mg PO BID 01/24/24 06/24/24 metoprolol tartrate 37.5 mg tablet 37.5 mg PO QAM 01/24/24 06/24/24 amlodipine 5 mg tablet 5 mg PO DAILY 06/24/24 06/24/24 benazepril 40 mg tablet 40 mg PO DAILY 06/24/24 06/24/24 Previous Rx's Medication Instructions Recorded amiodarone 100 mg tablet See Rx Instructions .Route 01/25/24 .COMPLEX #90 tabs Allergies Allergy/AdvReac Type Severity Reaction Status Date / Time No Known Allergies Allergy Verified 09/13/23 07:45 Review of Systems 2 Const: Denies: fever(s) or chills Card: Reports: chest pain Resp: Reports: dyspnea; Denies: productive cough or chest congestion GI: Denies: abdominal pain : Denies: dysuria, urinary frequency or urinary urgency Musc: Denies: neck pain or back pain Skin/Breast: Denies: rash PFSH ED 2 PFSH: Medical History COPD (chronic obstructive pulmonary disease) Acute non-ST elevation myocardial infarction (NSTEMI) Self extubation Atherosclerotic heart disease of [place] coronary artery without angina pectoris Fatigue EKG from today revealed sinus rhythm with features of LVH. ST-T changes in the high lateral leads. Occasional PVCs. No significant new changes. Smoker Quit in December 2023 Hyperlipidemia Atrial fibrillation HTN (hypertension) IHSS (idiopathic hypertrophic subaortic stenosis) CAD (coronary artery disease) Hepatitis C Surgical History S/P coronary artery stent placement S/P appendectomy Family History Mother CAD (coronary artery disease) Diabetes Sister Cancer Father Lung disease Other Hypertension Denies family history of Clotting disorder Dementia Chronic kidney disease (CKD) Suicide Anesthesia complication Bleeding disorder Stroke Social History Smoking and tobacco/nicotine status: current every day tobacco/nicotine user Alcohol intake: current Substance/Drug Use: former Physical Exam 2 Const: GENERAL APPEARANCE: cooperative ORIENTATION/CONSCIOUSNESS: Yes awake, Yes oriented to person, Yes oriented to place and Yes oriented to time HENMT: COMMON NORMALS: normocephalic, atraumatic and hearing grossly normal bilaterally HEAD & SCALP: normocephalic and atraumatic Resp: COMMON NORMALS: normal respiratory effort, No retractions, No use of accessory muscles and clear to auscultation bilaterally AUSCULTATION: clear to auscultation bilaterally Cardio: COMMON NORMALS: regular rate, regular rhythm and No murmurs present (Cardio) RATE: regular rate RHYTHM: regular rhythm GI: COMMON NORMALS: Soft to palpation and No hepatosplenomegaly present A USCULTATION: Yes normoactive bowel sounds PALPATION: Yes Soft to palpation, No Tenderness to palpation present (GI), No Guarding due to palpation present (GI) and Yes No hepatosplenomegaly present Extremity: COMMON NORMALS: normal to inspection, capillary refill normal, no clubbing, cyanosis or edema, no calf tenderness and no pedal edema Neuro: SENSORIUM/ORIENTATION: Yes oriented to person, Yes oriented to place and Yes oriented to time Skin: COMMON NORMALS: no rashes or lesions noted GENERAL SKIN EXAM: no rashes or lesions noted Course 2 Vital Signs: Vital signs: Vital Signs Temperature 97.6 F 06/24/24 12:12 Pulse Rate 68 06/24/24 16:14 Respiratory Rate 16 06/24/24 16:14 Blood Pressure 168/102 06/24/24 16:00 Pulse Oximetry 93 06/24/24 16:14 Oxygen Delivery Me thod Room Air 06/24/24 16:14 MDM - Chest Pain Medical Decision Making Patient has a history of coronary disease having increasing anginal-like symptoms with chest discomfort and shortness of breath. EKG did not show any acute ST elevation his first troponin is 41 discussed with hospitalist will admit orders written Medical Records I reviewed the patient's medical records. Lab Data I reviewed the patient's lab results. 06/24/24 12:18 06/24/24 12:18 Radiology Impressions Chest X-Ray 06/24/24 12:14 IMPRESSION: 1. Pulmonary hyperinflation which may indicate obstructive lung disease. No acute finding. Laboratory Results WBC 7.08 10^3/uL (3.29-11.43) 06/24/24 12:18 RBC 6.18 10^6/uL (3.85-5.65) H 06/24/24 12:18 Hgb 16.50 g/dL (11.27-16.99) 06/24/24 12:18 Hct 51.4 % (37-53) 06/24/24 12:18 MCV 83.2 fl (82-101) 06/24/24 12:18 MCH 26.7 pg (27-33) L 06/24/24 12:18 MCHC 32.1 g/dL (30-55) 06/24/24 12:18 RDW 14.0 % (12.1-15.1) 06/24/24 12:18 Plt Count 287 10^3/cmm (157-399) 06/24/24 12:18 MPV 8.8 fL (7.4-10.4) 06/24/24 12:18 Neut % (Auto) 48.5 % 06/24/24 12:18 Lymph % (Auto) 37.3 % 06/24/24 12:18 [place] % (Auto) 10.5 % 06/24/24 12:18 Eos % (Auto) 2.0 % 06/24/24 12:18 Baso % (Auto) 1.4 % 06/24/24 12:18 Neut # (Auto) 3.44 10^3/uL (1.8-7.7) 06/24/24 12:18 Lymph # (Auto) 2.6 10^3/uL (0.8-4.8) 06/24/24 12:18 [place] # (Auto) 0.7 10^3/uL (0.2-0.9) 06/24/24 12:18 Eos # (Auto) 0.1 10^3/uL (0.0-0.8) 06/24/24 12:18 Baso # (Auto) 0.1 10^3/uL (0.0-0.1) 06/24/24 12:18 Nucleated RBC % (auto) 0 % 06/24/24 12:18 Nucleated RBCs # 0.0 /100WBC 06/24/24 12:18 Sodium 138 mmol/L (136-145) 06/24/24 12:18 Potassium 4.2 mmol/L (3.5-5.1) 06/24/24 12:18 Chloride 96 mmol/L (98-107) L 06/24/24 12:18 Carbon Dioxide 32 mmol/L (22-29) H 06/24/24 12:18 Anion Gap 14.2 (5-19) 06/24/24 12:18 BUN 19 mg/dL (8-23) 06/24/24 12:18 Creatinine 1.2 mg/dL (0.7-1.2) 06/24/24 12:18 GFR Calculation 60.6 mL/min (90-130) L 06/24/24 12:18 Glucose 97 mg/dL (65-115) 06/24/24 12:18 Calculated Osmolality 288 mOsm/kg (285-295) 06/24/24 12:18 Calcium 9.6 mg/dL (8.5-10.5) 06/24/24 12:18 Total Bilirubin 0.7 mg/dL (0.15-1.2) 06/24/24 12:18 AST 26 U/L (0-40) 06/24/24 12:18 ALT 18 U/L (0-41) 06/24/24 12:18 Alkaline Phosphatase 96 U/L (40-130) 06/24/24 12:18 Troponin T Baseline 40 ng/L (0-15) H 06/24/24 12:25 Troponin T 120 Minute 36.88 ng/L (0-15) H 06/24/24 14:08 Delta Troponin T -3.12 ABS# (0-10) L 06/24/24 14:08 Total Protein 7.2 g/dL (6.6-8.7) 06/24/24 12:18 Albumin 4.6 g/dL (3.5-5.2) 06/24/24 12:18 Globulin 2.6 g/dL (1.3-4.6) 06/24/24 12:18 All radiology interpretation(s) finalized by discharge Discharge Plan Discharge Patient Disposition: Admitted As Inpatient Admit Provider: Lolis Spence Clinical Impression: Chest pain, Atherosclerotic heart disease of [place] coronary artery without angina pectoris, Alcohol abuse, COPD (chronic obstructive pulmonary disease), Atrial fibrillation Condition: Stable Coding Level of Care Code ED 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
[2024-06-24 12:51] LABS: Troponin(5th) Baseline 40 ng/L (0-15)
[2024-06-24 12:55] LABS: Alanine Aminotransferase 18 U/L (0-41); Albumin Level 4.6 g/dL (3.5-5.2); Alkaline Phosphatase 96 U/L (40-130); Anion Gap 14.2 (5-19); Aspartate Amino Transferase 26 U/L (0-40); Blood Urea Nitrogen 19 mg/dL (8-23); Calcium 9.6 mg/dL (8.5-10.5); Carbon Dioxide 32 mmol/L (22-29); Chloride 96 mmol/L (98-107); Globulin 2.6 g/dL (1.3-4.6); Glomerular Filtration Rate 60.6 mL/min (90-130); Glucose 97 mg/dL (65-115); Osmolality Calculated 288 mOsm/kg (285-295); Potassium 4.2 mmol/L (3.5-5.1); Sodium 138 mmol/L (136-145); Total Bilirubin 0.7 mg/dL (0.15-1.2); Total Protein 7.2 g/dL (6.6-8.7)
--- NOTE | 2024-06-24 14:00 | ECG_ITS ---
[facility] Test Date: 2024-06-24 Pat Name: Pratik Garcia Department: Room: Gender: Male Direct Support Staff: : 1955 Requested By: Paul Clemente Order Number: [id number] Cole MD: Landy Ivy M.D. Measurements Intervals [place] Rate: 59 P: 44 ND: 204 QRS: -4 QRSD: 117 T: 117 QT: 469 QTc: 465 Interpretive Statements SINUS BRADYCARDIA LEFT VENTRICULAR HYPERTROPHY AND ST-T CHANGE [VOLTAGE CRITERIA PLUS ST/T ABNORMALITY] Compared to ECG 06/24/2024 12:11:50 Sinus rhythm no longer present Ventricular premature complex(es) no longer present ST (T wave) deviation still present Electronically Signed On 06-25-2024 21:14:39 CDT by Landy Ivy M.D. [id number]
[2024-06-24 14:30] LABS: Troponin 5 2HR 36.88 ng/L (0-15); Troponin 5 2HR Delta -3.12 ABS# (0-10)
[2024-06-24] MEDS: nitroglycerin 1 gm/inch oint Pkt 0.5 INCH TOPICAL (14:44)
--- NOTE | 2024-06-24 14:53 | P.HP_ITS ---
Providers/Chief Complaint 2 Admitting Physician: Lolis Spence MD Primary Care Provider: Ya Panchal MD Chief Complaint: CHEST PAIN History of Present Illness Pratik Garcia is a 68 year old male with past medical history of CAD, post PCI, atrial fibrillation, COPD, hypertension, hyperlipidemia, IHSS, diastolic heart failure, history of COPD, hypercapnic respiratory failure, chronic smoker presented with c/o chest pain/pressure like symptoms since this morning. As per the patient he has been arguing with his girlfriend since yesterday night and and did not sleep last night. He started having chest pressure like symptoms, midsternal, since 1030 this morning, aggravated by exertion and argument, no relieving factors and no associated symptoms like shortness of breath, dizziness, palpitations. He took 4 baby aspirin's at home. He continued to have chest pain and hence called EMS. He received nitro glycerin sublingual on his way to the hospital which relieved his chest pain. On arrival in ER he received aspirin 325 mg and sublingual nitroglycerin 0.5 mg During my assessment, he continued to have intermittent chest pressure-like symptoms and palpitations but heart rate was 64 on the monitor. He has a history of ischemic heart disease s/p PCI x 2 in 09/12. Was recently admitted in 02/11 for A-fib with RVR and COPD exacerbation Last echo was Severe concentric left ventricular hypertrophy with more prominent asymmetric hypertrophy of the septum. LV systolic function is normal with EF of 60 to 65%. Grade 1 diastolic dysfunction. Mild mitral regurgitation Elevated resting LVOT peak gradient of 35 mmHg. Findings consistent with hypertrophic cardiomyopathy. Mild tricuspid regurgitation Mild pulmonic regurgitation EKG was normal sinus rhythm, no acute ST-T changes 2 set of troponin was 40, 36 Chest x-ray negative for any acute findings Review of Systems 2 General: Reports: 10 or more systems reviewed and unremarkable except in HPI and below Medications/Allergies Home Medications Medication Instructions Recorded Confirmed Last Taken Type atorvastatin 40 mg tablet 40 mg PO QPM 12/19/19 06/24/24 01/23/24 History apixaban 5 mg tablet (Eliquis) 5 mg PO BID 01/24/24 06/24/24 01/24/24 History metoprolol tartrate 37.5 mg tablet 37.5 mg PO QAM 01/24/24 06/24/24 01/24/24 History amiodarone 100 mg tablet See Rx Instructions .Route 01/25/24 06/24/24 01/24/24 Rx .COMPLEX #90 tabs amlodipine 5 mg tablet 5 mg PO DAILY 06/24/24 06/24/24 06/23/24 History benazepril 40 mg tablet 40 mg PO DAILY 06/24/24 06/24/24 Unknown History Allergies Allergy/AdvReac Type Severity Reaction Status Date / Time No Known Allergies Allergy Verified 09/13/23 07:45 PFSH Acute 2 PFSH: Medical History COPD (chronic obstructive pulmonary disease) Acute non-ST elevation myocardial infarction (NSTEMI) Self extubation Atherosclerotic heart disease of [place] coronary artery without angina pectoris Fatigue EKG from today revealed sinus rhythm with features of LVH. ST-T changes in the high lateral leads. Occasional PVCs. No significant new changes. Smoker Quit in December 2023 Hyperlipidemia Atrial fibrillation HTN (hypertension) IHSS (idiopathic hypertrophic subaortic stenosis) CAD (coronary artery disease) Hepatitis C Surgical History S/P coronary artery stent placement S/P appendectomy Family History Mother CAD (coronary artery disease) Diabetes Sister Cancer Father Lung disease Other Hypertension Denies family history of Clotting disorder Dementia Chronic kidney disease (CKD) Suicide Anesthesia complication Bleeding disorder Stroke Social History Smoking and tobacco/nicotine status: current every day tobacco/nicotine user Alcohol intake: current Substance/Drug Use: former Vitals/I&O/Wt Last Vital Signs Temp 97.6 F 06/24/24 12:12 Pulse 58 L 06/24/24 12:44 Resp 18 06/24/24 12:44 BP 146/84 06/24/24 12:44 Pulse Ox 90 06/24/24 12:44 O2 Del Method Room Air 06/24/24 12:44 Weight last 48 hrs Weight 58.967 kg Physical Exam 2 Narrative: General: No acute distress, AO x3 HEENT: PERRLA, pupils bilaterally equal and reactive Chest: CTA, no wheezing or rhonchi CVS: S1-S2 irregularly irregular, ejection systolic murmur in aortic region radiating into pericardium 2/6, no tachycardia, no gallops, no rubs Abdomen: Soft, nontender, no organomegaly, bowel sounds present Neuro: No focal deficits, no facial deformity, AO x3, power 5/5 in all limbs Data 06/24/24 12:18 06/24/24 12:18 A&P Assessment and plan (1) Chest pain: (2) COPD (chronic obstructive pulmonary disease): (3) Atrial fibrillation with RVR: (4) Atrial fibrillation: Qualifiers: Atrial fibrillation type: paroxysmal Qualified Code(s): I48.0 - Paroxysmal atrial fibrillation (5) Hyperlipidemia: Qualifiers: Hyperlipidemia type: mixed hyperlipidemia Qualified Code(s): E78.2 - Mixed hyperlipidemia (6) HTN (hypertension): Qualifiers: Hypertension type: essential hypertension Qualified Code(s): I10 - Essential (primary) hypertension (7) IHSS (idiopathic hypertrophic subaortic stenosis): (8) CAD (coronary artery disease): Qualifiers: Coronary Disease-Associated Artery/Lesion type: [place] artery [place] vs. transplanted heart: [place] heart Associated angina: without angina Qualified Code(s): I25.10 - Atherosclerotic heart disease of [place] coronary artery without angina pectoris (9) Smoker: (10) Hypercapnic respiratory failure: Plan Pratik Garcia is a 68 year old male with past medical history of CAD, post PCI, atrial fibrillation, COPD, hypertension, hyperlipidemia, IHSS, diastolic heart failure, history of COPD, hypercapnic respiratory failure, chronic smoker presented with c/o chest pain/pressure like symptoms since this morning. # Chest pain/pressure-like symptom-rule out ACS 2 sets of troponins 40, 36 EKG normal sinus rhythm, no acute ST-T changes Continuous cardiac telemetry monitoring Cardiology consult for possible stress test in a.m. Will keep n.p.o. 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 # COPD-stable, DuoNebs as needed Counseled and educated about smoking cessation. DVT prophylaxis, he is already on Eliquis GI prophylaxis with IV Pepcid 20 mg twice daily CODE STATUS discussed with the patient he is full code for now. Attestations 2 Medical Necessity Statement*: Needs continued hospitalization anticipating not crossing 2 midnights for management and work up for chest pain. Time Spent in Patient Care: 45minutes Coding Level of Care Code Acute Code for Chg Fwd Diagnoses Chest pain R07.9 COPD (chronic obstructive pulmonary disease) J44.9 Atrial fibrillation with RVR I48.91 Paroxysmal atrial fibrillation I48.0 Atrial fibrillation type: paroxysmal Mixed hyperlipidemia E78.2 Hyperlipidemia type: mixed hyperlipidemia Essential hypertension I10 Hypertension type: essential hypertension IHSS (idiopathic hypertrophic subaortic stenosis) I42.1 Coronary artery disease involving [place] coronary artery of [place] heart without angina pectoris I25.10 Coronary Disease-Associated Artery/Lesion type: [place] artery [place] vs. transplanted heart: [place] heart Associated angina: without angina Smoker F17.200 Hypercapnic respiratory failure J96.92 Time Spent (min) 45
[2024-06-24] MEDS: famotidine 20 mg/2 mL INJ IVP (15:51)
[2024-06-24] MEDS: sodium chloride 0.9% 1,000 ML 60 ML IV (15:51)
[2024-06-24] MEDS: atorvastatin 40 mg Tablet PO (17:39)
[2024-06-24] MEDS: apixaban 5 mg Tablet PO (17:39)
--- NOTE | 2024-06-24 17:44 | P.CONIM_ITS ---
Providers/Reason For Consult 2 Consulting Physician/Specialty*: FLAQUITA Ivy MD/cardiology Reason for Consult*: Patient with history of atherosclerotic heart diseas presenting with unstable anginal symptoms Requesting Physician: Dr. Spence Attending Physician: Lolis Spence MD Primary Care Provider: Ya Panchal MD History of Present Illness History of Present Illness Pratik Garcia is a 68 year old male with a history of atherosclerotic heart disease and multiple PCI's in the past, he is admitted to hospital through the emergency room where he presented with complaints of persistent chest pain/heaviness. This patient is known to have atherosclerotic heart disease, multiple PCI's, IHSS, atrial fibrillation, high blood pressure, dyslipidemia smoking abuse and alcohol abuse. He had the most recent coronary angiogram followed by PCI in August of last year. The angiogram at that time revealed total occlusion of the right coronary artery with around 60% lesion in the proximal to the mid left anterior descending artery. The IFR of the lesion was 0.82. So he underwent a PCI of the LAD lesion. According the patient, he been poorly compliant with the diet exercise and medication. He has been smoking at least a pack a day. Also has been drinking, 6-8 shots a day. He has been missing his medications many times. Last night he had a heated argument with his . In fact the argument continued throughout the night. This morning, he was feeling very tight in his chest associated shortness of breath. The tightness was radiating across the chest. He took few aspirin and which apparently did not relieve the symptoms. He did not have any sublingual nitro at home. His symptoms kept getting worse. For that reason, the ambulance was called in. He was given sublingual nitro in the ambulance. His symptoms gradually started subsiding afterwards. Currently at the time of my examination, the pain is 1 or 2/10. According the patient, he was trying to quit smoking for a while but because of the bad company, he started smoking more. Currently smokes at least a pack a day. He has been forgetting his medications quite often. He denies any fever or chills. No significant cough. He has dyspnea on exertion. No orthopnea PND. The functional status has been declining. After the last coronary intervention in August, he had 2 appointments scheduled at the clinic and he apparently missed both of them. He has a history of hypertension, dyslipidemia, hypertrophic cardiomyopathy, COPD/sleep. And intermitt. for the atrial fibrillation. Review of Systems 2 Narrative: CONSTITUTIONAL: No fever or chills. EYES: No blurring of vision or other visual disturbances lately. ENT: No hoarseness of voice, auditory disturbances or sore throat. CARDIOVASCULAR: As mentioned above. RESPIRATORY: No significant cough. GASTROINTESTINAL: No hematemesis or melena. GENITOURINARY: No dysuria or hematuria. INTEGUMENTARY: No skin rashes or history of skin cancer. NEURO: No transient ischemic attacks or amaurosis. PSYCHIATRIC: No history of psychosis or major depression. HEMATOLOGIC: Patient is on long-term oral anticoagulation. ENDOCRINE: No history of polyuria or polydipsia. MUSCULOSKELETAL: No recent joint pain or swelling. ALLERGY/IMMUNOLOGY: As mentioned above. Medications/Allergies Home Medications Medication Instructions Recorded Confirmed Last Taken Type atorvastatin 40 mg tablet 40 mg PO QPM 12/19/19 06/24/24 01/23/24 History apixaban 5 mg tablet (Eliquis) 5 mg PO BID 01/24/24 06/24/24 01/24/24 History metoprolol tartrate 37.5 mg tablet 37.5 mg PO QAM 01/24/24 06/24/24 01/24/24 History amiodarone 100 mg tablet See Rx Instructions .Route 01/25/24 06/24/24 01/24/24 Rx .COMPLEX #90 tabs amlodipine 5 mg tablet 5 mg PO DAILY 06/24/24 06/24/24 06/23/24 History benazepril 40 mg tablet 40 mg PO DAILY 06/24/24 06/24/24 Unknown History Allergies Allergy/AdvReac Type Severity Reaction Status Date / Time No Known Allergies Allergy Verified 09/13/23 07:45 Current Medications Generic Name Dose Route Start Last Admin Trade Name Freq PRN Reason Stop Dose Admin Apixaban 5 mg 06/24/24 18:00 06/24/24 17:39 Apixaban 5 Mg Tablet PO 5 mg BID CHITO Administration Atorvastatin Calcium 40 mg 06/24/24 18:00 06/24/24 17:39 Atorvastatin 40 Mg Tablet PO 40 mg QPM CHITO Administration Famotidine 20 mg 06/24/24 15:15 06/24/24 15:51 Famotidine 20 Mg/2 Ml Inj IVP 20 mg Q12H CHITO Administration Sodium Chloride 1,000 mls @ 60 mls/hr 06/24/24 15:15 06/24/24 15:51 Sodium Chloride 0.9% IV 60 mls/hr .[id number] CHITO Administration PFSH Acute 2 PFSH: Medical History COPD (chronic obstructive pulmonary disease) Acute non-ST elevation myocardial infarction (NSTEMI) Self extubation Atherosclerotic heart disease of [place] coronary artery without angina pectoris Fatigue EKG from today revealed sinus rhythm with features of LVH. ST-T changes in the high lateral leads. Occasional PVCs. No significant new changes. Smoker Quit in December 2023 Hyperlipidemia Atrial fibrillation HTN (hypertension) IHSS (idiopathic hypertrophic subaortic stenosis) CAD (coronary artery disease) Hepatitis C Surgical History S/P coronary artery stent placement S/P appendectomy Family History Mother CAD (coronary artery disease) Diabetes Sister Cancer Father Lung disease Other Hypertension Denies family history of Clotting disorder Dementia Chronic kidney disease (CKD) Suicide Anesthesia complication Bleeding disorder Stroke Social History Smoking and tobacco/nicotine status: current every day tobacco/nicotine user Alcohol intake: current Substance/Drug Use: former Vitals/I&O/Wt Last Vital Signs Temp 97.6 F 06/24/24 12:12 Pulse 68 06/24/24 16:14 Resp 16 06/24/24 16:14 BP 168/102 06/24/24 16:00 Pulse Ox 93 06/24/24 16:14 O2 Del Method Room Air 06/24/24 16:14 Weight last 48 hrs Weight 138 lb Weight 130 lb Physical Exam 2 Narrative: GENERAL: The patient is alert and oriented times three. Not in any acute distress. HEENT: No significant pallor, icterus or lymphadenopathy.Oral cavity: There are no mucous membrane lesions. NECK: Trachea appears to be central. No masses noted. No JVD or thyromegaly appreciated. RESPIRATORY: Chest is symmetrical. No intercostals muscle retraction or any accessory muscle activation. There is no chest wall tenderness. Breath sounds are heard bilaterally. No rales or rhonchi heard. No evidence of any consolidation. BREASTS: Deferred. HEART: The heart sounds are normal. No S3 or S4. No significant murmurs. No pericardial rub ABDOMEN: No vessel pulsations or distention. No tenderness. No organomegaly appreciated. Bowel sounds are normally heard. : Deferred. RECTAL: Deferred. LYMPHATIC: No lymphadenopathy noted in the neck. EXTREMITIES: No edema or cyanosis. No clubbing. MUSCULOSKELETAL: No acute joint deformities or swelling SKIN: There are no significant rashes or ecchymosis NEUROPSYCHIATRIC: The patient is alert and oriented x3. Appears to be in a good mood. No tremors or rigidity noted. Data 06/24/24 12:18 06/24/24 12:18 Other Labs: Laboratory Last Values WBC 7.08 10^3/uL (3.29-11.43) 06/24/24 12:18 RBC 6.18 10^6/uL (3.85-5.65) H 06/24/24 12:18 Hgb 16.50 g/dL (11.27-16.99) 06/24/24 12:18 Hct 51.4 % (37-53) 06/24/24 12:18 MCV 83.2 fl (82-101) 06/24/24 12:18 MCH 26.7 pg (27-33) L 06/24/24 12:18 MCHC 32.1 g/dL (30-55) 06/24/24 12:18 RDW 14.0 % (12.1-15.1) 06/24/24 12:18 Plt Count 287 10^3/cmm (157-399) 06/24/24 12:18 MPV 8.8 fL (7.4-10.4) 06/24/24 12:18 Neut % (Auto) 48.5 % 06/24/24 12:18 Lymph % (Auto) 37.3 % 06/24/24 12:18 [place] % (Auto) 10.5 % 06/24/24 12:18 Eos % (Auto) 2.0 % 06/24/24 12:18 Baso % (Auto) 1.4 % 06/24/24 12:18 Neut # (Auto) 3.44 10^3/uL (1.8-7.7) 06/24/24 12:18 Lymph # (Auto) 2.6 10^3/uL (0.8-4.8) 06/24/24 12:18 [place] # (Auto) 0.7 10^3/uL (0.2-0.9) 06/24/24 12:18 Eos # (Auto) 0.1 10^3/uL (0.0-0.8) 06/24/24 12:18 Baso # (Auto) 0.1 10^3/uL (0.0-0.1) 06/24/24 12:18 Nucleated RBC % (auto) 0 % 06/24/24 12:18 Nucleated RBCs # 0.0 /100WBC 06/24/24 12:18 Sodium 138 mmol/L (136-145) 06/24/24 12:18 Potassium 4.2 mmol/L (3.5-5.1) 06/24/24 12:18 Chloride 96 mmol/L (98-107) L 06/24/24 12:18 Carbon Dioxide 32 mmol/L (22-29) H 06/24/24 12:18 Anion Gap 14.2 (5-19) 06/24/24 12:18 BUN 19 mg/dL (8-23) 06/24/24 12:18 Creatinine 1.2 mg/dL (0.7-1.2) 06/24/24 12:18 GFR Calculation 60.6 mL/min (90-130) L 06/24/24 12:18 Glucose 97 mg/dL (65-115) 06/24/24 12:18 Calculated Osmolality 288 mOsm/kg (285-295) 06/24/24 12:18 Calcium 9.6 mg/dL (8.5-10.5) 06/24/24 12:18 Total Bilirubin 0.7 mg/dL (0.15-1.2) 06/24/24 12:18 AST 26 U/L (0-40) 06/24/24 12:18 ALT 18 U/L (0-41) 06/24/24 12:18 Alkaline Phosphatase 96 U/L (40-130) 06/24/24 12:18 Troponin T Baseline 40 ng/L (0-15) H 06/24/24 12:25 Troponin T 120 Minute 36.88 ng/L (0-15) H 06/24/24 14:08 Delta Troponin T -3.12 ABS# (0-10) L 06/24/24 14:08 Total Protein 7.2 g/dL (6.6-8.7) 06/24/24 12:18 Albumin 4.6 g/dL (3.5-5.2) 06/24/24 12:18 Globulin 2.6 g/dL (1.3-4.6) 06/24/24 12:18 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 Features of LVH. Some ST-T changes in the anterolateral leads. Other data: Cardiac catheterization in August 2023 Left Main has no significant disease. * Circumflex has no significant disease. * Proximal Right Coronary Artery to Mid Right Coronary Artery: chronic total occlusion NIRAV: 0 flow. Right to right collaterals. * Proximal Left Anterior Descending to Mid Left Anterior Descending: obstructive 60% stenosis, NIRAV: 3 flow. * Coronary angiography shows right dominance. Echocardiogram in August 2023 Severe concentric left ventricular hypertrophy with more prominent asymmetric hypertrophy of the septum. LV systolic function is normal with EF of 60 to 65%. Grade 1 diastolic dysfunction. Mild mitral regurgitation Elevated resting LVOT peak gradient of 35 mmHg. Findings consistent with hypertrophic cardiomyopathy. Mild tricuspid regurgitation Mild pulmonic regurgitation Compared to prior echocardiogram from 08/16/2022, gradients across LVOT are not as significant comparison with prior echocardiogram from 08/16/2022 shows gradient on the current study across LVOT and not as significant however likely from inability to capture true gradients on this study. Features are consistent with hypertrophic obstructive cardiomyopathy A&P Assessment and plan (1) Atherosclerotic heart disease of [place] coronary artery with unstable angina pectoris: Possibility of restenosis of the recently intervene lesion because of his noncompliance is a strong consideration. The EKG is unremarkable. No evidence of any myocardial is so far. Qualifiers: [place] vs. transplanted heart: [place] heart Qualified Code(s): I25.110 - Atherosclerotic heart disease of [place] coronary artery with unstable angina pectoris (2) IHSS (idiopathic hypertrophic subaortic stenosis): Patient was found to have moderate gradient across the LV outflow tract with the most recent echocardiogram in August of last year. (3) Intermittent atrial fibrillation: Currently he is in sinus rhythm. He is on long-term oral anticoagulation with Eliquis. He also is on amiodarone. The Eliquis need to be held at this point. (4) Hyperlipidemia: May continue on the current medications. Qualifiers: Hyperlipidemia type: mixed hyperlipidemia Qualified Code(s): E78.2 - Mixed hyperlipidemia (5) HTN (hypertension): The antihypertensive medications need to be optimized. Qualifiers: Hypertension type: essential hypertension Qualified Code(s): I10 - Essential (primary) hypertension Plan Will hold the Eliquis for now. May start him on Lovenox 60 mg every 12 hours from tomorrow morning onwards. Consider cardiac catheterization in 48 hours after discontinuing the Eliquis. He may be started on topical nitrates, p.o. aspirin and other current medications. Based on the clinical progress and the results of the echo, further recommendations will be made. Thank you for the opportunity to evaluate this patient and make these recommendations Consult Attestations 2 Medical Necessity Statement: Patient requires continued hospital stay for close monitoring and further management Coding Level of Care Code 59846 Diagnoses Atherosclerosis of [place] coronary artery of [place] heart with unstable angina pectoris I25.110 [place] vs. transplanted heart: [place] heart IHSS (idiopathic hypertrophic subaortic stenosis) I42.1 Intermittent atrial fibrillation I48.0 Mixed hyperlipidemia E78.2 Hyperlipidemia type: mixed hyperlipidemia Essential hypertension I10 Hypertension type: essential hypertension
--- NOTE | 2024-06-24 18:14 | ECG_ITS ---
[facility] Test Date: 2024-06-24 Pat Name: Pratik Garcia Department: Room: 111 Gender: Male [employer]: : 1955 Requested By: Paul Clemente Order Number: [id number] Reading MD: Landy Ivy M.D. Measurements Intervals [place] Rate: 66 P: 52 NC: 200 QRS: -12 QRSD: 125 T: 95 QT: 448 QTc: 470 Interpretive Statements SINUS RHYTHM LEFT VENTRICULAR HYPERTROPHY AND ST-T CHANGE [VOLTAGE CRITERIA PLUS ST/T ABNORMALITY] PROBABLE LATERAL MYOCARDIAL INFARCTION , OF INDETERMINATE AGE [35 ms Q WAVE IN I/aVL/V5/V6] Compared to ECG 06/24/2024 14:00:13 Myocardial infarct finding now present Sinus bradycardia no longer present ST (T wave) deviation still present Electronically Signed On 06-25-2024 21:16:47 CDT by Landy Ivy M.D. [email or web address]
[2024-06-24 18:53] LABS: Troponin 5 6HR 36.98 ng/L (0-15)
[2024-06-24 18:54] LABS: Troponin 5 6HR Delta -3.02 ng/L (0-12)
[2024-06-25] VITALS (8 sets, daily range): BP systolic 164–186; BP diastolic 84–109; PULSE 58–74; RESP 14–22; TEMP 36.7–37.2; O2SAT 92–96
[2024-06-25] MEDS: famotidine 20 mg/2 mL INJ IVP ×2 (02:44→17:49)
[2024-06-25 05:17] LABS: Basophils # 0.1 10^3/uL (0.0-0.1); Basophils % 1.5 %; Eosinophils # 0.2 10^3/uL (0.0-0.8); Eosinophils % 2.6 %; Lymphocytes # 2.1 10^3/uL (0.8-4.8); Lymphocytes % 31.8 %; Mean Corpuscular HGB Conc 31.7 g/dL (30-55); Mean Corpuscular Volume 85.2 fl (82-101); Monocytes # 0.8 10^3/uL (0.2-0.9); Monocytes % 12.4 %; Neutrophils # 3.33 10^3/uL (1.8-7.7); Neutrophils % 51.5 %; Nucleated Red Blood Cells % 0 %; Platelet Count 221 10^3/cmm (157-399); White Blood Count 6.47 10^3/uL (3.29-11.43)
[2024-06-25 05:28] LABS: Anion Gap 11.9 (5-19); Blood Urea Nitrogen 15 mg/dL (8-23); Calcium 8.7 mg/dL (8.5-10.5); Carbon Dioxide 26 mmol/L (22-29); Chloride 102 mmol/L (98-107); Creatinine Clr Calc Pharmacy 58.3161; Glomerular Filtration Rate 74.8 mL/min (90-130); Glucose 97 mg/dL (65-115); Osmolality Calculated 283 mOsm/kg (285-295); Potassium 3.9 mmol/L (3.5-5.1); Sodium 136 mmol/L (136-145)
[2024-06-25 05:39] LABS: NT Pro B Type Natriuretic Pept 1059 pg/mL (0-125)
[2024-06-25] MEDS: metoprolol tartrate 25 mg Tablet 37.5 MG PO (05:43)
[2024-06-25] MEDS: enoxaparin 60 mg/0.6 mL Syringe SUBCUT ×2 (05:44→17:49)
--- NOTE | 2024-06-25 07:47 | USCV_ITS ---
Pratik Garcia Age: 68 Gender: M : 1955 Exam Date: 06/25/2024 12:59 Ordering Phys: Lolis Spence MD Technologist: Zach Blanca Exam Location: [facility] [place] Indication: chest pain BP: 168 / 92 HR: 58 Rhythm: Sinus Technical Quality: Adequate MEASUREMENTS (Male / Female) Normal Values 2D ECHO LV Diastolic Diameter PLAX 4.4 cm 4.2 - 5.9 / 3.9 - 5.3 cm IVS Diastolic Thickness 1.8 cm 0.6 - 1.0 / 0.6 - 0.9 cm IVS Systolic Thickness 2.4 cm LVPW Diastolic Thickness 1.7 cm 0.6 - 1.0 / 0.6 - 0.9 cm LVPW Systolic Thickness 2.9 cm LVOT Diameter 2.1 cm LV Ejection Fraction 2D Teich 94.4 % LV Ejection Fraction MOD 4C 67.7 % LV Ejection Fraction MOD 2C 70.7 % LV Ejection Fraction 2C AL 73.3 % LA Diameter 4.5 cm RA Systolic Volume 4C AL 51.3 ml RA Systolic Volume 4C MOD 50.5 ml LA Sys Volume AL 77.4 cm cubed LA Sys Volume Index AL 46.5 cm cubed/m squared Aorta at Sinotubular Diameter 2.4 cm IVC Diameter 1.6 cm M-MODE LA Ao Ratio MM 1.6 AV Cusp Separation MM 1.5 cm DOPPLER AV Peak Velocity 181.7 cm/s LVOT Peak Velocity 146.0 cm/s AV Area Cont Eq vti 3.1 cm squared AV Area Cont Eq pk 2.8 cm squared MV Peak Velocity 141.0 cm/s MV Area PHT 3.5 cm squared Mitral E to A Ratio 0.6 TV Peak Velocity 238.3 cm/s TR Peak Velocity 297.0 cm/s TR Peak Gradient 35.3 mmHg TR Mean Velocity 232.0 cm/s TR Mean Gradient 22.9 mmHg TR Velocity Time Integral 90.6 cm RV Ejection Time 0.3 s FINDINGS Left Ventricle Normal LV size ejection fraction 75%.no regional wall motion abnormalities. Moderate left ventricular hypertrophy. Right Ventricle The right ventricle is normal in size and function. Right Atrium The right atrium is normal in size. Left Atrium Mildly increased left atrium. Mitral Valve Moderate mitral annular calcification Aortic Valve Mild aortic valve calcification. Tricuspid Valve No vegetations or masses.trace to mild tricuspid valve regurgitation. Pulmonic Valve Pulmonic valve not well visualized. Pericardium No pericardial effusion. Aorta Normal aortic annulus size. IVC The inferior vena cava appears normal. CONCLUSIONS Normal LV size ejection fraction 75%. No regional wall motion abnormalities. Moderate left ventricular hypertrophy. Mildly increased left atrium. Moderate mitral annular calcification. Mild aortic valve calcification. No vegetations or masses.trace to mild tricuspid valve regurgitation. There is no pericardial effusion. There are no intracardiac masses. The LVOT gradient was not done properly Dr Landy Iyv MD FACC (Electronically Signed) Final Date: 25 June 2024 15:21 S
[2024-06-25] MEDS: aspirin 81 mg EC Tablet PO (08:43)
[2024-06-25] MEDS: amlodipine 5 mg Tablet PO ×2 (08:43→12:51)
[2024-06-25] MEDS: lisinopril 20 mg Tablet 40 MG PO (08:43)
[2024-06-25] MEDS: sodium chloride 0.9% 1,000 ML 60 ML IV (08:49)
[2024-06-25] MEDS: amiodarone 200 mg Tablet PO (09:31)
--- NOTE | 2024-06-25 10:08 | PM.PN ---
Subjective Subjective: Patient still has some tight feeling but that is much better. The vitals are stable. The blood pressure is elevated in the 160s and 170s. No arrhythmias on the monitor. Heart rate is in the 50s. Medications: Medication Review Details: Current Medications Acetaminophen (Acetaminophen 325 Mg Tablet) 325 mg PO Q4H PRN PRN Reason: MILD PAIN OR INCREASE TEMP Albuterol Sulfate (Albuterol 2.5 Mg/3 Ml Neb) 2.5 mg INHALATION Q6H.RESP PRN PRN Reason: SHORTNESS OF BREATH Amiodarone HCl (Amiodarone 200 Mg Tablet) 200 mg PO DAILY [facility] Last Admin: 06/25/24 09:31 Dose: 200 mg Amlodipine Besylate (Amlodipine 5 Mg Tablet) 5 mg PO DAILY [facility] Last Admin: 06/25/24 08:43 Dose: 5 mg Aspirin (Aspirin 81 Mg Ec Tablet) 81 mg PO DAILY [facility] Last Admin: 06/25/24 08:43 Dose: 81 mg Atorvastatin Calcium (Atorvastatin 40 Mg Tablet) 40 mg PO QPM [facility] Last Admin: 06/24/24 17:39 Dose: 40 mg Enoxaparin Sodium (Enoxaparin 60 Mg/0.6 Ml Syringe) 60 mg SUBCUT Q12H [facility] Last Admin: 06/25/24 05:44 Dose: 60 mg Famotidine (Famotidine 20 Mg/2 Ml Inj) 20 mg IVP Q12H [facility] Last Admin: 06/25/24 02:44 Dose: 20 mg Sodium Chloride (Sodium Chloride 0.9%) 1,000 mls @ 60 mls/hr IV .[id number] [facility] Last Admin: 06/25/24 08:49 Dose: 60 mls/hr Lisinopril (Lisinopril 20 Mg Tablet) 40 mg PO DAILY [facility] Last Admin: 06/25/24 08:43 Dose: 40 mg Metoprolol Tartrate (Metoprolol Tartrate 25 Mg Tablet) 37.5 mg PO QAM [facility] Last Admin: 06/25/24 05:43 Dose: 37.5 mg Vitals/I&O/Wt Last Vital Signs Temp 98.9 F 06/25/24 08:00 Pulse 60 06/25/24 08:25 Resp 16 06/25/24 08:25 BP 168/92 06/25/24 08:00 Pulse Ox 94 06/25/24 08:25 O2 Del Method Room Air 06/25/24 08:25 O2 Flow Rate 2 06/25/24 04:00 06/24/24 06/25/24 06/25/24 22:59 06:59 14:59 Intake Total 240 / 240 1000 / 1000 Balance 240 / 240 1000 / 1000 Weight last 48 hrs Weight 139 lb 12.369 oz Weight 138 lb Weight 130 lb Physical Exam Narrative: GENERAL: The patient is alert and oriented times three. Not in any acute distress. HEENT: No significant pallor, icterus or lymphadenopathy.Oral cavity: There are no mucous membrane lesions. NECK: Trachea appears to be central. No masses noted. No JVD or thyromegaly appreciated. RESPIRATORY: Chest is symmetrical. No intercostals muscle retraction or any accessory muscle activation. There is no chest wall tenderness. Breath sounds are heard bilaterally. No rales or rhonchi heard. No evidence of any consolidation. BREASTS: Deferred. HEART: The heart sounds are normal. No S3 or S4. No significant murmurs. No pericardial rub ABDOMEN: No vessel pulsations or distention. No tenderness. No organomegaly appreciated. Bowel sounds are normally heard. : Deferred. RECTAL: Deferred. LYMPHATIC: No lymphadenopathy noted in the neck. EXTREMITIES: No edema or cyanosis. No clubbing. MUSCULOSKELETAL: No acute joint deformities or swelling SKIN: There are no significant rashes or ecchymosis NEUROPSYCHIATRIC: The patient is alert and oriented x3. Appears to be in a good mood. No tremors or rigidity noted. Data 06/25/24 04:48 06/25/24 04:48 Other Labs: Laboratory Last Values WBC 6.47 10^3/uL (3.29-11.43) 06/25/24 04:48 RBC 5.40 10^6/uL (3.85-5.65) 06/25/24 04:48 Hgb 14.60 g/dL (11.27-16.99) 06/25/24 04:48 Hct 46.0 % (37-53) 06/25/24 04:48 MCV 85.2 fl (82-101) 06/25/24 04:48 MCH 27.0 pg (27-33) 06/25/24 04:48 MCHC 31.7 g/dL (30-55) 06/25/24 04:48 RDW 14.0 % (12.1-15.1) 06/25/24 04:48 Plt Count 221 10^3/cmm (157-399) 06/25/24 04:48 MPV 9.0 fL (7.4-10.4) 06/25/24 04:48 Neut % (Auto) 51.5 % 06/25/24 04:48 Lymph % (Auto) 31.8 % 06/25/24 04:48 [place] % (Auto) 12.4 % 06/25/24 04:48 Eos % (Auto) 2.6 % 06/25/24 04:48 Baso % (Auto) 1.5 % 06/25/24 04:48 Neut # (Auto) 3.33 10^3/uL (1.8-7.7) 06/25/24 04:48 Lymph # (Auto) 2.1 10^3/uL (0.8-4.8) 06/25/24 04:48 [place] # (Auto) 0.8 10^3/uL (0.2-0.9) 06/25/24 04:48 Eos # (Auto) 0.2 10^3/uL (0.0-0.8) 06/25/24 04:48 Baso # (Auto) 0.1 10^3/uL (0.0-0.1) 06/25/24 04:48 Nucleated RBC % (auto) 0 % 06/25/24 04:48 Nucleated RBCs # 0.0 /100WBC 06/25/24 04:48 Sodium 136 mmol/L (136-145) 06/25/24 04:48 Potassium 3.9 mmol/L (3.5-5.1) 06/25/24 04:48 Chloride 102 mmol/L (98-107) 06/25/24 04:48 Carbon Dioxide 26 mmol/L (22-29) 06/25/24 04:48 Anion Gap 11.9 (5-19) 06/25/24 04:48 BUN 15 mg/dL (8-23) 06/25/24 04:48 Creatinine 1.0 mg/dL (0.7-1.2) 06/25/24 04:48 GFR Calculation 74.8 mL/min (90-130) L 06/25/24 04:48 Glucose 97 mg/dL (65-115) 06/25/24 04:48 Calculated Osmolality 283 mOsm/kg (285-295) L 06/25/24 04:48 Calcium 8.7 mg/dL (8.5-10.5) 06/25/24 04:48 Total Bilirubin 0.7 mg/dL (0.15-1.2) 06/24/24 12:18 AST 26 U/L (0-40) 06/24/24 12:18 ALT 18 U/L (0-41) 06/24/24 12:18 Alkaline Phosphatase 96 U/L (40-130) 06/24/24 12:18 Troponin T Baseline 40 ng/L (0-15) H 06/24/24 12:25 Troponin T 120 Minute 36.88 ng/L (0-15) H 06/24/24 14:08 Delta Troponin T -3.12 ABS# (0-10) L 06/24/24 14:08 Troponin T Hi Sens 6Hr 36.98 ng/L (0-15) H 06/24/24 18:22 Troponin T Hi Sens 6Hr Delta -3.02 ng/L (0-12) L 06/24/24 18:22 NT-Pro-B Natriuret Pep 1059 pg/mL (0-125) H 06/25/24 04:48 Total Protein 7.2 g/dL (6.6-8.7) 06/24/24 12:18 Albumin 4.6 g/dL (3.5-5.2) 06/24/24 12:18 Globulin 2.6 g/dL (1.3-4.6) 06/24/24 12:18 A&P Assessment and plan (1) Atherosclerotic heart disease of [place] coronary artery with unstable angina pectoris: Possibility of restenosis of the recently intervene lesion because of his noncompliance is a strong consideration. The EKG is unremarkable. No evidence of any myocardial injury so far Qualifiers: [place] vs. transplanted heart: [place] heart Qualified Code(s): I25.110 - Atherosclerotic heart disease of [place] coronary artery with unstable angina pectoris (2) IHSS (idiopathic hypertrophic subaortic stenosis): Patient was found to have moderate gradient across the LV outflow tract with the most recent echocardiogram in August of last year. (3) Intermittent atrial fibrillation: Currently he is in sinus rhythm. He is on long-term oral anticoagulation with Eliquis. He also is on amiodarone. The Eliquis need to be held at this point. Patient is on Lovenox. (4) Hyperlipidemia: May continue on the current medications. Qualifiers: Hyperlipidemia type: mixed hyperlipidemia Qualified Code(s): E78.2 - Mixed hyperlipidemia (5) HTN (hypertension): The antihypertensive medications need to be optimized. For better control blood pressure, I may increase the dose of the amlodipine to 10 mg p.o. daily. May continue other medications as it is. Qualifiers: Hypertension type: essential hypertension Qualified Code(s): I10 - Essential (primary) hypertension Plan Will hold the Eliquis for now. May start him on Lovenox 60 mg every 12 hours from tomorrow morning onwards. Consider cardiac catheterization in 48 hours after discontinuing the Eliquis. He may be started on topical nitrates, p.o. aspirin and other current medications. Based on the clinical progress and the results of the echo, further recommendations will be made. Thank you for the opportunity to evaluate this patient and make these recommendations Plan to do the cardiac catheterization tomorrow. The risk of bleeding, hematoma, vascular injury, myocardial infarction, myocardial perforation, malignant cardiac arrhythmias ,CVA, renal failure and other concomitant complications were explained in detail. Patient understood this well and consented to proceed Based on the results of the above tests and the patient's clinical progress, further recommendations will be made. Attestations Medical Necessity Statement*: Patient requires continued hospital stay for close monitoring and further management Coding Level of Care Code 11659 Diagnoses Atherosclerosis of [place] coronary artery of [place] heart with unstable angina pectoris I25.110 [place] vs. transplanted heart: [place] heart IHSS (idiopathic hypertrophic subaortic stenosis) I42.1 Intermittent atrial fibrillation I48.0 Mixed hyperlipidemia E78.2 Hyperlipidemia type: mixed hyperlipidemia Essential hypertension I10 Hypertension type: essential hypertension
--- NOTE | 2024-06-25 12:02 | PM.PN ---
Subjective Subjective: No acute overnight events noted. Seen him at bedside this morning, denies any complaint of chest pain or pressure like symptoms. Medications: Reviewed: Yes Vitals/I&O/Wt Last Vital Signs Temp 98.9 F 06/25/24 08:00 Pulse 60 06/25/24 08:25 Resp 16 06/25/24 08:25 BP 168/92 06/25/24 08:00 Pulse Ox 94 06/25/24 08:25 O2 Del Method Room Air 06/25/24 08:25 O2 Flow Rate 2 06/25/24 04:00 06/24/24 06/25/24 06/25/24 22:59 06:59 14:59 Intake Total 240 / 240 1360 / 1360 Balance 240 / 240 1360 / 1360 Weight last 48 hrs Weight 63.4 kg Weight 62.596 kg Weight 58.967 kg Physical Exam Narrative: General: No acute distress, AO x3 HEENT: PERRLA, pupils bilaterally equal and reactive Chest: CTA, no wheezing or rhonchi CVS: S1-S2 irregularly irregular, ejection systolic murmur in aortic region radiating into pericardium 2/6, no tachycardia, no gallops, no rubs Abdomen: Soft, nontender, no organomegaly, bowel sounds present Neuro: No focal deficits, no facial deformity, AO x3, power 5/5 in all limbs Data 06/25/24 04:48 06/25/24 04:48 A&P Assessment and plan (1) Chest pain: (2) COPD (chronic obstructive pulmonary disease): (3) Atrial fibrillation with RVR: (4) Atrial fibrillation: Qualifiers: Atrial fibrillation type: paroxysmal Qualified Code(s): I48.0 - Paroxysmal atrial fibrillation (5) Hyperlipidemia: Qualifiers: Hyperlipidemia type: mixed hyperlipidemia Qualified Code(s): E78.2 - Mixed hyperlipidemia (6) HTN (hypertension): Qualifiers: Hypertension type: essential hypertension Qualified Code(s): I10 - Essential (primary) hypertension (7) IHSS (idiopathic hypertrophic subaortic stenosis): (8) CAD (coronary artery disease): Qualifiers: Coronary Disease-Associated Artery/Lesion type: [place] artery [place] vs. transplanted heart: [place] heart Associated angina: without angina Qualified Code(s): I25.10 - Atherosclerotic heart disease of [place] coronary artery without angina pectoris (9) Smoker: (10) Hypercapnic respiratory failure: Plan Pratik Garcia is a 68 year old male with past medical history of CAD, post PCI, atrial fibrillation, COPD, hypertension, hyperlipidemia, IHSS, diastolic heart failure, history of COPD, hypercapnic respiratory failure, chronic smoker presented with c/o chest pain/pressure like symptoms since this morning. # Chest pain/pressure-like symptom-rule out ACS 2 sets of troponins 40, 36 EKG normal sinus rhythm, no acute ST-T changes Continuous cardiac telemetry monitoring Cardiology consult for possible stress test in a.m. Will keep n.p.o. past midnight Resume [employer]OWER[employer]CH[employer]IC atorvastatin # Atrial fibrillation-continue [employer] amiodarone, metoprolol and Eliquis # Hypertension-will continue [employer] benazepril and amlodipine. # COPD-stable, DuoNebs as needed Counseled and educated about smoking cessation. DVT prophylaxis, he is already on Eliquis GI prophylaxis with IV Pepcid 20 mg twice daily CODE STATUS discussed with the patient he is full code for now. 06/25--cardiology consult appreciated. Started on aspirin 81 mg daily. Discontinued Eliquis and started on Lovenox 60 mg twice daily this morning. Follow-up cardiology for further recommendations, plan for angiogram if needed on Thursday. Labs reviewed and are acceptable. Follow-up echo Attestations Medical Necessity Statement*: Needs continued hospitalization anticipating crossing 2 midnights for management and work up for chest pain. Time Spent in Patient Care: 15minutes Coding Level of Care Code Acute Code for [facility] Diagnoses Chest pain R07.9 COPD (chronic obstructive pulmonary disease) J44.9 Atrial fibrillation with RVR I48.91 Paroxysmal atrial fibrillation I48.0 Atrial fibrillation type: paroxysmal Mixed hyperlipidemia E78.2 Hyperlipidemia type: mixed hyperlipidemia Essential hypertension I10 Hypertension type: essential hypertension IHSS (idiopathic hypertrophic subaortic stenosis) I42.1 Coronary artery disease involving [place] coronary artery of [place] heart without angina pectoris I25.10 Coronary Disease-Associated Artery/Lesion type: [place] artery [place] vs. transplanted heart: [place] heart Associated angina: without angina Smoker F17.200 Hypercapnic respiratory failure J96.92 Time Spent (min) 15
[2024-06-25] MEDS: atorvastatin 40 mg Tablet PO (17:49)
[2024-06-26] VITALS (23 sets, daily range): BP systolic 121–164; BP diastolic 71–106; PULSE 52–65; RESP 15–26; TEMP 36.6–37.2; O2SAT 89–98
[2024-06-26] MEDS: sodium chloride 0.9% 1,000 ML 60 ML IV ×2 (00:58→13:37)
[2024-06-26 04:35] LABS: Basophils # 0.1 10^3/uL (0.0-0.1); Basophils % 1.4 %; Eosinophils # 0.2 10^3/uL (0.0-0.8); Eosinophils % 2.8 %; Hematocrit 47.8 % (37-53); Lymphocytes # 2.1 10^3/uL (0.8-4.8); Mean Corpuscular HGB Conc 31.2 g/dL (30-55); Mean Corpuscular Hemoglobin 26.9 pg (27-33); Mean Corpuscular Volume 86.4 fl (82-101); Mean Platelet Volume 8.7 fL (7.4-10.4); Monocytes # 0.7 10^3/uL (0.2-0.9); Neutrophils # 2.65 10^3/uL (1.8-7.7); Neutrophils % 46.4 %; Nucleated Red Blood Cells % 0 %; Platelet Count 214 10^3/cmm (157-399); Red Blood Count 5.53 10^6/uL (3.85-5.65); Red Cell Distribution Width 13.8 % (12.1-15.1)
[2024-06-26 05:27] LABS: Anion Gap 13.8 (5-19); Blood Urea Nitrogen 15 mg/dL (8-23); Calcium 8.9 mg/dL (8.5-10.5); Carbon Dioxide 25 mmol/L (22-29); Chloride 102 mmol/L (98-107); Creatinine Clr Calc Pharmacy 64.7957; Glomerular Filtration Rate 84.4 mL/min (90-130); Glucose 106 mg/dL (65-115); Osmolality Calculated 285 mOsm/kg (285-295); Potassium 3.8 mmol/L (3.5-5.1); Sodium 137 mmol/L (136-145)
[2024-06-26] MEDS: aspirin 325 mg Tablet PO (05:35)
[2024-06-26] MEDS: famotidine 20 mg/2 mL INJ IVP (05:36)
[2024-06-26] MEDS: enoxaparin 60 mg/0.6 mL Syringe SUBCUT (05:37)
[2024-06-26] MEDS: amiodarone 200 mg Tablet PO (08:04)
[2024-06-26] MEDS: metoprolol tartrate 25 mg Tablet 12.5 MG PO (08:04)
[2024-06-26] MEDS: lisinopril 20 mg Tablet 40 MG PO (08:04)
[2024-06-26] MEDS: amlodipine 10 mg Tablet PO (08:04)
[2024-06-26] MEDS: aspirin 81 mg EC Tablet PO (08:04)
--- NOTE | 2024-06-26 10:42 | XACV_ITS ---
Exam Room: 2 Ht: 155 cm Wt: 63 kg BSA: 1.66 m2 Gender: Male : 1955 Any Known Allergies: No known allergies Exam Priority: Routine Procedure(s): Procedure Description: Diagnostic procedure Procedure Description: Left Heart Catheterization Procedure Description: Coronary Angiography Biju MEYER; Diagnostic Cath Status: Urgent Diagnostic Findings * Left main is a medium caliber vessel with no significant stenotic lesions. * The left anterior descending artery is a medium caliber elongated vessel which appears to wraparound the LV apex. The proximal to the mid LAD was found to have a long stented segment which was found to be widely patent. No significant stenotic lesions. The mid and the distal artery was found to be very tortuous with no significant lesions. The first diagonal artery appears to have around 30 to 40% diffuse irregular narrowing in the proximal segment, including the ostium. After the first obtuse marginal branch, the circumflex proper was found to have around 40% eccentric narrowing. No other significant lesions were noted in the artery. * The left circumflex artery is a medium caliber vessel which was found to have mild diffuse intimal regularities proximally. The second obtuse marginal branch was found to have an ostial around 40% stenosis. The third obtuse marginal artery was found to have minimal intimal irregularities. * There is a high diagonal branch, intermedius artery which has a proximal around 40% stenosis at the ostium. It gives of a sidebranch near to the ostium which also was found to have around 50% stenosis. No other significant stenotic lesions were noted. * The right coronary artery was found to be totally occluded after the sinus cris branch. Bridging collaterals are noted to the a small segment of the mid RCA. Some bridging collaterals are noted to the PLV branch of the artery. Conclusions 1. 68-year-old white male with a history of atherosclerotic heart diseas, status post multiple PCI's, presented with a prolonged episode of chest pain. Patient apparently has been noncompliant with medications. Had the most recent PCI in August of last year. In view of his unstable anginal symptoms, in order to further evaluate the coronary status, a cardiac catheterization was recommended. Patient underwent left heart catheterization with left and right coronary angiogram today. The findings are as follows. 2. No significant left main disease. Patent stented segment of the proximal to mid LAD. Tortuous mid and distal segments of the left anterior descending artery. Mild to moderate disease in the proximal segment of the diagonal and intermedius arteries. Mild diffuse disease in circumflex artery. Total occlusion of the right coronary artery after the sinus cris branch with some bridging collaterals to the distal artery. LVEDP of 29 mmHg.. Diagnostic RX Recommendation: medical therapy and/or counseling LV EDP: 29 mmHg Left Ventriculography Findings: * The LV gram was not performed because of concern about the dye overload. The LVEDP was 20 mmHg. Pressures Phase:Rest AO : 120 / 70 ( 91 ) @ 3:38:00 PM 124 / 67 ( 91 ) @ 3:47:00 PM 125 / 68 ( 92 ) @ 3:47:00 PM LV : 119 / 9 / 29 @ 3:47:00 PM 119 / 12 / 30 @ 3:47:00 PM Valves Phase:DefaultPhase AV : 0.0 @ 2:55:23 PM AV Mean Gradient: 0.0 @ 2:55:23 PM Clinical Evaluation EBL: 5mL-10mL Procedural Details Pre-Procedure Time Out. Identified patient by full name and date of as verbalized by the patient/guarantor. Does the consent match the physician's order: Yes. Accurate & Complete Informed Consent: Yes. Inpatient/Outpatient History & Physical on Chart: Yes. If H&P is completed, is and addenduem needed: No; If yes, is the addendum complete: N/A. Visualize and Verify Site with Patient/Guarantor: N/A. Relevant Radiology Images available: Yes. Pre-op teaching completed and patient verbalized understanding. The risks, benefits, and alternatives of sedation and/or procedure were discussed by physician. The patient agrees to continue. Procedure started. Current Diagnosis : Chest Pain. [facility] Clinical Fraility Score: 3: Managing Well. Finance Effectiveness Manager Indications: Worsening Angina. Chest Pain Symptom Assessment: Atypical Angina. Correct patient, site and procedure confirmed by cath team. Current diagnosis: Chest Pain. PERRLA. Strong, equal hand escrow manager bilaterally. Lungs clear x 5 lobes. IV Site on Arrival: 20 gauge in the left anticubital. IV Fluids: 0.9% NaCl at KVO. 0 mL infused prior to bottle label inspector. Oxygen started at 2liters/min via nasal canula. bilateral groins was prepped with chloroprep then draped in the usual sterile fashion. right radial was prepped with chloroprep then draped in the usual sterile fashion. Physician notified. Baseline sample Acquired. HR: 59 BPM. Physician arrived. Physician scrubbed in. Immediate Pre-Procedure Time Out. Correct Patient: Yes; Correct Procedure: Yes; Correct Site: Yes; Correct Patient Position: Yes; Correct Supplies: Yes; Dried Flammable Prep: Yes; Blood Products Available: N/A;. Lidocaine 1% infiltrated to the right radial. Arterial access obtained. A 5 frisian Alvarez catheter in over wire. Multiple views taken of left coronary artery. Catheter redirected to the RCA. Catheter removed over the exchange wire. A 5 frisian JR4 catheter in over wire. EDP Sample taken: LV 119/9,29; HR: 51 BPM; SpO2: 97%. Pullback taken: LV 119/12,30; AO 124/67(91); Mean: 0mmHg, Peak to Peak: 0mmHg, SEP: 5sec/min; HR: 52 BPM; SpO2: 97%. Multiple views taken of right coronary artery. Catheter removed over the exchange wire. Physician scrubbed out. Physician review of cine films. A TR Band was successful obtaining hemostatsis at the Right Radial artery insertion site. Post Procedure: Pulses reassessed and unchanged. PERRLA. Strong, equal hand escrow manager bilaterally. No VTE prophylaxis required. Medication's Wasted: Lidocaine 1% = 18 mL. Medication's Wasted: Heparin = 1000 units. Medication's Wasted: Nitro = 49.9 mcg. Total IV fluids: 300 mL. Complications: None. Estimated blood loss: 5mL-10mL. Responsiveness - Normal response to verbal stimuli; alert and oriented, PERRLA. Airway - Unaffected, no intervention required; spontaneous ventilation. Circulation: W/N/L, pulses unchanged. Nausea/Vomiting: No. Vital chart was stopped. Procedure completed. Patient transferred by bed to 1st floor. Access Site Site: Right Radial artery Sheath Size: 6 Fr Hemostasis Method: TR Band Hemostasis Success: Successful Procedure Medications Start: 2:24 PM Stop: 2:24 PM Medication: Versed Amount: 1 mg Route: I.V. Start: 2:24 PM Stop: 2:24 PM Medication: Fentanyl Amount: 50 mcg Route: I.V. Start: 2:31 PM Stop: 2:31 PM Medication: Versed Amount: 1 mg Route: I.V. Start: 2:31 PM Stop: 2:31 PM Medication: Fentanyl Amount: 50 mcg Route: I.V. Start: 2:34 PM Stop: 2:34 PM Medication: Verapamil Amount: 5 mg Route: I.A. Start: 2:34 PM Stop: 2:34 PM Medication: Nitrogylcerin Amount: 100 mcg Route: I.A. Start: 2:38 PM Stop: 2:38 PM Medication: 0.9% Saline Amount: 250 ml Route: I.V. bolus Start: 2:35 PM Stop: 2:35 PM Medication: Heparin Amount: 5000 units Route: I.V. I, the attending physician, have reviewed and verified all procedure medications. Yes, all medications given per verbal order History/Risk Factors Hypertension: Yes Dyslipidemia: No Peripheral Arterial Disease (PAD): No Myocardial Infarction (IA): No Obesity: No Renal Disease: No Tobacco Use: Current/Recent(w/in 1 year) Prior Interventions PCI: Yes CABG: No Valve Surgery: No Date of PCI: 09/13/2023 Report Signatures Amended by Dr Landy Ivy MD [facility] on 06/26/2024 07:[address] Landy Ivy MD [facility] on 06/26/2024 07:20 PM
[2024-06-26] MEDS: diphenhydrAMINE 50 mg Capsule PO (13:37)
--- NOTE | 2024-06-26 13:46 | P.PN_ITS ---
Subjective 2 Subjective: Patient is feeling okay. Has not had a chest pain. No new arrhythmias on the monitor. Staying mostly sinus bradycardia. The blood pressure has been fluctuating. Seems to be fairly under control Medications: Medication Review Details: Current Medications Acetaminophen (Acetaminophen 325 Mg Tablet) 325 mg PO Q4H PRN PRN Reason: MILD PAIN OR INCREASE TEMP Albuterol Sulfate (Albuterol 2.5 Mg/3 Ml Neb) 2.5 mg INHALATION Q6H.RESP PRN PRN Reason: SHORTNESS OF BREATH Amiodarone HCl (Amiodarone 200 Mg Tablet) 200 mg PO DAILY [facility] [place] Last Admin: 06/26/24 08:04 Dose: 200 mg Amlodipine Besylate (Amlodipine 10 Mg Tablet) 10 mg PO DAILY [facility] Last Admin: 06/26/24 08:04 Dose: 10 mg Aspirin (Aspirin 81 Mg Ec Tablet) 81 mg PO DAILY [facility] [place] Last Admin: 06/26/24 08:04 Dose: 81 mg Atorvastatin Calcium (Atorvastatin 40 Mg Tablet) 40 mg PO QPM [facility] Last Admin: 06/25/24 17:49 Dose: 40 mg Enoxaparin Sodium (Enoxaparin 60 Mg/0.6 Ml Syringe) 60 mg SUBCUT Q12H [facility] Last Admin: 06/26/24 05:37 Dose: 60 mg Famotidine (Famotidine 20 Mg/2 Ml Inj) 20 mg IVP Q12H [facility] Last Admin: 06/26/24 05:36 Dose: 20 mg Sodium Chloride (Sodium Chloride 0.9%) 1,000 mls @ 60 mls/hr IV .[id number] [facility] Last Admin: 06/26/24 13:37 Dose: 60 mls/hr Sodium Chloride (Sodium Chloride 0.9%) 1,000 mls @ 50 mls/hr IV .Q20H ONE Stop: 06/28/24 01:59 Lisinopril (Lisinopril 20 Mg Tablet) 40 mg PO DAILY [facility] [place] Last Admin: 06/26/24 08:04 Dose: 40 mg Metoprolol Tartrate (Metoprolol Tartrate 25 Mg Tablet) 12.5 mg PO QAM [facility] [place] Last Admin: 06/26/24 08:04 Dose: 12.5 mg Vitals/I&O/Wt Last Vital Signs Temp 98.1 F 06/26/24 11:17 Pulse 52 L 06/26/24 11:17 Resp 18 10/06/24 11:17 BP 141/79 06/26/24 11:17 Pulse Ox 96 06/26/24 11:17 O2 Del Method Nasal Cannula 06/26/24 11:17 O2 Flow Rate 2 06/26/24 08:07 06/25/24 06/26/24 06/26/24 22:59 06:59 14:59 Intake Total 240 / 2080 969 / 3049 999 / 999 Output Total 600 / 600 650 / 1250 350 / 350 Balance -360 / 1480 319 / 1799 649 / 649 Weight last 48 hrs Weight 139 lb 12.369 oz Weight 138 lb Physical Exam 2 Narrative: GENERAL: The patient is alert and oriented times three. Not in any acute distress. HEENT: No significant pallor, icterus or lymphadenopathy.Oral cavity: There are no mucous membrane lesions. NECK: Trachea appears to be central. No masses noted. No JVD or thyromegaly appreciated. RESPIRATORY: Chest is symmetrical. No intercostals muscle retraction or any accessory muscle activation. There is no chest wall tenderness. Breath sounds are heard bilaterally. No rales or rhonchi heard. No evidence of any consolidation. BREASTS: Deferred. HEART: The heart sounds are normal. No S3 or S4. No significant murmurs. No pericardial rub ABDOMEN: No vessel pulsations or distention. No tenderness. No organomegaly appreciated. Bowel sounds are normally heard. : Deferred. RECTAL: Deferred. LYMPHATIC: No lymphadenopathy noted in the neck. EXTREMITIES: No edema or cyanosis. No clubbing. MUSCULOSKELETAL: No acute joint deformities or swelling SKIN: There are no significant rashes or ecchymosis NEUROPSYCHIATRIC: The patient is alert and oriented x3. Appears to be in a good mood. No tremors or rigidity noted. Data 06/26/24 04:02 06/26/24 04:02 Other Labs: Laboratory Last Values WBC 5.70 10^3/uL (3.29-11.43) 06/26/24 04:02 RBC 5.53 10^6/uL (3.85-5.65) 06/26/24 04:02 Hgb 14.90 g/dL (11.27-16.99) 06/26/24 04:02 Hct 47.8 % (37-53) 06/26/24 04:02 MCV 86.4 fl (82-101) 06/26/24 04:02 MCH 26.9 pg (27-33) L 06/26/24 04:02 MCHC 31.2 g/dL (30-55) 06/26/24 04:02 RDW 13.8 % (12.1-15.1) 06/26/24 04:02 Plt Count 214 10^3/cmm (157-399) 06/26/24 04:02 MPV 8.7 fL (7.4-10.4) 06/26/24 04:02 Neut % (Auto) 46.4 % 06/26/24 04:02 Lymph % (Auto) 36.0 % 06/26/24 04:02 [place] % (Auto) 13.0 % 06/26/24 04:02 Eos % (Auto) 2.8 % 06/26/24 04:02 Baso % (Auto) 1.4 % 06/26/24 04:02 Neut # (Auto) 2.65 10^3/uL (1.8-7.7) 06/26/24 04:02 Lymph # (Auto) 2.1 10^3/uL (0.8-4.8) 06/26/24 04:02 [place] # (Auto) 0.7 10^3/uL (0.2-0.9) 06/26/24 04:02 Eos # (Auto) 0.2 10^3/uL (0.0-0.8) 06/26/24 04:02 Baso # (Auto) 0.1 10^3/uL (0.0-0.1) 06/26/24 04:02 Nucleated RBC % (auto) 0 % 06/26/24 04:02 Nucleated RBCs # 0.0 /100WBC 06/26/24 04:02 Sodium 137 mmol/L (136-145) 06/26/24 04:02 Potassium 3.8 mmol/L (3.5-5.1) 06/26/24 04:02 Chloride 102 mmol/L (98-107) 06/26/24 04:02 Carbon Dioxide 25 mmol/L (22-29) 06/26/24 04:02 Anion Gap 13.8 (5-19) 06/26/24 04:02 BUN 15 mg/dL (8-23) 06/26/24 04:02 Creatinine 0.9 mg/dL (0.7-1.2) 06/26/24 04:02 GFR Calculation 84.4 mL/min (90-130) L 06/26/24 04:02 Glucose 106 mg/dL (65-115) 06/26/24 04:02 Calculated Osmolality 285 mOsm/kg (285-295) 06/26/24 04:02 Calcium 8.9 mg/dL (8.5-10.5) 06/26/24 04:02 Total Bilirubin 0.7 mg/dL (0.15-1.2) 06/24/24 12:18 AST 26 U/L (0-40) 06/24/24 12:18 ALT 18 U/L (0-41) 06/24/24 12:18 Alkaline Phosphatase 96 U/L (40-130) 06/24/24 12:18 Troponin T Baseline 40 ng/L (0-15) H 06/24/24 12:25 Troponin T 120 Minute 36.88 ng/L (0-15) H 06/24/24 14:08 Delta Troponin T -3.12 ABS# (0-10) L 06/24/24 14:08 Troponin T Hi Sens 6Hr 36.98 ng/L (0-15) H 06/24/24 18:22 Troponin T Hi Sens 6Hr Delta -3.02 ng/L (0-12) L 06/24/24 18:22 NT-Pro-B Natriuret Pep 1059 pg/mL (0-125) H 06/25/24 04:48 Total Protein 7.2 g/dL (6.6-8.7) 06/24/24 12:18 Albumin 4.6 g/dL (3.5-5.2) 06/24/24 12:18 Globulin 2.6 g/dL (1.3-4.6) 06/24/24 12:18 A&P Assessment and plan (1) Atherosclerotic heart disease of [place] coronary artery with unstable angina pectoris: Possibility of restenosis of the recently intervened lesion because of his noncompliance is a strong consideration. The EKG is unremarkable. No evidence of any myocardial injury so far Qualifiers: [place] vs. transplanted heart: [place] heart Qualified Code(s): I25.110 - Atherosclerotic heart disease of [place] coronary artery with unstable angina pectoris (2) IHSS (idiopathic hypertrophic subaortic stenosis): Patient was found to have moderate gradient across the LV outflow tract with the most recent echocardiogram in August of last year. (3) Intermittent atrial fibrillation: Currently he is in sinus rhythm. He is on long-term oral anticoagulation with Eliquis. He also is on amiodarone. The Eliquis need to be held at this point. Patient is on Lovenox. (4) Hyperlipidemia: May continue on the current medications. Qualifiers: Hyperlipidemia type: mixed hyperlipidemia Qualified Code(s): E78.2 - Mixed hyperlipidemia (5) HTN (hypertension): Since the blood pressure seems to be getting under control, may continue on the current medication for the time being. Qualifiers: Hypertension type: essential hypertension Qualified Code(s): I10 - Essential (primary) hypertension Plan Continue on the current management for the time being Plan to do the cardiac catheterization this afternoon. The risk of bleeding, hematoma, vascular injury, myocardial infarction, myocardial perforation, malignant cardiac arrhythmias ,CVA, renal failure and other concomitant complications were explained in detail. Patient understood this well and consented to proceed Based on the results of the above tests and the patient's clinical progress, further recommendations will be made. Attestations 2 Medical Necessity Statement*: Patient requires continued hospital stay for close monitoring and further management Coding Level of Care Code 37417 Diagnoses Atherosclerosis of [place] coronary artery of [place] heart with unstable angina pectoris I25.110 [place] vs. transplanted heart: [place] heart IHSS (idiopathic hypertrophic subaortic stenosis) I42.1 Intermittent atrial fibrillation I48.0 Mixed hyperlipidemia E78.2 Hyperlipidemia type: mixed hyperlipidemia Essential hypertension I10 Hypertension type: essential hypertension
--- NOTE | 2024-06-26 13:50 | W.PM.OPSUD ---
Surgery/Procedure H&P Update DATE OF PROCEDURE: June 26, 2024 DATE H&P PERFORMED: 06/24/24 H&P UPDATE INFORMATION: I have reviewed H&P completed within last 30 days, I have examined patient prior to procedure and No changes to prior documentation PREOP DIAGNOSIS: ASHD PRIMARY INDICATION FOR PROCEDURE: Unstable angina PLANNED PROCEDURE: Operation Date: 06/26/24 14:30 Proposed Procedures p Cardiac Catheterization(Left) - Landy Ivy MD PATIENT REASSESSED PRIOR TO SEDATION, WITH NO CHANGE NOTED: Yes PHYSICAL EXAM: oriented x 3, clear to auscultation bilaterally and regular rate & rhythm AIRWAY EVAL/ANESTHESIA PLAN: normal airway, see other exam findings, ASA III, Monitored Anesthesia, Local Anesthesia, Risks, benefits & alternatives of sedation and/or procedure discussed and Patient agrees to continue as planned
--- NOTE | 2024-06-26 17:41 | PM.PN ---
Subjective Subjective: No acute overnight events noted. Denies any complaint of chest pain or shortness of breath. Medications: Reviewed: Yes Vitals/I&O/Wt Last Vital Signs Temp 98.9 F 06/26/24 16:00 Pulse 52 L 06/26/24 16:00 Resp 15 06/26/24 16:00 BP 143/79 06/26/24 16:00 Pulse Ox 92 06/26/24 16:00 O2 Del Method Room Air 06/26/24 16:00 O2 Flow Rate 2 06/26/24 08:07 06/26/24 06/26/24 06/26/24 06:59 14:59 22:59 Intake Total 969 / 3049 999 / 999 Output Total 650 / 1250 350 / 350 400 / 750 Balance 319 / 1799 649 / 649 -400 / 249 Weight last 48 hrs Weight 63.4 kg Physical Exam Narrative: General: No acute distress, AO x3 HEENT: PERRLA, pupils bilaterally equal and reactive Chest: CTA, no wheezing or rhonchi CVS: S1-S2 irregularly irregular, ejection systolic murmur in aortic region radiating into pericardium 2/6, no tachycardia, no gallops, no rubs Abdomen: Soft, nontender, no organomegaly, bowel sounds present Neuro: No focal deficits, no facial deformity, AO x3, power 5/5 in all limbs Data 06/26/24 04:02 06/26/24 04:02 A&P Assessment and plan (1) Chest pain: (2) COPD (chronic obstructive pulmonary disease): (3) Atrial fibrillation with RVR: (4) Atrial fibrillation: Qualifiers: Atrial fibrillation type: paroxysmal Qualified Code(s): I48.0 - Paroxysmal atrial fibrillation (5) Hyperlipidemia: Qualifiers: Hyperlipidemia type: mixed hyperlipidemia Qualified Code(s): E78.2 - Mixed hyperlipidemia (6) HTN (hypertension): Qualifiers: Hypertension type: essential hypertension Qualified Code(s): I10 - Essential (primary) hypertension (7) IHSS (idiopathic hypertrophic subaortic stenosis): (8) CAD (coronary artery disease): Qualifiers: Coronary Disease-Associated Artery/Lesion type: [place] artery [place] vs. transplanted heart: [place] heart Associated angina: without angina Qualified Code(s): I25.10 - Atherosclerotic heart disease of [place] coronary artery without angina pectoris (9) Smoker: (10) Hypercapnic respiratory failure: Plan Pratik Garcia is a 68 year old male with past medical history of CAD, post PCI, atrial fibrillation, COPD, hypertension, hyperlipidemia, IHSS, diastolic heart failure, history of COPD, hypercapnic respiratory failure, chronic smoker presented with c/o chest pain/pressure like symptoms since this morning. # Chest pain/pressure-like symptom-rule out ACS 2 sets of troponins 40, 36 EKG normal sinus rhythm, no acute ST-T changes Continuous cardiac telemetry monitoring Cardiology consult for possible stress test in a.m. Will keep n.p.o. past midnight Resume MENTAL HEALTH SPECIALIST atorvastatin # Atrial fibrillation-continue MENTAL HEALTH SPECIALIST amiodarone, metoprolol and Eliquis # Hypertension-will continue MENTAL HEALTH SPECIALIST benazepril and amlodipine. # COPD-stable, DuoNebs as needed Counseled and educated about smoking cessation. DVT prophylaxis, he is already on Eliquis GI prophylaxis with IV Pepcid 20 mg twice daily CODE STATUS discussed with the patient he is full code for now. 06/25--cardiology consult appreciated. Started on aspirin 81 mg daily. Discontinued Eliquis and started on Lovenox 60 mg twice daily this morning. Follow-up cardiology for further recommendations, plan for angiogram if needed on Thursday. Labs reviewed and are acceptable. Follow-up echo. 06/26--As per cardiology Possibility of restenosis of the recently intervened lesion because of his noncompliance is a strong consideration and also with h/o IHSS, plan for coronary angiogram today. will follow up for further recommendations. Attestations Medical Necessity Statement*: Patient requires continued hospital stay for close monitoring and further management of chest pain with coronary angiogram. Time Spent in Patient Care: 15minutes Coding Level of Care Code Acute Code for [facility] Fwd Diagnoses Chest pain R07.9 COPD (chronic obstructive pulmonary disease) J44.9 Atrial fibrillation with RVR I48.91 Paroxysmal atrial fibrillation I48.0 Atrial fibrillation type: paroxysmal Mixed hyperlipidemia E78.2 Hyperlipidemia type: mixed hyperlipidemia Essential hypertension I10 Hypertension type: essential hypertension IHSS (idiopathic hypertrophic subaortic stenosis) I42.1 Coronary artery disease involving [place] coronary artery of [place] heart without angina pectoris I25.10 Coronary Disease-Associated Artery/Lesion type: [place] artery [place] vs. transplanted heart: [place] heart Associated angina: without angina Smoker F17.200 Hypercapnic respiratory failure J96.92 Time Spent (min) 15
[2024-06-26] MEDS: atorvastatin 40 mg Tablet PO (17:52)
--- NOTE | 2024-06-26 18:26 | PC.NURSE ---
Initiated TR vand removal at 1550 removing 2ml of air every 15-20min until band removed at this time. No s/s of bleeding or hematoma formation observed. Patient denies pain to site. Pulses palpable. Covered site with 2x2 and coban. Instructed patient on site care and restrictions. Patient verbalized understanding. Will continue to monitor.
[2024-06-27 04:00] VITALS: BP 134/82; PULSE 65; RESP 19; TEMP 36.7; O2SAT 94
[2024-06-27 05:36] VITALS: PULSE 63
[2024-06-27] MEDS: metoprolol tartrate 25 mg Tablet 12.5 MG PO (05:49)
[2024-06-27] MEDS: famotidine 20 mg/2 mL INJ IVP (05:50)
[2024-06-27] MEDS: enoxaparin 60 mg/0.6 mL Syringe SUBCUT (05:51)
[2024-06-27 07:01] LABS: Basophils # 0.1 10^3/uL (0.0-0.1); Basophils % 1.4 %; Eosinophils # 0.3 10^3/uL (0.0-0.8); Eosinophils % 3.8 %; Hematocrit 45.2 % (37-53); Lymphocytes # 2.3 10^3/uL (0.8-4.8); Lymphocytes % 34.4 %; Mean Corpuscular HGB Conc 31.6 g/dL (30-55); Mean Corpuscular Hemoglobin 26.9 pg (27-33); Mean Platelet Volume 8.9 fL (7.4-10.4); Monocytes # 0.7 10^3/uL (0.2-0.9); Monocytes % 10.9 %; Neutrophils # 3.27 10^3/uL (1.8-7.7); Neutrophils % 49.2 %; Nucleated Red Blood Cells % 0 %; Platelet Count 226 10^3/cmm (157-399); Red Blood Count 5.32 10^6/uL (3.85-5.65); Red Cell Distribution Width 13.8 % (12.1-15.1); White Blood Count 6.63 10^3/uL (3.29-11.43)
[2024-06-27 07:18] LABS: Anion Gap 9.2 (5-19); Blood Urea Nitrogen 16 mg/dL (8-23); Calcium 8.7 mg/dL (8.5-10.5); Carbon Dioxide 32 mmol/L (22-29); Chloride 100 mmol/L (98-107); Creatinine Clr Calc Pharmacy 58.3161; Glomerular Filtration Rate 74.8 mL/min (90-130); Glucose 120 mg/dL (65-115); Osmolality Calculated 286 mOsm/kg (285-295); Potassium 4.2 mmol/L (3.5-5.1); Sodium 137 mmol/L (136-145)
[2024-06-27 08:00] VITALS: BP 119/76; PULSE 60; PULSE 62; RESP 16; RESP 20; TEMP 37.2; O2SAT 92
[2024-06-27] MEDS: lisinopril 20 mg Tablet 40 MG PO (08:10)
[2024-06-27] MEDS: aspirin 81 mg EC Tablet PO (08:10)
[2024-06-27] MEDS: amiodarone 200 mg Tablet PO (08:10)
[2024-06-27] MEDS: amlodipine 10 mg Tablet PO (08:10)
--- NOTE | 2024-06-27 09:38 | PC.CHAP ---
Pastoral Care Encounter/Spiritual Assessment Type of Contact [] Declined process design chemical engineer visit [] Patient/Family/Request visit [] Outpatient visit [] Follow-up visit [] Physician referral [] Code/Alert [x] Routine visit [] Staff referral [] Actively dying [x] Patient sleeping [] Family support [] [] Out of room [] Palliative care [] [] Receiving care in room [] Pre-surgical visit [] Trauma [] Long length of stay [] ICU visit [] Other: Relational/Emotional Strength [] Patient feels connected with others/family/visitors/staff [] Distress [] Loneliness/isolation [] Abandonment Spirituality of Patient [] Person of [place] [] Attends Christian of their [place] [] Believes in Prayer [] Reads Bible or Orthodoxy materials [] There are Spiritual issues to be addressed Public Defender Interventions [x] Prayer [] Active listening [] Non-anxious presence [] Spiritual/emotional support [] Crisis/trauma care [] Spiritual counseling [] Bereavement support [] Provided bereavement packet [] Provided Bible/devotional materials [] Provided toy/stuffed animal, coloring book to patient or family member [] Provided Communion [] Anointing/[place] [] Salvation [] Completed spiritual assessment [] Other: Impact on Illness or Injury [] Angry [] Fearful [] Anxious [] Often cries [] Exhaustion [] Unable to work [] Unable to attend baptism [] Unable to walk/stand [] Unable to read [] Unable to drive [] Unable to eat/drink [] Unable to sleep [] Unable to be with family [] Patient intubated [] Other: Summary Time spent with patient
--- NOTE | 2024-06-27 09:39 | PM.PN ---
Subjective Subjective: Patient underwent a cardiac catheterization yesterday. He was found to have patent stented segments with no new lesions. The right coronary artery was found to be chronically occluded. Based on the angiogram findings, it was opted to treat him medically. Medications: Medication Review Details: Current Medications Acetaminophen (Acetaminophen 325 Mg Tablet) 650 mg PO Q6H PRN PRN Reason: MILD PAIN Al Hydrox/Mg Hydrox/Simethicone (Xxyc-Isn-Tgstpbvmv-Meka 30 Ml Udc) 30 ml PO Q15M PRN PRN Reason: INDIGESTION Albuterol Sulfate (Albuterol 2.5 Mg/3 Ml Neb) 2.5 mg INHALATION Q6H.RESP PRN PRN Reason: SHORTNESS OF BREATH Amiodarone HCl (Amiodarone 200 Mg Tablet) 200 mg PO DAILY [facility] Last Admin: 06/27/24 08:10 Dose: 200 mg Amlodipine Besylate (Amlodipine 10 Mg Tablet) 10 mg PO DAILY [facility] Last Admin: 06/27/24 08:10 Dose: 10 mg Aspirin (Aspirin 81 Mg Ec Tablet) 81 mg PO DAILY [facility] Last Admin: 06/27/24 08:10 Dose: 81 mg Atorvastatin Calcium (Atorvastatin 40 Mg Tablet) 40 mg PO QPM [facility] Last Admin: 06/26/24 17:52 Dose: 40 mg Atropine Sulfate (Atropine 1 Mg/Ml Sdv 1 Ml) 0.5 mg IVP PRN PRN PRN Reason: Symptomatic bradycardia Enoxaparin Sodium (Enoxaparin 60 Mg/0.6 Ml Syringe) 60 mg SUBCUT Q12H [facility] Last Admin: 06/27/24 05:51 Dose: 60 mg Famotidine (Famotidine 20 Mg/2 Ml Inj) 20 mg IVP Q12H [facility] Last Admin: 06/27/24 05:50 Dose: 20 mg Fentanyl (Fentanyl 50 Mcg/Ml Inj 2ml) 50 mcg IVP PRN PRN PRN Reason: Prior to sheath removal Sodium Chloride (Sodium Chloride 0.9%) 1,000 mls @ 60 mls/hr IV .[id number] [facility] Last Infusion: 06/27/24 06:07 Dose: Infused Sodium Chloride (Sodium Chloride 0.9%) 1,000 mls @ 50 mls/hr IV .Q20H ONE Stop: 06/28/24 01:59 Last Admin: 06/27/24 06:07 Dose: Not Given Lisinopril (Lisinopril 20 Mg Tablet) 40 mg PO DAILY [facility] Last Admin: 06/27/24 08:10 Dose: 40 mg Magnesium Hydroxide (Magnesium Hydroxide 30 Ml Udc) 30 ml PO DAILY PRN PRN Reason: CONSTIPATION Metoprolol Tartrate (Metoprolol Tartrate 25 Mg Tablet) 12.5 mg PO QAM [facility] Last Admin: 06/27/24 05:49 Dose: 12.5 mg Naloxone HCl (Naloxone 0.4 Mg/Ml Sdv) 0.1 mg IVP Q2M PRN PRN Reason: RESPIRATORY RATE < 8/MIN Nitroglycerin (Nitroglycerin 0.4 Mg Sublingual Tablet) 0.4 mg SUBLINGUAL Q5M PRN PRN Reason: CHEST PAIN Temazepam (Temazepam 15 Mg Capsule) 15 mg PO BEDTIME PRN PRN Reason: INSOMNIA Vitals/I&O/Wt Last Vital Signs Temp 98.9 F 06/27/24 08:00 Pulse 60 06/27/24 08:00 Resp 20 H 06/27/24 08:00 BP 119/76 06/27/24 08:00 Pulse Ox 92 06/27/24 08:00 O2 Del Method Room Air 06/27/24 08:00 O2 Flow Rate 2 06/26/24 08:07 06/26/24 06/27/24 06/27/24 22:59 06:59 14:59 Intake Total 360 / 1359 1000 / 2359 360 / 360 Output Total 950 / 1300 400 / 1700 200 / 200 Balance -590 / 59 600 / 659 160 / 160 Physical Exam Narrative: GENERAL: The patient is alert and oriented times three. Not in any acute distress. HEENT: No significant pallor, icterus or lymphadenopathy.Oral cavity: There are no mucous membrane lesions. NECK: Trachea appears to be central. No masses noted. No JVD or thyromegaly appreciated. RESPIRATORY: Chest is symmetrical. No intercostals muscle retraction or any accessory muscle activation. There is no chest wall tenderness. Breath sounds are heard bilaterally. No rales or rhonchi heard. No evidence of any consolidation. BREASTS: Deferred. HEART: The heart sounds are normal. No S3 or S4. No significant murmurs. No pericardial rub ABDOMEN: No vessel pulsations or distention. No tenderness. No organomegaly appreciated. Bowel sounds are normally heard. : Deferred. RECTAL: Deferred. LYMPHATIC: No lymphadenopathy noted in the neck. EXTREMITIES: No hematoma bleeding of the radial arterial puncture site. MUSCULOSKELETAL: No acute joint deformities or swelling SKIN: There are no significant rashes or ecchymosis NEUROPSYCHIATRIC: The patient is alert and oriented x3. Appears to be in a good mood. No tremors or rigidity noted. Data 06/27/24 06:27 06/27/24 06:27 Other Labs: Laboratory Last Values WBC 6.63 10^3/uL (3.29-11.43) 06/27/24 06:27 RBC 5.32 10^6/uL (3.85-5.65) 06/27/24 06:27 Hgb 14.30 g/dL (11.27-16.99) 06/27/24 06: Hct 45.2 % (37-53) 06/27/24 06: MCV 85.0 fl (82-101) 06/27/24 06: MCH 26.9 pg (27-33) L 06/27/24 06: MCHC 31.6 g/dL (30-55) 06/27/24 06:27 RDW 13.8 % (12.1-15.1) 06/27/24 06:27 Plt Count 226 10^3/cmm (157-399) 06/27/24 06:27 MPV 8.9 fL (7.4-10.4) 06/27/24 06: Neut % (Auto) 49.2 % 06/27/24 06: Lymph % (Auto) 34.4 % 06/27/24 06:27 [place] % (Auto) 10.9 % 06/27/24 06:27 Eos % (Auto) 3.8 % 06/27/24 06:27 Baso % (Auto) 1.4 % 06/27/24 06:27 Neut # (Auto) 3.27 10^3/uL (1.8-7.7) 06/27/24 06:27 Lymph # (Auto) 2.3 10^3/uL (0.8-4.8) 06/27/24 06:27 [place] # (Auto) 0.7 10^3/uL (0.2-0.9) 06/27/24 06:27 Eos # (Auto) 0.3 10^3/uL (0.0-0.8) 06/27/24 06:27 Baso # (Auto) 0.1 10^3/uL (0.0-0.1) 06/27/24 06:27 Nucleated RBC % (auto) 0 % 06/27/24 06:27 Nucleated RBCs # 0.0 /100WBC 06/27/24 06:27 Sodium 137 mmol/L (136-145) 06/27/24 06:27 Potassium 4.2 mmol/L (3.5-5.1) 06/27/24 06:27 Chloride 100 mmol/L (98-107) 06/27/24 06:27 Carbon Dioxide 32 mmol/L (22-29) H 06/27/24 06:27 Anion Gap 9.2 (5-19) 06/27/24 06:27 BUN 16 mg/dL (8-23) 06/27/24 06:27 Creatinine 1.0 mg/dL (0.7-1.2) 06/27/24 06:27 GFR Calculation 74.8 mL/min (90-130) L 06/27/24 06:27 Glucose 120 mg/dL (65-115) H 06/27/24 06:27 Calculated Osmolality 286 mOsm/kg (285-295) 06/27/24 06:27 Calcium 8.7 mg/dL (8.5-10.5) 06/27/24 06:27 Total Bilirubin 0.7 mg/dL (0.15-1.2) 06/24/24 12:18 AST 26 U/L (0-40) 06/24/24 12:18 ALT 18 U/L (0-41) 06/24/24 12:18 Alkaline Phosphatase 96 U/L (40-130) 06/24/24 12:18 Troponin T Baseline 40 ng/L (0-15) H 06/24/24 12:25 Troponin T 120 Minute 36.88 ng/L (0-15) H 06/24/24 14:08 Delta Troponin T -3.12 ABS# (0-10) L 06/24/24 14:08 Troponin T Hi Sens 6Hr 36.98 ng/L (0-15) H 06/24/24 18:22 Troponin T Hi Sens 6Hr Delta -3.02 ng/L (0-12) L 06/24/24 18:22 NT-Pro-B Natriuret Pep 1059 pg/mL (0-125) H 06/25/24 04:48 Total Protein 7.2 g/dL (6.6-8.7) 06/24/24 12:18 Albumin 4.6 g/dL (3.5-5.2) 06/24/24 12:18 Globulin 2.6 g/dL (1.3-4.6) 06/24/24 12:18 A&P Assessment and plan (1) Atherosclerotic heart disease of [place] coronary artery with unstable angina pectoris: Patient had a cardiac catheterization yesterday. He was found to have patent stented segments. Please refer to the angiogram report for details. No new lesions. RCA was found to be chronically occluded. Qualifiers: [place] vs. transplanted heart: [place] heart Qualified Code(s): I25.110 - Atherosclerotic heart disease of [place] coronary artery with unstable angina pectoris (2) IHSS (idiopathic hypertrophic subaortic stenosis): Patient was found to have moderate gradient across the LV outflow tract with the most recent echocardiogram in August of last year. (3) Intermittent atrial fibrillation: Patient may be restarted on Eliquis and amiodarone. Other medication may be continued. (4) Hyperlipidemia: May continue on the current medications. Qualifiers: Hyperlipidemia type: mixed hyperlipidemia Qualified Code(s): E78.2 - Mixed hyperlipidemia (5) HTN (hypertension): Since the blood pressure seems to be getting under control, may continue on the current medication for the time being. Qualifiers: Hypertension type: essential hypertension Qualified Code(s): I10 - Essential (primary) hypertension Plan Since the patient remained stable, may be discharged home today. [facility] appointment [facility] to be seen by the nurse practitioner in 1 week. I may see him in the office in 1 month. Attestations Medical Necessity Statement*: Possible discharge home today Coding Level of Care Code 91648 Diagnoses Atherosclerosis of [place] coronary artery of [place] heart with unstable angina pectoris I25.110 [place] vs. transplanted heart: [place] heart IHSS (idiopathic hypertrophic subaortic stenosis) I42.1 Intermittent atrial fibrillation I48.0 Mixed hyperlipidemia E78.2 Hyperlipidemia type: mixed hyperlipidemia Essential hypertension I10 Hypertension type: essential hypertension
--- NOTE | 2024-06-27 10:43 | PM.DCS ---
Discharge Providers Date of Admission: 06/26/24 18:10 Date of Discharge: June 27, 2024 Attending Provider at Admission: Lolis Spence MD Attending Provider at Discharge: Harriet Tripathi MD Primary Care Provider: Ya Panchal MD Diagnoses at Discharge Discharge Diagnosis (1) Atherosclerotic heart disease of [place] coronary artery with unstable angina pectoris: Status: Acute Qualifiers: [place] vs. transplanted heart: [place] heart Qualified Code(s): I25.110 - Atherosclerotic heart disease of [place] coronary artery with unstable angina pectoris (2) IHSS (idiopathic hypertrophic subaortic stenosis): Status: Acute (3) Intermittent atrial fibrillation: Status: Acute (4) Hyperlipidemia: Status: Acute Qualifiers: Hyperlipidemia type: mixed hyperlipidemia Qualified Code(s): E78.2 - Mixed hyperlipidemia (5) HTN (hypertension): Status: Acute Qualifiers: Hypertension type: essential hypertension Qualified Code(s): I10 - Essential (primary) hypertension Reason for Visit Reason for Visit: CHEST PAIN Hospital Course Hospital Course 68 year old male with past medical history of CAD, post PCI, atrial fibrillation, COPD, hypertension, hyperlipidemia, IHSS(Idiopathic hypertrophic subaortic stenosis), diastolic heart failure, history of COPD, hypercapnic respiratory failure, chronic smoker presented with c/o chest pain/pressure unstable angina patient has been noncompliant with his medications, cardiology was consulted, patient went for coronary angiogram 06/26 which showed patent stents and chronically occluded RCA, he was instructed to continue his medical regimen, blood pressure was controlled with optimization of antihypertensive regimen, patient was instructed to resume his Eliquis along amiodarone he does seem to have bradycardia, Dr. Ivy once his heart rate below 80 considering subaortic stenosis. He will follow-up with cardiology clinic within a week. Patient is being discharged with stable hemodynamics, he was given opportunity to ask questions, all questions were answered to his satisfaction. 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 echo complete* [id number] Stat Ultrasound 06/25/24 07:47 Completed Radiology Impressions Chest X-Ray 06/24/24 12:14 IMPRESSION: 1. Pulmonary hyperinflation which may indicate obstructive lung disease. No acute finding. Laboratory Results WBC 6.63 10^3/uL (3.29-11.43) 06/27/24 06: RBC 5.32 10^6/uL (3.85-5.65) 06/27/24 06:27 Hgb 14.30 g/dL (11.27-16.99) 06/27/24 06: Hct 45.2 % (37-53) 06/27/24 06: MCV 85.0 fl (82-101) 06/27/24 06: MCH 26.9 pg (27-33) L 06/27/24 06: MCHC 31.6 g/dL (30-55) 06/27/24 06: RDW 13.8 % (12.1-15.1) 06/27/24 06:27 Plt Count 226 10^3/cmm (157-399) 06/27/24 06: MPV 8.9 fL (7.4-10.4) 06/27/24 06:27 Neut % (Auto) 49.2 % 06/27/24 06: Lymph % (Auto) 34.4 % 06/27/24 06:27 [place] % (Auto) 10.9 % 06/27/24 06:27 Eos % (Auto) 3.8 % 06/27/24 06:27 Baso % (Auto) 1.4 % 06/27/24 06:27 Neut # (Auto) 3.27 10^3/uL (1.8-7.7) 06/27/24 06:27 Lymph # (Auto) 2.3 10^3/uL (0.8-4.8) 06/27/24 06:27 [place] # (Auto) 0.7 10^3/uL (0.2-0.9) 06/27/24 06:27 Eos # (Auto) 0.3 10^3/uL (0.0-0.8) 06/27/24 06:27 Baso # (Auto) 0.1 10^3/uL (0.0-0.1) 06/27/24 06:27 Nucleated RBC % (auto) 0 % 06/27/24 06:27 Nucleated RBCs # 0.0 /100WBC 06/27/24 06:27 Sodium 137 mmol/L (136-145) 06/27/24 06:27 Potassium 4.2 mmol/L (3.5-5.1) 06/27/24 06:27 Chloride 100 mmol/L (98-107) 06/27/24 06:27 Carbon Dioxide 32 mmol/L (22-29) H 06/27/24 06:27 Anion Gap 9.2 (5-19) 06/27/24 06:27 BUN 16 mg/dL (8-23) 06/27/24 06:27 Creatinine 1.0 mg/dL (0.7-1.2) 06/27/24 06:27 GFR Calculation 74.8 mL/min (90-130) L 06/27/24 06:27 Glucose 120 mg/dL (65-115) H 06/27/24 06:27 Calculated Osmolality 286 mOsm/kg (285-295) 06/27/24 06:27 Calcium 8.7 mg/dL (8.5-10.5) 06/27/24 06:27 Total Bilirubin 0.7 mg/dL (0.15-1.2) 06/24/24 12:18 AST 26 U/L (0-40) 06/24/24 12:18 ALT 18 U/L (0-41) 06/24/24 12:18 Alkaline Phosphatase 96 U/L (40-130) 06/24/24 12:18 Troponin T Baseline 40 ng/L (0-15) H 06/24/24 12:25 Troponin T 120 Minute 36.88 ng/L (0-15) H 06/24/24 14:08 Delta Troponin T -3.12 ABS# (0-10) L 06/24/24 14:08 Troponin T Hi Sens 6Hr 36.98 ng/L (0-15) H 06/24/24 18:22 Troponin T Hi Sens 6Hr Delta -3.02 ng/L (0-12) L 06/24/24 18:22 NT-Pro-B Natriuret Pep 1059 pg/mL (0-125) H 06/25/24 04:48 Total Protein 7.2 g/dL (6.6-8.7) 06/24/24 12:18 Albumin 4.6 g/dL (3.5-5.2) 06/24/24 12:18 Globulin 2.6 g/dL (1.3-4.6) 06/24/24 12:18 Vitals Last Vital Signs Temp 98.9 F 06/27/24 08:00 Pulse 60 06/27/24 08:00 Resp 20 H 06/27/24 08:00 BP 119/76 06/27/24 08:00 Pulse Ox 92 06/27/24 08:00 O2 Del Method Room Air 06/27/24 08:00 O2 Flow Rate 2 06/26/24 08:07 Discharge Plan Discharge Patient Disposition: Home Condition: Stable Prescriptions: New omeprazole 20 mg capsule,delayed release(DR/EC) 20 mg PO DAILY Qty: 60 0RF amiodarone [Pacerone] 200 mg Tablet 200 mg PO DAILY Qty: 90 0RF aspirin [Adult Low Dose Aspirin] 81 mg tablet,delayed release (DR/EC) 81 mg PO DAILY Qty: 30 3RF Continued atorvastatin 40 mg tablet 40 mg PO QPM amlodipine 5 mg tablet 5 mg PO DAILY benazepril 40 mg tablet 40 mg PO DAILY Eliquis 5 mg tablet 5 mg PO BID metoprolol tartrate 37.5 mg tablet 37.5 mg PO QAM amiodarone 100 mg tablet See Rx Instructions .ROUTE .COMPLEX Qty: 90 0RF Rx Instructions: 200mg BID for 1 week, then 200mg daily. Discharge Orders: Discharge Order (Routine); Ordered 06/27/24 Ordered By: Harriet Tripathi Referrals: Ya Panchal MD [Primary Care Provider] - 07/05/24 1:30 pm () Violeta Lewis FNP [Nurse Practitioner] - 07/06/24 1:30 pm () Discharge Diet: Cardiac Discharge Activity: Increase activity as tolerated Patient Instructions: Aspirin (By mouth), Omeprazole (By mouth), Amiodarone (By mouth) (Cordarone, Pacerone), Chest Pain (DC), Left Heart Catheterization (DC), COPD Stoplight, Opioid Safety, Post Angiogram Home Care Instructions Discharge Attestations Time Spent in Discharge Care*: greater than 30 min Quality Metrics Clinical Quality Measures [ No reported AMI, CVA or VTE this stay] Coding Level of Care Code Acute Code for Chg Fwd Diagnoses Atherosclerosis of [place] coronary artery of [place] heart with unstable angina pectoris I25.110 [place] vs. transplanted heart: [place] heart IHSS (idiopathic hypertrophic subaortic stenosis) I42.1 Intermittent atrial fibrillation I48.0 Mixed hyperlipidemia E78.2 Hyperlipidemia type: mixed hyperlipidemia Essential hypertension I10 Hypertension type: essential hypertension
[2024-06-27 10:52] VITALS: BP 119/76; PULSE 60; RESP 20; TEMP 37.2; O2SAT 92
--- NOTE | 2024-06-27 11:05 | PC.NURSE ---
discharge instructions given and explained.pt verb understanding of instructions.discharged via w/c to exit at this time.s.o. to drive pt home
== END 2024-06-27 11:07 | disposition home or self-care (01) | DRG 286 ==
LOC: ER 13:02 → CSU 14:32
PROVIDERS: Internal Medicine Cardiovascular Disease; Admitting Provider Internal Medicine; Emergency Provider Family Medicine; PCP Internal Medicine; Visit Provider Internal Medicine
PROC: 4A023N7 Measurement of Cardiac Sampling and Pressure, Left Heart, Percutaneous Approach (ICD-10-PCS; principal; 2024-06-26 14:30)
DX: I25.10 Atherosclerotic heart disease of native coronary artery without angina pectoris (principal); J96.92 Respiratory failure, unspecified with hypercapnia; I25.82 Chronic total occlusion of coronary artery; I48.0 Paroxysmal atrial fibrillation; E78.2 Mixed hyperlipidemia; I10 Essential (primary) hypertension; J44.9 Chronic obstructive pulmonary disease, unspecified; I42.1 Obstructive hypertrophic cardiomyopathy; F17.200 Nicotine dependence, unspecified, uncomplicated; Z79.01 Long term (current) use of anticoagulants; Z82.49 Family history of ischemic heart disease and other diseases of the circulatory system; Z95.5 Presence of coronary angioplasty implant and graft; I25.2 Old myocardial infarction; Z79.899 Other long term (current) drug therapy; Z91.148 Patient's other noncompliance with medication regimen for other reason
CPT/HCPCS: 36415; 71045; 80048; 80053; 83880; 84484; 85025; 93005; 93306; 93458; 94664; 96361; 96372; 96374; 96376; 99152; 99153; 99285; C1769; C1887; C1894; G0378; J1644; J1650; J2250; J3010; J3490; J7030; Q0163; Q9967

== ENCOUNTER 2024-10-01 08:51 | Inpatient (IN) | payer MEDICARE, MEDICAID, SELFPAY ==
[2024-10-01] VITALS (38 sets, daily range): BP systolic 121–165; BP diastolic 75–94; PULSE 60–90; RESP 12–26; TEMP 36.6–37.3; O2SAT 82–100; BMI 24.3
--- NOTE | 2024-10-01 08:54 | XRR_ITS ---
PROCEDURE INFORMATION: Exam: XR Chest Exam date and time: 10/01/2024 8:59 AM Age: 68 years old Clinical indication: Cough and dyspnea; Additional info: Dyspnea/cough TECHNIQUE: Imaging protocol: Radiologic exam of the chest. Views: 1 view. COMPARISON: CR XR chest 1V portable [id number] 06/24/2024 12:29 PM FINDINGS: Lungs: Curvilinear bilateral opacities which can be seen with emphysematous lung changes. Interval increased right mid and lower lung reticular opacities.. Pleural spaces: Unremarkable. No pleural effusion. No pneumothorax. Heart/Mediastinum: Unremarkable. No cardiomegaly. Bones/joints: Bilateral narrowing of the glenohumeral joints with subchondral sclerosis. Chronic multilevel degenerative changes of the thoracic vertebrae. XR/XR chest 1V portable [id number] IMPRESSION: 1. Subtle right mid to lower lung reticular opacities, new when compared to prior imaging. 2. Emphysematous lung changes.
--- NOTE | 2024-10-01 08:56 | ECG_ITS ---
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1955 Requested By: Paul Clemente Order Number: [id number] Reading MD: CONCHA ROMERO Measurements Intervals Novelty Rate: 74 P: 40 ID: [id number] QRS: 16 QRSD: 120 T: 106 QT: 396 QTc: 441 Interpretive Statements SINUS RHYTHM MODERATE INTRAVENTRICULAR CONDUCTION DELAY [110+ ms QRS DURATION] MODERATE VOLTAGE CRITERIA FOR LVH, CONSIDER NORMAL VARIANT [MEETS CRITERIA IN ONE OF: R(aVL), S(V1), R(V5), R(V5/V6)+S(V1)] ST DEVIATION AND MODERATE T-WAVE ABNORMALITY, CONSIDER LATERAL ISCHEMIA [-0.1+ mV T-WAVE IN I/aVL/V5/V6] Compared to ECG 06/24/2024 18:15:56 Intraventricular conduction delay now present T-wave abnormality now present Possible ischemia now present ST (T wave) deviation no longer present Myocardial infarct finding no longer present Electronically Signed On 10-01-2024 18:38:55 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
[2024-10-01 09:02] LABS: Basophils # 0.1 10^3/uL (0.0-0.1); Basophils % 0.9 %; Eosinophils % 0.2 %; Hematocrit 41.3 % (37-53); Lymphocytes # 1.9 10^3/uL (0.8-4.8); Lymphocytes % 16.7 %; Mean Corpuscular HGB Conc 30.5 g/dL (30-55); Mean Corpuscular Hemoglobin 26.9 pg (27-33); Mean Corpuscular Volume 88.2 fl (82-101); Mean Platelet Volume 9.1 fL (7.4-10.4); Monocytes # 1.5 10^3/uL (0.2-0.9); Monocytes % 12.7 %; Neutrophils # 7.93 10^3/uL (1.8-7.7); Neutrophils % 69.2 %; Nucleated Red Blood Cells % 0 %; Platelet Count 270 10^3/cmm (157-399); Red Blood Count 4.68 10^6/uL (3.85-5.65); Red Cell Distribution Width 14.8 % (12.1-15.1); White Blood Count 11.44 10^3/uL (3.29-11.43)
--- NOTE | 2024-10-01 09:07 | ED_ITS ---
HPI - SOB/Dyspnea 2 General: Chief Complaint: Shortness of Breath/Dyspnea Stated Complaint: difficulty breathing Time Seen by Provider: 10/01/24 08:53 History of Present Illness: HPI Narrative: 68-year-old male presents to the emergen cy room with complaints of difficulty breathing. Patient is have not been having shortness of breath for the last 2 weeks. Patient previously had an [place] couple of weeks ago on 09/13. He is having increasing difficulty with breathing as well as wheezing moderately productive cough since then. No fever at home. He is not normally been on oxygen and is now requiring up to 5 L in the emergency room. Denies any chest pain denies any hemoptysis Associated symptoms: Deny abdominal pain, chest pain or fever(s) Related Data Home Medications Medication Instructions Recorded Confirmed atorvastatin 40 mg tablet 40 mg PO QPM 12/19/19 10/01/24 apixaban 5 mg tablet (Eliquis) 5 mg PO BID 01/24/24 10/01/24 metoprolol tartrate 37.5 mg tablet 37.5 mg PO QAM 01/24/24 10/01/24 amlodipine 5 mg tablet 5 mg PO DAILY 06/24/24 10/01/24 benazepril 40 mg tablet 40 mg PO DAILY 06/24/24 10/01/24 acetaminophen 500 mg tablet 500 mg PO QID PRN Pain 10/01/24 10/01/24 (Tylenol Extra Strength) albuterol sulfate 90 mcg/actuation 2 puff inhalation Q6H PRN 10/01/24 10/01/24 aerosol inhaler (Ventolin HFA) Shortness Of Breath Or Wheezing Previous Rx's Medication Instructions Recorded amiodarone 200 mg tablet (Pacerone) 200 mg PO DAILY #90 tabs 06/27/24 Allergies Allergy/AdvReac Type Severity Reaction Status Date / Time No Known Allergies Allergy Verified 09/13/23 07:45 Review of Systems 2 Const: Denies: fever(s) or chills Card: Denies: chest pain Resp: Denies: dyspnea GI: Denies: abdominal pain : Denies: dysuria, urinary frequency or urinary urgency Musc: Denies: neck pain or back pain Skin/Breast: Denies: rash PFSH ED 2 PFSH: Medical History Intermittent atrial fibrillation Atherosclerotic heart disease of [place] coronary artery with unstable angina pectoris Chest pain Atrial fibrillation with RVR Hypercapnic respiratory failure Alcohol abuse COPD (chronic obstructive pulmonary disease) Acute non-ST elevation myocardial infarction (NSTEMI) Self extubation Atherosclerotic heart disease of [place] coronary artery without angina pectoris Fatigue EKG from today revealed sinus rhythm with features of LVH. ST-T changes in the high lateral leads. Occasional PVCs. No significant new changes. Smoker Quit in December 2023 Hyperlipidemia Atrial fibrillation HTN (hypertension) IHSS (idiopathic hypertrophic subaortic stenosis) CAD (coronary artery disease) Hepatitis C Surgical History S/P coronary artery stent placement S/P appendectomy Family History Mother CAD (coronary artery disease) Diabetes Sister Cancer Father Lung disease Other Hypertension Denies family history of Clotting disorder Dementia Chronic kidney disease (CKD) Suicide Anesthesia complication Bleeding disorder Stroke Social History Smoking and tobacco/nicotine status: current every day tobacco/nicotine user Alcohol intake: current Substance/Drug Use: former Physical Exam 2 Const: COMMON NORMALS: no acute distress GENERAL APPEARANCE: cooperative and comfortable ORIENTATION/CONSCIOUSNESS: Yes awake, Yes oriented to person, Yes oriented to place and Yes oriented to time HENMT: COMMON NORMALS: normocephalic, atraumatic and hearing grossly normal bilaterally HEAD & SCALP: normocephalic and atraumatic Resp: COMMON NORMALS: normal respiratory effort, No retractions, No use of accessory muscles and clear to auscultation bilaterally AUSCULTATION: clear to auscultation bilaterally Cardio: COMMON NORMALS: regular rate, regular rhythm and No murmurs present (Cardio) RATE: regular rate RHYTHM: regular rhythm GI: COMMON NORMALS: Soft to palpation and No hepatosplenomegaly present A USCULTATION: Yes normoactive bowel sounds PALPATION: Yes Soft to palpation, No Tenderness to palpation present (GI), No Guarding due to palpation present (GI) and Yes No hepatosplenomegaly present Extremity: COMMON NORMALS: normal to inspection, capillary refill normal, no clubbing, cyanosis or edema, no calf tenderness and no pedal edema Neuro: SENSORIUM/ORIENTATION: Yes oriented to person, Yes oriented to place and Yes oriented to time Skin: COMMON NORMALS: no rashes or lesions noted GENERAL SKIN EXAM: no rashes or lesions noted Course 2 Vital Signs: Vital signs: Vital Signs Temperature 98.1 F 10/03/24 05:09 Pulse Rate 68 10/03/24 06:00 Respiratory Rate 23 H 10/03/24 06:00 Blood Pressure 146/82 10/03/24 06:00 Pulse Oximetry 89 L 10/03/24 06:00 Oxygen Delivery Me thod Nasal Cannula 10/03/24 06:00 Oxygen Flow Rate 4 10/03/24 06:00 Fraction of Inspir ed Oxygen 35 10/03/24 03:18 MDM - SOB/Dyspnea Medical Decision Making Acute hypercapnic respiratory failure with hypoxia. Patient started on BiPAP. First troponin was 60 will just remain his troponins on the floor. Respiratory panel negative started on IV antibiotics to cover possible pneumonia based on chest x-ray findings. Discussed with hospitalist orders written patient has been having difficulty with BiPAP and was given Ativan 2 help him tolerate better. Lab Data 10/03/24 04:58 10/03/24 04:58 Labs/Radiology: Radiology Impressions Chest X-Ray 10/01/24 08:54 IMPRESSION: 1. Subtle right mid to lower lung reticular opacities, new when compared to prior imaging. 2. Emphysematous lung changes. Laboratory Results WBC 11.44 10^3/uL (3.29-11.43) H 10/01/24 08:35 RBC 4.68 10^6/uL (3.85-5.65) 10/01/24 08:35 Hgb 12.60 g/dL (11.27-16.99) 10/01/24 08:35 Hct 41.3 % (37-53) 10/01/24 08:35 MCV 88.2 fl (82-101) 10/01/24 08:35 MCH 26.9 pg (27-33) L 10/01/24 08:35 MCHC 30.5 g/dL (30-55) 10/01/24 08:35 RDW 14.8 % (12.1-15.1) 10/01/24 08:35 Plt Count 270 10^3/cmm (157-399) 10/01/24 08:35 MPV 9.1 fL (7.4-10.4) 10/01/24 08:35 Neut % (Auto) 69.2 % 10/01/24 08:35 Lymph % (Auto) 16.7 % 10/01/24 08:35 [place] % (Auto) 12.7 % 10/01/24 08:35 Eos % (Auto) 0.2 % 10/01/24 08:35 Baso % (Auto) 0.9 % 10/01/24 08:35 Neut # (Auto) 7.93 10^3/uL (1.8-7.7) H 10/01/24 08:35 Lymph # (Auto) 1.9 10^3/uL (0.8-4.8) 10/01/24 08:35 [place] # (Auto) 1.5 10^3/uL (0.2-0.9) H 10/01/24 08:35 Eos # (Auto) 0.0 10^3/uL (0.0-0.8) 10/01/24 08:35 Baso # (Auto) 0.1 10^3/uL (0.0-0.1) 10/01/24 08:35 Nucleated RBC % (auto) 0 % 10/01/24 08:35 Nucleated RBCs # 0.0 /100WBC 10/01/24 08:35 D-Dimer <= 0.27 ug/mLFEU (0-0.59) 10/01/24 08:35 Specimen Type Arterial 10/01/24 09:22 Sample Site Brachial, left 10/01/24 09:22 ABG pH 7.33 (7.35-7.45) L 10/01/24 09:22 ABG pCO2 69.9 mmHg (35-45) H* 10/01/24 09:22 ABG pO2 60.5 mmHg (80.0-100.0) L 10/01/24 09:22 ABG PO2/FiO2 Ratio 151 10/01/24 09:22 ABG HCO3 37.2 mmol/L (22-26) H 10/01/24 09:22 ABG O2 Saturation 89.8 10/01/24 09:22 ABG Base Excess 8.8 mmol/L (-2.0-2.0) H 10/01/24 09:22 Addy Test N/a 10/01/24 09:22 A-a O2 Gradient 18.3 mmHg (5-10) H 10/01/24 09:22 Hematocrit 37.8 % (42-52) L 10/01/24 09:22 Hgb O2 Saturation 87.4 % (95-100) L 10/01/24 09:22 Carboxyhemoglobin 1.5 %THgb (0.4-20.1) 10/01/24 09:22 Methemoglobin 1.1 % (0.4-1.5) 10/01/24 09:22 Total Hemoglobin 12.3 g/dL (14-18) L 10/01/24 09:22 Sodium 128.0 mmol/L (131-143) L 10/01/24 09:22 Potassium 4.9 mmol/L (3.5-5.0) 10/01/24 09:22 Glucose 130.0 mg/dL (70-115) H 10/01/24 09:22 Ionized Calcium 1.2 mmol/L (1.1-1.4) 10/01/24 09:22 O2 Delivery Device Nc 10/01/24 09:22 O2 Liters/Min 5.0 % 10/01/24 09:22 FiO2 40.0 % 10/01/24 09:22 Bar Tacker Sewing Machine ID Amh 10/01/24 09:22 Sodium 131 mmol/L (136-145) L 10/01/24 08:35 Potassium 5.7 mmol/L (3.5-5.1) H 10/01/24 10:27 Chloride 87 mmol/L (98-107) L 10/01/24 08:35 Carbon Dioxide 34 mmol/L (22-29) H 10/01/24 08:35 Anion Gap 15.3 (5-19) 10/01/24 08:35 BUN 17 mg/dL (8-23) 10/01/24 08:35 Creatinine 0.9 mg/dL (0.7-1.2) 10/01/24 08:35 GFR Calculation 84.4 mL/min (90-130) L 10/01/24 08:35 Glucose 137 mg/dL (65-115) H 10/01/24 08:35 Calculated Osmolality 276 mOsm/kg (285-295) L 10/01/24 08:35 Lactic Acid 1.9 mmol/L (0.5-2.2) 10/01/24 08:35 Calcium 8.9 mg/dL (8.5-10.5) 10/01/24 08:35 Total Bilirubin 0.6 mg/dL (0.15-1.2) 10/01/24 08:35 AST 18 U/L (0-40) 10/01/24 08:35 ALT 15 U/L (0-41) 10/01/24 08:35 Alkaline Phosphatase 94 U/L (40-130) 10/01/24 08:35 Troponin T Baseline 66 ng/L (0-15) H 10/01/24 10:27 NT-Pro-B Natriuret Pep 7554 pg/mL (0-125) H 10/01/24 10:27 Total Protein 7.0 g/dL (6.6-8.7) 10/01/24 08:35 Albumin 4.1 g/dL (3.5-5.2) 10/01/24 08:35 Globulin 2.9 g/dL (1.3-4.6) 10/01/24 08:35 Adenovirus (PCR) Not detected (NOT DETECT) 10/01/24 09:19 C. pneumoniae DNA (PCR) Not detected (NOT DETECT) 10/01/24 09:19 Coronavirus 229E (PCR) Not detected (NOT DETECT) 10/01/24 09:19 Human Metapneumovir PCR Not detected (NOT DETECT) 10/01/24 09:19 Influenza A (H1) PCR Not detected (NOT DETECT) 10/01/24 09:19 Influ A (H1/09) PCR Not detected (NOT DETECT) 10/01/24 09:19 Influenza A (H3) PCR Not detected (NOT DETECT) 10/01/24 09:19 Influenza Type A (PCR) Not detected (NOT DETECT) 10/01/24 09:19 Influenza Type B (PCR) Not detected (NOT DETECT) 10/01/24 09:19 M. pneumoniae (PCR) Not detected (NOT DETECT) 10/01/24 09:19 Parainfluenza 1 (PCR) Not detected (NOT DETECT) 10/01/24 09:19 Parainfluenza 2 (PCR) Not detected (NOT DETECT) 10/01/24 09:19 Parainfluenza 3 (PCR) Not detected (NOT DETECT) 10/01/24 09:19 Parainfluenza 4 (PCR) Not detected (NOT DETECT) 10/01/24 09:19 RSV Type A (PCR) Not detected (NOT DETECT) 10/01/24 09:19 RSV Type B (PCR) Not detected (NOT DETECT) 10/01/24 09:19 Entero/Rhino (PCR) Not detected (NOT DETECT) 10/01/24 09:19 SARS-CoV-2 (PCR) Not detected (NOT DETECT) 10/01/24 09:19 All radiology interpretation(s) finalized by discharge Discharge Plan Discharge Patient Disposition: Admitted As Inpatient Admit Provider: Alicia Crespo Clinical Impression: COPD exacerbation, Respiratory failure with hypoxia and hypercapnia, Pneumonia, Hyperkalemia Condition: Stable Coding Level of Care Code ED Concrete Panel Installer for Yajaira Cooper
[2024-10-01 09:18] LABS: Alanine Aminotransferase 15 U/L (0-41); Albumin Level 4.1 g/dL (3.5-5.2); Alkaline Phosphatase 94 U/L (40-130); Anion Gap 15.3 (5-19); Aspartate Amino Transferase 18 U/L (0-40); Blood Urea Nitrogen 17 mg/dL (8-23); Calcium 8.9 mg/dL (8.5-10.5); Carbon Dioxide 34 mmol/L (22-29); Chloride 87 mmol/L (98-107); Creatinine Clr Calc Pharmacy 75.0013; Globulin 2.9 g/dL (1.3-4.6); Glomerular Filtration Rate 84.4 mL/min (90-130); Glucose 137 mg/dL (65-115); Osmolality Calculated 276 mOsm/kg (285-295); Potassium 5.3 mmol/L (3.5-5.1); Sodium 131 mmol/L (136-145); Total Bilirubin 0.6 mg/dL (0.15-1.2)
[2024-10-01] MEDS: ipratropium-albuterol 3 mL Neb INHALATION ×3 (09:23→19:57)
[2024-10-01] MEDS: dexamethasone 10 mg/mL INJ IM (09:30)
[2024-10-01 09:33] LABS: ABG PCO2 69.9 mmHg (35-45); ABG PH Result 7.33 (7.35-7.45); Alveolar-Arterial Oxygen Gradi 18.3 mmHg (5-10); Arterial Blood Gas Hematocrit 37.8 % (42-52); Base Excess ABG 8.8 mmol/L (-2.0-2.0); Blood Gas Operator Identificat AMH; Blood Gas Sample Site Brachial, left; Blood Gas Sample Type Arterial; Carboxyhemoglobin 1.5 %THgb (0.4-20.1); HCO3 ABG 37.2 mmol/L (22-26); HGB O2 Sat 87.4 % (95-100); Ionized Calcium Level - ABG 1.2 mmol/L (1.1-1.4); Methemoglobin 1.1 % (0.4-1.5); Oxygen Device NC; Oxygen Saturation ABG 89.8; PO2 ABG 60.5 mmHg (80.0-100.0); PO2 FiO2 Ratio Arterial Blood 151; Potassium Level - ABG 4.9 mmol/L (3.5-5.0); Total Hemoglobin 12.3 g/dL (14-18)
[2024-10-01] MEDS: LORazepam 2 mg/mL INJ 1 mL 1 MG IVP (10:18)
[2024-10-01 10:20] LABS: Lactic Sepsis W/Reflex 1.9 mmol/L (0.5-2.2)
[2024-10-01] MEDS: levofloxacin-dextrose 5 % 500 MG/100 ML PREMIX 100 MG IV (10:53)
[2024-10-01 10:55] LABS: Potassium 5.7 mmol/L (3.5-5.1)
[2024-10-01 11:17] LABS: Adenovirus Not Detected (NOT DETECT); Chlamydia Pneumoniae Not Detected (NOT DETECT); Coronavirus 229E,HKU1,NL63,OC4 Not Detected (NOT DETECT); Human Metapneumovirus Not Detected (NOT DETECT); Human Rhinovirus/Enterovirus Not Detected (NOT DETECT); Influenza A Not Detected (NOT DETECT); Influenza A H1 Not Detected (NOT DETECT); Influenza A H1-2009 Not Detected (NOT DETECT); Influenza A H3 Not Detected (NOT DETECT); Influenza B Not Detected (NOT DETECT); Mycoplasma Pneumoniae Not Detected (NOT DETECT); Parainfluenza Virus Type 1 Not Detected (NOT DETECT); Parainfluenza Virus Type 2 Not Detected (NOT DETECT); Parainfluenza Virus Type 3 Not Detected (NOT DETECT); Parainfluenza Virus Type 4 Not Detected (NOT DETECT); Respiratory Syncytial Virus A Not Detected (NOT DETECT); Respiratory Syncytial Virus B Not Detected (NOT DETECT); SARS-COV-2 Not Detected (NOT DETECT)
--- NOTE | 2024-10-01 12:08 | P.HP_ITS ---
Providers/Chief Complaint 2 Primary Care Provider: Ya Panchal MD Chief Complaint: difficulty breathing History of Present Illness Pratik Garcia is a 68 year old male past medical history of CAD, post PCI, atrial fibrillation, COPD, hypertension, hyperlipidemia, IHSS(Idiopathic hypertrophic subaortic stenosis), diastolic heart failure, history of COPD, hypercapnic respiratory failure, chronic smoker presented with c/o shortness of breath progressively worsening over 2-3 weeks. Cough+, no fever. ABG showing hypoxic hypercapneic resp failure, he has new 02 requirement of 5lpm today, typically he is not on oxygen. he needed to be placed on Bipap in the ER due to respiratory distress Review of Systems 2 General: Reports: 10 or more systems reviewed and unremarkable except in HPI and below Const: Denies: fever(s), chills or body aches Eyes: Denies: change in vision, blurry vision or photophobia ENMT: Reports: hoarseness; Denies: throat pain, enlarged tonsils, odynophagia or nasal congestion Card: Denies: chest pain, palpitations, irregular heart rhythm, edema, swelling of feet/ankles, lightheadedness, pre-syncope, dyspnea on exertion or orthopnea Resp: Denies: dyspnea, productive cough, non-productive cough, wheezing, stridor, pain on inspiration, change in phlegm color, hemoptysis or chest congestion GI: Denies: abdominal pain, nausea, vomiting, hematemesis, coffee ground emesis, dysphagia, heartburn, diarrhea, constipation, GI cramping, change in stool character, hematochezia or melena : Denies: flank pain, dysuria, urinary frequency, urinary urgency, urinary hesitancy or hematuria Musc: Denies: neck pain, back pain, extremity pain, joint swelling, joint warmth or deformity Neuro: Denies: headache(s), numbness in extremities, weakness in extremities, sensory changes, difficulty walking, frequent falls, dizziness, vertigo, behavioral changes, Slurred speech present or seizure-like activity Psych: Denies: anxiety, depression, suicidal ideation or homicidal ideation Endo: Denies: polyuria, polydipsia, tired all the time, cold intolerance or hot flashes Lc/Lymph: Denies: easy bruising or easy bleeding Medications/Allergies Home Medications Medication Instructions Recorded Confirmed Last Taken Type atorvastatin 40 mg tablet 40 mg PO QPM 12/19/19 10/01/24 10/01/24 History apixaban 5 mg tablet (Eliquis) 5 mg PO BID 01/24/24 10/01/24 10/01/24 History metoprolol tartrate 37.5 mg tablet 37.5 mg PO QAM 01/24/24 10/01/24 10/01/24 History amlodipine 5 mg tablet 5 mg PO DAILY 06/24/24 10/01/24 10/01/24 History benazepril 40 mg tablet 40 mg PO DAILY 06/24/24 10/01/24 09/30/24 History amiodarone 200 mg tablet (Pacerone) 200 mg PO DAILY #90 tabs 06/27/24 10/01/24 10/01/24 Rx acetaminophen 500 mg tablet 500 mg PO QID PRN Pain 10/01/24 10/01/24 Unknown History (Tylenol Extra Strength) albuterol sulfate 90 mcg/actuation 2 puff inhalation Q6H PRN 10/01/24 10/01/24 10/01/24 History aerosol inhaler (Ventolin HFA) Shortness Of Breath Or Wheezing Allergies Allergy/AdvReac Type Severity Reaction Status Date / Time No Known Allergies Allergy Verified 09/13/23 07:45 PFSH Acute 2 PFSH: Medical History COPD (chronic obstructive pulmonary disease) Acute non-ST elevation myocardial infarction (NSTEMI) Self extubation Atherosclerotic heart disease of [place] coronary artery without angina pectoris Fatigue EKG from today revealed sinus rhythm with features of LVH. ST-T changes in the high lateral leads. Occasional PVCs. No significant new changes. Smoker Quit in December 2023 Hyperlipidemia Atrial fibrillation HTN (hypertension) IHSS (idiopathic hypertrophic subaortic stenosis) CAD (coronary artery disease) Hepatitis C Surgical History S/P coronary artery stent placement S/P appendectomy Family History Mother CAD (coronary artery disease) Diabetes Sister Cancer Father Lung disease Other Hypertension Denies family history of Clotting disorder Dementia Chronic kidney disease (CKD) Suicide Anesthesia complication Bleeding disorder Stroke Social History Smoking and tobacco/nicotine status: current every day tobacco/nicotine user Alcohol intake: current Substance/Drug Use: former Vitals/I&O/Wt Last Vital Signs Temp 99.2 F 10/01/24 08:52 Pulse 68 10/01/24 12:04 Resp 12 10/01/24 10:54 BP 157/93 10/01/24 12:04 Pulse Ox 96 10/01/24 12:04 O2 Del Method BiPAP 10/01/24 12:04 O2 Flow Rate 5 10/01/24 09:37 FiO2 35 10/01/24 11:24 Weight last 48 hrs Weight 68.492 kg Physical Exam 2 Narrative: General: No acute distress, AO x3 HEENT: PERRLA, pupils bilaterally equal and reactive, pallors not present Chest: diffuse B/L wheezing to auscultation CVS: S1-S2 regular, no murmurs, no tachycardia, no gallops, no rubs Abdomen: Soft, nontender, no organomegaly, bowel sounds present Neuro: No focal deficits, no facial deformity, AO x3, power 5/5 in all limbs Data 10/01/24 08:35 10/01/24 10:27 Micro: Microbiology 10/01/24 10:30 Blood Culture - Preliminary Blood SPECIMEN COLLECTED 10/01/24 10:27 Blood Culture - Preliminary Blood SPECIMEN COLLECTED A&P Assessment and plan (1) COPD exacerbation: (2) Respiratory failure with hypoxia and hypercapnia: (3) Pneumonia: (4) Hyperkalemia: Plan 68M with PMH as above p/w worsening dyspnea on exertion over the past 2-3 weeks Found to have new hypoxia and hypercapneic respiratory failure , likely related to acute on chronic COPD execarbation and pNA Start ceftriaxone 1g iv every 24 hrs , atypical coverage with azithromycin to start tomorrow (received levaquin in ER today which will suffice) Sputum cx and gram stain MRSA nasal screen RVP negative Admit to ICU given BIpap use MEthylprednisone 40mg iv every 8 hrs Duoneb and budesonide scheduled inhalation Screening D dimer for PE no chest pain, no acute ST-T changes on EKG , last angiogram 06/2024 with patent stents and chronic RCA occlusion Continue Bipap, recheck ABG in one hour Hyperkalemia, ordered for insulin 10U + dextrose 10% 125ml , recheck K at 4pm DVT ppx: Eliquis as he takes at home FUll code Attestations 2 Medical Necessity Statement*: > 2 midnight stay anticipated, current use of non invasive ventilation , hyperkalemia Critical Care Time: The high probability of a clinically significant, sudden or life threatening deterioration of the patient's [resp, cardiac, electrolytes] system(s) required my full and direct attention, intervention and personal management. The critical care time is as shown. This time is in addition to time spent performing any reported procedures but includes the following: [x] Data and vital sign review and interpretation [x] Patient assessment, examination and intervention [x] Documentation [x] Medication orders and management Critical Care Time (min): 50 Coding Level of Care Code Acute Code for Chg Fwd Diagnoses COPD exacerbation J44.1 Respiratory failure with hypoxia and hypercapnia J96.91; J96.92 Pneumonia J18.9 Hyperkalemia E87.5
[2024-10-01 12:18] LABS: D Dimer <= 0.27 ug/mLFEU (0-0.59)
[2024-10-01 12:22] LABS: ABG PH Result 7.34 (7.35-7.45); Arterial Blood Gas Hematocrit 39.7 % (42-52); Base Excess ABG 7.7 mmol/L (-2.0-2.0); Blood Gas Operator Identificat AMH; Blood Gas Sample Site Brachial, left; Blood Gas Sample Type Arterial; HCO3 ABG 35.9 mmol/L (22-26); Oxygen Device BIPAP; PO2 ABG 76.9 mmHg (80.0-100.0); PO2 FiO2 Ratio Arterial Blood 219
[2024-10-01 12:37] LABS: NT Pro B Type Natriuretic Pept 7554 pg/mL (0-125)
[2024-10-01] MEDS: dextrose 10% 125 ML 750 ML IV ×2 (12:43→19:34)
[2024-10-01] MEDS: insulin regular-human 100 units/1 mL 10 UNIT IVP ×2 (12:46→19:33)
[2024-10-01 12:51] LABS: Glucose Point of Care 123 mg/dL (70-110)
[2024-10-01] MEDS: enoxaparin 40 mg/0.4 mL Syringe SUBCUT (13:08)
[2024-10-01] MEDS: methylPREDNISolone sod succ 40 mg/mL INJ IVP ×2 (13:08→19:34)
[2024-10-01] MEDS: cefTRIAXone 1,000 mg SDV 1000 MG IVP (13:09)
[2024-10-01] MEDS: water for injection-sterile 10 ML 1000 ML (13:09)
[2024-10-01 13:23] LABS: Troponin(5th) Baseline 66 ng/L (0-15)
[2024-10-01 17:15] LABS: ABG PH Result 7.32 (7.35-7.45); Base Excess ABG 5.7 mmol/L (-2.0-2.0); Blood Gas Allen Test Pos; Blood Gas Operator Identificat GD; Blood Gas Sample Site Radial, right; Blood Gas Sample Type Arterial; HCO3 ABG 33.8 mmol/L (22-26); Oxygen Device BIPAP; PO2 ABG 93.8 mmHg (80.0-100.0); PO2 FiO2 Ratio Arterial Blood 268
[2024-10-01 17:17] LABS: ABG PCO2 67.2 mmHg (35-45)
[2024-10-01] MEDS: apixaban 5 mg Tablet PO (17:23)
[2024-10-01] MEDS: atorvastatin 40 mg Tablet PO (17:23)
[2024-10-01 17:51] LABS: Potassium 6.1 mmol/L (3.5-5.1)
[2024-10-01] MEDS: sodium polystyrene sulfonate 15 gm/60 mL Btl PO (19:32)
[2024-10-01] MEDS: budesonide 0.5 mg/2 mL Neb INHALATION (19:57)
[2024-10-01 23:41] LABS: Alanine Aminotransferase 13 U/L (0-41); Albumin Level 3.6 g/dL (3.5-5.2); Alkaline Phosphatase 73 U/L (40-130); Anion Gap 13.9 (5-19); Aspartate Amino Transferase 14 U/L (0-40); Blood Urea Nitrogen 19 mg/dL (8-23); Calcium 9.1 mg/dL (8.5-10.5); Carbon Dioxide 35 mmol/L (22-29); Chloride 90 mmol/L (98-107); Creatinine Clr Calc Pharmacy 75.0013; Globulin 2.5 g/dL (1.3-4.6); Glomerular Filtration Rate 84.4 mL/min (90-130); Glucose 211 mg/dL (65-115); Osmolality Calculated 287 mOsm/kg (285-295); Potassium 4.9 mmol/L (3.5-5.1); Sodium 134 mmol/L (136-145); Total Bilirubin 0.6 mg/dL (0.15-1.2); Total Protein 6.1 g/dL (6.6-8.7)
[2024-10-02] VITALS (34 sets, daily range): BP systolic 100–154; BP diastolic 50–98; PULSE 58–77; RESP 17–26; TEMP 37; O2SAT 93–98
[2024-10-02] MEDS: ipratropium-albuterol 3 mL Neb INHALATION ×4 (01:29→19:18)
[2024-10-02 03:32] LABS: Basophils % 0.2 %; Hematocrit 41.4 % (37-53); Lymphocytes # 0.5 10^3/uL (0.8-4.8); Lymphocytes % 9.2 %; Mean Corpuscular HGB Conc 30.7 g/dL (30-55); Mean Corpuscular Hemoglobin 27.5 pg (27-33); Mean Corpuscular Volume 89.8 fl (82-101); Mean Platelet Volume 9.2 fL (7.4-10.4); Monocytes # 0.3 10^3/uL (0.2-0.9); Monocytes % 4.9 %; Neutrophils # 4.82 10^3/uL (1.8-7.7); Nucleated Red Blood Cells % 0 %; Platelet Count 245 10^3/cmm (157-399); Red Blood Count 4.61 10^6/uL (3.85-5.65); Red Cell Distribution Width 14.9 % (12.1-15.1); White Blood Count 5.67 10^3/uL (3.29-11.43)
[2024-10-02 03:55] LABS: Alanine Aminotransferase 14 U/L (0-41); Albumin Level 3.8 g/dL (3.5-5.2); Alkaline Phosphatase 80 U/L (40-130); Anion Gap 12.5 (5-19); Aspartate Amino Transferase 14 U/L (0-40); Blood Urea Nitrogen 20 mg/dL (8-23); Calcium 9.3 mg/dL (8.5-10.5); Carbon Dioxide 35 mmol/L (22-29); Chloride 91 mmol/L (98-107); Creatinine Clr Calc Pharmacy 75.0013; Globulin 2.8 g/dL (1.3-4.6); Glomerular Filtration Rate 84.4 mL/min (90-130); Glucose 146 mg/dL (65-115); Osmolality Calculated 283 mOsm/kg (285-295); Potassium 4.5 mmol/L (3.5-5.1); Sodium 134 mmol/L (136-145); Total Bilirubin 0.5 mg/dL (0.15-1.2); Total Protein 6.6 g/dL (6.6-8.7)
[2024-10-02] MEDS: methylPREDNISolone sod succ 40 mg/mL INJ IVP ×3 (04:58→19:43)
[2024-10-02] MEDS: metoprolol tartrate 25 mg Tablet 37.5 MG PO (05:00)
[2024-10-02 07:26] LABS: Alanine Aminotransferase 13 U/L (0-41); Albumin Level 3.3 g/dL (3.5-5.2); Alkaline Phosphatase 74 U/L (40-130); Aspartate Amino Transferase 13 U/L (0-40); Blood Urea Nitrogen 21 mg/dL (8-23); Calcium 8.8 mg/dL (8.5-10.5); Carbon Dioxide 35 mmol/L (22-29); Chloride 92 mmol/L (98-107); Creatinine Clr Calc Pharmacy 77.4465; Globulin 2.5 g/dL (1.3-4.6); Glomerular Filtration Rate 84.4 mL/min (90-130); Glucose 149 mg/dL (65-115); Osmolality Calculated 282 mOsm/kg (285-295); Sodium 133 mmol/L (136-145); Total Bilirubin 0.5 mg/dL (0.15-1.2); Total Protein 5.8 g/dL (6.6-8.7)
[2024-10-02] MEDS: amiodarone 200 mg Tablet PO (08:29)
[2024-10-02] MEDS: apixaban 5 mg Tablet PO ×2 (08:29→17:57)
[2024-10-02] MEDS: pantoprazole DR 40 mg Tablet PO (08:29)
[2024-10-02] MEDS: budesonide 0.5 mg/2 mL Neb INHALATION ×2 (08:35→19:18)
[2024-10-02] MEDS: ALPRAZolam 0.5 mg Tablet 0.25 MG PO (08:47)
[2024-10-02 10:52] LABS: ABG PH Result 7.38 (7.35-7.45); Blood Gas Operator Identificat GD; Blood Gas Sample Site Brachial, right; Blood Gas Sample Type Arterial; Carboxyhemoglobin 0.9 %THgb (0.4-20.1); Ionized Calcium Level - ABG 1.2 mmol/L (1.1-1.4); Oxygen Device BIPAP
[2024-10-02 10:53] LABS: Alveolar-Arterial Oxygen Gradi 8.6 mmHg (5-10); Arterial Blood Gas Hematocrit 37.1 % (42-52); Base Excess ABG 9.8 mmol/L (-2.0-2.0); HCO3 ABG 37.1 mmol/L (22-26); HGB O2 Sat 96.8 % (95-100); Oxygen Saturation ABG 98.6; PO2 FiO2 Ratio Arterial Blood 302; Total Hemoglobin 12.1 g/dL (14-18)
[2024-10-02 11:20] LABS: Alanine Aminotransferase < 5 U/L (0-41); Albumin Level 3.3 g/dL (3.5-5.2); Alkaline Phosphatase 74 U/L (40-130); Anion Gap 13.2 (5-19); Aspartate Amino Transferase 14 U/L (0-40); Blood Urea Nitrogen 20 mg/dL (8-23); Calcium 8.7 mg/dL (8.5-10.5); Carbon Dioxide 33 mmol/L (22-29); Chloride 92 mmol/L (98-107); Creatinine Clr Calc Pharmacy 77.4465; Globulin 2.5 g/dL (1.3-4.6); Glomerular Filtration Rate 84.4 mL/min (90-130); Glucose 181 mg/dL (65-115); Osmolality Calculated 283 mOsm/kg (285-295); Potassium 5.2 mmol/L (3.5-5.1); Sodium 133 mmol/L (136-145); Total Bilirubin 0.4 mg/dL (0.15-1.2); Total Protein 5.8 g/dL (6.6-8.7)
[2024-10-02 11:30] LABS: ABG PCO2 63.1 mmHg (35-45)
--- NOTE | 2024-10-02 12:47 | PC.NURSE ---
off bipap at this time placed on 4lnc at this time .... voided per urinal at this tlime ...
[2024-10-02] MEDS: cefTRIAXone 1,000 mg SDV 1000 MG IVP (12:52)
[2024-10-02] MEDS: water for injection-sterile 10 ML 1000 ML (12:53)
--- NOTE | 2024-10-02 14:18 | PC.NURSE ---
pt transfered to room icu 8 from icu 6 pt had room mate next room who was constantlly yelling and screaming moved for pt comfort
--- NOTE | 2024-10-02 14:53 | P.PN_ITS ---
Subjective 2 Subjective: ABG is improving today. pH is 7.38, CO2 down to 63, pO2 106, bicarb of 37. This appears to be patient's baseline as pH is now normalized. He is off BiPAP. Medications: Reviewed: Yes Vitals/I&O/Wt Last Vital Signs Temp 98.7 F 10/01/24 20:00 Pulse 63 10/02/24 13:34 Resp 20 H 10/02/24 13:25 BP 100/67 10/02/24 12:00 Pulse Ox 97 10/02/24 13:33 O2 Del Method BiPAP 10/02/24 13:25 O2 Flow Rate 5 10/01/24 09:37 FiO2 35 10/02/24 13:33 10/01/24 10/02/24 10/02/24 22:59 06:59 14:59 Intake Total 375 / 610 610 / 610 Output Total 1300 / 1300 300 / 1600 500 / 500 Balance -925 / -690 -300 / -990 110 / 110 Weight last 48 hrs Weight 73.845 kg Weight 68.492 kg Weight 68.492 kg Physical Exam 2 Narrative: General: No acute distress, AO x3 HEENT: PERRLA, pupils bilaterally equal and reactive, pallors not present Chest: diffuse B/L wheezing to auscultation CVS: S1-S2 regular, no murmurs, no tachycardia, no gallops, no rubs Abdomen: Soft, nontender, no organomegaly, bowel sounds present Neuro: No focal deficits, no facial deformity, AO x3, power 5/5 in all limbs Data 10/02/24 03:02 10/02/24 10:58 Micro: Microbiology 10/01/24 15:16 Gram Stain - Final Sputum - Expectorated Sputum Sputum Culture - Preliminary 10/01/24 10:30 Blood Culture - Preliminary Blood NEGATIVE TO DATE 10/01/24 10:27 Blood Culture - Preliminary Blood NEGATIVE TO DATE A&P Assessment and plan (1) COPD exacerbation: (2) Respiratory failure with hypoxia and hypercapnia: (3) Pneumonia: (4) Hyperkalemia: Plan 68M with PMH as above p/w worsening dyspnea on exertion over the past 2-3 weeks Found to have new hypoxia and hypercapneic respiratory failure , likely related to acute on chronic COPD execarbation and pNA Start ceftriaxone 1g iv every 24 hrs , atypical coverage with azithromycin to start tomorrow (received levaquin in ER today which will suffice) Sputum cx and gram stain MRSA nasal screen RVP negative Admit to ICU given BIpap use MEthylprednisone 40mg iv every 8 hrs Duoneb and budesonide scheduled inhalation Screening D dimer for PE no chest pain, no acute ST-T changes on EKG , last angiogram 06/2024 with patent stents and chronic RCA occlusion Continue Bipap, recheck ABG in one hour Hyperkalemia, ordered for insulin 10U + dextrose 10% 125ml , recheck K at 4pm DVT ppx: Eliquis as he takes at home FUll code October 02, 2024 ABG improved today as noted above. Off BiPAP today. Monitor closely. Continue IV steroids, IV antibiotics for treatment of pneumonia and COPD exacerbation. Continue scheduled nebulization. Hypokalemia resolved today. He had received Kayexalate last evening. Will recheck again at 6 PM today and then again with a.m. labs. Attestations 2 Medical Necessity Statement*: COPD exacerbation, ABG is currently normalized. Continue to monitor closely continue IV antibiotics and IV steroids, closely monitor for improvement. Coding Level of Care Code Acute Code for Chg Fwd High MDM includes number and complexity of problems actively addressed during encounter, amount and/or complexity of data reviewed/ordered and described risk of complication, morbidity or mortality of management as documented Diagnoses COPD exacerbation J44.1 Respiratory failure with hypoxia and hypercapnia J96.91; J96.92 Pneumonia J18.9 Hyperkalemia E87.5
[2024-10-02] MEDS: dextrose 10% 125 ML 750 ML IV ×2 (15:34→21:38)
[2024-10-02] MEDS: azithromycin 250 mg Tablet 500 MG PO (15:34)
[2024-10-02] MEDS: insulin regular-human 100 units/1 mL 10 UNIT IVP ×2 (15:44→21:37)
[2024-10-02] MEDS: atorvastatin 40 mg Tablet PO (17:57)
[2024-10-02 20:46] LABS: Alanine Aminotransferase 14 U/L (0-41); Albumin Level 3.6 g/dL (3.5-5.2); Alkaline Phosphatase 82 U/L (40-130); Anion Gap 12.7 (5-19); Aspartate Amino Transferase 15 U/L (0-40); Blood Urea Nitrogen 25 mg/dL (8-23); Calcium 9.1 mg/dL (8.5-10.5); Carbon Dioxide 34 mmol/L (22-29); Chloride 93 mmol/L (98-107); Creatinine Clr Calc Pharmacy 69.7018; Globulin 2.5 g/dL (1.3-4.6); Glomerular Filtration Rate 74.8 mL/min (90-130); Glucose 145 mg/dL (65-115); Osmolality Calculated 285 mOsm/kg (285-295); Potassium 5.7 mmol/L (3.5-5.1); Sodium 134 mmol/L (136-145); Total Bilirubin 0.3 mg/dL (0.15-1.2); Total Protein 6.1 g/dL (6.6-8.7)
[2024-10-02] MEDS: calcium gluconate 0.1 gm/mL 10% SDV 10mL 1 GM IVP (21:37)
[2024-10-02] MEDS: sodium polystyrene sulfonate 15 gm/60 mL Btl PO (21:37)
--- NOTE | 2024-10-02 22:00 | PC.NURSE ---
Repeat potassium came back at 5.7, Dr. Tripathi notified that patient's potassium is rising, orders received for 10 units IVP insulin, 125ml D10, Kayexalate, and 1 gm IV calcium gluconate.
[2024-10-02] MEDS: sodium bicarbonate 8.4% 1 mEq/mL 50mL Syr 100 MEQ IVP (23:05)
[2024-10-03] VITALS (28 sets, daily range): BP systolic 103–156; BP diastolic 52–87; PULSE 60–91; RESP 13–25; TEMP 36.7–36.8; O2SAT 84–98
[2024-10-03 01:35] LABS: Potassium 5.3 mmol/L (3.5-5.1)
[2024-10-03] MEDS: ipratropium-albuterol 3 mL Neb INHALATION ×4 (02:46→19:44)
[2024-10-03] MEDS: metoprolol tartrate 25 mg Tablet 37.5 MG PO (05:05)
[2024-10-03 05:15] LABS: Base Excess VBG 12.1 mmol/L (-3.0-3.0); Blood Gas Sample Type Venous; PO2 VBG 36.1 mmHg (25-40); Venous Blood Gas Hematocrit 37.8 % (42-52); pH VBG 7.42 (7.32-7.42)
[2024-10-03 05:16] LABS: Blood Gas Operator Identificat JDB; Blood Gas Sample Site Not specified; Oxygen Device NC
[2024-10-03 05:17] LABS: PCO2 VBG 60.7 mmHg (41-51)
[2024-10-03 06:07] LABS: Basophils % 0.1 %; Hematocrit 40.5 % (37-53); Lymphocytes # 0.5 10^3/uL (0.8-4.8); Lymphocytes % 4.8 %; Mean Corpuscular HGB Conc 29.4 g/dL (30-55); Mean Corpuscular Hemoglobin 26.8 pg (27-33); Mean Corpuscular Volume 91.2 fl (82-101); Mean Platelet Volume 9.6 fL (7.4-10.4); Monocytes # 0.5 10^3/uL (0.2-0.9); Monocytes % 5.4 %; Nucleated Red Blood Cells % 0 %; Platelet Count 259 10^3/cmm (157-399); Red Blood Count 4.44 10^6/uL (3.85-5.65); Red Cell Distribution Width 15.4 % (12.1-15.1); White Blood Count 9.78 10^3/uL (3.29-11.43)
[2024-10-03 06:30] LABS: Anion Gap 12.1 (5-19); Blood Urea Nitrogen 27 mg/dL (8-23); Carbon Dioxide 36 mmol/L (22-29); Chloride 93 mmol/L (98-107); Creatinine Clr Calc Pharmacy 76.3068; Glomerular Filtration Rate 84.4 mL/min (90-130); Glucose 141 mg/dL (65-115); Osmolality Calculated 289 mOsm/kg (285-295); Potassium 5.1 mmol/L (3.5-5.1); Sodium 136 mmol/L (136-145)
--- NOTE | 2024-10-03 06:52 | P.PN_ITS ---
Subjective 2 Subjective: Patient has been using BiPAP overnight Patient is stating that he has quit using oxygen at home on his own He is not sure about the name of his inhalers He is endorsing history of COPD Patient is stating that he has been producing a lot of phlegm at home but nothing in the hospital Previous sputum culture positive for Moraxella catarrhalis Overnight patient received insulin 10 units, Kayexalate, calcium gluconate and 1 amp of bicarb for hyperkalemia, creatinine is within normal range, bicarb around 34 Patient may need evaluation for BiPAP approval at home Vitals/I&O/Wt Last Vital Signs Temp 98.6 F 10/02/24 19:50 Pulse 38 L 10/02/24 20:54 Resp 20 H 10/02/24 19:18 BP 139/79 10/02/24 19:00 Pulse Ox 94 10/02/24 20:54 O2 Del Method Nasal Cannula 10/02/24 19:18 O2 Flow Rate 3 10/02/24 19:18 FiO2 35 10/02/24 20:54 10/02/24 10/02/24 10/02/24 06:59 14:59 22:59 Intake Total 610 / 610 600 / 1210 Output Total 300 / 1600 500 / 500 400 / 900 Balance -300 / -990 110 / 110 200 / 310 Weight last 48 hrs Weight 73.845 kg Weight 68.492 kg Weight 68.492 kg Physical Exam 2 Narrative: Clinically euvolemic Currently on BiPAP Hemodynamically stable GCS 15 Nonfocal neuroexam Abdomen soft No signs of heart failure S1, S2 Pleasant during evaluation Data 10/03/24 04:58 10/03/24 04:58 Micro: Microbiology 10/01/24 15:16 Gram Stain - Final Sputum - Expectorated Sputum Sputum Culture - Preliminary 10/01/24 10:30 Blood Culture - Preliminary Blood NEGATIVE TO DATE 10/01/24 10:27 Blood Culture - Preliminary Blood NEGATIVE TO DATE A&P Assessment and plan (1) Right-sided chest pain: (2) Ribs, multiple fractures: (3) COPD exacerbation: (4) Respiratory failure with hypoxia and hypercapnia: (5) Bronchitis: (6) Hypoxia: (7) Pneumonia: Plan Acute on chronic hypoxic hypercarbic respiratory distress May need BiPAP approval for home Patient has stopped using oxygen on his own Will need oxygen evaluation and BiPAP evaluation Previous sputum culture positive Moraxella catarrhalis Can be transferred out of ICU Currently on IV antibiotics, will switch to p.o. steroids instead of IV Hyperkalemia without worsening of kidney function patient received insulin, calcium gluconate bicarb and Kayexalate Patient takes Eliquis at home for A-fib Continue amiodarone and Eliquis Attestations 2 Medical Necessity Statement*: May be able to go home in next 24 to 48 hours Diagnoses Right-sided chest pain R07.9 Ribs, multiple fractures S22.49XA COPD exacerbation J44.1 Respiratory failure with hypoxia and hypercapnia J96.91; J96.92 Bronchitis J40 Hypoxia R09.02 Pneumonia J18.9
[2024-10-03] MEDS: azithromycin 250 mg Tablet 500 MG PO (08:13)
[2024-10-03] MEDS: pantoprazole DR 40 mg Tablet PO (08:13)
[2024-10-03] MEDS: amiodarone 200 mg Tablet PO (08:13)
[2024-10-03] MEDS: apixaban 5 mg Tablet PO ×2 (08:13→17:27)
[2024-10-03] MEDS: budesonide 0.5 mg/2 mL Neb INHALATION ×2 (08:16→19:44)
[2024-10-03] MEDS: predniSONE 20 mg Tablet 40 MG PO (10:00)
[2024-10-03] MEDS: cefTRIAXone 1,000 mg SDV 1000 MG IVP (12:09)
--- NOTE | 2024-10-03 13:07 | PM.MISC ---
Miscellaneous Note Note: He states he is to be on oxygen however no longer using it because he felt he did not need it. As he has attempted a sleep study in the past however states there is no way anyone is going to breathe with all those things on your head. I will sleep what I want to and I will breathe but I want to. No one can make me do that. I am not ever going to go back there again. Will order home oxygen evaluation. Patient will need oxygen at discharge. Continue ceftriaxone azithromycin complete total 7-day course. Plan to transfer to floor today. Will discharge home in a.m.
--- NOTE | 2024-10-03 14:38 | PC.SOCIAL ---
IMM Updated Updated pt on IMM. No questions voiced. Provided pt a copy. Initialed, dated, & timed a copy & placed in chart.
[2024-10-03] MEDS: atorvastatin 40 mg Tablet PO (17:27)
[2024-10-03] MEDS: acetaminophen 325 mg Tablet 650 MG PO (22:41)
[2024-10-04] VITALS (22 sets, daily range): BP systolic 113–152; BP diastolic 53–85; PULSE 59–82; RESP 8–20; TEMP 36.4–37; O2SAT 82–100
[2024-10-04] MEDS: ipratropium-albuterol 3 mL Neb INHALATION ×2 (01:28→08:35)
[2024-10-04 04:27] LABS: Hematocrit 39.7 % (37-53); Lymphocytes # 1.2 10^3/uL (0.8-4.8); Lymphocytes % 12.2 %; Mean Corpuscular Hemoglobin 27.2 pg (27-33); Mean Corpuscular Volume 90.6 fl (82-101); Mean Platelet Volume 9.3 fL (7.4-10.4); Monocytes % 10.2 %; Neutrophils # 7.42 10^3/uL (1.8-7.7); Neutrophils % 77.1 %; Nucleated Red Blood Cells % 0 %; Platelet Count 260 10^3/cmm (157-399); Red Blood Count 4.38 10^6/uL (3.85-5.65); Red Cell Distribution Width 15.7 % (12.1-15.1); White Blood Count 9.62 10^3/uL (3.29-11.43)
[2024-10-04 04:49] LABS: Anion Gap 7.6 (5-19); Blood Urea Nitrogen 24 mg/dL (8-23); Calcium 8.7 mg/dL (8.5-10.5); Carbon Dioxide 39 mmol/L (22-29); Chloride 94 mmol/L (98-107); Creatinine Clr Calc Pharmacy 68.6761; Glomerular Filtration Rate 74.8 mL/min (90-130); Glucose 115 mg/dL (65-115); Osmolality Calculated 287 mOsm/kg (285-295); Potassium 4.6 mmol/L (3.5-5.1); Sodium 136 mmol/L (136-145)
[2024-10-04] MEDS: metoprolol tartrate 25 mg Tablet 37.5 MG PO (05:26)
[2024-10-04] MEDS: budesonide 0.5 mg/2 mL Neb INHALATION (08:35)
[2024-10-04] MEDS: azithromycin 250 mg Tablet 500 MG PO (10:10)
[2024-10-04] MEDS: apixaban 5 mg Tablet PO (10:10)
[2024-10-04] MEDS: amiodarone 200 mg Tablet PO (10:10)
[2024-10-04] MEDS: pantoprazole DR 40 mg Tablet PO (10:10)
[2024-10-04] MEDS: predniSONE 20 mg Tablet 40 MG PO (10:11)
--- NOTE | 2024-10-04 11:14 | P.DS_ITS ---
Discharge Providers Date of Admission: 10/01/24 12:07 Date of Discharge: October 04, 2024 Attending Provider at Admission: Alicia Crespo MD Attending Provider at Discharge: Love Mauro MD Primary Care Provider: Ya Panchal MD Diagnoses at Discharge Discharge Diagnosis (1) Right-sided chest pain: Status: Resolved (2) Ribs, multiple fractures: Status: Acute (3) COPD exacerbation: Status: Acute (4) Respiratory failure with hypoxia and hypercapnia: Status: Acute (5) Bronchitis: Status: Acute (6) Hypoxia: Status: Acute (7) Pneumonia: Status: Acute Reason for Visit Reason for Visit: difficulty breathing Hospital Course Hospital Course Patient with history of CAD status post PCI, atrial fibrillation, COPD hypertension hyperlipidemia hyper diastolic heart failure previously on oxygen at home however stopped using it presented to the hospital with a new oxygen requirement of 5 L. MRSA nasal screen was ordered he was placed on steroids and treated for COPD exacerbation. Also noted to be hyperkalemic and was treated for that. We did discuss setting up BiPAP at home however he stated that he is not interested in having a sleep study or wearing a machine over his head. He said he cannot tell me when to breathe and I will breathe when I want to breathe. I do not want to wear anything on my head. He was set up with home oxygen and sent home with steroids and antibiotics. Physical Exam Narrative: Clinically euvolemic Resting comfortably on 4 L nasal cannula. Hemodynamically stable GCS 15 Nonfocal neuroexam Abdomen soft No signs of heart failure S1, S2 Pleasant during evaluation Discharge Data Studies Completed and Pending Completed Studies During Hospitalization Category Date Time Status XR chest 1V portable [id number] Stat Exams 10/01/24 08:54 Completed Pending at discharge Category Date Time Status Basic Metabolic Panel AM LABS Lab 10/05/24 04:00 Ordered Blood Culture Stat Lab 10/01/24 10:30 Results Complete Blood Count w/Auto AM LABS Lab 10/05/24 04:00 Ordered Radiology Impressions Chest X-Ray 10/01/24 08:54 IMPRESSION: 1. Subtle right mid to lower lung reticular opacities, new when compared to prior imaging. 2. Emphysematous lung changes. Laboratory Results WBC 9.62 10^3/uL (3.29-11.43) 10/04/24 03:22 RBC 4.38 10^6/uL (3.85-5.65) 10/04/24 03:22 Hgb 11.90 g/dL (11.27-16.99) 10/04/24 03:22 Hct 39.7 % (37-53) 10/04/24 03:22 MCV 90.6 fl (82-101) 10/04/24 03:22 MCH 27.2 pg (27-33) 10/04/24 03:22 MCHC 30.0 g/dL (30-55) 10/04/24 03:22 RDW 15.7 % (12.1-15.1) H 10/04/24 03:22 Plt Count 260 10^3/cmm (157-399) 10/04/24 03:22 MPV 9.3 fL (7.4-10.4) 10/04/24 03:22 Neut % (Auto) 77.1 % 10/04/24 03:22 Lymph % (Auto) 12.2 % 10/04/24 03:22 [place] % (Auto) 10.2 % 10/04/24 03:22 Eos % (Auto) 0.0 % 10/04/24 03:22 Baso % (Auto) 0.0 % 10/04/24 03:22 Neut # (Auto) 7.42 10^3/uL (1.8-7.7) 10/04/24 03:22 Lymph # (Auto) 1.2 10^3/uL (0.8-4.8) 10/04/24 03:22 [place] # (Auto) 1.0 10^3/uL (0.2-0.9) H 10/04/24 03:22 Eos # (Auto) 0.0 10^3/uL (0.0-0.8) 10/04/24 03:22 Baso # (Auto) 0.0 10^3/uL (0.0-0.1) 10/04/24 03:22 Nucleated RBC % (auto) 0 % 10/04/24 03:22 Nucleated RBCs # 0.0 /100WBC 10/04/24 03:22 D-Dimer <= 0.27 ug/mLFEU (0-0.59) 10/01/24 08:35 Specimen Type Venous 10/03/24 05:00 Sample Site Not specified 10/03/24 05:00 ABG pH 7.38 (7.35-7.45) 10/02/24 10:35 ABG pCO2 63.1 mmHg (35-45) H* 10/02/24 10:35 ABG pO2 106.0 mmHg (80.0-100.0) H 10/02/24 10:35 ABG PO2/FiO2 Ratio 302 10/02/24 10:35 ABG HCO3 37.1 mmol/L (22-26) H 10/02/24 10:35 ABG O2 Saturation 98.6 10/02/24 10:35 ABG Base Excess 9.8 mmol/L (-2.0-2.0) H 10/02/24 10:35 Addy Test N/a 10/03/24 05:00 VBG pH 7.42 (7.32-7.42) 10/03/24 05:00 VBG pCO2 60.7 mmHg (41-51) H* 10/03/24 05:00 VBG pO2 36.1 mmHg (25-40) 10/03/24 05:00 VBG HCO3 39.0 mmol/L (24-28) H 10/03/24 05:00 VBG Base Excess 12.1 mmol/L (-3.0-3.0) H 10/03/24 05:00 VBG Hematocrit 37.8 % (42-52) L 10/03/24 05:00 A-a O2 Gradient 8.6 mmHg (5-10) 10/02/24 10:35 Hematocrit 37.1 % (42-52) L 10/02/24 10:35 Hgb O2 Saturation 96.8 % (95-100) 10/02/24 10:35 Carboxyhemoglobin 0.9 %THgb (0.4-20.1) 10/02/24 10:35 Methemoglobin 1.0 % (0.4-1.5) 10/02/24 10:35 Total Hemoglobin 12.1 g/dL (14-18) L 10/02/24 10:35 Sodium 133.0 mmol/L (131-143) 10/02/24 10:35 Potassium 5.0 mmol/L (3.5-5.0) 10/02/24 10:35 Glucose 198.0 mg/dL (70-115) H 10/02/24 10:35 Ionized Calcium 1.2 mmol/L (1.1-1.4) 10/02/24 10:35 O2 Delivery Device Nc 10/03/24 05:00 O2 Liters/Min 4.0 % 10/03/24 05:00 FiO2 35.0 % 10/02/24 10:35 PEEP 6.0 cmH20 10/01/24 17:00 Rotary Cutter ID Jdb 10/03/24 05:00 Sodium 136 mmol/L (136-145) 10/04/24 03:22 Potassium 4.6 mmol/L (3.5-5.1) 10/04/24 03:22 Chloride 94 mmol/L (98-107) L 10/04/24 03:22 Carbon Dioxide 39 mmol/L (22-29) H 10/04/24 03:22 Anion Gap 7.6 (5-19) 10/04/24 03:22 BUN 24 mg/dL (8-23) H 10/04/24 03:22 Creatinine 1.0 mg/dL (0.7-1.2) 10/04/24 03:22 GFR Calculation 74.8 mL/min (90-130) L 10/04/24 03:22 Glucose 115 mg/dL (65-115) 10/04/24 03:22 POC Glucose 123 mg/dL (70-110) H 10/01/24 12:42 Calculated Osmolality 287 mOsm/kg (285-295) 10/04/24 03:22 Lactic Acid 1.9 mmol/L (0.5-2.2) 10/01/24 08:35 Calcium 8.7 mg/dL (8.5-10.5) 10/04/24 03:22 Total Bilirubin 0.3 mg/dL (0.15-1.2) 10/02/24 20:09 AST 15 U/L (0-40) 10/02/24 20:09 ALT 14 U/L (0-41) 10/02/24 20:09 Alkaline Phosphatase 82 U/L (40-130) 10/02/24 20:09 Troponin T Baseline 66 ng/L (0-15) H 10/01/24 10:27 NT-Pro-B Natriuret Pep 7554 pg/mL (0-125) H 10/01/24 10:27 Total Protein 6.1 g/dL (6.6-8.7) L 10/02/24 20:09 Albumin 3.6 g/dL (3.5-5.2) 10/02/24 20:09 Globulin 2.5 g/dL (1.3-4.6) 10/02/24 20:09 Adenovirus (PCR) Not detected (NOT DETECT) 10/01/24 09:19 C. pneumoniae DNA (PCR) Not detected (NOT DETECT) 10/01/24 09:19 Coronavirus 229E (PCR) Not detected (NOT DETECT) 10/01/24 09:19 Human Metapneumovir PCR Not detected (NOT DETECT) 10/01/24 09:19 Influenza A (H1) PCR Not detected (NOT DETECT) 10/01/24 09:19 Influ A (H1/09) PCR Not detected (NOT DETECT) 10/01/24 09:19 Influenza A (H3) PCR Not detected (NOT DETECT) 10/01/24 09:19 Influenza Type A (PCR) Not detected (NOT DETECT) 10/01/24 09:19 Influenza Type B (PCR) Not detected (NOT DETECT) 10/01/24 09:19 M. pneumoniae (PCR) Not detected (NOT DETECT) 10/01/24 09:19 Parainfluenza 1 (PCR) Not detected (NOT DETECT) 10/01/24 09:19 Parainfluenza 2 (PCR) Not detected (NOT DETECT) 10/01/24 09:19 Parainfluenza 3 (PCR) Not detected (NOT DETECT) 10/01/24 09:19 Parainfluenza 4 (PCR) Not detected (NOT DETECT) 10/01/24 09:19 RSV Type A (PCR) Not detected (NOT DETECT) 10/01/24 09:19 RSV Type B (PCR) Not detected (NOT DETECT) 10/01/24 09:19 Entero/Rhino (PCR) Not detected (NOT DETECT) 10/01/24 09:19 SARS-CoV-2 (PCR) Not detected (NOT DETECT) 10/01/24 09:19 Vitals Last Vital Signs Temp 97.9 F 10/04/24 08:00 Pulse 71 10/04/24 10:00 Resp 16 10/04/24 10:00 BP 152/85 10/04/24 10:00 Pulse Ox 85 L 10/04/24 10:10 O2 Del Method Nasal Cannula 10/04/24 08:35 O2 Flow Rate 4 10/04/24 10:10 FiO2 35 10/03/24 03:18 Discharge Plan Discharge Patient Disposition: Home Condition: Stable Prescriptions: New azithromycin 250 mg Tablet 500 mg PO DAILY Qty: 6 0RF prednisone 20 mg Tablet 40 mg PO DAILY Qty: 3 0RF pantoprazole 40 mg Tablet,Delayed Release (Dr/Ec) 40 mg PO DAILY Qty: 14 0RF cefdinir 300 mg capsule 300 mg PO BID 3 Days Qty: 6 0RF tiotropium bromide 1.25 mcg/actuation mist 2 inh inhalation DAILY Qty: 4 0RF Continued atorvastatin 40 mg tablet 40 mg PO QPM amiodarone [Pacerone] 200 mg Tablet 200 mg PO DAILY Qty: 90 0RF Eliquis 5 mg tablet 5 mg PO BID metoprolol tartrate 37.5 mg tablet 37.5 mg PO QAM albuterol sulfate [Ventolin HFA] 90 mcg/actuation HFA aerosol inhaler 2 puff INHALATION Q6H PRN (Reason: Shortness Of Breath Or Wheezing) acetaminophen [Tylenol Extra Strength] 500 mg Tablet 500 mg PO QID PRN (Reason: Pain) Changed amlodipine 5 mg tablet 10 mg PO DAILY Qty: 60 0RF Discontinued benazepril 40 mg tablet 40 mg PO DAILY Discharge Orders: Discharge Order (Routine); Ordered 10/04/24 Ordered By: Love Mauro Other Ambulatory Orders: DME: Oxygen (Order) Location: None Selected Ordered By: Love Mauro Referrals: [facility] [place] [Outside] Ya Panchal MD [Primary Care Provider] - 10/11/24 10:30 am () Discharge Diet: Cardiac Discharge Activity: Resume usual activity and Oxygen as instructed Patient Instructions: Prednisone (By mouth), Azithromycin (By mouth), Cefdinir (By mouth), Pantoprazole (By mouth), Tiotropium (By breathing) (Spiriva, Spiriva Respimat), Viral Pneumonia (DC), Acute Kidney Injury (DC), Heart Healthy Diet (ED), Hyperkalemia (DC), Hypoxia (GEN), Opioid Safety Discharge Attestations Time Spent in Discharge Care*: greater than 30 min Quality Metrics Clinical Quality Measures [ No reported AMI, CVA or VTE this stay] Coding Level of Care Code Acute Code for Chg Fwd Diagnoses Right-sided chest pain R07.9 Ribs, multiple fractures S22.49XA COPD exacerbation J44.1 Respiratory failure with hypoxia and hypercapnia J96.91; J96.92 Bronchitis J40 Hypoxia R09.02 Pneumonia J18.9
[2024-10-04] MEDS: cefTRIAXone 1,000 mg SDV 1000 MG IVP (12:55)
--- NOTE | 2024-10-04 14:01 | PC.NURSE ---
Discharged patient. reviewed upcoming appointments and new medications. Medications delivered meds to bed. IV removed. Belnigings sent with patient included shirt, jacket, pants, shoes, wallet, cellphone and model maker scale, new medications, and home oxygen. taken out via wheel chair to ready transportation operations manager.
== END 2024-10-04 14:05 | disposition home or self-care (01) | DRG 190 ==
LOC: ER 10:53 → ICU 12:08
PROVIDERS: Internal Medicine; Admitting Provider Student in an Organized Health Care Education/Training Program; Emergency Provider Family Medicine; PCP Internal Medicine; Visit Provider Internal Medicine
DX: J44.1 Chronic obstructive pulmonary disease with (acute) exacerbation (principal); J96.21 Acute and chronic respiratory failure with hypoxia; J96.22 Acute and chronic respiratory failure with hypercapnia; I50.30 Unspecified diastolic (congestive) heart failure; I42.1 Obstructive hypertrophic cardiomyopathy; I25.10 Atherosclerotic heart disease of native coronary artery without angina pectoris; Z95.5 Presence of coronary angioplasty implant and graft; I48.91 Unspecified atrial fibrillation; I11.0 Hypertensive heart disease with heart failure; E78.5 Hyperlipidemia, unspecified; Z99.81 Dependence on supplemental oxygen; E87.5 Hyperkalemia; Z79.01 Long term (current) use of anticoagulants; R07.9 Chest pain, unspecified; F17.210 Nicotine dependence, cigarettes, uncomplicated; I25.2 Old myocardial infarction; Z86.19 Personal history of other infectious and parasitic diseases; B96.83 Acinetobacter baumannii as the cause of diseases classified elsewhere; Z82.49 Family history of ischemic heart disease and other diseases of the circulatory system; Z83.3 Family history of diabetes mellitus; J20.9 Acute bronchitis, unspecified
CPT/HCPCS: 36415; 36416; 36600; 71045; 80048; 80051; 80053; 82330; 82803; 82805; 82962; 83605; 83880; 84132; 84484; 85025; 85378; 87040; 87070; 87205; 87486; 87581; 87633; 93005; 94640; 94660; 94760; 96365; 96372; 96374; 96375; 96376; 99291; J0612; J0696; J1100; J1650; J1815; J1956; J2060; J2919; J7512; J7626; J7799; Q0144

== ENCOUNTER 2024-10-10 16:03 | Inpatient (IN) | payer MEDICARE, MEDICAID, SELFPAY ==
[2024-10-10] VITALS (69 sets, daily range): BP systolic 129–171; BP diastolic 31–124; PULSE 63–83; RESP 14–31; TEMP 36.5–36.8; O2SAT 88–98; BMI 25.9
--- NOTE | 2024-10-10 16:08 | XRR_ITS ---
PROCEDURE INFORMATION: Exam: XR Chest Exam date and time: 10/10/2024 4:49 PM Age: 68 years old Clinical indication: Shortness of breath; Additional info: SOB TECHNIQUE: Imaging protocol: Radiologic exam of the chest. Views: 1 view. COMPARISON: CR (CHEST, ) 10/01/2024 8:59 AM FINDINGS: Tubes, catheters and devices: Overlying monitor leads. Lungs: Residual mild reticular markings mid to lower right lung with prior exam, though showing improvement in the right perihilar region. No consolidation. Mild benign healed granulomatous disease change. Pleural spaces: No significant pleural effusion. No pneumothorax. Heart/Mediastinum: Upper limits of normal cardiac size. Bones/joints: Visualized osseous structures show no acute abnormality. XR/XR chest 1V portable [id number] IMPRESSION: Compared with prior exam 10/01/2024, residual mild reticular markings mid to lower right lung, showing improvement in the right perihilar region otherwise. No other significant change. No consolidation or effusion.
--- NOTE | 2024-10-10 16:11 | ECG_ITS ---
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1955 Requested By: Norma Rush Order Number: [id number] Reading MD: CONCHA ROMERO Measurements Intervals [place] Rate: 71 P: 32 CO: 168 QRS: 25 QRSD: 118 T: 99 QT: 430 QTc: 470 Interpretive Statements SINUS RHYTHM ANTERIOR MYOCARDIAL INFARCTION , POSSIBLY ACUTE [40+ ms Q WAVE AND/OR ST/T ABNORMALITY IN V3/V4] INTERPRETATION BASED ON A DEFAULT AGE OF 40 YEARS Compared to ECG 10/01/2024 08:56:01 no significant difference Electronically Signed On 10-10-2024 23:10:57 REED OR WIND INSTRUMENT REPAIRER by CONCHA ROMERO [id number]
--- NOTE | 2024-10-10 16:24 | ED_ITS ---
HPI - SOB/Dyspnea 2 General: Chief Complaint: Shortness of Breath/Dyspnea Stated Complaint: SOB / breathing problems Time Seen by Provider: 10/10/24 16:22 History of Present Illness: HPI Narrative: 68-year-old male presents to the emergen cy room with complaints of difficulty breathing. Patient has severe COPD is on 4 L/min he denies any chest pain at this time but with any activity he begins to get short of breath. Despite his oxygen. He denies any hemoptysis denies any productive cough no fever sweats and chills he was recently seen with mild COPD exacerbation and discharged home on steroids and nebulizers. Despite this he is continuing to have difficulty. Associated symptoms: Deny abdominal pain, chest pain or fever(s) Related Data Home Medications Medication Instructions Recorded Confirmed atorvastatin 40 mg tablet 40 mg PO QPM 12/19/19 10/10/24 apixaban 5 mg tablet (Eliquis) 5 mg PO BID 01/24/24 10/10/24 metoprolol tartrate 37.5 mg tablet 37.5 mg PO QAM 01/24/24 10/10/24 acetaminophen 500 mg tablet 500 mg PO QID PRN Pain 10/01/24 10/10/24 (Tylenol Extra Strength) albuterol sulfate 90 mcg/actuation 2 puff inhalation Q6H PRN 10/01/24 10/10/24 aerosol inhaler (Ventolin HFA) Shortness Of Breath Or Wheezing benazepril 40 mg tablet 40 mg PO DAILY 10/10/24 10/10/24 omeprazole 20 mg capsule,delayed 20 mg PO DAILY 10/10/24 10/10/24 release Previous Rx's Medication Instructions Recorded amiodarone 200 mg tablet (Pacerone) 200 mg PO DAILY #90 tabs 06/27/24 amlodipine 5 mg tablet 10 mg (2 x 5 mg) PO DAILY #60 tabs 10/04/24 azithromycin 250 mg tablet 500 mg (2 x 250 mg) PO DAILY #6 10/04/24 tabs pantoprazole 40 mg tablet,delayed 40 mg PO DAILY #14 tabs 10/04/24 release tiotropium bromide 1.25 2 inh inhalation DAILY #4 grams 10/04/24 mcg/actuation mist for inhalation Allergies Allergy/AdvReac Type Severity Reaction Status Date / Time No Known Allergies Allergy Verified 10/10/24 16:28 Review of Systems 2 Const: Denies: fever(s) or chills Card: Denies: chest pain Resp: Reports: dyspnea and non-productive cough GI: Denies: abdominal pain : Denies: dysuria, urinary frequency or urinary urgency Musc: Denies: neck pain or back pain Skin/Breast: Denies: rash PFSH ED 2 PFSH: Medical History Intermittent atrial fibrillation Atherosclerotic heart disease of [place] coronary artery with unstable angina pectoris Chest pain Atrial fibrillation with RVR Hypercapnic respiratory failure Alcohol abuse COPD (chronic obstructive pulmonary disease) Acute non-ST elevation myocardial infarction (NSTEMI) Self extubation Atherosclerotic heart disease of [place] coronary artery without angina pectoris Fatigue EKG from today revealed sinus rhythm with features of LVH. ST-T changes in the high lateral leads. Occasional PVCs. No significant new changes. Smoker Quit in December 2023 Hyperlipidemia Atrial fibrillation HTN (hypertension) IHSS (idiopathic hypertrophic subaortic stenosis) CAD (coronary artery disease) Hepatitis C Surgical History S/P coronary artery stent placement S/P appendectomy Family History Mother CAD (coronary artery disease) Diabetes Sister Cancer Father Lung disease Other Hypertension Denies family history of Clotting disorder Dementia Chronic kidney disease (CKD) Suicide Anesthesia complication Bleeding disorder Stroke Social History Smoking and tobacco/nicotine status: current every day tobacco/nicotine user Alcohol intake: current Substance/Drug Use: former Physical Exam 2 Const: COMMON NORMALS: no acute distress GENERAL APPEARANCE: cooperative and comfortable ORIENTATION/CONSCIOUSNESS: Yes awake, Yes oriented to person, Yes oriented to place and Yes oriented to time HENMT: COMMON NORMALS: normocephalic, atraumatic and hearing grossly normal bilaterally HEAD & SCALP: normocephalic and atraumatic Resp: AUSCULTATION: rhonchi and wheezes Cardio: COMMON NORMALS: regular rate, regular rhythm and No murmurs present (Cardio) RATE: regular rate RHYTHM: regular rhythm GI: COMMON NORMALS: Soft to palpation and No hepatosplenomegaly present A USCULTATION: Yes normoactive bowel sounds PALPATION: Yes Soft to palpation, No Tenderness to palpation present (GI), No Guarding due to palpation present (GI) and Yes No hepatosplenomegaly present Extremity: COMMON NORMALS: normal to inspection, capillary refill normal, no clubbing, cyanosis or edema, no calf tenderness and no pedal edema Neuro: SENSORIUM/ORIENTATION: Yes oriented to person, Yes oriented to place and Yes oriented to time Skin: COMMON NORMALS: no rashes or lesions noted GENERAL SKIN EXAM: no rashes or lesions noted Course 2 Vital Signs: Vital signs: Vital Signs Temperature 97.7 F 10/10/24 16:25 Pulse Rate 67 10/10/24 17:31 Respiratory Rate 24 H 10/10/24 16:49 Blood Pressure 165/89 10/10/24 17:31 Pulse Oximetry 94 10/10/24 17:31 Oxygen Delivery Me thod Nasal Cannula 10/10/24 16:49 Oxygen Flow Rate 4 10/10/24 16:49 MDM - SOB/Dyspnea Medical Decision Making Acute hypercapnic respiratory failure and hypoxia due to exacerbation COPD. Patient started on BiPAP steroids and nebs. Discussed with hospitalist chest x- ray actually improved compared to previous. We did not initiate antibiotics Dr. Parry will review. Because patient is requiring BiPAP will admit to ICU Medical Records I reviewed the patient's medical records. Lab Data I reviewed the patient's lab results. 10/10/24 16:26 10/10/24 16:26 Labs/Radiology: Radiology Impressions Chest X-Ray 10/10/24 16:08 IMPRESSION: Compared with prior exam 10/01/2024, residual mild reticular markings mid to lower right lung, showing improvement in the right perihilar region otherwise. No other significant change. No consolidation or effusion. Laboratory Results WBC 8.41 10^3/uL (3.29-11.43) 10/10/24 16: RBC 5.04 10^6/uL (3.85-5.65) 10/10/24 16:26 Hgb 13.60 g/dL (11.27-16.99) 10/10/24 16: Hct 46.6 % (37-53) 10/10/24 16: MCV 92.5 fl (82-101) 10/10/24 16: MCH 27.0 pg (27-33) 10/10/24 16: MCHC 29.2 g/dL (30-55) L 10/10/24 16: RDW 15.4 % (12.1-15.1) H 10/10/24 16: Plt Count 320 10^3/cmm (157-399) 10/10/24 16: MPV 8.6 fL (7.4-10.4) 10/10/24 16: Neut % (Auto) 72.3 % 10/10/24 16: Lymph % (Auto) 15.0 % 10/10/24 16: Isabela % (Auto) 9.5 % 10/10/24 16: Eos % (Auto) 2.4 % 10/10/24 16: Baso % (Auto) 0.4 % 10/10/24 16: Neut # (Auto) 6.09 10^3/uL (1.8-7.7) 10/10/24 16: Lymph # (Auto) 1.3 10^3/uL (0.8-4.8) 10/10/24 16: Isabela # (Auto) 0.8 10^3/uL (0.2-0.9) 10/10/24 16: Eos # (Auto) 0.2 10^3/uL (0.0-0.8) 10/10/24 16: Baso # (Auto) 0.0 10^3/uL (0.0-0.1) 10/10/24 16: Nucleated RBC % (auto) 0 % 10/10/24 16: Nucleated RBCs # 0.0 /100WBC 10/10/24 16: Specimen Type Arterial 10/10/24 16:41 Sample Site Brachial, right 10/10/24 16:41 ABG pH 7.33 (7.35-7.45) L 10/10/24 16:41 ABG pCO2 82.8 mmHg (35-45) H* 10/10/24 16:41 ABG pO2 83.3 mmHg (80.0-100.0) 10/10/24 16:41 ABG PO2/FiO2 Ratio 231 10/10/24 16:41 ABG HCO3 43.6 mmol/L (22-26) H 10/10/24 16:41 ABG O2 Saturation 95.9 10/10/24 16:41 ABG Base Excess 14.1 mmol/L (-2.0-2.0) H 10/10/24 16:41 Addy Test N/a 10/10/24 16:41 A-a O2 Gradient 10.3 mmHg (5-10) H 10/10/24 16:41 Hematocrit 37.1 % (42-52) L 10/10/24 16:41 Hgb O2 Saturation 93.7 % (95-100) L 10/10/24 16:41 Carboxyhemoglobin 1.9 %THgb (0.4-20.1) 10/10/24 16:41 Methemoglobin 0.3 % (0.4-1.5) L 10/10/24 16:41 Total Hemoglobin 12.1 g/dL (14-18) L 10/10/24 16:41 Sodium 134.0 mmol/L (131-143) 10/10/24 16:41 Potassium 3.9 mmol/L (3.5-5.0) 10/10/24 16:41 Glucose 140.0 mg/dL (70-115) H 10/10/24 16:41 Ionized Calcium 1.2 mmol/L (1.1-1.4) 10/10/24 16:41 O2 Delivery Device Nc 10/10/24 16:41 O2 Liters/Min 4.0 % 10/10/24 16:41 FiO2 36.0 % 10/10/24 16:41 Power House Control Room Operator ID [id number] 10/10/24 16:41 Sodium 137 mmol/L (136-145) 10/10/24 16:26 Potassium 4.5 mmol/L (3.5-5.1) 10/10/24 16:26 Chloride 90 mmol/L (98-107) L 10/10/24 16:26 Carbon Dioxide 41 mmol/L (22-29) H 10/10/24 16:26 Anion Gap 10.5 (5-19) 10/10/24 16:26 BUN 14 mg/dL (8-23) 10/10/24 16:26 Creatinine 0.7 mg/dL (0.7-1.2) 10/10/24 16:26 GFR Calculation 112.8 mL/min (90-130) 10/10/24 16:26 Glucose 152 mg/dL (65-115) H 10/10/24 16:26 Calculated Osmolality 287 mOsm/kg (285-295) 10/10/24 16:26 Calcium 9.7 mg/dL (8.5-10.5) 10/10/24 16:26 Total Bilirubin 1.0 mg/dL (0.15-1.2) 10/10/24 16:26 AST 22 U/L (0-40) 10/10/24 16:26 ALT 26 U/L (0-41) 10/10/24 16:26 Alkaline Phosphatase 85 U/L (40-130) 10/10/24 16:26 Troponin T Baseline 57 ng/L (0-15) H 10/10/24 16:26 NT-Pro-B Natriuret Pep 5878 pg/mL (0-125) H 10/10/24 16:26 Total Protein 7.3 g/dL (6.6-8.7) 10/10/24 16:26 Albumin 4.4 g/dL (3.5-5.2) 10/10/24 16:26 Globulin 2.9 g/dL (1.3-4.6) 10/10/24 16:26 All radiology interpretation(s) finalized by discharge Discharge Plan Discharge Patient Disposition: Admitted As Inpatient Admit Provider: Gabriel Song Clinical Impression: COPD exacerbation, Respiratory failure with hypoxia and hypercapnia Condition: Stable Coding Level of Care Code ED Supervisor Payroll for Yajaira Cooper
[2024-10-10 16:33] LABS: Basophils % 0.4 %; Eosinophils # 0.2 10^3/uL (0.0-0.8); Eosinophils % 2.4 %; Hematocrit 46.6 % (37-53); Lymphocytes # 1.3 10^3/uL (0.8-4.8); Mean Corpuscular HGB Conc 29.2 g/dL (30-55); Mean Corpuscular Volume 92.5 fl (82-101); Mean Platelet Volume 8.6 fL (7.4-10.4); Monocytes # 0.8 10^3/uL (0.2-0.9); Monocytes % 9.5 %; Neutrophils # 6.09 10^3/uL (1.8-7.7); Neutrophils % 72.3 %; Nucleated Red Blood Cells % 0 %; Platelet Count 320 10^3/cmm (157-399); Red Blood Count 5.04 10^6/uL (3.85-5.65); Red Cell Distribution Width 15.4 % (12.1-15.1); White Blood Count 8.41 10^3/uL (3.29-11.43)
[2024-10-10] MEDS: ipratropium-albuterol 3 mL Neb INHALATION ×2 (16:41→19:43)
[2024-10-10 16:52] LABS: ABG PH Result 7.33 (7.35-7.45); Alveolar-Arterial Oxygen Gradi 10.3 mmHg (5-10); Arterial Blood Gas Hematocrit 37.1 % (42-52); Base Excess ABG 14.1 mmol/L (-2.0-2.0); Blood Gas Operator Identificat AMH; Blood Gas Sample Site Brachial, right; Blood Gas Sample Type Arterial; Carboxyhemoglobin 1.9 %THgb (0.4-20.1); HCO3 ABG 43.6 mmol/L (22-26); HGB O2 Sat 93.7 % (95-100); Ionized Calcium Level - ABG 1.2 mmol/L (1.1-1.4); Methemoglobin 0.3 % (0.4-1.5); Oxygen Device NC; Oxygen Saturation ABG 95.9; PO2 ABG 83.3 mmHg (80.0-100.0); PO2 FiO2 Ratio Arterial Blood 231; Potassium Level - ABG 3.9 mmol/L (3.5-5.0); Total Hemoglobin 12.1 g/dL (14-18)
[2024-10-10 16:53] LABS: ABG PCO2 82.8 mmHg (35-45)
[2024-10-10 17:00] LABS: Alanine Aminotransferase 26 U/L (0-41); Albumin Level 4.4 g/dL (3.5-5.2); Alkaline Phosphatase 85 U/L (40-130); Anion Gap 10.5 (5-19); Aspartate Amino Transferase 22 U/L (0-40); Blood Urea Nitrogen 14 mg/dL (8-23); Calcium 9.7 mg/dL (8.5-10.5); Chloride 90 mmol/L (98-107); Globulin 2.9 g/dL (1.3-4.6); Glomerular Filtration Rate 112.8 mL/min (90-130); Glucose 152 mg/dL (65-115); NT Pro B Type Natriuretic Pept 5878 pg/mL (0-125); Osmolality Calculated 287 mOsm/kg (285-295); Potassium 4.5 mmol/L (3.5-5.1); Sodium 137 mmol/L (136-145); Total Protein 7.3 g/dL (6.6-8.7)
[2024-10-10 17:02] LABS: Carbon Dioxide 41 mmol/L (22-29)
--- NOTE | 2024-10-10 17:10 | ECG_ITS ---
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1955 Requested By: Paul Clemente Order Number: [id number] Reading MD: CONCHA ROMERO Measurements Intervals [place] Rate: 63 P: 52 VA: 182 QRS: 41 QRSD: 117 T: 85 QT: 448 QTc: 462 Interpretive Statements SINUS RHYTHM MODERATE INTRAVENTRICULAR CONDUCTION DELAY [110+ ms QRS DURATION] NONSPECIFIC T-WAVE ABNORMALITY Compared to ECG 10/10/2024 16:11:57 Intraventricular conduction delay now present T-wave abnormality now present Myocardial infarct finding no longer present Electronically Signed On 10-10-2024 23:10:11 AVIONICS SUPERVISOR by CONCHA ROMERO [id number]
[2024-10-10] MEDS: dexamethasone 10 mg/mL INJ IM (17:13)
[2024-10-10] MEDS: LORazepam 2 mg/mL INJ 1 mL 1 MG IVP (17:13)
--- NOTE | 2024-10-10 17:37 | P.HP_ITS ---
Providers/Chief Complaint 2 Admitting Physician: Gabriel Song MD Primary Care Provider: Ya Panchal MD Chief Complaint: SOB / breathing problems History of Present Illness Pratik Garcia is a 68 year old male with past medical history of CAD, post PCI, atrial fibrillation, COPD, hypertension, hyperlipidemia, IHSS (Idiopathic hypertrophic subaortic stenosis), diastolic heart failure, history of COPD, chronic hypercapnic respiratory failure, chronic smoker who was recently in hospital and discharged on 10/04. It seems on previous discharge patient was recommended a BiPAP which he declined. Today he comes back to the ER because of difficulty in breathing which has been getting worse over last 3 to 4 days. Patient states he has been taking his medications regularly. Denies any hemoptysis, fever, sweats, chills, nausea, vomiting. In the ER he was found to be hypercapnic with respiratory acidosis for which she was placed on BiPAP after IV Ativan. On examination on BiPAP patient wakes up to physical stimulus, able to have complete conversation. States this time he is agreeable for BiPAP if and when needed. Review of Systems 2 General: Reports: 10 or more systems reviewed and unremarkable except in HPI and below Const: Denies: fever(s), chills, body aches, change in appetite, change in weight, malaise, night sweats, diaphoresis, change in sleep pattern, daytime sleepiness or snoring Eyes: Denies: change in vision, blurry vision, photophobia, eye discomfort or eye discharge ENMT: Denies: throat pain, enlarged tonsils, hoarseness, mouth pain, oral sores, dry mouth, tinnitus, nasal congestion or post nasal drip Card: Denies: chest pain, palpitations, irregular heart rhythm, edema, swelling of feet/ankles, lightheadedness, syncope, pre-syncope, dyspnea on exertion, orthopnea, leg pain with exertion or acrocyanosis Resp: Denies: dyspnea, productive cough, non-productive cough, wheezing, stridor, pain on inspiration, change in phlegm color, hemoptysis or chest congestion GI: Denies: abdominal pain, nausea, vomiting, hematemesis, coffee ground emesis, dysphagia, heartburn, diarrhea, constipation, bloating, GI cramping, change in bowel habits, pain on defecation, hematochezia or melena : Denies: flank pain, difficulty urinating, dysuria, urinary frequency, urinary urgency, urinary hesitancy, urinary dribbling, difficulty starting urination, change in urine stream, nocturia or hematuria Musc: Denies: neck pain, back pain, extremity pain, joint pain, joint swelling, joint redness, joint stiffness or limited range of motion Neuro: Denies: headache(s), numbness in extremities, weakness in extremities, sensory changes, lack of coordination, difficulty walking, frequent falls, dizziness, vertigo, confusion, Slurred speech present, difficulty communicating thoughts or seizure-like activity Psych: Denies: anxiety, depression, mood swings, panic attacks, hopelessness or irritability Endo: Denies: polyuria, polydipsia, tired all the time, cold intolerance, excessive sweating, flushing or heat intolerance Lc/Lymph: Denies: easy bruising or easy bleeding All/Imm: Denies: tongue swelling, facial swelling or acute wheezing Medications/Allergies Home Medications Medication Instructions Recorded Confirmed Last Taken Type atorvastatin 40 mg tablet 40 mg PO QPM 12/19/19 10/10/24 10/10/24 History apixaban 5 mg tablet (Eliquis) 5 mg PO BID 01/24/24 10/10/24 10/10/24 History metoprolol tartrate 37.5 mg tablet 37.5 mg PO QAM 01/24/24 10/10/24 10/10/24 History amiodarone 200 mg tablet (Pacerone) 200 mg PO DAILY #90 tabs 06/27/24 10/10/24 10/10/24 Rx acetaminophen 500 mg tablet 500 mg PO QID PRN Pain 10/01/24 10/10/24 Unknown History (Tylenol Extra Strength) albuterol sulfate 90 mcg/actuation 2 puff inhalation Q6H PRN 10/01/24 10/10/24 10/10/24 History aerosol inhaler (Ventolin HFA) Shortness Of Breath Or Wheezing amlodipine 5 mg tablet 10 mg (2 x 5 mg) PO DAILY #60 tabs 10/04/24 10/10/24 10/10/24 Rx azithromycin 250 mg tablet 500 mg (2 x 250 mg) PO DAILY #6 10/04/24 10/10/24 Unknown Rx tabs pantoprazole 40 mg tablet,delayed 40 mg PO DAILY #14 tabs 10/04/24 10/10/24 10/10/24 Rx release tiotropium bromide 1.25 2 inh inhalation DAILY #4 grams 10/04/24 10/10/24 Unknown Rx mcg/actuation mist for inhalation benazepril 40 mg tablet 40 mg PO DAILY 10/10/24 10/10/24 10/10/24 History omeprazole 20 mg capsule,delayed 20 mg PO DAILY 10/10/24 10/10/24 10/10/24 History release Allergies Allergy/AdvReac Type Severity Reaction Status Date / Time No Known Allergies Allergy Verified 10/10/24 16:28 PFSH Acute 2 PFSH: Medical History (Updated 10/10/24 @ 18:09 by Gabriel Song MD) Atrial fibrillation HTN (hypertension) Intermittent atrial fibrillation Atherosclerotic heart disease of [place] coronary artery with unstable angina pectoris Chest pain Atrial fibrillation with RVR Hypercapnic respiratory failure Alcohol abuse COPD (chronic obstructive pulmonary disease) Acute non-ST elevation myocardial infarction (NSTEMI) Self extubation Atherosclerotic heart disease of [place] coronary artery without angina pectoris Fatigue EKG from today revealed sinus rhythm with features of LVH. ST-T changes in the high lateral leads. Occasional PVCs. No significant new changes. Smoker Quit in December 2023 Hyperlipidemia IHSS (idiopathic hypertrophic subaortic stenosis) CAD (coronary artery disease) Hepatitis C Surgical History S/P coronary artery stent placement S/P appendectomy Family History Mother CAD (coronary artery disease) Diabetes Sister Cancer Father Lung disease Other Hypertension Denies family history of Clotting disorder Dementia Chronic kidney disease (CKD) Suicide Anesthesia complication Bleeding disorder Stroke Social History Smoking and tobacco/nicotine status: current every day tobacco/nicotine user Alcohol intake: current Substance/Drug Use: former Vitals/I&O/Wt Last Vital Signs Temp 97.7 F 10/10/24 16:25 Pulse 67 10/10/24 17:31 Resp 24 H 10/10/24 16:49 BP 165/89 10/10/24 17:31 Pulse Ox 94 10/10/24 17:31 O2 Del Method Nasal Cannula 10/10/24 16:49 O2 Flow Rate 4 10/10/24 16:49 Physical Exam 2 Narrative: General: No acute distress, AO x 2 to 3, on BiPAP ventilation, HEENT: PERRLA, pupils bilaterally equal and reactive Chest: Bilateral bronchial breath sounds all over lung field, occasional rhonchi more pronounced in the right middle lobe CVS: S1-S2 regular, no murmurs, no tachycardia, no gallops, no rubs Abdomen: Soft, nontender, no organomegaly, bowel sounds present Neuro: No focal deficits, no facial deformity, AO times 2-3, power 5/5 in all limbs Data 10/10/24 16:26 10/10/24 16:26 A&P Assessment and plan (1) Respiratory failure with hypoxia and hypercapnia: Acute on chronic. Respiratory acidosis. Continue with BiPAP ventilation. ABG in AM. Oxygen supplementation keeping saturation over 88%. IV Solu-Medrol 40 mg Q6 hourly. Pulmicort twice daily, ipratropium, Xopenex every 6 hour. Patient would benefit with BiPAP ventilation as an outpatient. Will confirm with patient again once he is more awake. Appreciate chest x-ray. Concern for mild haziness in right middle lobe. Patient does not have leukocytosis. Check procalcitonin, sputum culture. Hold off on IV antibiotics for now. D-dimer recently on 10/01 negative. Will repeat. Depending on the D-dimer plan for CT chest versus CTA. (2) COPD exacerbation: (3) HTN (hypertension): Goal blood pressure less than 140/90 mmHg. Continue with home dose of amlodipine, ARB, metoprolol. Qualifiers: Hypertension type: essential hypertension Qualified Code(s): I10 - Essential (primary) hypertension (4) Atrial fibrillation: Rate controlled. Continue with home dose of metoprolol, amiodarone, Eliquis. Qualifiers: Atrial fibrillation type: paroxysmal Qualified Code(s): I48.0 - Paroxysmal atrial fibrillation Plan Full code N.p.o. Eliquis was sufficient for DVT prophylaxis Protonix for. PUD prophylaxis. Attestations 2 Medical Necessity Statement*: Admission more than 2 midnights for management of acute on chronic hypoxic and hypercapnic respiratory failure, respiratory acidosis, COPD Diagnoses Respiratory failure with hypoxia and hypercapnia J96.91; J96.92 COPD exacerbation J44.1 Essential hypertension I10 Hypertension type: essential hypertension Paroxysmal atrial fibrillation I48.0 Atrial fibrillation type: paroxysmal
[2024-10-10 17:45] LABS: Troponin(5th) Baseline 57 ng/L (0-15)
[2024-10-10 17:57] LABS: Covid PCR NEGATIVE (Negative); Influenza A NEGATIVE (Negative); Influenza B NEGATIVE (Negative); Respiratory Syncytial Virus Ce NEGATIVE (Negative)
--- NOTE | 2024-10-10 18:05 | PC.NURSE ---
Patient arrived from the ER very lethargic. Patient could answer some questions but would go to sleep during conversation. Patient is very hard to get information from.
[2024-10-10] MEDS: atorvastatin 40 mg Tablet PO (18:34)
[2024-10-10] MEDS: levofloxacin-dextrose 5 % 750 MG/150 ML PREMIX 100 MG IV (18:34)
[2024-10-10] MEDS: apixaban 5 mg Tablet PO (18:34)
[2024-10-10] MEDS: methylPREDNISolone sod succ 40 mg/mL INJ IVP (18:35)
[2024-10-10 18:43] LABS: Procalcitonin 0.04 ng/mL (0-0.5)
[2024-10-10 19:13] LABS: Troponin 5 2HR 54.67 ng/L (0-15)
[2024-10-10 19:14] LABS: Troponin 5 2HR Delta -2.33 ABS# (0-10)
[2024-10-10] MEDS: budesonide 0.5 mg/2 mL Neb INHALATION (19:43)
--- NOTE | 2024-10-10 20:07 | ECG_ITS ---
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1955 Requested By: Paul Clemente Order Number: [id number] Reading MD: CONCHA ROMERO Measurements Intervals [place] Rate: 73 P: 22 [place]: 180 QRS: -6 QRSD: 126 T: 79 QT: 415 QTc: 460 Interpretive Statements SINUS RHYTHM LEFT VENTRICULAR HYPERTROPHY AND ST-T CHANGE [VOLTAGE CRITERIA PLUS ST/T ABNORMALITY] LATERAL MYOCARDIAL INFARCTION , PROBABLY RECENT [40+ ms Q WAVE AND/OR ST/T ABNORMALITY IN I/aVL/V5/V6] Compared to ECG 10/10/2024 17:10:49 there is no change Electronically Signed On 10-10-2024 23:18:53 FARM LOAN INSPECTOR by CONCHA ROMERO [id number]
[2024-10-10 21:10] LABS: Bilirubin Urine Negative (Negative); Blood Urine Negative (Negative); Glucose Urine UA Negative (Normal); Ketones Urine Negative (Negative); Leukocyte Esterase Urine Negative (Negative); Nitrate Urine Negative (Negative); Protein Urine Negative (Negative); Specific Gravity, Urine 1.009 (1.005-1.030); Urine Appearance Clear (CLEAR); Urine Color Yellow (Yellow); Urobilinogen Urine 0.2 mg/dL (Negative)
[2024-10-10 21:15] LABS: Add Urine Microscopic? YES; Bacteria Urine None Seen /hpf; RBC Urine 0-2 /hpf (0-2); Squamous Epithelial Cell Urine 0-5 /hpf (0-5); WBC Urine 0-5 /hpf (0-5)
[2024-10-10 21:18] LABS: Amphetamines Screen Urine Positive (Negative); Barbiturates Screen Urine Negative (Negative); Benzodiazepines Screen Urine Positive (Negative); Cocaine Screen Urine Negative (Negative); Opiate Screen Urine Negative (Negative); PCP Screen Urine Negative (Negative); THC Screen Urine Negative (Negative)
[2024-10-10 22:17] LABS: MRSA PCR OZH (swab) NOT DETECTED (Negative)
[2024-10-10 22:48] LABS: Troponin 5 6HR 43.91 ng/L (0-15)
[2024-10-10 22:52] LABS: Troponin 5 6HR Delta -13.09 ng/L (0-12)
[2024-10-11] VITALS (115 sets, daily range): BP systolic 126–168; BP diastolic 42–106; PULSE 57–88; RESP 10–39; TEMP 36.6–37.1; O2SAT 88–100
[2024-10-11] MEDS: methylPREDNISolone sod succ 40 mg/mL INJ IVP ×4 (01:39→16:50)
[2024-10-11] MEDS: ipratropium-albuterol 3 mL Neb INHALATION ×4 (02:24→20:00)
[2024-10-11 03:50] LABS: Eosinophils % 0.3 %; Hematocrit 41.4 % (37-53); Lymphocytes # 0.3 10^3/uL (0.8-4.8); Lymphocytes % 6.6 %; Mean Corpuscular HGB Conc 29.2 g/dL (30-55); Mean Corpuscular Hemoglobin 26.9 pg (27-33); Mean Corpuscular Volume 92.2 fl (82-101); Neutrophils # 3.61 10^3/uL (1.8-7.7); Neutrophils % 91.6 %; Nucleated Red Blood Cells % 0 %; Platelet Count 312 10^3/cmm (157-399); Red Blood Count 4.49 10^6/uL (3.85-5.65); Red Cell Distribution Width 15.3 % (12.1-15.1); White Blood Count 3.94 10^3/uL (3.29-11.43)
[2024-10-11 04:15] LABS: Alanine Aminotransferase 21 U/L (0-41); Albumin Level 3.8 g/dL (3.5-5.2); Alkaline Phosphatase 70 U/L (40-130); Anion Gap 10.7 (5-19); Aspartate Amino Transferase 21 U/L (0-40); Blood Urea Nitrogen 12 mg/dL (8-23); Calcium 9.4 mg/dL (8.5-10.5); Carbon Dioxide 39 mmol/L (22-29); Chloride 95 mmol/L (98-107); Creatinine Clr Calc Pharmacy 86.6931; Globulin 2.2 g/dL (1.3-4.6); Glomerular Filtration Rate 96.7 mL/min (90-130); Glucose 177 mg/dL (65-115); Osmolality Calculated 294 mOsm/kg (285-295); Phosphorus 3.8 mg/dL (2.5-4.5); Potassium 4.7 mmol/L (3.5-5.1); Sodium 140 mmol/L (136-145); Total Bilirubin 0.9 mg/dL (0.15-1.2)
[2024-10-11 04:19] LABS: ABG PH Result 7.33 (7.35-7.45); Arterial Blood Gas Hematocrit 37.6 % (42-52); Base Excess ABG 12.7 mmol/L (-2.0-2.0); Blood Gas Allen Test Pos; Blood Gas Operator Identificat JDB; Blood Gas Sample Site Radial, right; Blood Gas Sample Type Arterial; Carboxyhemoglobin 1.2 %THgb (0.4-20.1); HCO3 ABG 41.9 mmol/L (22-26); HGB O2 Sat 96.5 % (95-100); Ionized Calcium Level - ABG 1.2 mmol/L (1.1-1.4); Oxygen Device NC; Oxygen Saturation ABG 98.7; Potassium Level - ABG 4.4 mmol/L (3.5-5.0); Total Hemoglobin 12.3 g/dL (14-18)
[2024-10-11 04:19] LABS: Procalcitonin 0.02 ng/mL (0-0.5)
[2024-10-11 04:20] LABS: ABG PCO2 78.8 mmHg (35-45)
[2024-10-11] MEDS: metoprolol tartrate 25 mg Tablet 37.5 MG PO (05:28)
[2024-10-11] MEDS: budesonide 0.5 mg/2 mL Neb INHALATION ×2 (07:32→20:00)
[2024-10-11] MEDS: amiodarone 200 mg Tablet PO (08:24)
[2024-10-11] MEDS: amlodipine 5 mg Tablet 10 MG PO (08:24)
[2024-10-11] MEDS: pantoprazole DR 40 mg Tablet PO (08:24)
[2024-10-11] MEDS: apixaban 5 mg Tablet PO ×2 (08:24→16:51)
[2024-10-11] MEDS: lisinopril 20 mg Tablet 40 MG PO (08:24)
--- NOTE | 2024-10-11 12:29 | PC.NURSE ---
Addendum entered by Jami Gomez LPN 10/11/24 13:05: Pt transferred up to med surg floor room 251-2, via wheelchair from ICU, accompanied by MAME Diana at 1300.This nurse assumed care of pt at this time. Original Note: This nurse took report from MAME Wise in ICU at 1228.
--- NOTE | 2024-10-11 14:03 | P.PN_ITS ---
Subjective 2 Subjective: No acute events overnight. Today morning on examination patient sitting comfortably in bed. Denies any nausea, vomiting, headache. Saturating well on baseline 4 L of oxygen supplementation. He used BiPAP overnight. Vitals/I&O/Wt Last Vital Signs Temp 98.2 F 10/11/24 13:02 Pulse 74 10/11/24 13:35 Resp 18 10/11/24 13:25 BP 126/73 10/11/24 13:02 Pulse Ox 92 10/11/24 13:25 O2 Del Method Nasal Cannula 10/11/24 13:25 O2 Flow Rate 4 10/11/24 13:25 FiO2 35 10/11/24 07:32 10/10/24 10/11/24 10/11/24 22:59 06:59 14:59 Intake Total 480 / 480 630 / 1110 480 / 480 Output Total 1200 / 1200 600 / 1800 Balance -720 / -720 30 / -690 480 / 480 Weight last 48 hrs Weight 71.486 kg Weight 73 kg Physical Exam 2 Narrative: General: No acute distress, AOx3, on 4 L HEENT: PERRLA, pupils bilaterally equal and reactive Chest: Bilateral bronchial breath sounds all over lung field, occasional rhonchi more pronounced in the right middle lobe CVS: S1-S2 regular, no murmurs, no tachycardia, no gallops, no rubs Abdomen: Soft, nontender, no organomegaly, bowel sounds present Neuro: No focal deficits, no facial deformity, AO times 2-3, power 5/5 in all limbs Data 10/11/24 02:59 10/11/24 02:59 Micro: Microbiology 10/10/24 20:50 Bacterial Antigens - Final Urine Kidney A&P Assessment and plan (1) Respiratory failure with hypoxia and hypercapnia: Acute on chronic. Respiratory acidosis. Continue with nasal cannula. BiPAP nightly. Will try to do overnight pulse oximetry. Appreciate ABG. Wean Solu-Medrol 40 mg twice daily. Continue with Pulmicort twice daily, ipratropium, Xopenex every 6 hour. Patient would benefit with BiPAP ventilation as an outpatient. Patient is agreeable to use BiPAP as an outpatient. Appreciate chest x-ray. Concern for mild haziness in right middle lobe. Patient does not have leukocytosis. Appreciate procalcitonin, sputum culture when available. Continue with IV Levaquin for now. D-dimer recently on 10/01 negative. D-dimer remains negative. As patient is improving for now we will hold off on CT chest. (2) COPD exacerbation: (3) HTN (hypertension): Goal blood pressure less than 140/90 mmHg. Continue with home dose of amlodipine, ARB, metoprolol. Qualifiers: Hypertension type: essential hypertension Qualified Code(s): I10 - Essential (primary) hypertension (4) Atrial fibrillation: Rate controlled. Continue with home dose of metoprolol, amiodarone, Eliquis. Qualifiers: Atrial fibrillation type: paroxysmal Qualified Code(s): I48.0 - Paroxysmal atrial fibrillation Plan Full code Start on cardiac diet Eliquis was sufficient for DVT prophylaxis Protonix for. PUD prophylaxis. Transfer to [facility] floor. Attestations 2 Medical Necessity Statement*: Requires further hospitalization for management of acute on chronic hypoxic and hypercapnic respiratory failure in setting of COPD exacerbation Diagnoses Respiratory failure with hypoxia and hypercapnia J96.91; J96.92 COPD exacerbation J44.1 Essential hypertension I10 Hypertension type: essential hypertension Paroxysmal atrial fibrillation I48.0 Atrial fibrillation type: paroxysmal
[2024-10-11] MEDS: atorvastatin 40 mg Tablet PO (16:51)
[2024-10-11] MEDS: levofloxacin-dextrose 5 % 750 MG/150 ML PREMIX 100 MG IV (16:51)
[2024-10-11] MEDS: acetaminophen 325 mg Tablet 650 MG PO (19:06)
[2024-10-12] VITALS (9 sets, daily range): BP systolic 131–145; BP diastolic 54–75; PULSE 61–82; RESP 16–20; TEMP 36.4–36.7; O2SAT 90–95
[2024-10-12] MEDS: ipratropium-albuterol 3 mL Neb INHALATION ×2 (03:08→09:10)
[2024-10-12] MEDS: metoprolol tartrate 25 mg Tablet 37.5 MG PO (05:00)
[2024-10-12 05:14] LABS: Basophils % 0.1 %; Hematocrit 37.3 % (37-53); Lymphocytes # 0.4 10^3/uL (0.8-4.8); Lymphocytes % 3.1 %; Mean Corpuscular Hemoglobin 26.5 pg (27-33); Mean Corpuscular Volume 91.4 fl (82-101); Mean Platelet Volume 9.2 fL (7.4-10.4); Monocytes # 0.6 10^3/uL (0.2-0.9); Monocytes % 4.2 %; Neutrophils # 12.16 10^3/uL (1.8-7.7); Neutrophils % 91.8 %; Nucleated Red Blood Cells % 0 %; Platelet Count 284 10^3/cmm (157-399); Red Blood Count 4.08 10^6/uL (3.85-5.65); Red Cell Distribution Width 15.9 % (12.1-15.1); White Blood Count 13.24 10^3/uL (3.29-11.43)
[2024-10-12 05:42] LABS: Alanine Aminotransferase 17 U/L (0-41); Albumin Level 3.4 g/dL (3.5-5.2); Alkaline Phosphatase 56 U/L (40-130); Anion Gap 11.6 (5-19); Aspartate Amino Transferase 15 U/L (0-40); Blood Urea Nitrogen 22 mg/dL (8-23); Calcium 8.8 mg/dL (8.5-10.5); Carbon Dioxide 37 mmol/L (22-29); Chloride 95 mmol/L (98-107); Creatinine Clr Calc Pharmacy 85.7753; Globulin 1.9 g/dL (1.3-4.6); Glomerular Filtration Rate 96.7 mL/min (90-130); Glucose 164 mg/dL (65-115); Osmolality Calculated 295 mOsm/kg (285-295); Potassium 4.6 mmol/L (3.5-5.1); Sodium 139 mmol/L (136-145); Total Bilirubin 0.4 mg/dL (0.15-1.2); Total Protein 5.3 g/dL (6.6-8.7)
[2024-10-12] MEDS: lisinopril 20 mg Tablet 40 MG PO (07:34)
[2024-10-12] MEDS: methylPREDNISolone sod succ 40 mg/mL INJ IVP (07:34)
[2024-10-12] MEDS: pantoprazole DR 40 mg Tablet PO (07:35)
[2024-10-12] MEDS: amiodarone 200 mg Tablet PO (07:35)
[2024-10-12] MEDS: apixaban 5 mg Tablet PO (07:35)
[2024-10-12] MEDS: amlodipine 5 mg Tablet 10 MG PO (07:35)
[2024-10-12] MEDS: flu vacc pf 24-25 (6 mos+) SYRINGE 45 MCG IM (07:36)
[2024-10-12] MEDS: pneumococcal (23 valent) SDV 0.5 mL IM (07:37)
[2024-10-12] MEDS: budesonide 0.5 mg/2 mL Neb INHALATION (09:10)
--- NOTE | 2024-10-12 10:15 | P.DS_ITS ---
Discharge Providers Date of Admission: 10/10/24 17:19 Date of Discharge: October 12, 2024 Attending Provider at Admission: Gabriel Song MD Attending Provider at Discharge: Gabriel Song MD Primary Care Provider: Ya Panchal MD Diagnoses at Discharge Discharge Diagnosis (1) Respiratory failure with hypoxia and hypercapnia: Status: Acute (2) COPD exacerbation: Status: Acute (3) HTN (hypertension): Status: Acute Qualifiers: Hypertension type: essential hypertension Qualified Code(s): I10 - Essential (primary) hypertension (4) Atrial fibrillation: Status: Acute Qualifiers: Atrial fibrillation type: paroxysmal Qualified Code(s): I48.0 - Paroxysmal atrial fibrillation Reason for Visit Reason for Visit: SOB / breathing problems Hospital Course Hospital Course Patient was admitted to the hospital further evaluation and management of respiratory failure with hypoxia and hypercapnia and respiratory acidosis. He was started on BiPAP ventilation, nebulization treatment along with IV steroids. Gradually patient improved and has been back to his baseline oxygen supplementation for last 48 hours. His hospitalization was otherwise unremarkable. Patient underwent pulse oximetry study and qualifies for BiPAP. He has been discharged in hemodynamically stable condition with advised to follow-up with his primary care provider within next 1 week, avoid smoking, continue using BiPAP when sleeping at night. He is to take prednisone 40 mg daily for next 5 days along with oral Levaquin for next 5 days. Physical Exam Narrative: General: No acute distress, AOx3, on 4 L HEENT: PERRLA, pupils bilaterally equal and reactive Chest: Bilateral bronchial breath sounds all over lung field, occasional rhonchi more pronounced in the right middle lobe CVS: S1-S2 regular, no murmurs, no tachycardia, no gallops, no rubs Abdomen: Soft, nontender, no organomegaly, bowel sounds present Neuro: No focal deficits, no facial deformity, AO times 2-3, power 5/5 in all limbs Discharge Data Studies Completed and Pending Completed Studies During Hospitalization Category Date Time Status XR chest 1V portable [id number] Stat Exams 10/10/24 16:08 Completed Pending at discharge Category Date Time Status Sputum Culture and Gram Stain Stat Lab 10/10/24 17:36 Uncollected Radiology Impressions Chest X-Ray 10/10/24 16:08 IMPRESSION: Compared with prior exam 10/01/2024, residual mild reticular markings mid to lower right lung, showing improvement in the right perihilar region otherwise. No other significant change. No consolidation or effusion. Microbiology 10/10/24 20:50 Urine Kidney Bacterial Antigens - Final Laboratory Results WBC 13.24 10^3/uL (3.29-11.43) H 10/12/24 04:15 RBC 4.08 10^6/uL (3.85-5.65) 10/12/24 04:15 Hgb 10.80 g/dL (11.27-16.99) L 10/12/24 04:15 Hct 37.3 % (37-53) 10/12/24 04:15 MCV 91.4 fl (82-101) 10/12/24 04:15 MCH 26.5 pg (27-33) L 10/12/24 04:15 MCHC 29.0 g/dL (30-55) L 10/12/24 04:15 RDW 15.9 % (12.1-15.1) H 10/12/24 04:15 Plt Count 284 10^3/cmm (157-399) 10/12/24 04:15 MPV 9.2 fL (7.4-10.4) 10/12/24 04:15 Neut % (Auto) 91.8 % 10/12/24 04:15 Lymph % (Auto) 3.1 % 10/12/24 04:15 [place]linger % (Auto) 4.2 % 10/12/24 04:15 Eos % (Auto) 0.0 % 10/12/24 04:15 Baso % (Auto) 0.1 % 10/12/24 04:15 Neut # (Auto) 12.16 10^3/uL (1.8-7.7) H 10/12/24 04:15 Lymph # (Auto) 0.4 10^3/uL (0.8-4.8) L 10/12/24 04:15 [place]linger # (Auto) 0.6 10^3/uL (0.2-0.9) 10/12/24 04:15 Eos # (Auto) 0.0 10^3/uL (0.0-0.8) 10/12/24 04:15 Baso # (Auto) 0.0 10^3/uL (0.0-0.1) 10/12/24 04:15 Nucleated RBC % (auto) 0 % 10/12/24 04:15 Nucleated RBCs # 0.0 /100WBC 10/12/24 04:15 Specimen Type Arterial 10/11/24 03:57 Sample Site Radial, right 10/11/24 03:57 ABG pH 7.33 (7.35-7.45) L 10/11/24 03:57 ABG pCO2 78.8 mmHg (35-45) H* 10/11/24 03:57 ABG pO2 116.0 mmHg (80.0-100.0) H 10/11/24 03:57 ABG PO2/FiO2 Ratio 231 10/10/24 16:41 ABG HCO3 41.9 mmol/L (22-26) H 10/11/24 03:57 ABG O2 Saturation 98.7 10/11/24 03:57 ABG Base Excess 12.7 mmol/L (-2.0-2.0) H 10/11/24 03:57 Addy Test Pos 10/11/24 03:57 A-a O2 Gradient Not Reportable 10/11/24 03:57 Hematocrit 37.6 % (42-52) L 10/11/24 03:57 Hgb O2 Saturation 96.5 % (95-100) 10/11/24 03:57 Carboxyhemoglobin 1.2 %THgb (0.4-20.1) 10/11/24 03:57 Methemoglobin 1.0 % (0.4-1.5) 10/11/24 03:57 Total Hemoglobin 12.3 g/dL (14-18) L 10/11/24 03:57 Sodium 138.0 mmol/L (131-143) 10/11/24 03:57 Potassium 4.4 mmol/L (3.5-5.0) 10/11/24 03:57 Glucose 149.0 mg/dL (70-115) H 10/11/24 03:57 Ionized Calcium 1.2 mmol/L (1.1-1.4) 10/11/24 03:57 O2 Delivery Device Nc 10/11/24 03:57 O2 Liters/Min 4.0 % 10/11/24 03:57 FiO2 36.0 % 10/10/24 16:41 Wire Wrapping Machine Operator ID [id number] 10/11/24 03:57 Sodium 139 mmol/L (136-145) 10/12/24 04:15 Potassium 4.6 mmol/L (3.5-5.1) 10/12/24 04:15 Chloride 95 mmol/L (98-107) L 10/12/24 04:15 Carbon Dioxide 37 mmol/L (22-29) H 10/12/24 04:15 Anion Gap 11.6 (5-19) 10/12/24 04:15 BUN 22 mg/dL (8-23) 10/12/24 04:15 Creatinine 0.8 mg/dL (0.7-1.2) 10/12/24 04:15 GFR Calculation 96.7 mL/min (90-130) 10/12/24 04:15 Glucose 164 mg/dL (65-115) H 10/12/24 04:15 Calculated Osmolality 295 mOsm/kg (285-295) 10/12/24 04:15 Calcium 8.8 mg/dL (8.5-10.5) 10/12/24 04:15 Phosphorus 3.8 mg/dL (2.5-4.5) 10/11/24 02:59 Magnesium 2.0 mg/dL (1.7-2.3) 10/11/24 02:59 Total Bilirubin 0.4 mg/dL (0.15-1.2) 10/12/24 04:15 AST 15 U/L (0-40) 10/12/24 04:15 ALT 17 U/L (0-41) 10/12/24 04:15 Alkaline Phosphatase 56 U/L (40-130) 10/12/24 04:15 Troponin T Baseline 57 ng/L (0-15) H 10/10/24 16:26 Troponin T 120 Minute 54.67 ng/L (0-15) H 10/10/24 18:27 Delta Troponin T -2.33 ABS# (0-10) L 10/10/24 18:27 Troponin T Hi Sens 6Hr 43.91 ng/L (0-15) H 10/10/24 22:10 Troponin T Hi Sens 6Hr Delta -13.09 ng/L (0-12) L 10/10/24 22:10 NT-Pro-B Natriuret Pep 5878 pg/mL (0-125) H 10/10/24 16:26 Total Protein 5.3 g/dL (6.6-8.7) L 10/12/24 04:15 Albumin 3.4 g/dL (3.5-5.2) L 10/12/24 04:15 Globulin 1.9 g/dL (1.3-4.6) 10/12/24 04:15 Procalcitonin 0.02 ng/mL (0-0.5) 10/11/24 02:59 TSH 0.80 uIU/mL (0.27-4.20) 10/10/24 16:26 Urine Color Yellow (Yellow) 10/10/24 20:50 Urine Appearance Clear (CLEAR) 10/10/24 20:50 Urine pH 7.0 (5-7) 10/10/24 20:50 Ur Specific [place] 1.009 (1.005-1.030) 10/10/24 20:50 Urine Protein Negative (Negative) 10/10/24 20:50 Urine Glucose (UA) Negative (Normal) 10/10/24 20:50 Urine Ketones Negative (Negative) 10/10/24 20:50 Urine Blood Negative (Negative) 10/10/24 20:50 Urine Nitrate Negative (Negative) 10/10/24 20:50 Urine Bilirubin Negative (Negative) 10/10/24 20:50 Urine Urobilinogen 0.2 mg/dL (Negative) 10/10/24 20:50 Ur Leukocyte Esterase Negative (Negative) 10/10/24 20:50 Urine RBC 0-2 /hpf (0-2) 10/10/24 20:50 Urine WBC 0-5 /hpf (0-5) 10/10/24 20:50 Ur Squamous Epith Cells 0-5 /hpf (0-5) 10/10/24 20:50 Amorphous Sediment Not Reportable 10/10/24 20:50 Urine Bacteria None seen /hpf (NONE) 10/10/24 20:50 Hyaline Casts 0.40 /lpf 10/10/24 20:50 Nasal MRSA (PCR) Not detected (Negative) 10/10/24 20:50 Urine Opiates Screen Negative ng/mL (Negative) 10/10/24 20:50 Ur Barbiturates Screen Negative ng/mL (Negative) 10/10/24 20:50 Ur Phencyclidine Scrn Negative ng/mL (Negative) 10/10/24 20:50 Ur Amphetamines Screen Positive ng/mL (Negative) H 10/10/24 20:50 U Benzodiazepines Scrn Positive ng/mL (Negative) H 10/10/24 20:50 Urine Cocaine Screen Negative ng/mL (Negative) 10/10/24 20:50 U Marijuana (THC) Screen Negative ng/mL (Negative) 10/10/24 20:50 Coronavirus (PCR) Negative (Negative) 10/10/24 17:17 Influenza A (PCR) Negative (Negative) 10/10/24 17:17 Influenza Type B (PCR) Negative (Negative) 10/10/24 17:17 RSV (PCR) Negative (Negative) 10/10/24 17:17 Vitals Last Vital Signs Temp 97.9 F 10/12/24 07:45 Pulse 71 10/12/24 09:29 Resp 17 10/12/24 09:10 BP 137/54 10/12/24 07:45 Pulse Ox 93 10/12/24 09:10 O2 Del Method Nasal Cannula 10/12/24 09:10 O2 Flow Rate 4 10/12/24 09:10 FiO2 35 10/11/24 07:32 Discharge Plan Discharge Patient Disposition: Home Condition: Stable Prescriptions: New prednisone 20 mg tablet 20 mg PO BID 5 Days Qty: 10 0RF levofloxacin 750 mg tablet 750 mg PO Q24H 5 Days Qty: 5 0RF Continued atorvastatin 40 mg tablet 40 mg PO QPM amiodarone [Pacerone] 200 mg Tablet 200 mg PO DAILY Qty: 90 0RF benazepril 40 mg tablet 40 mg PO DAILY omeprazole 20 mg capsule,delayed release(DR/EC) 20 mg PO DAILY Eliquis 5 mg tablet 5 mg PO BID metoprolol tartrate 37.5 mg tablet 37.5 mg PO QAM albuterol sulfate [Ventolin HFA] 90 mcg/actuation HFA aerosol inhaler 2 puff INHALATION Q6H PRN (Reason: Shortness Of Breath Or Wheezing) acetaminophen [Tylenol Extra Strength] 500 mg Tablet 500 mg PO QID PRN (Reason: Pain) pantoprazole 40 mg Tablet,Delayed Release (Dr/Ec) 40 mg PO DAILY Qty: 14 0RF amlodipine 5 mg tablet 10 mg PO DAILY Qty: 60 0RF tiotropium bromide 1.25 mcg/actuation mist 2 inh inhalation DAILY Qty: 4 0RF Discontinued azithromycin 250 mg Tablet 500 mg PO DAILY Qty: 6 0RF Discharge Orders: Discharge Order (Routine); Ordered 10/12/24 Ordered By: Gabriel Song Other Ambulatory Orders: DME: BIPAP (Order) Location: None Selected Ordered By: Gabriel Song [place] [facility] [place] Ya Panchal MD [Primary Care Provider] - 10/19/24 10:00 am Discharge Diet: Cardiac Discharge Activity: Resume usual activity and Increase activity as tolerated Patient Instructions: Prednisone (By mouth), Levofloxacin (By mouth) (Levaquin, Levaquin Leva-angel), Using Oxygen at Home (GEN), Opioid Safety, Pain Management, Pneumonia Stoplight Discharge Attestations Time Spent in Discharge Care*: greater than 30 min Specific Discharge Activities: educating patient, discussing with pcp/other providers, discussing with casework specialist/social workers/dc planners, documenting/other paperwork and evaluating patient/reviewing data Quality Metrics Clinical Quality Measures [ No reported AMI, CVA or VTE this stay] Coding Level of Care Code 50527 Total time (in minutes) for Discharge: 60 Diagnoses Respiratory failure with hypoxia and hypercapnia J96.91; J96.92 COPD exacerbation J44.1 Essential hypertension I10 Hypertension type: essential hypertension Paroxysmal atrial fibrillation I48.0 Atrial fibrillation type: paroxysmal
--- NOTE | 2024-10-12 11:31 | PC.SOCIAL ---
IMM Updated Updated pt on IMM. No questions voiced. Provided pt a copy. Initialed, dated, & timed a copy & placed in chart.
--- NOTE | 2024-10-12 12:34 | PC.NURSE ---
D/C pending delivery of Home O2 and transportation home.
== END 2024-10-12 14:34 | disposition home or self-care (01) | DRG 190 ==
LOC: ER 17:07 → ICU 17:19 → MEDSURG 10-11 12:54
PROVIDERS: Emergency Medicine; Admitting Provider Student in an Organized Health Care Education/Training Program; Emergency Provider Family Medicine; PCP Internal Medicine; Visit Provider Student in an Organized Health Care Education/Training Program
DX: J44.1 Chronic obstructive pulmonary disease with (acute) exacerbation (principal); J96.21 Acute and chronic respiratory failure with hypoxia; J96.22 Acute and chronic respiratory failure with hypercapnia; I50.32 Chronic diastolic (congestive) heart failure; I48.0 Paroxysmal atrial fibrillation; I11.0 Hypertensive heart disease with heart failure; I25.10 Atherosclerotic heart disease of native coronary artery without angina pectoris; E78.5 Hyperlipidemia, unspecified; F10.10 Alcohol abuse, uncomplicated; B19.20 Unspecified viral hepatitis C without hepatic coma; I25.2 Old myocardial infarction; Z79.01 Long term (current) use of anticoagulants; Z99.81 Dependence on supplemental oxygen; Z95.5 Presence of coronary angioplasty implant and graft; Z87.891 Personal history of nicotine dependence
CPT/HCPCS: 36415; 36600; 71045; 80051; 80053; 80306; 81001; 82330; 82805; 83735; 83880; 84100; 84145; 84443; 84484; 85025; 86403; 87637; 90471; 90686; 90732; 93005; 94640; 94660; 94664; 96372; 96374; 96376; 99285; J1100; J1956; J2060; J2919; J7626

== ENCOUNTER 2024-10-17 16:05 | Inpatient (IN) | payer MEDICARE, MEDICAID, SELFPAY ==
[2024-10-17] VITALS (53 sets, daily range): BP systolic 119–210; BP diastolic 80–112; PULSE 71–145; RESP 10–24; TEMP 36.8; O2SAT 4–98; BMI 24.5
--- NOTE | 2024-10-17 20:02 | XRR_ITS ---
PROCEDURE INFORMATION: Exam: XR Chest Exam date and time: 10/17/2024 8:06 PM Age: 68 years old Clinical indication: Dyspnea TECHNIQUE: Imaging protocol: Radiologic exam of the chest. Views: 1 view. COMPARISON: CR XR chest 1V portable [id number] 10/10/2024 4:49 PM FINDINGS: Lungs: There are persisting subtle reticular opacities in the right lung base. The left lung is clear. No vascular congestion. Pleural spaces: Unremarkable. No pleural effusion. No pneumothorax. Heart/Mediastinum: The heart still appears enlarged but is unchanged. Bones/joints: Unremarkable. XR/XR chest 1V portable [id number] IMPRESSION: There are subtle persisting reticular opacities in the right lung base. This could be due to residual airspace disease or trace pleural fluid
--- NOTE | 2024-10-17 20:03 | W.ED.GENADLT ---
HPI - General Adult General: Chief complaint: General Medical Stated complaint: half-way placement Time Seen by Provider: 10/17/24 19:45 History of Present Illness: Patient presents to the ER with complaints of being unable to take care of himself and wanting to go to [facility]. Patient states he called the half-way they told him to come here for evaluation possible placement. He has been to our ER multiple times and admitted due to his oxygen dropping and atrial fibrillation. He is just recently discharged with an A-fib/COPD diagnosis on October 12, he was sent home with prednisone and Levaquin. He says he has been taking these. He is also sent home on BiPAP. He says he can only wear the BiPAP for about 30 minutes before he gets very anxious and starts panicking and cannot handle it. Patient normally wears oxygen at 4 L per nasal cannula at all times. Upon arrival today his oxygen was 90% on his 4 L. Related Data Home Medications Medication Instructions Recorded Confirmed atorvastatin 40 mg tablet 40 mg PO QPM 12/19/19 10/10/24 apixaban 5 mg tablet (Eliquis) 5 mg PO BID 01/24/24 10/10/24 metoprolol tartrate 37.5 mg tablet 37.5 mg PO QAM 01/24/24 10/10/24 acetaminophen 500 mg tablet 500 mg PO QID PRN Pain 10/01/24 10/10/24 (Tylenol Extra Strength) albuterol sulfate 90 mcg/actuation 2 puff inhalation Q6H PRN 10/01/24 10/10/24 aerosol inhaler (Ventolin HFA) Shortness Of Breath Or Wheezing benazepril 40 mg tablet 40 mg PO DAILY 10/10/24 10/10/24 omeprazole 20 mg capsule,delayed 20 mg PO DAILY 10/10/24 10/10/24 release Previous Rx's Medication Instructions Recorded amiodarone 200 mg tablet (Pacerone) 200 mg PO DAILY #90 tabs 06/27/24 amlodipine 5 mg tablet 10 mg (2 x 5 mg) PO DAILY #60 tabs 10/04/24 pantoprazole 40 mg tablet,delayed 40 mg PO DAILY #14 tabs 10/04/24 release tiotropium bromide 1.25 2 inh inhalation DAILY #4 grams 10/04/24 mcg/actuation mist for inhalation Allergies Allergy/AdvReac Type Severity Reaction Status Date / Time No Known Allergies Allergy Verified 10/10/24 16:28 Review of Systems General: Reports: 10 or more systems reviewed and unremarkable except in HPI and below PFSH ED PFSH: Medical History Atrial fibrillation HTN (hypertension) Intermittent atrial fibrillation Atherosclerotic heart disease of [place] coronary artery with unstable angina pectoris Chest pain Atrial fibrillation with RVR Hypercapnic respiratory failure Alcohol abuse COPD (chronic obstructive pulmonary disease) Acute non-ST elevation myocardial infarction (NSTEMI) Self extubation Atherosclerotic heart disease of [place] coronary artery without angina pectoris Fatigue EKG from today revealed sinus rhythm with features of LVH. ST-T changes in the high lateral leads. Occasional PVCs. No significant new changes. Smoker Quit in December 2023 Hyperlipidemia IHSS (idiopathic hypertrophic subaortic stenosis) CAD (coronary artery disease) Hepatitis C Surgical History S/P coronary artery stent placement S/P appendectomy Family History Mother CAD (coronary artery disease) Diabetes Sister Cancer Father Lung disease Other Hypertension Denies family history of Clotting disorder Dementia Chronic kidney disease (CKD) Suicide Anesthesia complication Bleeding disorder Stroke Social History Smoking and tobacco/nicotine status: current every day tobacco/nicotine user Alcohol intake: current Substance/Drug Use: former Physical Exam Const: COMMON NORMALS: no acute distress, average body habitus, patient oriented x3, no limitations, healthy appearing, alert and well nourished HENMT: COMMON NORMALS: normocephalic, atraumatic, hearing grossly normal bilaterally, external ears normal, Normal external nose present and moist oral mucous membranes HEAD & SCALP: normocephalic and atraumatic NOSE: Normal external nose present EXTERNAL EAR: Yes external ears normal Neck/C-Spine: COMMON NORMALS: no JVD Chest: COMMONS NORMALS: normal inspection of the chest and normal palpation of entire chest wall Resp: COMMON NORMALS: normal respiratory effort, No retractions and No use of accessory muscles; negative for clear to auscultation bilaterally (Decreased breath sounds bilaterally) AUSCULTATION: not clear to auscultation bilaterally (Decreased breath sounds bilaterally) Cardio: COMMON NORMALS: no JVD, regular rate, regular rhythm, S1 normal heart sound present, S2 normal heart sound present, No gallops present (Cardio), No clicks present (Cardio), No murmurs present (Cardio) and No rub (Cardio) RATE: regular rate RHYTHM: regular rhythm HEART SOUNDS: S1 normal heart sound present and S2 normal heart sound present GI: COMMON NORMALS: Normal to inspection, nondistended, normoactive bowel sounds present, Soft to palpation, non-tender, No hepatosplenomegaly present and no masses PALPATION: Yes Soft to palpation and Yes No hepatosplenomegaly present Neuro: COMMON NORMALS: patient oriented x3 SENSORIUM/ORIENTATION: Yes alert Course Vital Signs: Vital signs: Vital Signs Temperature 98.2 F 10/17/24 16:18 Pulse Rate 135 H 10/17/24 22:00 Respiratory Rate 18 10/17/24 22:00 Blood Pressure 140/99 10/17/24 22:00 Pulse Oximetry 94 10/17/24 22:00 Oxygen Delivery Me thod Nasal Cannula 10/17/24 19:51 Oxygen Flow Rate 4 10/17/24 16:18 MDM - General Adult Medical Decision Making Patient presented in A-fib with RVR, he was given bolus of diltiazem 10 mg and started on a Cardizem drip. Lab work was obtained. An ABG was obtained. It showed patient's CO2 was elevated. Patient was given a milligram Ativan to try to calm his anxiety and then will be placed on BiPAP. Dr. Tripathi was consulted who agreed to place patient inpatient for further treatment. Medical Records I reviewed the patient's medical records. Lab Data I reviewed the patient's lab results. 10/17/24 19:50 10/17/24 19:50 Radiology Impressions Chest X-Ray 10/17/24 20:02 IMPRESSION: There are subtle persisting reticular opacities in the right lung base. This could be due to residual airspace disease or trace pleural fluid Laboratory Results WBC 8.95 10^3/uL (3.29-11.43) 10/17/24 19:50 RBC 5.37 10^6/uL (3.85-5.65) 10/17/24 19:50 Hgb 14.60 g/dL (11.27-16.99) 10/17/24 19:50 Hct 49.3 % (37-53) 10/17/24 19:50 MCV 91.8 fl (82-101) 10/17/24 19:50 MCH 27.2 pg (27-33) 10/17/24 19:50 MCHC 29.6 g/dL (30-55) L 10/17/24 19:50 RDW 15.6 % (12.1-15.1) H 10/17/24 19:50 Plt Count 310 10^3/cmm (157-399) 10/17/24 19:50 MPV 9.4 fL (7.4-10.4) 10/17/24 19:50 Neut % (Auto) 74.1 % 10/17/24 19:50 Lymph % (Auto) 15.5 % 10/17/24 19:50 [place] % (Auto) 9.2 % 10/17/24 19:50 Eos % (Auto) 0.7 % 10/17/24 19:50 Baso % (Auto) 0.2 % 10/17/24 19:50 Neut # (Auto) 6.63 10^3/uL (1.8-7.7) 10/17/24 19:50 Lymph # (Auto) 1.4 10^3/uL (0.8-4.8) 10/17/24 19:50 [place] # (Auto) 0.8 10^3/uL (0.2-0.9) 10/17/24 19:50 Eos # (Auto) 0.1 10^3/uL (0.0-0.8) 10/17/24 19:50 Baso # (Auto) 0.0 10^3/uL (0.0-0.1) 10/17/24 19:50 Nucleated RBC % (auto) 0 % 10/17/24 19:50 Nucleated RBCs # 0.0 /100WBC 10/17/24 19:50 Specimen Type Arterial 10/17/24 21:21 Sample Site Radial, left 10/17/24 21:21 ABG pH 7.38 (7.35-7.45) 10/17/24 21:21 ABG pCO2 75.6 mmHg (35-45) H* 10/17/24 21:21 ABG pO2 87.1 mmHg (80.0-100.0) 10/17/24 21:21 ABG PO2/FiO2 Ratio 241 10/17/24 21:21 ABG HCO3 44.3 mmol/L (22-26) H 10/17/24 21:21 ABG O2 Saturation 97.5 10/17/24 21:21 ABG Base Excess 15.7 mmol/L (-2.0-2.0) H 10/17/24 21:21 Addy Test Pos 10/17/24 21:21 A-a O2 Gradient 10.3 mmHg (5-10) H 10/17/24 21:21 Hematocrit 37.7 % (42-52) L 10/17/24 21:21 Hgb O2 Saturation 94.5 % (95-100) L 10/17/24 21:21 Carboxyhemoglobin 2.0 %THgb (0.4-20.1) 10/17/24 21:21 Methemoglobin 1.0 % (0.4-1.5) 10/17/24 21:21 Total Hemoglobin 12.3 g/dL (14-18) L 10/17/24 21:21 Sodium 141.0 mmol/L (131-143) 10/17/24 21:21 Potassium 3.7 mmol/L (3.5-5.0) 10/17/24 21:21 Glucose 93.0 mg/dL (70-115) 10/17/24 21:21 Ionized Calcium 1.2 mmol/L (1.1-1.4) 10/17/24 21:21 O2 Delivery Device Nc 10/17/24 21:21 O2 Liters/Min 4.0 % 10/17/24 21:21 FiO2 36.0 % 10/17/24 21:21 Air Value Tester ID Ed 10/17/24 21:21 Sodium 142 mmol/L (136-145) 10/17/24 19:50 Potassium 4.1 mmol/L (3.5-5.1) 10/17/24 19:50 Chloride 94 mmol/L (98-107) L 10/17/24 19:50 Carbon Dioxide 42 mmol/L (22-29) H* 10/17/24 19:50 Anion Gap 10.1 (5-19) 10/17/24 19:50 BUN 14 mg/dL (8-23) 10/17/24 19:50 Creatinine 0.7 mg/dL (0.7-1.2) 10/17/24 19:50 GFR Calculation 112.8 mL/min (90-130) 10/17/24 19:50 Glucose 77 mg/dL (65-115) 10/17/24 19:50 Calculated Osmolality 293 mOsm/kg (285-295) 10/17/24 19:50 Calcium 9.5 mg/dL (8.5-10.5) 10/17/24 19:50 Magnesium 2.2 mg/dL (1.7-2.3) 10/17/24 19:50 Total Bilirubin 1.3 mg/dL (0.15-1.2) H 10/17/24 19:50 AST 21 U/L (0-40) 10/17/24 19:50 ALT 26 U/L (0-41) 10/17/24 19:50 Alkaline Phosphatase 91 U/L (40-130) 10/17/24 19:50 Troponin T Baseline 84 ng/L (0-15) H 10/17/24 19:50 NT-Pro-B Natriuret Pep 7764 pg/mL (0-125) H 10/17/24 19:50 Total Protein 6.7 g/dL (6.6-8.7) 10/17/24 19:50 Albumin 4.6 g/dL (3.5-5.2) 10/17/24 19:50 Globulin 2.1 g/dL (1.3-4.6) 10/17/24 19:50 Urine Color Yellow (Yellow) 10/17/24 20:36 Urine Appearance Clear (CLEAR) 10/17/24 20:36 Urine pH 8.5 (5-7) A 10/17/24 20:36 Ur Specific [place] 1.012 (1.005-1.030) 10/17/24 20:36 Urine Protein Negative (Negative) 10/17/24 20:36 Urine Glucose (UA) Negative (Normal) 10/17/24 20:36 Urine Ketones Negative (Negative) 10/17/24 20:36 Urine Blood Negative (Negative) 10/17/24 20:36 Urine Nitrate Negative (Negative) 10/17/24 20:36 Urine Bilirubin Negative (Negative) 10/17/24 20:36 Urine Urobilinogen 1.0 mg/dL (Negative) 10/17/24 20:36 Ur Leukocyte Esterase Negative (Negative) 10/17/24 20:36 Urine RBC 0-2 /hpf (0-2) 10/17/24 20:36 Urine WBC 0-5 /hpf (0-5) 10/17/24 20:36 Ur Squamous Epith Cells 0-5 /hpf (0-5) 10/17/24 20:36 Amorphous Sediment Not Reportable 10/17/24 20:36 Urine Bacteria None seen /hpf (NONE) 10/17/24 20:36 Hyaline Casts 0-4 /lpf H 10/17/24 20:36 All radiology interpretation(s) finalized by discharge Discharge Plan Discharge Patient Disposition: Admitted As Inpatient Clinical Impression: Atrial fibrillation with rapid ventricular response, Acute and chronic respiratory failure with hypercapnia Condition: Stable Coding Level of Care Code ED Chiropractic Teacher for Yajaira Cooper
[2024-10-17 20:34] LABS: Troponin(5th) Baseline 84 ng/L (0-15)
--- NOTE | 2024-10-17 20:34 | ECG_ITS ---
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 Measurements Intervals [place] Rate: 132 P: 0 LA: 0 QRS: -18 QRSD: 113 T: 93 QT: 320 QTc: 475 Interpretive Statements ATRIAL FIBRILLATION WITH RAPID VENTRICULAR RESPONSE WITH ABERRANT CONDUCTION OR VENTRICULAR PREMATURE COMPLEXES MODERATE INTRAVENTRICULAR CONDUCTION DELAY [110+ ms QRS DURATION] NONSPECIFIC ST & T-WAVE ABNORMALITY Compared to ECG 10/10/2024 20:07:56 Ventricular premature complex(es) now present Aberrant conduction of supraventricular beat(s) now present Intraventricular conduction delay now present T-wave abnormality now present Sinus rhythm no longer present Myocardial infarct finding no longer present Electronically Signed On 10-20-2024 12:40:00 BODY MECHANIC by Tab Sinclair M.D. [id number]
[2024-10-17] MEDS: dilTIAZem 5 mg/mL SDV 5 mL 10 MG IVP (20:43)
[2024-10-17 20:44] LABS: Alanine Aminotransferase 26 U/L (0-41); Albumin Level 4.6 g/dL (3.5-5.2); Alkaline Phosphatase 91 U/L (40-130); Aspartate Amino Transferase 21 U/L (0-40); Blood Urea Nitrogen 14 mg/dL (8-23); Calcium 9.5 mg/dL (8.5-10.5); Chloride 94 mmol/L (98-107); Creatinine Clr Calc Pharmacy 78.9662; Globulin 2.1 g/dL (1.3-4.6); Glomerular Filtration Rate 112.8 mL/min (90-130); Glucose 77 mg/dL (65-115); Magnesium 2.2 mg/dL (1.7-2.3); NT Pro B Type Natriuretic Pept 7764 pg/mL (0-125); Osmolality Calculated 293 mOsm/kg (285-295); Sodium 142 mmol/L (136-145); Total Bilirubin 1.3 mg/dL (0.15-1.2); Total Protein 6.7 g/dL (6.6-8.7)
[2024-10-17 20:45] LABS: Basophils % 0.2 %; Eosinophils # 0.1 10^3/uL (0.0-0.8); Eosinophils % 0.7 %; Hematocrit 49.3 % (37-53); Lymphocytes # 1.4 10^3/uL (0.8-4.8); Lymphocytes % 15.5 %; Mean Corpuscular HGB Conc 29.6 g/dL (30-55); Mean Corpuscular Hemoglobin 27.2 pg (27-33); Mean Corpuscular Volume 91.8 fl (82-101); Mean Platelet Volume 9.4 fL (7.4-10.4); Monocytes # 0.8 10^3/uL (0.2-0.9); Monocytes % 9.2 %; Neutrophils # 6.63 10^3/uL (1.8-7.7); Neutrophils % 74.1 %; Nucleated Red Blood Cells % 0 %; Platelet Count 310 10^3/cmm (157-399); Red Blood Count 5.37 10^6/uL (3.85-5.65); Red Cell Distribution Width 15.6 % (12.1-15.1); White Blood Count 8.95 10^3/uL (3.29-11.43)
[2024-10-17 20:47] LABS: Bilirubin Urine Negative (Negative); Blood Urine Negative (Negative); Glucose Urine UA Negative (Normal); Ketones Urine Negative (Negative); Leukocyte Esterase Urine Negative (Negative); Nitrate Urine Negative (Negative); Protein Urine Negative (Negative); Specific Gravity, Urine 1.012 (1.005-1.030); Urine Appearance Clear (CLEAR); Urine Color Yellow (Yellow); pH Urine 8.5 (5-7)
[2024-10-17 20:50] LABS: Anion Gap 10.1 (5-19); Potassium 4.1 mmol/L (3.5-5.1)
[2024-10-17 20:50] LABS: Add Urine Microscopic? YES; Bacteria Urine None Seen /hpf; Hyaline Casts Urine 0-4 /lpf; RBC Urine 0-2 /hpf (0-2); Squamous Epithelial Cell Urine 0-5 /hpf (0-5); WBC Urine 0-5 /hpf (0-5)
[2024-10-17 20:51] LABS: Carbon Dioxide 42 mmol/L (22-29)
[2024-10-17] MEDS: dilTIAZem 100 MG in sodium chloride 0.9% (add-van) 100 ML IV (21:10)
[2024-10-17 21:32] LABS: ABG PCO2 75.6 mmHg (35-45); ABG PH Result 7.38 (7.35-7.45); Alveolar-Arterial Oxygen Gradi 10.3 mmHg (5-10); Arterial Blood Gas Hematocrit 37.7 % (42-52); Base Excess ABG 15.7 mmol/L (-2.0-2.0); Blood Gas Allen Test Pos; Blood Gas Operator Identificat ED; Blood Gas Sample Site Radial, left; Blood Gas Sample Type Arterial; HCO3 ABG 44.3 mmol/L (22-26); HGB O2 Sat 94.5 % (95-100); Ionized Calcium Level - ABG 1.2 mmol/L (1.1-1.4); Oxygen Device NC; Oxygen Saturation ABG 97.5; PO2 ABG 87.1 mmHg (80.0-100.0); PO2 FiO2 Ratio Arterial Blood 241; Potassium Level - ABG 3.7 mmol/L (3.5-5.0); Total Hemoglobin 12.3 g/dL (14-18)
--- NOTE | 2024-10-17 21:44 | ECG_ITS ---
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 Measurements Intervals [place] Rate: 116 P: 0 ID: 0 QRS: -5 QRSD: 114 T: 97 QT: 329 QTc: 458 Interpretive Statements ATRIAL FIBRILLATION WITH RAPID VENTRICULAR RESPONSE MODERATE INTRAVENTRICULAR CONDUCTION DELAY [110+ ms QRS DURATION] MINIMAL VOLTAGE CRITERIA FOR LVH, CONSIDER NORMAL VARIANT [MEETS CRITERIA IN ONE OF: R(aVL), S(V1), R(V5), R(V5/V6)+S(V1)] NONSPECIFIC ST & T-WAVE ABNORMALITY Compared to ECG 10/17/2024 20:34:43 Ventricular premature complex(es) no longer present Aberrant conduction of supraventricular beat(s) no longer present T-wave abnormality still present Electronically Signed On 10-22-2024 13:53:19 NATURE PHOTOGRAPHER by Tab Sinclair M.D. [id number]
[2024-10-17] MEDS: LORazepam 2 mg/mL INJ 1 mL 1 MG IVP (21:50)
--- NOTE | 2024-10-17 22:14 | P.HP_ITS ---
Providers/Chief Complaint 2 Primary Care Provider: Ya Panchal MD Chief Complaint: intermediate placement History of Present Illness Pratik Garcia is a 68 year old male medical history of A-fib, chronic anticoagulation, diastolic CHF, who was recently discharged from the hospital after management of pneumonia, hypoxic hypercarbic resp distress BiPAP was arranged at home, presented back with chief complaint of generalized weakness and fatigue not been able to take care of himself. Patient is stating that he is thinking to go to intermediate this time. Patient is stating that he has not been able to use his BiPAP more than 30 to 40 minutes at a stretch, he has not noticed any fever diarrhea chest pain but endorsing productive cough. Patient has not smoked since last 3 weeks. Patient is requesting to go to [facility] where his [facility]. Patient is stating that he does not use any diuretics in the ER his clinical exam is consistent with right-sided heart failure, I have requested Lasix IV and BNP Echo 07/14 showed EF 75%. Patient is not endorsing chest pain, troponin 84, Review of Systems 2 Const: Denies: fever(s) Eyes: Denies: change in vision ENMT: Denies: throat pain Card: Reports: palpitations and swelling of feet/ankles; Denies: chest pain Resp: Reports: dyspnea GI: Denies: abdominal pain Medications/Allergies Home Medications Medication Instructions Recorded Confirmed Last Taken Type atorvastatin 40 mg tablet 40 mg PO QPM 12/19/19 10/10/24 10/10/24 History apixaban 5 mg tablet (Eliquis) 5 mg PO BID 01/24/24 10/10/24 10/10/24 History metoprolol tartrate 37.5 mg tablet 37.5 mg PO QAM 01/24/24 10/10/24 10/10/24 History amiodarone 200 mg tablet (Pacerone) 200 mg PO DAILY #90 tabs 06/27/24 10/10/24 10/10/24 Rx acetaminophen 500 mg tablet 500 mg PO QID PRN Pain 10/01/24 10/10/24 Unknown History (Tylenol Extra Strength) albuterol sulfate 90 mcg/actuation 2 puff inhalation Q6H PRN 10/01/24 10/10/24 10/10/24 History aerosol inhaler (Ventolin HFA) Shortness Of Breath Or Wheezing amlodipine 5 mg tablet 10 mg (2 x 5 mg) PO DAILY #60 tabs 10/04/24 10/10/24 10/10/24 Rx pantoprazole 40 mg tablet,delayed 40 mg PO DAILY #14 tabs 10/04/24 10/10/24 10/10/24 Rx release tiotropium bromide 1.25 2 inh inhalation DAILY #4 grams 10/04/24 10/10/24 Unknown Rx mcg/actuation mist for inhalation benazepril 40 mg tablet 40 mg PO DAILY 10/10/24 10/10/24 10/10/24 History omeprazole 20 mg capsule,delayed 20 mg PO DAILY 10/10/24 10/10/24 10/10/24 History release Allergies Allergy/AdvReac Type Severity Reaction Status Date / Time No Known Allergies Allergy Verified 10/10/24 16:28 PFSH Acute 2 PFSH: Medical History Atrial fibrillation HTN (hypertension) Intermittent atrial fibrillation Atherosclerotic heart disease of [place] coronary artery with unstable angina pectoris Chest pain Atrial fibrillation with RVR Hypercapnic respiratory failure Alcohol abuse COPD (chronic obstructive pulmonary disease) Acute non-ST elevation myocardial infarction (NSTEMI) Self extubation Atherosclerotic heart disease of [place] coronary artery without angina pectoris Fatigue EKG from today revealed sinus rhythm with features of LVH. ST-T changes in the high lateral leads. Occasional PVCs. No significant new changes. Smoker Quit in December 2023 Hyperlipidemia IHSS (idiopathic hypertrophic subaortic stenosis) CAD (coronary artery disease) Hepatitis C Surgical History S/P coronary artery stent placement S/P appendectomy Family History Mother CAD (coronary artery disease) Diabetes Sister Cancer Father Lung disease Other Hypertension Denies family history of Clotting disorder Dementia Chronic kidney disease (CKD) Suicide Anesthesia complication Bleeding disorder Stroke Social History Smoking and tobacco/nicotine status: current every day tobacco/nicotine user Alcohol intake: current Substance/Drug Use: former Vitals/I&O/Wt Last Vital Signs Temp 98.2 F 10/17/24 16:18 Pulse 135 H 10/17/24 22:00 Resp 18 10/17/24 22:00 BP 140/99 10/17/24 22:00 Pulse Ox 94 10/17/24 22:00 O2 Del Method Nasal Cannula 10/17/24 19:51 O2 Flow Rate 4 10/17/24 16:18 10/17/24 10/17/24 10/17/24 06:59 14:59 22:59 Intake Total 5.875 / 5.875 Balance 5.875 / 5.875 Weight last 48 hrs Weight 64.864 kg Data 10/17/24 19:50 10/17/24 19:50 A&P Assessment and plan (1) Atrial fibrillation: Qualifiers: Atrial fibrillation type: paroxysmal Qualified Code(s): I48.0 - Paroxysmal atrial fibrillation (2) Atrial fibrillation with rapid ventricular response: (3) Fall: (4) COPD exacerbation: (5) Respiratory failure with hypoxia: (6) Respiratory failure with hypoxia and hypercapnia: (7) Hypoxia: Plan New onset CHF Diastolic congestive heart failure EF is preserved with hyperdynamic features Clinical sign of fluid overload in the ER Requested BNP and Lasix 20 mg IV I would not repeat echo as it was done 07/14 No active chest pain Trend troponin A-fib RVR currently on Cardizem drip at 15 Continue Eliquis I will discontinue metoprolol and add p.o. Cardizem along amiodarone Hypoxic hypercarbic respite distress Noncompliant with BiPAP at home Quit smoking 3 weeks ago Continue BiPAP, patient is stating that current settings are more comfortable than his settings at home Not been able to take care of himself Requesting intermediate placement [facility] his is Full code Cardiac diet DVT prophylaxis continue Eliquis Attestations 2 Medical Necessity Statement*: More than 2 midnights anticipated Diagnoses Paroxysmal atrial fibrillation I48.0 Atrial fibrillation type: paroxysmal Atrial fibrillation with rapid ventricular response I48.91 Fall W19.XXXA COPD exacerbation J44.1 Respiratory failure with hypoxia J96.91 Respiratory failure with hypoxia and hypercapnia J96.91; J96.92 Hypoxia R09.02
[2024-10-17] MEDS: ipratropium-albuterol 3 mL Neb INHALATION (22:42)
[2024-10-17 22:53] LABS: Troponin 5 2HR 71.52 ng/L (0-15); Troponin 5 2HR Delta -12.48 ABS# (0-10)
[2024-10-17] MEDS: dilTIAZem 30 mg Tablet PO (23:06)
[2024-10-17] MEDS: FUROsemide 10 mg/mL SDV 2mL 20 MG IVP (23:07)
[2024-10-17 23:16] LABS: NT Pro B Type Natriuretic Pept 7803 pg/mL (0-125)
[2024-10-18] VITALS (120 sets, daily range): BP systolic 106–153; BP diastolic 65–122; PULSE 61–144; RESP 0–39; TEMP 36.8–36.9; O2SAT 86–98
--- NOTE | 2024-10-18 02:50 | ECG_ITS ---
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 Measurements Intervals [place] Rate: 84 P: 0 CO: 0 QRS: 15 QRSD: 116 T: 109 QT: 388 QTc: 459 Interpretive Statements ATRIAL FLUTTER WITH ABERRANT CONDUCTION OR VENTRICULAR PREMATURE COMPLEXES LEFT VENTRICULAR HYPERTROPHY AND ST-T CHANGE [VOLTAGE CRITERIA PLUS ST/T ABNORMALITY] Compared to ECG 10/17/2024 21:44:21 Ventricular premature complex(es) now present Aberrant conduction of supraventricular beat(s) now present ST (T wave) deviation now present Atrial fibrillation no longer present Intraventricular conduction delay no longer present T-wave abnormality no longer present Electronically Signed On 10-22-2024 13:52:54 SENIOR MOBILE SOLUTIONS ARCHITECT by Tab Sinclair M.D. [id number]
[2024-10-18 04:13] LABS: Basophils % 0.3 %; Eosinophils # 0.2 10^3/uL (0.0-0.8); Hematocrit 40.2 % (37-53); Lymphocytes % 24.8 %; Mean Corpuscular HGB Conc 29.9 g/dL (30-55); Mean Corpuscular Hemoglobin 26.8 pg (27-33); Mean Corpuscular Volume 89.9 fl (82-101); Mean Platelet Volume 8.9 fL (7.4-10.4); Monocytes # 0.7 10^3/uL (0.2-0.9); Monocytes % 9.3 %; Neutrophils # 5.04 10^3/uL (1.8-7.7); Neutrophils % 63.3 %; Nucleated Red Blood Cells % 0 %; Platelet Count 228 10^3/cmm (157-399); Red Blood Count 4.47 10^6/uL (3.85-5.65); Red Cell Distribution Width 15.5 % (12.1-15.1); White Blood Count 7.95 10^3/uL (3.29-11.43)
[2024-10-18 04:30] LABS: Anion Gap 6.8 (5-19); Blood Urea Nitrogen 13 mg/dL (8-23); Calcium 8.7 mg/dL (8.5-10.5); Chloride 95 mmol/L (98-107); Creatinine Clr Calc Pharmacy 78.9662; Glomerular Filtration Rate 112.8 mL/min (90-130); Glucose 102 mg/dL (65-115); Magnesium 1.9 mg/dL (1.7-2.3); Osmolality Calculated 290 mOsm/kg (285-295); Potassium 3.8 mmol/L (3.5-5.1); Sodium 140 mmol/L (136-145)
[2024-10-18 04:39] LABS: Carbon Dioxide 42 mmol/L (22-29)
[2024-10-18] MEDS: dilTIAZem 30 mg Tablet PO (05:46)
--- NOTE | 2024-10-18 07:12 | PC.NURSE ---
pt resting in bed quietly with eyes closed and even respirations.
[2024-10-18] MEDS: pantoprazole DR 40 mg Tablet PO (09:22)
[2024-10-18] MEDS: potassium chloride ER 20 mEq Tablet PO (09:22)
[2024-10-18] MEDS: dilTIAZem ER (24HR) 120 mg Capsule PO (09:22)
[2024-10-18] MEDS: amiodarone 200 mg Tablet PO (09:22)
[2024-10-18] MEDS: apixaban 5 mg Tablet PO ×2 (09:22→17:30)
[2024-10-18] MEDS: sennosides-docusate Tablet 1 TAB PO (09:23)
[2024-10-18] MEDS: FUROsemide 10 mg/mL SDV 2mL 40 MG IVP (09:26)
--- NOTE | 2024-10-18 10:08 | PC.NURSE ---
Patient comes to [facility] from ED via a bed at 1008 with a Cardizem drip 10 mls/hr.
--- NOTE | 2024-10-18 11:26 | PM.PN ---
Subjective Subjective: Patient reports generalized weakness and fatigue. Reports shortness of breath is improving. Heart rates improved with Cardizem. Discussed plan of care and patient is in agreement. Denies fevers or chills. Medications: Reviewed: Yes Vitals/I&O/Wt Last Vital Signs Temp 98.2 F 10/17/24 16:18 Pulse 113 H 10/18/24 10:21 Resp 15 10/18/24 10:21 BP 147/96 10/18/24 10:21 Pulse Ox 95 10/18/24 10:21 O2 Del Method Nasal Cannula 10/18/24 10:12 O2 Flow Rate 4 10/18/24 10:12 FiO2 40 10/18/24 00:10 10/17/24 10/18/24 10/18/24 22:59 06:59 14:59 Intake Total 11.875 / 11.875 79.375 / 91.250 8.75 / 8.75 Output Total 2450 / 2450 475 / 475 Balance 11.875 / 11.875 -2370.625 / -2358.750 -466.25 / -466.25 Weight last 48 hrs Weight 64.864 kg Physical Exam Narrative: General: Patient is awake. Appears fatigued but pleasant. Head: Normocephalic. Atraumatic. EOM intact. Neck: No JVD. Cardiovascular: No gallops. No murmurs. Tachycardic with irregularly irregular rhythm. Lungs: Clear to auscultation, no use of accessory muscles, no crackles or wheezes. Skin: No jaundice. No rashes. Abdomen: Normal bowel sounds, abdomen soft and nontender. Genito Urinary: Genital exam not performed since complaints not related. Rectal: Rectal exam not performed since no symptoms indicated blood loss. Extremities: No cyanosis or clubbing. Musculoskeletal: No swollen or erythematous joints. Neurological: Moves all 4 extremities. No myoclonus. Data 10/18/24 04:05 10/18/24 04:05 A&P Assessment and plan (1) Congestive heart failure: Acute heart failure with preserved ejection fraction exacerbation Continue IV Lasix Strict I's and O's Daily weights BiPAP as needed (2) Atrial fibrillation with rapid ventricular response: Patient started on Cardizem drip Start oral Cardizem Continue amiodarone Wean off drip as tolerated Continuous telemetry monitoring Monitoring electrolytes Continue apixaban for stroke prophylaxis (3) Failure to thrive: Patient weak and debilitated, unable to care for himself Optimize cardiac function Request therapy evaluation Anticipate he will need postacute care given his decompensation (4) Hypoxia: Acute hypoxic respiratory insufficiency Treat underlying CHF and arrhythmia Supplemental oxygen support (5) COPD (chronic obstructive pulmonary disease): COPD without exacerbation, monitor for worsening condition (6) HTN (hypertension): Qualifiers: Hypertension type: essential hypertension Qualified Code(s): I10 - Essential (primary) hypertension Plan DVT prophylaxis: Apixaban Attestations Medical Necessity Statement*: Patient in atrial fibrillation with 5 ventricular rate currently on Cardizem drip requiring ongoing hospitalization for titration of IV drip, cardiac med titration, therapy evaluation, and supportive care. Coding Level of Care Code Acute Code for [facility] Fwd Diagnoses Congestive heart failure I50.9 Atrial fibrillation with rapid ventricular response I48.91 Failure to thrive Hypoxia R09.02 COPD (chronic obstructive pulmonary disease) J44.9 Essential hypertension I10 Hypertension type: essential hypertension
[2024-10-18] MEDS: dilTIAZem 100 MG in sodium chloride 0.9% (add-van) 100 ML IV (15:57)
--- NOTE | 2024-10-18 17:36 | PC.NURSE ---
Patient stated that he gave up his place that he rents as of the time that he went to the ED on 10/17/2024 because he wants to be placed in a residential.
[2024-10-19] VITALS (8 sets, daily range): BP systolic 127–166; BP diastolic 67–90; PULSE 64–76; RESP 13–21; TEMP 36.7–36.8; O2SAT 95–98
[2024-10-19 04:51] LABS: Albumin Level 3.5 g/dL (3.5-5.2); Blood Urea Nitrogen 17 mg/dL (8-23); Chloride 95 mmol/L (98-107); Glomerular Filtration Rate 96.7 mL/min (90-130); Glucose 100 mg/dL (65-115); Magnesium 2.1 mg/dL (1.7-2.3); Phosphorus 4.2 mg/dL (2.5-4.5); Sodium 140 mmol/L (136-145)
[2024-10-19 05:11] LABS: Carbon Dioxide 42 mmol/L (22-29)
[2024-10-19] MEDS: dilTIAZem ER (24HR) 120 mg Capsule PO (08:15)
[2024-10-19] MEDS: amiodarone 200 mg Tablet PO (08:15)
[2024-10-19] MEDS: apixaban 5 mg Tablet PO ×2 (08:15→17:25)
[2024-10-19] MEDS: FUROsemide 10 mg/mL SDV 2mL 40 MG IVP (08:16)
[2024-10-19] MEDS: pantoprazole DR 40 mg Tablet PO (08:16)
--- NOTE | 2024-10-19 09:11 | PC.CHAP ---
Pastoral Care Encounter/Spiritual Assessment Type of Contact [] Declined glazier stained glass visit [] Patient/Family/Request visit [] Outpatient visit [] Follow-up visit [] Physician referral [] Code/Alert [] Routine visit [] Staff referral [] Actively dying [] Patient sleeping [] Family support [] [] Out of room [] Palliative care [] [x] Receiving care in room [] Pre-surgical visit [] Trauma [] Long length of stay [] ICU visit [] Other: Relational/Emotional Strength [] Patient feels connected with others/family/visitors/staff [] Distress [] Loneliness/isolation [] Abandonment Spirituality of Patient [] Person of Awilda [] Attends Evangelical of their Awilda [] Believes in Prayer [] Reads Bible or Jew materials [] There are Spiritual issues to be addressed Staff Mine Warfare Officer Interventions [] Prayer [] Active listening [] Non-anxious presence [] Spiritual/emotional support [] Crisis/trauma care [] Spiritual counseling [] Bereavement support [] Provided bereavement packet [] Provided Bible/devotional materials [] Provided toy/stuffed animal, coloring book to patient or family member [] Provided Communion [] Anointing/[place] [] Salvation [] Completed spiritual assessment [] Other: Impact on Illness or Injury [] Angry [] Fearful [] Anxious [] Often cries [] Exhaustion [] Unable to work [] Unable to attend anabaptism [] Unable to walk/stand [] Unable to read [] Unable to drive [] Unable to eat/drink [] Unable to sleep [] Unable to be with family [] Patient intubated [] Other: Summary Time spent with patient
--- NOTE | 2024-10-19 09:29 | P.PN_ITS ---
Subjective 2 Subjective: Patient up to bedside chair. Reports slept ok. Heart rate has improved. Denies CP, SOB, nausea or emesis. Endorses continued weakness and malaise. Anticipating therapy session today. Medications: Reviewed: Yes Vitals/I&O/Wt Last Vital Signs Temp 98.2 F 10/19/24 07:30 Pulse 76 10/19/24 07:30 Resp 18 10/19/24 07:30 BP 166/84 10/19/24 07:30 Pulse Ox 98 10/19/24 07:30 O2 Del Method Nasal Cannula 10/19/24 07:30 O2 Flow Rate 4 10/18/24 17:28 FiO2 40 10/18/24 00:10 10/18/24 10/19/24 10/19/24 22:59 06:59 14:59 Intake Total 817.5 / 1546.25 350 / 1896.25 Output Total 1650 / 2125 1000 / 3125 850 / 850 Balance -832.5 / -578.75 -650 / -1228.75 -850 / -850 Weight last 48 hrs Weight 69.853 kg Weight 69.853 kg Weight 64.864 kg Physical Exam 2 Narrative: General: Patient is awake. Alert. Pleasant. Head: Normocephalic. Atraumatic. EOM intact. Neck: No JVD. Cardiovascular: No gallops. No murmurs. Regular rate. Lungs: Clear to auscultation, no use of accessory muscles, no crackles or wheezes. Skin: No jaundice. No rashes. Abdomen: Normal bowel sounds, abdomen soft and nontender. Genito Urinary: Genital exam not performed since complaints not related. Rectal: Rectal exam not performed since no symptoms indicated blood loss. Extremities: No cyanosis or clubbing. Musculoskeletal: No swollen or erythematous joints. Neurological: Moves all 4 extremities. No myoclonus. Data 10/18/24 04:05 10/19/24 03:20 A&P Assessment and plan (1) Congestive heart failure: Acute heart failure with preserved ejection fraction exacerbation Volume status improving, rotate to oral Lasix tomorrow Strict I's and O's Daily weights BiPAP as needed (2) Atrial fibrillation with rapid ventricular response: Continue Cardizem Continue amiodarone D/c drip Continuous telemetry monitoring Monitoring electrolytes Continue apixaban for stroke prophylaxis (3) Failure to thrive: Patient reportedly no longer has apartment, was unable to care for himself regardless Continue therapy CM working on placement options (4) Hypoxia: Acute hypoxic respiratory insufficiency Treat underlying CHF and arrhythmia Supplemental oxygen support (5) COPD (chronic obstructive pulmonary disease): Breathing treatments as needed (6) HTN (hypertension): BP elevated this morning, coninue with Cardizem and Lasix If BP remains elevated, may need to adjust doses versus additional agent Qualifiers: Hypertension type: essential hypertension Qualified Code(s): I10 - Essential (primary) hypertension Plan DVT prophylaxis: Apixaban Attestations 2 Medical Necessity Statement*: Patient requires ongoing hospitalization for treatment of CHF, monitoring of A- fib symptoms, therapy, and coordination of safe discharge plan. Coding Level of Care Code Acute Code for [facility] Fwd Diagnoses Congestive heart failure I50.9 Atrial fibrillation with rapid ventricular response I48.91 Failure to thrive Hypoxia R09.02 COPD (chronic obstructive pulmonary disease) J44.9 Essential hypertension I10 Hypertension type: essential hypertension
--- NOTE | 2024-10-19 10:29 | PC.SOCIAL ---
IMM Update Pg. 2 of IMM updated and reviewed. Copy provided to patient.
--- NOTE | 2024-10-19 11:13 | PC.OT ---
OT TREATMENT ATTEMPTED THIS A.M. PATIENT SITTING EOB AND RETURNS TO [place]. REQUESTS THERAPIST TO PLUG ME IN ; BP CUFF, O2 MONITOR AND TELEMETRY ATTACHED TO MONITOR BY THERAPIST. PATIENT THEN STATES THAT HE IS VERY TIRED AND DOES NOT WISH TO PERFORM ADL OR OT THIS MORNING.
--- NOTE | 2024-10-19 16:27 | PC.NURSE ---
Patient's friend brought his home CPAP machine to hospital.
[2024-10-20] VITALS: BP 133/75; PULSE 66; RESP 14; O2SAT 99
[2024-10-20 04:00] VITALS: BP 135/79; PULSE 64; RESP 16; TEMP 36.7; O2SAT 94
[2024-10-20 05:46] VITALS: PULSE 74
[2024-10-20 07:52] VITALS: BP 160/95; PULSE 68; RESP 12; TEMP 37.1; O2SAT 100
--- NOTE | 2024-10-20 07:53 | PM.DCS ---
Discharge Providers Date of Admission: 10/17/24 22:18 Date of Discharge: October 20, 2024 Attending Provider at Admission: Harriet Tripathi MD Attending Provider at Discharge: Will Blanchard MD Primary Care Provider: Ya Panchal MD Diagnoses at Discharge Discharge Diagnosis (1) Congestive heart failure: Status: Acute (2) Atrial fibrillation with rapid ventricular response: Status: Acute (3) Failure to thrive: Status: Acute (4) Hypoxia: Status: Acute (5) COPD (chronic obstructive pulmonary disease): Status: Acute (6) HTN (hypertension): Status: Acute Qualifiers: Hypertension type: essential hypertension Qualified Code(s): I10 - Essential (primary) hypertension Reason for Visit Reason for Visit: [facility] Hospital Course Hospital Course Pratik Garcia is a 68 year old male medical history of A-fib, chronic anticoagulation, diastolic CHF, who was recently discharged from the hospital after management of pneumonia, hypoxic hypercarbic resp distress BiPAP was arranged at home, presented back with chief complaint of generalized weakness and fatigue not been able to take care of himself, found to have acute heart failure with preserved ejection fraction exacerbation with paroxysmal atrial fibrillation with left ventricular rate. He was treated with IV diuresis and Cardizem drip. Rate improved and Cardizem drip was discontinued. He was started on Cardizem which adequately controlled his heart rate. Volume status improved. He was found to have failure to thrive with debility and physical deconditioning for which she worked with therapy. Patient discharged to nursing facility for ongoing care. Physical Exam Narrative: General: Patient is awake. No acute distress. Head: Normocephalic. Atraumatic. EOM intact. Neck: No JVD. Cardiovascular: No gallops. No murmurs. Regular rate. Lungs: Clear to auscultation, no use of accessory muscles, no crackles or wheezes. Skin: No jaundice. No rashes. Abdomen: Normal bowel sounds, abdomen soft and nontender. Musculoskeletal: No swollen or erythematous joints. Neurological: No myoclonus. Discharge Data Studies Completed and Pending Completed Studies During Hospitalization Category Date Time Status XR chest 1V portable [id number] Stat Exams 10/17/24 20:02 Completed Radiology Impressions Chest X-Ray 10/17/24 20:02 IMPRESSION: There are subtle persisting reticular opacities in the right lung base. This could be due to residual airspace disease or trace pleural fluid Laboratory Results WBC 7.95 10^3/uL (3.29-11.43) 10/18/24 04:05 RBC 4.47 10^6/uL (3.85-5.65) 10/18/24 04:05 Hgb 12.00 g/dL (11.27-16.99) 10/18/24 04:05 Hct 40.2 % (37-53) 10/18/24 04:05 MCV 89.9 fl (82-101) 10/18/24 04:05 MCH 26.8 pg (27-33) L 10/18/24 04:05 MCHC 29.9 g/dL (30-55) L 10/18/24 04:05 RDW 15.5 % (12.1-15.1) H 10/18/24 04:05 Plt Count 228 10^3/cmm (157-399) 10/18/24 04:05 MPV 8.9 fL (7.4-10.4) 10/18/24 04:05 Neut % (Auto) 63.3 % 10/18/24 04:05 Lymph % (Auto) 24.8 % 10/18/24 04:05 [place] % (Auto) 9.3 % 10/18/24 04:05 Eos % (Auto) 2.0 % 10/18/24 04:05 Baso % (Auto) 0.3 % 10/18/24 04:05 Neut # (Auto) 5.04 10^3/uL (1.8-7.7) 10/18/24 04:05 Lymph # (Auto) 2.0 10^3/uL (0.8-4.8) 10/18/24 04:05 [place] # (Auto) 0.7 10^3/uL (0.2-0.9) 10/18/24 04:05 Eos # (Auto) 0.2 10^3/uL (0.0-0.8) 10/18/24 04:05 Baso # (Auto) 0.0 10^3/uL (0.0-0.1) 10/18/24 04:05 Nucleated RBC % (auto) 0 % 10/18/24 04:05 Nucleated RBCs # 0.0 /100WBC 10/18/24 04:05 Specimen Type Arterial 10/17/24 21:21 Sample Site Radial, left 10/17/24 21:21 ABG pH 7.38 (7.35-7.45) 10/17/24 21:21 ABG pCO2 75.6 mmHg (35-45) H* 10/17/24 21:21 ABG pO2 87.1 mmHg (80.0-100.0) 10/17/24 21:21 ABG PO2/FiO2 Ratio 241 10/17/24 21:21 ABG HCO3 44.3 mmol/L (22-26) H 10/17/24 21:21 ABG O2 Saturation 97.5 10/17/24 21:21 ABG Base Excess 15.7 mmol/L (-2.0-2.0) H 10/17/24 21:21 Addy Test Pos 10/17/24 21:21 A-a O2 Gradient 10.3 mmHg (5-10) H 10/17/24 21:21 Hematocrit 37.7 % (42-52) L 10/17/24 21:21 Hgb O2 Saturation 94.5 % (95-100) L 10/17/24 21:21 Carboxyhemoglobin 2.0 %THgb (0.4-20.1) 10/17/24 21:21 Methemoglobin 1.0 % (0.4-1.5) 10/17/24 21:21 Total Hemoglobin 12.3 g/dL (14-18) L 10/17/24 21:21 Sodium 141.0 mmol/L (131-143) 10/17/24 21:21 Potassium 3.7 mmol/L (3.5-5.0) 10/17/24 21:21 Glucose 93.0 mg/dL (70-115) 10/17/24 21:21 Ionized Calcium 1.2 mmol/L (1.1-1.4) 10/17/24 21:21 O2 Delivery Device Nc 10/17/24 21:21 O2 Liters/Min 4.0 % 10/17/24 21:21 FiO2 36.0 % 10/17/24 21:21 Assistant Professor Of Archaeology ID Ed 10/17/24 21:21 Sodium 140 mmol/L (136-145) 10/19/24 03:20 Potassium 4.0 mmol/L (3.5-5.1) 10/19/24 03:20 Chloride 95 mmol/L (98-107) L 10/19/24 03:20 Carbon Dioxide 42 mmol/L (22-29) H* 10/19/24 03:20 Anion Gap 7.0 (5-19) 10/19/24 03:20 BUN 17 mg/dL (8-23) 10/19/24 03:20 Creatinine 0.8 mg/dL (0.7-1.2) 10/19/24 03:20 GFR Calculation 96.7 mL/min (90-130) 10/19/24 03:20 Glucose 100 mg/dL (65-115) 10/19/24 03:20 Calculated Osmolality 290 mOsm/kg (285-295) 10/18/24 04:05 Calcium 9.0 mg/dL (8.5-10.5) 10/19/24 03:20 Phosphorus 4.2 mg/dL (2.5-4.5) 10/19/24 03:20 Magnesium 2.1 mg/dL (1.7-2.3) 10/19/24 03:20 Total Bilirubin 1.3 mg/dL (0.15-1.2) H 10/17/24 19:50 AST 21 U/L (0-40) 10/17/24 19:50 ALT 26 U/L (0-41) 10/17/24 19:50 Alkaline Phosphatase 91 U/L (40-130) 10/17/24 19:50 Troponin T Baseline 84 ng/L (0-15) H 10/17/24 19:50 Troponin T 120 Minute 71.52 ng/L (0-15) H 10/17/24 22:27 Delta Troponin T -12.48 ABS# (0-10) L 10/17/24 22:27 Troponin T Hi Sens 6Hr 79.60 ng/L (0-15) H 10/18/24 01:49 Troponin T Hi Sens 6Hr Delta -4.40 ng/L (0-12) L 10/18/24 01:49 NT-Pro-B Natriuret Pep 7764 pg/mL (0-125) H 10/17/24 19:50 NT-Pro-B Natriuret Pep 7803 pg/mL (0-125) H 10/17/24 19:50 Total Protein 6.7 g/dL (6.6-8.7) 10/17/24 19:50 Albumin 3.5 g/dL (3.5-5.2) 10/19/24 03:20 Globulin 2.1 g/dL (1.3-4.6) 10/17/24 19:50 Urine Color Yellow (Yellow) 10/17/24 20:36 Urine Appearance Clear (CLEAR) 10/17/24 20:36 Urine pH 8.5 (5-7) A 10/17/24 20:36 Ur Specific [place] 1.012 (1.005-1.030) 10/17/24 20:36 Urine Protein Negative (Negative) 10/17/24 20:36 Urine Glucose (UA) Negative (Normal) 10/17/24 20:36 Urine Ketones Negative (Negative) 10/17/24 20:36 Urine Blood Negative (Negative) 10/17/24 20:36 Urine Nitrate Negative (Negative) 10/17/24 20:36 Urine Bilirubin Negative (Negative) 10/17/24 20:36 Urine Urobilinogen 1.0 mg/dL (Negative) 10/17/24 20:36 Ur Leukocyte Esterase Negative (Negative) 10/17/24 20:36 Urine RBC 0-2 /hpf (0-2) 10/17/24 20:36 Urine WBC 0-5 /hpf (0-5) 10/17/24 20:36 Ur Squamous Epith Cells 0-5 /hpf (0-5) 10/17/24 20:36 Amorphous Sediment Not Reportable 10/17/24 20:36 Urine Bacteria None seen /hpf (NONE) 10/17/24 20:36 Hyaline Casts 0-4 /lpf H 10/17/24 20:36 Vitals Last Vital Signs Temp 98.0 F 10/20/24 04:00 Pulse 74 10/20/24 05:46 Resp 16 10/20/24 04:00 BP 135/79 10/20/24 04:00 Pulse Ox 94 10/20/24 04:00 O2 Del Method Nasal Cannula 10/20/24 04:00 O2 Flow Rate 4 10/19/24 10:00 FiO2 40 10/18/24 00:10 Discharge Plan Discharge Patient Disposition: Xfer SNF Condition: Stable Prescriptions: New diltiazem HCl 120 mg Capsule,Extended Release 24hr 120 mg PO DAILY 30 Days Qty: 30 0RF furosemide [Lasix] 20 mg tablet 20 mg PO DAILY PRN (Reason: edema) Qty: 30 0RF Continued atorvastatin 40 mg tablet 40 mg PO QPM amiodarone [Pacerone] 200 mg Tablet 200 mg PO DAILY Qty: 90 0RF benazepril 40 mg tablet 40 mg PO DAILY omeprazole 20 mg capsule,delayed release(DR/EC) 20 mg PO DAILY Eliquis 5 mg tablet 5 mg PO BID metoprolol tartrate 37.5 mg tablet 37.5 mg PO QAM albuterol sulfate [Ventolin HFA] 90 mcg/actuation HFA aerosol inhaler 2 puff INHALATION Q6H PRN (Reason: Shortness Of Breath Or Wheezing) acetaminophen [Tylenol Extra Strength] 500 mg Tablet 500 mg PO QID PRN (Reason: Pain) pantoprazole 40 mg Tablet,Delayed Release (Dr/Ec) 40 mg PO DAILY Qty: 14 0RF tiotropium bromide 1.25 mcg/actuation mist 2 inh inhalation DAILY Qty: 4 0RF Discontinued amlodipine 5 mg tablet 10 mg PO DAILY Qty: 60 0RF Discharge Orders: Discharge Order (Routine); Ordered 10/20/24 Ordered By: Will Blanchard Referrals: Ya Panchal MD [Primary Care Provider] - Discharge Diet: Advance as tolerated, Usual diet and Cardiac Discharge Activity: Resume usual activity and Increase activity as tolerated Patient Instructions: COPD, Diltiazem (By mouth), Furosemide (By mouth), Heart Failure (DC), Failure to Thrive (DC), COPD Stoplight, Quitting Smoking Activity Restrictions/Additional Instructions: 1. Increase activity as tolerated 2. Low-salt diet, restrict to 2 g daily 3. Establish care with provider at facility within 7 days of arrival Discharge Attestations Time Spent in Discharge Care*: greater than 30 min Quality Metrics Clinical Quality Measures [ No reported AMI, CVA or VTE this stay] Coding Level of Care Code Acute Code for [facility] Fwd Diagnoses Congestive heart failure I50.9 Atrial fibrillation with rapid ventricular response I48.91 Failure to thrive Hypoxia R09.02 COPD (chronic obstructive pulmonary disease) J44.9 Essential hypertension I10 Hypertension type: essential hypertension
[2024-10-20 08:00] VITALS: PULSE 75; RESP 18; O2SAT 100
[2024-10-20] MEDS: apixaban 5 mg Tablet PO (08:20)
[2024-10-20] MEDS: sennosides-docusate Tablet 1 TAB PO (08:20)
[2024-10-20] MEDS: amiodarone 200 mg Tablet PO (08:20)
[2024-10-20] MEDS: FUROsemide 40 mg Tablet PO (08:20)
[2024-10-20] MEDS: pantoprazole DR 40 mg Tablet PO (08:20)
[2024-10-20] MEDS: dilTIAZem ER (24HR) 120 mg Capsule PO (08:20)
--- NOTE | 2024-10-20 09:22 | PC.NURSE ---
Patient to be discharged to [facility]. Report called to [facility]. [place] to provide transportation. Patient is ready for discharge.
--- NOTE | 2024-10-20 09:31 | PC.CHAP ---
Pastoral Care Encounter/Spiritual Assessment Type of Contact [] Declined business school dean visit [] Patient/Family/Request visit [] Outpatient visit [] Follow-up visit [] Physician referral [] Code/Alert [x] Routine visit [] Staff referral [] Actively dying [] Patient sleeping [] Family support [] [] Out of room [] Palliative care [] [] Receiving care in room [] Pre-surgical visit [] Trauma [] Long length of stay [] ICU visit [] Other: Relational/Emotional Strength [x] Patient feels connected with others/family/visitors/staff [] Distress [] Loneliness/isolation [] Abandonment Spirituality of Patient [x] Person of Awilda [] Attends Adventist of their Awilda [x] Believes in Prayer [] Reads Bible or Shinto materials [] There are Spiritual issues to be addressed Electrical Technician Interventions [x] Prayer [x] Active listening [] Non-anxious presence [x] Spiritual/emotional support [] Crisis/trauma care [] Spiritual counseling [] Bereavement support [] Provided bereavement packet [] Provided Bible/devotional materials [] Provided toy/stuffed animal, coloring book to patient or family member [] Provided Communion [] Anointing/[place] [] Salvation [x] Completed spiritual assessment [] Other: Impact on Illness or Injury [] Angry [] Fearful [] Anxious [] Often cries [] Exhaustion [] Unable to work [] Unable to attend zoroastrianism [] Unable to walk/stand [] Unable to read [] Unable to drive [] Unable to eat/drink [] Unable to sleep [] Unable to be with family [] Patient intubated [] Other: Summary Time spent with patient 5 min
--- NOTE | 2024-10-20 11:25 | PC.NURSE ---
Patient discharged to [facility]. Instruction provided regarding new medications and dx processes.
[2024-10-20 11:27] VITALS: BP 160/95; PULSE 70; RESP 16; O2SAT 96
== END 2024-10-20 11:29 | disposition skilled nursing facility (03) | DRG 291 ==
LOC: ER 10-18 04:18 → ER IP 10-18 05:15 → CSU 10-18 06:32
PROVIDERS: Admitting Provider Internal Medicine; Emergency Provider Emergency Medicine; PCP Internal Medicine; Visit Provider Internal Medicine
DX: I11.0 Hypertensive heart disease with heart failure (principal); I50.33 Acute on chronic diastolic (congestive) heart failure; J96.22 Acute and chronic respiratory failure with hypercapnia; J96.21 Acute and chronic respiratory failure with hypoxia; J44.1 Chronic obstructive pulmonary disease with (acute) exacerbation; I48.0 Paroxysmal atrial fibrillation; R62.7 Adult failure to thrive; I25.10 Atherosclerotic heart disease of native coronary artery without angina pectoris; F10.10 Alcohol abuse, uncomplicated; Z79.01 Long term (current) use of anticoagulants; Z68.26 Body mass index [BMI] 26.0-26.9, adult; Z86.19 Personal history of other infectious and parasitic diseases; Z95.5 Presence of coronary angioplasty implant and graft; Z99.81 Dependence on supplemental oxygen; Z87.01 Personal history of pneumonia (recurrent); Z87.891 Personal history of nicotine dependence; Z91.199 Patient's noncompliance with other medical treatment and regimen due to unspecified reason
CPT/HCPCS: 36415; 36600; 71045; 80048; 80051; 80053; 80069; 81001; 82330; 82805; 83735; 83880; 84484; 85025; 93005; 94640; 94660; 96365; 96366; 96375; 96376; 97110; 97161; 97165; 97530; 99291; J1940; J2060; J3490

== ENCOUNTER 2024-12-08 12:50 | Emergency (ER) | payer MEDICARE, MEDICAID, SELFPAY ==
[2024-12-08 13:08] VITALS: BP 163/97; PULSE 55; RESP 18; TEMP 36.4; O2SAT 94; BMI 27.6
[2024-12-08 14:44] VITALS: BP 183/107; PULSE 57; RESP 16; O2SAT 95
[2024-12-08 15:08] VITALS: BP 153/99; PULSE 56; O2SAT 94
--- NOTE | 2024-12-08 15:11 | ED_ITS ---
HPI - General Adult 2 General: Chief complaint: General Medical Stated complaint: hypertension Time Seen by Provider: 12/08/24 15:01 Source: patient Mode of arrival: ambulatory Limitations: no limitations History of Present Illness: Patient is a 69-year-old male who presents to ED today from his [place] assisted after they checked his blood pressure this morning and it was shira high . He states that he reportedly checked vitals every morning and his blood pressure normally runs in the 150s-160s systolic. He states this morning it was 190s and everybody freaked out and sent him here. Patient is completely asymptomatic upon arrival apart from he is agitated that he is here and does not see why and he does not know how he is going to get back to [place]. Patient does have a history of hypertension. He states he has been compliant on all of his medications. After my examination with the patient, I had RN recheck his blood pressure and it is 153/99. Relieving factors: none Exacerbating factors: none Associated symptoms: Reports no associated symptoms; Deny chest pain, confusion, dyspnea, headache(s), nausea, palpitations, syncope or vomiting Treatments prior to arrival: none Related Data Home Medications ?Medication ?Instructions ?Recorded ?Confirmed atorvastatin 40 mg tablet 40 mg PO QPM 12/19/19 apixaban 5 mg tablet (Eliquis) 5 mg PO BID 01/24/24 metoprolol tartrate 37.5 mg tablet 37.5 mg PO QAM 05/02/1111/18/24 acetaminophen 500 mg tablet 500 mg PO QID PRN Pain 08/1511/18/24 (Tylenol Extra Strength) albuterol sulfate 90 mcg/actuation 2 puff inhalation Q 6H PRN 10/01/24 11/18/24 aerosol inhaler (Ventolin HFA) Shortness Of Breath Or Wheezing benazepril 40 mg tablet 40 mg PO DAILY 10/10/2410/23 omeprazole 20 mg capsule,delayed 20 mg PO DAILY 11/18/24 release Previous Rx's ?Medication ?Instructions ?Recorded amiodarone 200 mg tablet (Pacerone) 200 mg PO DAILY #9 0 tabs 06/27/24 pantoprazole 40 mg tablet,delayed 40 mg PO DAILY #14 t abs 10/04/24 release tiotropium bromide 1.25 2 inh inhalation DAILY #4 gr ams 10/04/24 mcg/actuation mist for inhalation furosemide 20 mg tablet (Lasix) 20 mg PO DAILY PRN dotty ma #30 tabs 10/20/24 Allergies Allergy/AdvReac Type Severity Reaction Status Date / Time No Known Allergies Allergy Verified 10/10/24 16:28 Review of Systems 2 Eyes: Denies: change in vision, blurry vision, floaters or seeing flashes Card: Denies: chest pain, palpitations, irregular heart rhythm, syncope or pre-syncope Resp: Denies: dyspnea GI: Denies: abdominal pain, nausea or vomiting Musc: Denies: neck pain or back pain Neuro: Denies: headache(s), difficulty walking, dizziness, confusion, behavioral changes, Slurred speech present or difficulty communicating thoughts PFSH ED 2 PFSH: Medical History Atrial fibrillation with rapid ventricular response Hypoxia Respiratory failure with hypoxia and hypercapnia Fall COPD (chronic obstructive pulmonary disease) Atrial fibrillation HTN (hypertension) Intermittent atrial fibrillation Atherosclerotic heart disease of [place] coronary artery with unstable angina pectoris Chest pain Atrial fibrillation with RVR Hypercapnic respiratory failure Alcohol abuse Acute non-ST elevation myocardial infarction (NSTEMI) Self extubation Atherosclerotic heart disease of [place] coronary artery without angina pectoris Fatigue EKG from today revealed sinus rhythm with features of LVH. ST-T changes in the high lateral leads. Occasional PVCs. No significant new changes. Smoker Quit in December 2023 Hyperlipidemia IHSS (idiopathic hypertrophic subaortic stenosis) CAD (coronary artery disease) Hepatitis C Surgical History S/P coronary artery stent placement S/P appendectomy Family History Mother CAD (coronary artery disease) Diabetes Sister Cancer Father Lung disease Other Hypertension Denies family history of Clotting disorder Dementia Chronic kidney disease (CKD) Suicide Anesthesia complication Bleeding disorder Stroke Social History Smoking and tobacco/nicotine status: former use of tobacco/nicotine Alcohol intake: current Substance/Drug Use: former Physical Exam 2 Const: COMMON NORMALS: no acute distress, average body habitus, patient oriented x3, no limitations, healthy appearing, alert and well nourished G ENERAL APPEARANCE: cooperative ORIENTATION/CONSCIOUSNESS: Yes awake, Yes oriented to person, Yes oriented to place and Yes oriented to time HENMT: COMMON NORMALS: normocephalic and atraumatic HEAD & SCALP: normal to inspection, normocephalic and atraumatic Eye: COMMON NORMALS: no scleral icterus Neck/C-Spine: COMMON NORMALS: full ROM, no lymphadenopathy, supple and no meningeal signs Chest: COMMONS NORMALS: normal inspection of the chest Resp: COMMON NORMALS: normal respiratory effort and clear to auscultation bilaterally AUSCULTATION: clear to auscultation bilaterally Cardio: COMMON NORMALS: regular rate and regular rhythm RATE: regular rate RHYTHM: regular rhythm GI: COMMON NORMALS: Normal to inspection, nondistended, normoactive bowel sounds present, Soft to palpation, non-tender, No hepatosplenomegaly present and no masses PALPATION: Yes Soft to palpation and Yes No hepatosplenomegaly present : COMMON NORMALS: Yes no CVA tenderness BLADDER/KIDNEY EXAM: Yes no CVA tenderness Back/Pelvis: COMMON NORMALS: no CVA tenderness and thoracic and lumbar spine normal to inspection Extremity: COMMON NORMALS: normal to inspection GENERAL: Yes normal exam except as noted Neuro: UMU COMA SCALE: document GCS findings Umu coma scale eye opening: Spontaneous Umu coma scale verbal response: Orientated Umu coma scale motor response: Obey commands Umu coma scale total score: 15 COMMON NORMALS: patient oriented x3, moves all extremities, no focal motor deficits, no sensory deficits noted and gait normal SENSORIUM/ORIENTATION: Yes alert, Yes oriented to person, Yes oriented to place and Yes oriented to time MENINGEAL SIGNS: Yes no meningeal signs Skin: COMMON NORMALS: no rashes or lesions noted GENERAL SKIN EXAM: no rashes or lesions noted Course 2 Vital Signs: Vital signs: Vital Signs Temperature 97.6 F 12/08/24 13:08 Pulse Rate 53 L 12/08/24 16:05 Respiratory Rate 16 12/08/24 16:05 Blood Pressure 130/81 12/08/24 16:05 Pulse Oximetry 93 12/08/24 16:05 Oxygen Delivery Me thod Room Air 12/08/24 16:05 [facility] - General Adult Medical Decision Making Patient has absolutely no physical complaints during my examination with him. Blood pressure has continued to trend down since he has been here without intervention. At time of re-evaluation/discharge his blood pressure is 130/81. At this point patient is stable from an emergency standpoint for discharge back to his assisted. Recommend he follow-up with the provider through their assisted to make any adjustments to his blood pressure medications. Medical Records I reviewed the patient's medical records. Lab Data I reviewed the patient's lab results. 12/08/24 15:56 12/08/24 15:56 Laboratory Results WBC 4.81 10^3/uL (3.29-11.43) 12/08/24 15:56 RBC 6.02 10^6/uL (3.85-5.65) H 12/08/24 15:56 Hgb 15.80 g/dL (11.27-16.99) 12/08/24 15:56 Hct 50.2 % (37-53) 12/08/24 15:56 MCV 83.4 fl (82-101) 12/08/24 15:56 MCH 26.2 pg (27-33) L 12/08/24 15:56 MCHC 31.5 g/dL (30-55) 12/08/24 15:56 RDW 14.9 % (12.1-15.1) 12/08/24 15:56 Plt Count 267 10^3/cmm (157-399) 12/08/24 15:56 MPV 9.2 fL (7.4-10.4) 12/08/24 15:56 Neut % (Auto) 40.5 % 12/08/24 15:56 Lymph % (Auto) 41.6 % 12/08/24 15:56 [place] % (Auto) 10.6 % 12/08/24 15:56 Eos % (Auto) 5.0 % 12/08/24 15:56 Baso % (Auto) 2.1 % 12/08/24 15:56 Neut # (Auto) 1.95 10^3/uL (1.8-7.7) 12/08/24 15:56 Lymph # (Auto) 2.0 10^3/uL (0.8-4.8) 12/08/24 15:56 [place] # (Auto) 0.5 10^3/uL (0.2-0.9) 12/08/24 15:56 Eos # (Auto) 0.2 10^3/uL (0.0-0.8) 12/08/24 15:56 Baso # (Auto) 0.1 10^3/uL (0.0-0.1) 12/08/24 15:56 Nucleated RBC % (auto) 0 % 12/08/24 15:56 Nucleated RBCs # 0.0 /100WBC 12/08/24 15:56 Sodium 140 mmol/L (136-145) 12/08/24 15:56 Potassium 4.1 mmol/L (3.5-5.1) 12/08/24 15:56 Chloride 99 mmol/L (98-107) 12/08/24 15:56 Carbon Dioxide 31 mmol/L (22-29) H 12/08/24 15:56 Anion Gap 14.1 (5-19) 12/08/24 15:56 BUN 15 mg/dL (8-23) 12/08/24 15:56 Creatinine 0.9 mg/dL (0.7-1.2) 12/08/24 15:56 GFR Calculation 84.2 mL/min (90-130) L 12/08/24 15:56 Glucose 129 mg/dL (65-115) H 12/08/24 15:56 Calculated Osmolality 293 mOsm/kg (285-295) 12/08/24 15:56 Calcium 9.9 mg/dL (8.5-10.5) 12/08/24 15:56 Total Bilirubin 1.0 mg/dL (0.15-1.2) 12/08/24 15:56 AST 24 U/L (0-40) 12/08/24 15:56 ALT 18 U/L (0-41) 12/08/24 15:56 Alkaline Phosphatase 96 U/L (40-130) 12/08/24 15:56 Total Protein 8.5 g/dL (6.6-8.7) 12/08/24 15:56 Albumin 4.8 g/dL (3.5-5.2) 12/08/24 15:56 Globulin 3.7 g/dL (1.3-4.6) 12/08/24 15:56 Urine Color Yellow (Yellow) 12/08/24 15:20 Urine Appearance Clear (CLEAR) 12/08/24 15:20 Urine pH 5.0 (5-7) 12/08/24 15:20 Ur Specific [place] 1.014 (1.005-1.030) 12/08/24 15:20 Urine Protein Negative (Negative) 12/08/24 15:20 Urine Glucose (UA) Negative (Normal) 12/08/24 15:20 Urine Ketones Negative (Negative) 12/08/24 15:20 Urine Blood Negative (Negative) 12/08/24 15:20 Urine Nitrate Negative (Negative) 12/08/24 15:20 Urine Bilirubin Negative (Negative) 12/08/24 15:20 Urine Urobilinogen 0.2 mg/dL (Negative) 12/08/24 15:20 Ur Leukocyte Esterase Negative (Negative) 12/08/24 15:20 Urine RBC 0-2 /hpf (0-2) 12/08/24 15:20 Urine WBC 0-5 /hpf (0-5) 12/08/24 15:20 Ur Squamous Epith Cells 0-5 /hpf (0-5) 12/08/24 15:20 Amorphous Sediment Not Reportable 12/08/24 15:20 Urine Bacteria None seen /hpf (NONE) 12/08/24 15:20 Hyaline Casts 1.65 /lpf 12/08/24 15:20 No radiology studies performed this visit Discharge Plan Discharge Patient Disposition: Home Clinical Impression: Elevated blood pressure reading Condition: Stable Prescriptions: No Action atorvastatin 40 mg tablet 40 mg PO QPM amiodarone [Pacerone] 200 mg Tablet 200 mg PO DAILY Qty: 90 0RF benazepril 40 mg tablet 40 mg PO DAILY omeprazole 20 mg capsule,delayed release(DR/EC) 20 mg PO DAILY Eliquis 5 mg tablet 5 mg PO BID metoprolol tartrate 37.5 mg tablet 37.5 mg PO QAM albuterol sulfate [Ventolin HFA] 90 mcg/actuation HFA aerosol inhaler 2 puff INHALATION Q6H PRN (Reason: Shortness Of Breath Or Wheezing) acetaminophen [Tylenol Extra Strength] 500 mg Tablet 500 mg PO QID PRN (Reason: Pain) pantoprazole 40 mg Tablet,Delayed Release (Dr/Ec) 40 mg PO DAILY Qty: 14 0RF tiotropium bromide 1.25 mcg/actuation mist 2 inh inhalation DAILY Qty: 4 0RF furosemide [Lasix] 20 mg tablet 20 mg PO DAILY PRN (Reason: edema) Qty: 30 0RF Discharge Orders: Discharge ED (Routine); Ordered 12/08/24 Ordered By: Anette Gutierrez Referrals: Ya Panchal MD [Primary Care Provider] - Activity Restrictions/Additional Instructions: Blood work here was unremarkable. Your blood pressure continued to trend downward without any form of intervention and at time of discharge is 130/81. There is nothing further that needs to be done from an emergency standpoint. Please follow-up with the provider through your [facility] for further recommendations on any changes to your hypertensive medication. Print Language: Portuguese Coding Level of Care Code ED Electrolysis Engineer for Yajaira Cooper
[2024-12-08 15:57] LABS: Bilirubin Urine Negative (Negative); Blood Urine Negative (Negative); Glucose Urine UA Negative (Normal); Ketones Urine Negative (Negative); Leukocyte Esterase Urine Negative (Negative); Nitrate Urine Negative (Negative); Protein Urine Negative (Negative); Specific Gravity, Urine 1.014 (1.005-1.030); Urine Appearance Clear (CLEAR); Urine Color Yellow (Yellow); Urobilinogen Urine 0.2 mg/dL (Negative)
[2024-12-08 16:02] LABS: Add Urine Microscopic? YES; Bacteria Urine None Seen /hpf; Hyaline Casts Urine 1.65 /lpf; RBC Urine 0-2 /hpf (0-2); Squamous Epithelial Cell Urine 0-5 /hpf (0-5); WBC Urine 0-5 /hpf (0-5)
[2024-12-08 16:05] VITALS: BP 130/81; PULSE 53; RESP 16; O2SAT 93
[2024-12-08 16:16] LABS: Basophils # 0.1 10^3/uL (0.0-0.1); Basophils % 2.1 %; Eosinophils # 0.2 10^3/uL (0.0-0.8); Hematocrit 50.2 % (37-53); Lymphocytes % 41.6 %; Mean Corpuscular HGB Conc 31.5 g/dL (30-55); Mean Corpuscular Hemoglobin 26.2 pg (27-33); Mean Corpuscular Volume 83.4 fl (82-101); Mean Platelet Volume 9.2 fL (7.4-10.4); Monocytes # 0.5 10^3/uL (0.2-0.9); Monocytes % 10.6 %; Neutrophils # 1.95 10^3/uL (1.8-7.7); Neutrophils % 40.5 %; Nucleated Red Blood Cells % 0 %; Platelet Count 267 10^3/cmm (157-399); Red Blood Count 6.02 10^6/uL (3.85-5.65); Red Cell Distribution Width 14.9 % (12.1-15.1); White Blood Count 4.81 10^3/uL (3.29-11.43)
[2024-12-08 16:24] LABS: Alanine Aminotransferase 18 U/L (0-41); Albumin Level 4.8 g/dL (3.5-5.2); Alkaline Phosphatase 96 U/L (40-130); Aspartate Amino Transferase 24 U/L (0-40); Blood Urea Nitrogen 15 mg/dL (8-23); Calcium 9.9 mg/dL (8.5-10.5); Carbon Dioxide 31 mmol/L (22-29); Chloride 99 mmol/L (98-107); Creatinine Clr Calc Pharmacy 67.7692; Globulin 3.7 g/dL (1.3-4.6); Glomerular Filtration Rate 84.2 mL/min (90-130); Glucose 129 mg/dL (65-115); Osmolality Calculated 293 mOsm/kg (285-295); Sodium 140 mmol/L (136-145); Total Protein 8.5 g/dL (6.6-8.7)
[2024-12-08 16:25] LABS: Anion Gap 14.1 (5-19); Potassium 4.1 mmol/L (3.5-5.1)
[2024-12-08 16:49] VITALS: BP 135/84; PULSE 56; O2SAT 94
== END 2024-12-08 17:17 | disposition home or self-care (01) ==
PROVIDERS: Emergency Provider Physician Assistant; PCP Internal Medicine
DX: R03.0 Elevated blood-pressure reading, without diagnosis of hypertension (principal); Z79.01 Long term (current) use of anticoagulants; Z87.891 Personal history of nicotine dependence; I25.10 Atherosclerotic heart disease of native coronary artery without angina pectoris; E78.5 Hyperlipidemia, unspecified; J44.9 Chronic obstructive pulmonary disease, unspecified; I10 Essential (primary) hypertension
CPT/HCPCS: 80053; 81001; 85025; 99283

== ENCOUNTER 2025-03-29 21:01 | Emergency (ER) | payer MEDICARE, MEDICAID, SELFPAY ==
[2025-03-29 21:02] VITALS: BP 229/121; PULSE 69; RESP 20; TEMP 36.6; O2SAT 94; BMI 25.4
--- NOTE | 2025-03-29 21:14 | ECG_ITS ---
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 Measurements Intervals [place] Rate: 65 P: -38 [place]: 169 QRS: 13 QRSD: 121 T: 104 QT: 448 QTc: 467 Interpretive Statements SINUS RHYTHM LEFT VENTRICULAR HYPERTROPHY AND ST-T CHANGE [VOLTAGE CRITERIA PLUS ST/T ABNORMALITY] ST-T changes consider ischemia in the anterolateral wall Compared to ECG 10/18/2024 02:50:58 Atrial flutter no longer present Ventricular premature complex(es) no longer present Aberrant conduction of supraventricular beat(s) no longer present ST (T wave) deviation still present Electronically Signed On 03-31-2025 15:27:47 CDT by Landy Ivy M.D. [email or web address]
--- NOTE | 2025-03-29 21:15 | XRR_ITS ---
PROCEDURE INFORMATION: Exam: XR Chest Exam date and time: 03/29/2025 9:21 PM Age: 69 years old Clinical indication: Shortness of breath; Additional info: SOB TECHNIQUE: Imaging protocol: Radiologic exam of the chest. Views: 1 view. COMPARISON: CR XR chest 1V portable [id number] 10/17/2024 8:06 PM FINDINGS: Lungs: Calcified pulmonary nodule/nodules, consistent with prior granulomatous disease. Pleural spaces: Unremarkable. No pleural effusion. No pneumothorax. Heart/Mediastinum: There is mild cardiomegaly. Vasculature: There is mild atherosclerotic disease. Bones/joints: Unremarkable. XR/XR chest 1V portable [id number] IMPRESSION: Mild cardiomegaly.
[2025-03-29 21:40] VITALS: PULSE 68; RESP 18; O2SAT 90
[2025-03-29 21:40] LABS: Hematocrit 45.4 % (37-53); Hemoglobin 14.50 g/dL (11.27-16.99); Mean Corpuscular HGB Conc 31.9 g/dL (30-55); Mean Corpuscular Hemoglobin 27.2 pg (27-33); Mean Corpuscular Volume 85.2 fl (82-101); Nucleated Red Blood Cells % 0 %; Platelet Count 268 10^3/cmm (157-399); Red Blood Count 5.33 10^6/uL (3.85-5.65); White Blood Count 7.48 10^3/uL (3.29-11.43)
[2025-03-29 21:46] VITALS: PULSE 67; RESP 18; O2SAT 96
[2025-03-29 22:00] VITALS: BP 172/96; PULSE 64; RESP 16; O2SAT 92
[2025-03-29 22:04] LABS: Alanine Aminotransferase 13 U/L (0-41); Albumin Level 4.1 g/dL (3.5-5.2); Alkaline Phosphatase 98 U/L (40-130); Anion Gap 15.2 (5-19); Aspartate Amino Transferase 19 U/L (0-40); Blood Urea Nitrogen 17 mg/dL (8-23); Calcium 9.3 mg/dL (8.5-10.5); Carbon Dioxide 31 mmol/L (22-29); Chloride 89 mmol/L (98-107); Creatinine Clr Calc Pharmacy 75.4189; Globulin 3.0 g/dL (1.3-4.6); Glucose 107 mg/dL (65-115); Magnesium 1.9 mg/dL (1.7-2.3); Osmolality Calculated 274 mOsm/kg (285-295); Potassium 4.2 mmol/L (3.5-5.1); Sodium 131 mmol/L (136-145); Total Protein 7.1 g/dL (6.6-8.7)
--- NOTE | 2025-03-29 22:21 | ED_ITS ---
HPI - SOB/Dyspnea 2 General: Chief Complaint: Shortness of Breath/Dyspnea Stated Complaint: RESP. DISTRESS Time Seen by Provider: 03/29/25 21:10 History of Present Illness: HPI Narrative: 69-year-old male brought in via EMS for shortness of breath and breathing difficulty. Patient has a history of COPD and reports that he is actually going to retirement tomorrow because of it. Patient reports that she has been getting more short of breath all day. Patient received breathing treatment and dexamethasone and route. Associated symptoms: Deny abdominal pain, chest pain, nausea, palpitations or vomiting Related Data Home Medications ?Medication ?Instructions ?Recorded ?Confirmed atorvastatin 40 mg tablet 40 mg PO QPM 12/19/19 apixaban 5 mg tablet (Eliquis) 5 mg PO BID 01/24/24 metoprolol tartrate 37.5 mg tablet 37.5 mg PO QAM 02/1101/13/25 acetaminophen 500 mg tablet 500 mg PO QID PRN Pain 08/1501/13/25 (Tylenol Extra Strength) albuterol sulfate 90 mcg/actuation 2 puff inhalation Q 6H PRN 10/01/24 01/13/25 aerosol inhaler (Ventolin HFA) Shortness Of Breath Or Wheezing benazepril 40 mg tablet 40 mg PO DAILY 10/10/2412/21 omeprazole 20 mg capsule,delayed 20 mg PO DAILY 01/13/25 release Previous Rx's ?Medication ?Instructions ?Recorded amiodarone 200 mg tablet (Pacerone) 200 mg PO DAILY #9 0 tabs 06/27/24 pantoprazole 40 mg tablet,delayed 40 mg PO DAILY #14 t abs 10/04/24 release tiotropium bromide 1.25 2 inh inhalation DAILY #4 gr ams 10/04/24 mcg/actuation mist for inhalation furosemide 20 mg tablet (Lasix) 20 mg PO DAILY PRN dotty ma #30 tabs 10/20/24 azithromycin 250 mg tablet See Rx Instructions PO .COM PLEX #6 03/29/25 tabs prednisone 20 mg tablet 40 mg (2 x 20 mg) PO DAILY 3 days 03/29/25 #6 tabs Allergies Allergy/AdvReac Type Severity Reaction Status Date / Time No Known Allergies Allergy Verified 10/10/24 16:28 Review of Systems 2 Card: Denies: chest pain or palpitations Resp: Reports: dyspnea, non-productive cough and wheezing GI: Denies: abdominal pain, nausea or vomiting PFSH ED 2 PFSH: Medical History Atrial fibrillation with rapid ventricular response Hypoxia Respiratory failure with hypoxia and hypercapnia Fall COPD (chronic obstructive pulmonary disease) Atrial fibrillation HTN (hypertension) Intermittent atrial fibrillation Atherosclerotic heart disease of [place] coronary artery with unstable angina pectoris Chest pain Atrial fibrillation with RVR Hypercapnic respiratory failure Alcohol abuse Acute non-ST elevation myocardial infarction (NSTEMI) Self extubation Atherosclerotic heart disease of [place] coronary artery without angina pectoris Fatigue EKG from today revealed sinus rhythm with features of LVH. ST-T changes in the high lateral leads. Occasional PVCs. No significant new changes. Smoker Quit in December 2023 Hyperlipidemia IHSS (idiopathic hypertrophic subaortic stenosis) CAD (coronary artery disease) Hepatitis C Surgical History S/P coronary artery stent placement S/P appendectomy Family History Mother CAD (coronary artery disease) Diabetes Sister Cancer Father Lung disease Other Hypertension Denies family history of Clotting disorder Dementia Chronic kidney disease (CKD) Suicide Anesthesia complication Bleeding disorder Stroke Social History Smoking and tobacco/nicotine status: current some day tobacco/nicotine user Alcohol intake: current Substance/Drug Use: former Physical Exam 2 Const: COMMON NORMALS: no acute distress, patient oriented x3 and alert Resp: EFFORT & INSPECTION: Yes able to speak in complete sentences and No respiratory distress AUSCULTATION: wheezes (Mild diffuse) Cardio: COMMON NORMALS: regular rate and regular rhythm RATE: regular rate RHYTHM: regular rhythm Neuro: COMMON NORMALS: patient oriented x3 SENSORIUM/ORIENTATION: Yes alert Psych: COMMON NORMALS: mental status grossly normal and cooperative Skin: COMMON NORMALS: no wounds and turgor normal GENERAL SKIN EXAM: turgor normal Course 2 Vital Signs: Vital signs: Vital Signs Temperature 97.9 F 03/29/25 21:02 Pulse Rate 69 03/29/25 22:40 Respiratory Rate 18 03/29/25 22:40 Blood Pressure 229/121 03/29/25 21:02 Pulse Oximetry 90 03/29/25 22:40 Oxygen Delivery Me thod Room Air 03/29/25 22:40 MDM - SOB/Dyspnea Medical Decision Making Patient's diagnostic studies were ordered and reviewed. He does have a slight decrease in his sodium but otherwise no significant acute findings. His chest x-ray shows some mild cardiomegaly. Patient symptoms improved with breathing treatments and he remained on room air throughout his whole stay here. Patient should follow-up with his primary care provider next week for recheck. I did treat him for a COPD exacerbation as that is most likely the cause of his wheezing and showing improvement with treatment. Patient was stable and discharged home Lab Data 03/29/25 21:34 03/29/25 21:34 Labs/Radiology: Radiology Impressions Chest X-Ray 03/29/25 21:15 IMPRESSION: Mild cardiomegaly. Laboratory Results WBC 7.48 10^3/uL (3.29-11.43) 03/29/25 21:34 RBC 5.33 10^6/uL (3.85-5.65) 03/29/25 21:34 Hgb 14.50 g/dL (11.27-16.99) 03/29/25 21:34 Hct 45.4 % (37-53) 03/29/25 21:34 MCV 85.2 fl (82-101) 03/29/25 21:34 MCH 27.2 pg (27-33) 03/29/25 21:34 MCHC 31.9 g/dL (30-55) 03/29/25 21:34 RDW 13.9 % (12.1-15.1) 03/29/25 21:34 Plt Count 268 10^3/cmm (157-399) 03/29/25 21:34 MPV 8.8 fL (7.4-10.4) 03/29/25 21:34 Neut % (Auto) 67.2 % 03/29/25 21:34 Lymph % (Auto) 21.1 % 03/29/25 21:34 [place] % (Auto) 8.7 % 03/29/25 21:34 Eos % (Auto) 1.9 % 03/29/25 21:34 Baso % (Auto) 0.8 % 03/29/25 21:34 Neut # (Auto) 5.03 10^3/uL (1.8-7.7) 03/29/25 21:34 Lymph # (Auto) 1.6 10^3/uL (0.8-4.8) 03/29/25 21:34 [place] # (Auto) 0.7 10^3/uL (0.2-0.9) 03/29/25 21:34 Eos # (Auto) 0.1 10^3/uL (0.0-0.8) 03/29/25 21:34 Baso # (Auto) 0.1 10^3/uL (0.0-0.1) 03/29/25 21:34 Nucleated RBC % (auto) 0 % 03/29/25 21:34 Nucleated RBCs # 0.0 /100WBC 03/29/25 21:34 Sodium 131 mmol/L (136-145) L 03/29/25 21:34 Potassium 4.2 mmol/L (3.5-5.1) 03/29/25 21:34 Chloride 89 mmol/L (98-107) L 03/29/25 21:34 Carbon Dioxide 31 mmol/L (22-29) H 03/29/25 21:34 Anion Gap 15.2 (5-19) 03/29/25 21:34 BUN 17 mg/dL (8-23) 03/29/25 21:34 Creatinine 0.9 mg/dL (0.7-1.2) 03/29/25 21:34 GFR Calculation 84.2 mL/min (90-130) L 03/29/25 21:34 Glucose 107 mg/dL (65-115) 03/29/25 21:34 Calculated Osmolality 274 mOsm/kg (285-295) L 03/29/25 21:34 Calcium 9.3 mg/dL (8.5-10.5) 03/29/25 21:34 Magnesium 1.9 mg/dL (1.7-2.3) 03/29/25 21:34 Total Bilirubin 0.9 mg/dL (0.15-1.2) 03/29/25 21:34 AST 19 U/L (0-40) 03/29/25:34 ALT 13 U/L (0-41) 03/29/25 21:34 Alkaline Phosphatase 98 U/L (40-130) 03/29/25 21:34 Total Protein 7.1 g/dL (6.6-8.7) 03/29/25 21:34 Albumin 4.1 g/dL (3.5-5.2) 03/29/25 21:34 Globulin 3.0 g/dL (1.3-4.6) 03/29/25 21:34 All radiology interpretation(s) finalized by discharge Discharge Plan Discharge Patient Disposition: Home Clinical Impression: Acute exacerbation of chronic obstructive airways disease Condition: Stable Prescriptions: New azithromycin 250 mg tablet See Rx Instructions .ROUTE .COMPLEX Qty: 6 0RF Rx Instructions: For 250 mg dose pack: take 500 mg today (day 1), then 250 mg for 4 days (days 2-5) prednisone 20 mg tablet 40 mg PO DAILY 3 Days Qty: 6 0RF No Action atorvastatin 40 mg tablet 40 mg PO QPM amiodarone [Pacerone] 200 mg Tablet 200 mg PO DAILY Qty: 90 0RF benazepril 40 mg tablet 40 mg PO DAILY omeprazole 20 mg capsule,delayed release(DR/EC) 20 mg PO DAILY Eliquis 5 mg tablet 5 mg PO BID metoprolol tartrate 37.5 mg tablet 37.5 mg PO QAM albuterol sulfate [Ventolin HFA] 90 mcg/actuation HFA aerosol inhaler 2 puff INHALATION Q6H PRN (Reason: Shortness Of Breath Or Wheezing) acetaminophen [Tylenol Extra Strength] 500 mg Tablet 500 mg PO QID PRN (Reason: Pain) pantoprazole 40 mg Tablet,Delayed Release (Dr/Ec) 40 mg PO DAILY Qty: 14 0RF tiotropium bromide 1.25 mcg/actuation mist 2 inh inhalation DAILY Qty: 4 0RF furosemide [Lasix] 20 mg tablet 20 mg PO DAILY PRN (Reason: edema) Qty: 30 0RF Discharge Orders: Discharge ED (Routine); Ordered 03/29/25 Ordered By: Kevin Prather Referrals: Ya Panchal MD [Primary Care Provider, Internal Medicine] Discharge Diet: Advance as tolerated Discharge Activity: Resume usual activity Patient Instructions: COPD (Chronic Obstructive Pulmonary Disease) (DC), Pulmonary Rehabilitation (DC), Nutrition Guidelines for People with COPD (ED), Opioid Safety, Pain Management, Patient Portal & Esther Instructions Activity Restrictions/Additional Instructions: Please follow-up with your primary care provider in a couple days for a recheck of your symptoms and further evaluation as needed Print Language: Georgian Coding Level of Care Code ED Executive Services Administrator for Yajaira Cooper
[2025-03-29 22:40] VITALS: PULSE 69; RESP 18; O2SAT 90
[2025-03-29 23:12] VITALS: BP 152/90; PULSE 64; RESP 20; O2SAT 93
== END 2025-03-29 23:13 | disposition home or self-care (01) ==
PROVIDERS: Emergency Provider Student in an Organized Health Care Education/Training Program; PCP Internal Medicine
DX: J44.1 Chronic obstructive pulmonary disease with (acute) exacerbation (principal); Z79.01 Long term (current) use of anticoagulants; Z72.0 Tobacco use; J44.9 Chronic obstructive pulmonary disease, unspecified; I25.118 Atherosclerotic heart disease of native coronary artery with other forms of angina pectoris; I10 Essential (primary) hypertension
CPT/HCPCS: 36415; 71045; 80053; 83735; 85025; 93005; 94640; 99285; J9999